=== PATIENT | female | born 1985 | race Caucasian/White ===

== ENCOUNTER 2021-01-25 07:02 | Inpatient (IN) | payer OTHER ==
[2021-01-25] MEDS ORDERED: Metoclopramide 10 MG/2 ML SDV IVPUSH ONE (07:29)
[2021-01-25] MEDS ORDERED: HYDROmorphone 0.5 MG/0.5 ML Syringe IVPUSH ONE ×5 (07:30→12:26)
[2021-01-25] MEDS ORDERED: Dextrose 5%-0.9% NaCl 1,000 ML IV SCH (07:30)
--- NOTE | 2021-01-25 07:34 | EDM.PDOC ---
ED HPI GENERAL MEDICAL PROBLEM - General Chief Complaint: Abdominal Pain Stated Complaint: VOMITING/BLOOD IN STOOL Time Seen by Provider: 01/25/21 07:26 Source of Information: Reports: Patient History Limitations: Reports: No Limitations - History of Present Illness INITIAL COMMENTS - FREE TEXT/NARRATIVE: 35-year-old female presents to the ED with complaints of diffuse abdominal pain starting with upper abdominal epigastric pain with nausea and vomiting of bilious emesis and then diffuse lower abdominal cramping pain with bloody diarrhea. She has been ill for the last 2 days. Yesterday she had 2 loose stools which were formed. Overnight cramping increased in intensity with development of bloody diarrhea she believes a lot of the stools just contain pure blood. Associated cramping and she did vomit just before coming into the ED again. Associated chills related to the pain no definitive fever. Of note her and her and children just came back from a camping trip in the [facility] in [place]. They were playing in the river water swimming etc. Drinking was from a well and has a charcoal filter on their camper where the well water was filtered before they drank it. One of the children is mildly symptomatic with abdominal cramps but no diarrhea. Onset: Gradual Onset Date: 01/23/21 (Started to feel little unwell in the evening of January 23.) Duration: Day(s):, Getting Worse, Waxing/Waning Location: Reports: Abdomen (Upper abdominal pain with nausea vomiting and then lower abdominal pain with diffuse cramping and bloody diarrhea) Quality: Reports: Ache, Sharp, Stabbing Severity: Moderate Improves with: Reports: None Worsens with: Reports: Eating (Or drinking.) Context: Reports: Other (Possible drinking contaminated water from [place] in the [facility]. ). Denies: Activity, Exercise, Lifting, Sick Contact, Trauma Associated Symptoms: Reports: Fever/Chills, Loss of Appetite, Malaise, Nausea/Vomiting, Weakness, Other (Bilious emesis bloody diarrhea.). Denies: Confusion, Chest Pain, Cough, cough w sputum, Diaphoresis, Headaches, Rash (Chills but no fever.), Seizure, Shortness of Breath, Syncope Treatments ROUGHENER: Reports: Other (see below) Abdomen Pain Score (Numeric/FACES): 8 - Related Data Allergies Allergy/AdvReac Type Severity Reaction Status Date / Time amoxicillin Allergy Mild Hives Verified 01/25/21 14:19 Home Meds: Home Meds . 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 Right fallopian tube was removed at that time.) Social & Family History - Family History Family Medical History: No Pertinent Family History - Tobacco Use Tobacco Use Status *Q: Never Tobacco User - Caffeine Use Caffeine Use: Reports: Coffee - Recreational Drug Use Recreational Drug Use: No - Living Situation & Occupation Living situation: Reports: ED ROS GENERAL - Review of Systems Review Of Systems: See Below Constitutional: Reports: Chills, Malaise, Weakness, Fatigue, Decreased Appetite. Denies: Fever HEENT: Reports: No Symptoms Respiratory: Reports: No Symptoms Cardiovascular: Reports: No Symptoms Endocrine: Reports: No Symptoms GI/Abdominal: Reports: Abdominal Pain (Diffuse lower abdominal cramping pain.), Diarrhea, Nausea (Bloody diarrhea.), Vomiting (Bilious emesis without blood). Denies: Hematemesis : Reports: No Symptoms Musculoskeletal: Reports: No Symptoms Skin: Reports: No Symptoms Neurological: Reports: No Symptoms Psychiatric: Reports: No Symptoms Hematologic/Lymphatic: Reports: No Symptoms Immunologic: Reports: No Symptoms ED EXAM, GI/ABD - Physical Exam Exam: See Below Exam Limited By: No Limitations General Appearance: Alert, WD/WN, Moderate Distress, Other (Temperature is 36.3. Heart rate 83 and sinus respiratory is 20 with pulse ox of 100 room air. BP 107/71) Eyes: Bilateral: Normal Appearance (Nose clear icterus no blepharal pallor.) Throat/Mouth: Normal Inspection, Normal Lips, Normal Oropharynx, Other Head: Atraumatic (Tongue is mildly dry and coated.), Normocephalic Neck: Normal Inspection, Supple, Non-Tender, Full Range of Motion. No: Lymphadenopathy (L), Lymphadenopathy (R) Respiratory/Chest: No Respiratory Distress, Lungs Clear, Normal Breath Sounds, No Accessory Muscle Use, Chest Non-Tender Cardiovascular: Normal Peripheral Pulses, Regular Rate, Rhythm, No Edema, No Gallop, No Murmur, No Rub GI/Abdominal Exam: Soft, Tender, Abnormal Bowel Sounds (Increased bowel sounds all 4 quadrants.). No: Guarding (Mild tenderness left lower quadrant and suprapubically.), Rigid, Rebound Back Exam: Normal Inspection. No: CVA Tenderness (L), CVA Tenderness (R) Extremities: Normal Inspection, Normal Range of Motion, Non-Tender, No Pedal Edema Neurological: Alert, Oriented, CN II-XII Intact, Normal Cognition, No Motor/Sensory Deficits Psychiatric: Anxious, Other (In a good deal of discomfort.) Skin Exam: Warm, Dry, Intact, Normal Color, No Rash Course - Vital Signs Last Recorded V/S: Last Vital Signs Temp 36.4 C 01/25/21 17:01 Pulse 80 01/25/21 17:01 Resp 18 01/25/21 18:40 BP 103/78 01/25/21 18:40 Pulse Ox 95 01/25/21 17:01 - Orders/Labs/Meds Orders: Active Orders 24 hr Category Date Time Status FECAL LACTOFERRIN [MREF] Stat Lab 01/25/21 08:30 Received OVA & PARASITES BY IMMUNOASSAY [MREF] Stat Lab 01/25/21 08:30 Received STOOL CULTURE/SHIGA TOXIN [MREF] Stat Lab 01/25/21 08:30 Received Dextrose 5%-Lactated Ringers 1,000 ml Med 01/25/21 10:30 Active IV ASDIRECTED Medication Orders Acetaminophen (Acetaminophen 325 Mg Tab) 650 mg PO Q4H PRN PRN Reason: Pain (Mild 1-3)/fever Hydromorphone HCl (Hydromorphone 1 Mg/Ml Syringe) 1 mg IVPUSH Q1H PRN PRN Reason: Pain (severe 7-10) Last Admin: 01/25/21 18:42 Dose: 1 mg Documented by: Admin: 01/25/21 16:46 Dose: 1 mg Documented by: KAILA Dextrose/Lactated Ringer's (Dextrose 5%-Lactated Ringers) 1,000 mls @ 125 mls/hr IV ASDIRECTED [facility] Last Admin: 01/25/21 10:33 Dose: 125 mls/hr Documented by: FRANK Piperacillin Sod/Tazobactam (Sod 4.5 gm/ Sodium Chloride) 100 mls @ 25 mls/hr IV Q8H [facility] Miscellaneous Information (Remove Replace Scopolamine Patch) 1 ea TRDERM Q72H [facility] Ondansetron HCl (Ondansetron 4 Mg/2 Ml Sdv) 4 mg IV Q6H PRN PRN Reason: Nausea/Vomiting Oxycodone HCl (Oxycodone 5 Mg Tab) 5 mg PO Q4H PRN PRN Reason: Pain (moderate 4-6) Last Admin: 01/25/21 15:48 Dose: 5 mg Documented by: ALAN Scopolamine (Scopolamine 1.5 Mg Transdermal Patch) 1.5 mg TRDERM Q72H [facility] Last Admin: 01/25/21 15:44 Dose: 1.5 mg Documented by: ALAN Labs: Laboratory Tests 01/25/21 01/25/21 01/25/21 Range/Units 07:15 07:15 07:15 WBC 13.12 H (3.98-10.04) K/mm3 RBC 4.18 (3.98-5.22) M/mm3 Hgb 13.6 (11.2-15.7) gm/dl Hct 40.3 (34.1-44.9) % MCV 96.4 H (79.4-94.8) fl MCH 32.5 H (25.6-32.2) pg MCHC 33.7 (32.2-35.5) g/dl RDW Std Deviation 46.6 H (36.4-46.3) fL Plt Count 274 (182-369) K/mm3 MPV 11.6 (9.4-12.3) fl Neut % (Auto) 83.7 H (34.0-71.1) % Lymph % (Auto) 8.5 L (19.3-51.7) % [place] % (Auto) 7.0 (4.7-12.5) % Eos % (Auto) 0.3 L (0.7-5.8) Baso % (Auto) 0.2 (0.1-1.2) % Neut # (Auto) 10.98 H (1.56-6.13) K/mm3 Lymph # (Auto) 1.12 L (1.18-3.74) K/mm3 [place] # (Auto) 0.92 H (0.24-0.36) K/mm3 Eos # (Auto) 0.04 (0.04-0.36) K/mm3 Baso # (Auto) 0.02 (0.01-0.08) K/mm3 Manual Slide Review Abnormal smear PT 10.1 (9.7-12.0) SECONDS INR 0.94 APTT 26.3 (21.7-31.4) SECONDS Sodium 138 (136-145) mEq/L Potassium 3.3 L (3.5-5.1) mEq/L Chloride 102 (98-107) mEq/L Carbon Dioxide 23 (21-32) mEq/L Anion Gap 16.3 H (5-15) BUN 7 (7-18) mg/dL Creatinine 0.7 (0.55-1.02) mg/dL Est Cr Clr Drug Dosing 112.69 mL/min Estimated GFR (MDRD) > 60 (>60) mL/min BUN/Creatinine Ratio 10.0 L (14-18) Glucose 123 H (70-99) mg/dL Calcium 9.2 (8.5-10.1) mg/dL Magnesium (1.8-2.4) mg/dL Total Bilirubin 0.3 (0.2-1.0) mg/dL AST 16 (15-37) U/L ALT 25 (14-59) U/L Alkaline Phosphatase 51 (46-116) U/L C-Reactive Protein 8.7 H* (<1.0) mg/dL Total Protein 7.6 (6.4-8.2) g/dl Albumin 3.3 L (3.4-5.0) g/dl Globulin 4.3 gm/dL Albumin/Globulin Ratio 0.8 L (1-2) Lipase 60 L (73-393) U/L HCG, Qual (NEGATIVE) HCG, Quant mIU/mL C.difficile [id number]-[id number] C. difficile Tox (PCR) SARS-CoV-2 RNA (KIM) (NEGATIVE) 01/25/21 01/25/21 01/25/21 Range/Units 07:15 07:15 07:15 WBC (3.98-10.04) K/mm3 RBC (3.98-5.22) M/mm3 Hgb (11.2-15.7) gm/dl Hct (34.1-44.9) % MCV (79.4-94.8) fl MCH (25.6-32.2) pg MCHC (32.2-35.5) g/dl RDW Std Deviation (36.4-46.3) fL Plt Count (182-369) K/mm3 MPV (9.4-12.3) fl Neut % (Auto) (34.0-71.1) % Lymph % (Auto) (19.3-51.7) % [place] % (Auto) (4.7-12.5) % Eos % (Auto) (0.7-5.8) Baso % (Auto) (0.1-1.2) % Neut # (Auto) (1.56-6.13) K/mm3 Lymph # (Auto) (1.18-3.74) K/mm3 [place] # (Auto) (0.24-0.36) K/mm3 Eos # (Auto) (0.04-0.36) K/mm3 Baso # (Auto) (0.01-0.08) K/mm3 Manual Slide Review PT (9.7-12.0) SECONDS INR APTT (21.7-31.4) SECONDS Sodium (136-145) mEq/L Potassium (3.5-5.1) mEq/L Chloride (98-107) mEq/L Carbon Dioxide (21-32) mEq/L Anion Gap (5-15) BUN (7-18) mg/dL Creatinine (0.55-1.02) mg/dL Est Cr Clr Drug Dosing mL/min Estimated GFR (MDRD) (>60) mL/min BUN/Creatinine Ratio (14-18) Glucose (70-99) mg/dL Calcium (8.5-10.1) mg/dL Magnesium 1.8 (1.8-2.4) mg/dL Total Bilirubin (0.2-1.0) mg/dL AST (15-37) U/L ALT (14-59) U/L Alkaline Phosphatase (46-116) U/L C-Reactive Protein (<1.0) mg/dL Total Protein (6.4-8.2) g/dl Albumin (3.4-5.0) g/dl Globulin gm/dL Albumin/Globulin Ratio (1-2) Lipase (73-393) U/L HCG, Qual Positive H (NEGATIVE) HCG, Quant 6881.0 mIU/mL C.difficile [id number]-[id number] C. difficile Tox (PCR) SARS-CoV-2 RNA (KIM) (NEGATIVE) 01/25/21 01/25/21 Range/Units 08:30 09:30 WBC (3.98-10.04) K/mm3 RBC (3.98-5.22) M/mm3 Hgb (11.2-15.7) gm/dl Hct (34.1-44.9) % MCV (79.4-94.8) fl MCH (25.6-32.2) pg MCHC (32.2-35.5) g/dl RDW Std Deviation (36.4-46.3) fL Plt Count (182-369) K/mm3 MPV (9.4-12.3) fl Neut % (Auto) (34.0-71.1) % Lymph % (Auto) (19.3-51.7) % [place] % (Auto) (4.7-12.5) % Eos % (Auto) (0.7-5.8) Baso % (Auto) (0.1-1.2) % Neut # (Auto) (1.56-6.13) K/mm3 Lymph # (Auto) (1.18-3.74) K/mm3 [place] # (Auto) (0.24-0.36) K/mm3 Eos # (Auto) (0.04-0.36) K/mm3 Baso # (Auto) (0.01-0.08) K/mm3 Manual Slide Review PT (9.7-12.0) SECONDS INR APTT (21.7-31.4) SECONDS Sodium (136-145) mEq/L Potassium (3.5-5.1) mEq/L Chloride (98-107) mEq/L Carbon Dioxide (21-32) mEq/L Anion Gap (5-15) BUN (7-18) mg/dL Creatinine (0.55-1.02) mg/dL Est Cr Clr Drug Dosing mL/min Estimated GFR (MDRD) (>60) mL/min BUN/Creatinine Ratio (14-18) Glucose (70-99) mg/dL Calcium (8.5-10.1) mg/dL Magnesium (1.8-2.4) mg/dL Total Bilirubin (0.2-1.0) mg/dL AST (15-37) U/L ALT (14-59) U/L Alkaline Phosphatase (46-116) U/L C-Reactive Protein (<1.0) mg/dL Total Protein (6.4-8.2) g/dl Albumin (3.4-5.0) g/dl Globulin gm/dL Albumin/Globulin Ratio (1-2) Lipase (73-393) U/L HCG, Qual (NEGATIVE) HCG, Quant mIU/mL C.difficile [id number] Presumptive negative C. difficile Tox (PCR) Negative SARS-CoV-2 RNA (KIM) Negative (NEGATIVE) Meds: Medications Generic Name Dose Route Start Last Admin Trade Name Freq PRN Reason Stop Dose Admin Acetaminophen 650 mg 01/25/21 12:54 Acetaminophen 325 Mg Tab PO Q4H PRN Pain (Mild 1-3)/fever Hydromorphone HCl 1 mg 01/25/21 16:34 01/25/21 18:42 Hydromorphone 1 Mg/Ml Syringe IVPUSH 1 mg Q1H PRN Administration Pain (severe 7-10) Dextrose/Lactated Ringer's 1,000 mls @ 125 mls/hr 01/25/21 10:30 01/25/21 10:33 Dextrose 5%-Lactated Ringers IV 125 mls/hr ASDIRECTED ELIANA Administration Piperacillin Sod/Tazobactam 100 mls @ 25 mls/hr 01/25/21 21:00 Sod 4.5 gm/ Sodium Chloride IV Q8H [facility] Miscellaneous Information 1 ea 01/28/21 13:00 Remove Replace Scopolamine Patch TRDERM Q72H [facility] Ondansetron HCl 4 mg 01/25/21 12:54 Ondansetron 4 Mg/2 Ml Sdv IV Q6H PRN Nausea/Vomiting Oxycodone HCl 5 mg 01/25/21 15:34 01/25/21 15:48 Oxycodone 5 Mg Tab PO 5 mg Q4H PRN Administration Pain (moderate 4-6) Scopolamine 1.5 mg 01/25/21 13:00 01/25/21 15:44 Scopolamine 1.5 Mg Transdermal Patch TRDERM 1.5 mg Q72H ELIANA Administration Discontinued Medications Generic Name Dose Route Start Last Admin Trade Name Freq PRN Reason Stop Dose Admin Hydromorphone HCl 0.5 mg 01/25/21 07:30 01/25/21 07:41 Hydromorphone 0.5 Mg/0.5 Ml Syringe IVPUSH 01/25/21 07:31 0.5 mg ONETIME ONE Administration Hydromorphone HCl 0.5 mg 01/25/21 08:31 01/25/21 08:30 Hydromorphone 0.5 Mg/0.5 Ml Syringe IVPUSH 01/25/21 08:32 0.5 mg ONETIME ONE Administration Hydromorphone HCl 0.5 mg 01/25/21 09:27 01/25/21 09:30 Hydromorphone 0.5 Mg/0.5 Ml Syringe IVPUSH 01/25/21 09:28 0.5 mg ONETIME ONE Administration Hydromorphone HCl 0.5 mg 01/25/21 10:21 01/25/21 10:30 Hydromorphone 0.5 Mg/0.5 Ml Syringe IVPUSH 01/25/21 10:22 0.5 mg ONETIME ONE Administration Hydromorphone HCl 0.5 mg 01/25/21 12:26 01/25/21 12:33 Hydromorphone 0.5 Mg/0.5 Ml Syringe IVPUSH 01/25/21 12:27 0.5 mg ONETIME ONE Administration Hydromorphone HCl 0.5 mg 01/25/21 12:54 01/25/21 13:52 Hydromorphone 0.5 Mg/0.5 Ml Syringe IVPUSH 0.5 mg Q2H PRN Administration Pain (severe 7-10) Hydromorphone HCl 1 mg 01/25/21 15:34 Hydromorphone 1 Mg/Ml Syringe IVPUSH Q2H PRN Pain (severe 7-10) Dextrose/Sodium Chloride 1,000 mls @ 999 mls/hr 01/25/21 07:30 01/25/21 07:43 Dextrose 5%-Normal Saline IV 999 mls/hr ASDIRECTED ELIANA Administration Metronidazole 500 mg/ Premix 100 mls @ 100 mls/hr 01/25/21 08:25 01/25/21 08:42 IV 01/25/21 09:24 Not Given ONETIME ONE Azithromycin 500 mg/ Sodium 250 mls @ 250 mls/hr 01/25/21 09:28 01/25/21 09:41 Chloride IV 01/25/21 10:27 250 mls/hr ONETIME ONE Administration Piperacillin Sod/Tazobactam 100 mls @ 200 mls/hr 01/25/21 13:00 01/25/21 13:55 Sod 4.5 gm/ Sodium Chloride IV 01/25/21 13:29 200 mls/hr ONETIME ONE Administration Magnesium Sulfate 2 gm/ Premix 50 mls @ 25 mls/hr 01/25/21 13:30 01/25/21 14:31 IV 01/25/21 15:29 25 mls/hr ONETIME ONE Administration Potassium Chloride 10 meq/ 100 mls @ 100 mls/hr 01/25/21 13:30 01/25/21 18:38 Premix IV 01/25/21 17:29 100 mls/hr Q1H ELIANA Administration Loperamide HCl 2 mg 01/25/21 12:26 01/25/21 12:31 Loperamide 2 Mg Cap PO 01/25/21 12:27 2 mg ONETIME ONE Administration Metoclopramide HCl 7.5 mg 01/25/21 07:29 01/25/21 07:39 Metoclopramide 10 Mg/2 Ml Sdv IVPUSH 01/25/21 07:30 7.5 mg ONETIME ONE Administration Oxycodone HCl 10 mg 01/25/21 12:54 Oxycodone 5 Mg Tab PO Q4H PRN Pain (moderate 4-6) - Radiology Interpretation Free Text/Narrative:: 35-year-old female presents to the ED for evaluation of gradual gastrointestinal symptoms with nausea and vomiting starting yesterday and nausea and the night before. Had 2 diarrhea stools yesterday without blood. Overnight developed increased diffuse cramping pain with yas blood diarrhea x4. Of note is her and her and children where camping in the [facility] in [place]. Swimming in the river water drinking well water and bottled water. Clinically she has developed dysentery of either bacterial or parasitic source. 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 Stool to be collected for culture and sensitivity and O&P. Routine labs to be collected. IV will be D5 normal saline at open. Given Reglan 7.5 mg IV for nausea relief and Dilaudid 0.5 mg for pain relief. - Re-Assessments/Exams Free Text/Narrative Re-Assessment/Exam: 01/25/21 08:30 White count is mildly elevated at 13.12 with 83.7% neutrophils. Hemoglobin is 13.6 with hematocrit of 40.3 and an MCV of 96.4. Platelet count is 274,000. PT is 10.1 with an INR of 0.94. PTT is 26.3. Sodium is 138 with potassium slightly low at 3.3. Chloride 102 with a bicarb of 23. Anion gap is 16.3. BUN is 7 with a creatinine of 0.7 and GFR greater than 60. Glucose is 123. Calcium is 9.2. Liver function is normal. C-reactive protein is elevated at 8.7 suggestive of underlying bacterial infection. Total protein is 7.6 with an albumin fraction of 3.3. Lipase is 60. Beta hCG is positive. This of course changes how we treat her. Flagyl is relatively contraindicated in the first semester as are quinolones. Patient is still having a good deal of lower abdominal cramping pain with bloody diarrhea small quantity. Constant feeling of need to defecate. Identification of with last known menstrual period reported to be around late November or early December. Patient is thus likely in very early stages of but had an ectopic in May last year. Will give second dose of Dilaudid 0.5 mg IV for pain relief. 01/25/21 09:28 patient made aware of diagnosis of . Quantitative hCG is pending. I reexamined her abdomen and it still feels benign with no signs of acute peritoneal irritation. She is still having significant suprapubic and right-sided abdominal pain. She has constant pressure in the rectum and some tenesmus. It appears safe to start her on azithromycin 500 mg IV every 12 hours till we gain control of dysentery. She will require admission to the hospital and will discuss her case with the hospitalist. 01/25/21 10:27 We have collected 2 samples of stool for ova and parasites and culture. These are send out tests at this time. Patient continues to have reportedly severe lower abdominal pain. Clinically has a benign abdomen on examination with no signs of surgical abdomen. However with the discovery of and history of ectopic in May 2020 I will proceed with transvaginal ultrasound of the pelvis to make sure there are no obvious signs of an ectopic . Patient currently rates her pain as 6 out of 10 after 1.5 mg of Dilaudid over the last 3 hours. We will repeat Dilaudid 0.5 mg at this time. Mild nausea. 01/25/21 11:01 Quantitative hCG is 6881 which would correlate with a 4-week . 01/25/21 11:47 transvaginal ultrasound completed. It reveals a single intrauterine gestational sac. There appears to be a small pole being seen. Small subchorionic hemorrhage is noted. Free fluid is noted within the pelvis which is mild in amount. Right ovary is unremarkable. Left ovary shows a small corpus luteum cyst measuring 2.7 cm. is dated at 5 weeks and 4 days. Fetus is too early in age to detect a heart rate. Patient and her were advised of the findings of the ultrasound. Patient currently is having very occasional twinges of sharp stabbing pain in the pelvis but finally pain control seems to have met with some degree of success. The Dilaudid likely has also slowed down colon motility and lessened her diarrhea. 01/25/21 12:02 Case discussed with on-call hospitalist and the patient will be admitted to the med surgery floor as an inpatient until he gain control of suspect bacterial infection causing her dysentery. Less likely would be parasitic infection with Giardia lamblia. 1 stool specimens have been collected for culture and 1 for O&P. 01/25/21 12:28 she is once again having lower abdominal pain. Will repeat Dilaudid 0.5 mg IV. We will also start her on loperamide 2 mg p.o. 01/25/21 13:40: Patient will be admitted shortly to med surgery floor. Departure - Departure Time of Disposition: 13:40 Disposition: Admitted As Inpatient 66 Condition: Fair Clinical Impression: Dysentery, Bacterial enteritis, unspecified, First trimester Abdominal pain Qualifiers: Abdominal location: lower abdomen, unspecified Qualified Code(s): R10.30 - Lower abdominal pain, unspecified - Discharge Information *PRESCRIPTION DRUG MONITORING PROGRAM REVIEWED*: Not Applicable *COPY OF PRESCRIPTION DRUG MONITORING REPORT IN PATIENT JU: Not Applicable Sepsis Event Note (ED) - Evaluation Sepsis Screening Result: No Definite Risk - My Orders Last 24 Hours: My Active Orders 01/25/21 08:30 FECAL LACTOFERRIN [MREF] Stat OVA & PARASITES BY IMMUNOASSAY [MREF] Stat STOOL CULTURE/SHIGA TOXIN [MREF] Stat 01/25/21 10:30 Dextrose 5%-Lactated Ringers 1,000 ml IV ASDIRECTED - Assessment/Plan Last 24 Hours: My Active Orders 01/25/21 08:30 FECAL LACTOFERRIN [MREF] Stat OVA & PARASITES BY IMMUNOASSAY [MREF] Stat STOOL CULTURE/SHIGA TOXIN [MREF] Stat 01/25/21 10:30 Dextrose 5%-Lactated Ringers 1,000 ml IV ASDIRECTED
[2021-01-25] MEDS ORDERED: metroNIDAZOLE/Normal Saline 500 MG in Premix Bag 1 BAG IV ONE (08:25)
[2021-01-25] MEDS ORDERED: Azithromycin 500 MG in Sodium Chloride 0.9% 250 ML IV ONE (09:28)
[2021-01-25] MEDS: Dextrose 5%-Lactated Ringers 1,000 ML IV SCH (10:33)
--- NOTE | 2021-01-25 11:40 | US ---
First trimester obstetrical ultrasound: Multiple real-time images were obtained transvaginally. Comparison: No previous study for current . Dates: Current ultrasound: DUARTE is 09/23/21, gestational age 5 weeks 4 days Single intrauterine gestational sac is seen. There appears to be a small pole being seen. Small subchorionic hemorrhage is noted. Free fluid is noted within the pelvis which is mild in amount. Right ovary is unremarkable. Left ovary shows a small corpus luteum cyst measuring up to 2.7 cm. Measurements: Mean sac diameter: 0.86 cm - 5 weeks 4 days [place]-rump length: 0.10 cm - out of range Heart rate: Fetus is too early in age to detect heart rate. Impression: 1. Single intrauterine gestation. Dates as noted above. 2. Small subchorionic hemorrhage. Mild free fluid is seen within the pelvis. 3. Other findings as noted above. Diagnostic code #3
[2021-01-25] MEDS ORDERED: Loperamide 2 MG Cap PO ONE (12:26)
--- NOTE | 2021-01-25 12:53 | PCM.HP.2 ---
<John Pruett - Last Filed: 01/25/21 13:50> H&P History of Present Illness - General Date of Service: 01/25/21 Admit Problem/Dx: Admission Diagnosis/Problem Admission Diagnosis/Problem Dysentery Source of Information: Patient, Old Records, Provider, RN, RN Notes Reviewed, Significant Other History Limitations: Reports: No Limitations - History of Present Illness Initial Comments - Free Text/Narative: This is a 35-year-old female who presents to ED on 01-25-2021 with diffuse abdominal pain, nausea, bilious emesis, and bloody diarrhea. She reports she has been ill for the past 2 days. She reports she started having watery diarrhea and mild abdominal pain which worsened and became cramping in nature. Her stool eventually became pure blood. She reports she has been nauseous and essentially dry heaving at this point. Reports chills but no known fever. Patient states they were at a family reunion in the [facility] [place]. She states family was playing in the local river. Their camper was hooked up to a well in the campground with a charcoal filter installed. She reports there were potluck meals but no known questionable food. She reports a child with mild but similar symptoms and her [id number] who is developing similar symptoms currently. In the ED temperature was 36.3 Celsius. Pulse 83. Respirations 20. Blood pressure 107/71. Pulse ox 100% on room air. Labs are obtained showing a leukocytosis of 13.12. Hemoglobin of 13.6. Hematocrit 40.3. Platelet 274,000. Neutrophils are elevated 83.7%. INR is 0.94. aPTT is 26.3. Sodium is 138. Potassium 3.3. Chloride 102. Carbon dioxide 23. Anion gap is 16.3. BUN is 7. Creatinine 0.7. GFR greater than 60. Glucose 123. Calcium 9.2. Bilirubin 0.3. AST 16, ALT 25, alkaline phosphatase 51. CRP is 8.7. Albumin 3.3. Lipase is 60. hCG qualitative is positive. hCG quantitative is 6881, consistent with 5-week gestation. SARS-CoV-2 RNA is negative. Stool ova and parasite, stool culture/Shiga toxin, and stool fecal lactoferrin are collected. Obstetrics ultrasound is obtained showing a small intrauterine gestation with a mean sac diameter of 0.86-5 weeks and 4 days. There is also a small subchorionic hemorrhage with mild free fluid seen within the pelvis. Other findings are noted. She is given azithromycin 500 mg, Zofran, Reglan and IV push Dilaudid for pain. She is given a 1 L D5LR bolus and started on D5 LR maintenance fluids. She is subsequently admitted to the medical floor for management and further work-up of her diarrhea and vomiting. She carries a history of ectopic in May 2020 with right salping ectomy and uterine fibroids. She is a full code. She does not have a PCP. Abdomen Pain Score (Numeric/FACES): 8 - Related Data Allergies/Adverse Reactions: Allergies Allergy/AdvReac Type Severity Reaction Status Date / Time amoxicillin Allergy Mild Hives Verified 01/25/21 14:19 Home Medications: Home Meds . [No Known Home Meds] 01/25/21 [History] Past Medical History HEENT History: Reports: None, Impaired Vision Cardiovascular History: Reports: None Respiratory History: Reports: None Gastrointestinal History: Reports: None Genitourinary History: Reports: None MANUFACTURING APPLICATIONS ENGINEER History: Reports: Ectopic Other OB/BYN History: polyps removed from uterus Musculoskeletal History: Reports: None Neurological History: Reports: None Psychiatric History: Reports: None Endocrine/Metabolic History: Reports: None Hematologic History: Reports: None Immunologic History: Reports: None Oncologic (Cancer) History: Reports: None Dermatologic History: Reports: None - Infectious Disease History Infectious Disease History: Reports: Chicken Pox - Past Surgical History Female Surgical History: Reports: Other (See Below) (Ectopic in May 2020. Right fallopian tube was removed at that time.) Social & Family History - Family History Family Medical History: No Pertinent Family History - Tobacco Use Tobacco Use Status *Q: Never Tobacco User - Caffeine Use Caffeine Use: Reports: Coffee - Recreational Drug Use Recreational Drug Use: No - Living Situation & Occupation Living situation: Reports: H&P Review of Systems - Review of Systems: Review Of Systems: See Below General: Reports: Chills, Malaise, Weakness, Fatigue, Decreased Appetite. Denies: Fever HEENT: Reports: No Symptoms. Denies: Contact Lenses, Headaches, Sore Throat Pulmonary: Reports: No Symptoms. Denies: Shortness of Breath, Wheezing, Pleuritic Chest Pain, Cough, Sputum Cardiovascular: Reports: No Symptoms. Denies: Chest Pain, Palpitations, Dyspnea on Exertion, Edema, Lightheadedness Gastrointestinal: Reports: Abdominal Pain (LLQ and suprapubic>RLQ>upper quadrants ), Bloody Stool, Diarrhea, Decreased Appetite, Mucous in Stool, Nausea, Vomiting (Bilious although has been dry heaving mostly now). Denies: Black Stool, Constipation, Distension, Hematemesis Genitourinary: Reports: No Symptoms. Denies: Dysuria, Frequency, Burning, Urgency, Incontinence, Retention Musculoskeletal: Reports: No Symptoms Skin: Reports: No Symptoms. Denies: Cyanosis Psychiatric: Reports: No Symptoms. Denies: Confusion Neurological: Reports: Weakness. Denies: Confusion, Dizziness, Headache, Numbness, Pre-Existing Deficit, Syncope, Tingling, Trouble Speaking, Difficulty Walking, Gait Disturbance Hematologic/Lymphatic: Reports: No Symptoms Immunologic: Reports: No Symptoms Exam - Exam Exam: See Below - Vital Signs Vital Signs: Last Vital Signs Temp 97.3 F 01/25/21 07:16 Pulse 83 01/25/21 07:16 Resp 20 01/25/21 07:16 BP 107/71 01/25/21 07:16 Pulse Ox 100 01/25/21 07:16 Weight: 140 lb 4.8 oz - Exam Quality Assessment: No: Supplemental Oxygen, Urinary Catheter, DVT Prophylaxis General: Alert, Oriented, Cooperative, Mild Distress (Looks uncomfortable ), Sedated (mildly at times but alert when discussing things ) HEENT: Conjunctiva Clear, EACs Clear, Mucosa Moist & [place], Posterior Pharynx Clear Neck: Supple, Trachea Midline Lungs: Clear to Auscultation, Normal Respiratory Effort Cardiovascular: Regular Rate, Regular Rhythm GI/Abdominal Exam: Soft, No Distention, Tender (Lower quadrants> upper quadrants), Abnormal Bowel Sounds (Hyperactive ). No: Guarding, Rigid, Rebound (Female) Exam: Deferred Rectal (Female) Exam: Deferred Extremities: Normal Inspection, Normal Range of Motion, Non-Tender, No Pedal Edema, Normal Capillary Refill Peripheral Pulses: 3+: Radial (L), Radial (R), Dorsalis Pedis (L), Dorsalis Pedis (R) Skin: Warm, Dry, Intact Neurological: Cranial Nerves Intact (Grossly ) Neuro Extensive - Mental Status: Alert, Oriented x3, Normal Mood/Affect - Patient Data Lab Results Last 24 hrs: Laboratory Results - last 24 hr 01/25/21 01/25/21 01/25/21 Range/Units 07:15 07:15 07:15 WBC 13.12 H (3.98-10.04) K/mm3 RBC 4.18 (3.98-5.22) M/mm3 Hgb 13.6 (11.2-15.7) gm/dl Hct 40.3 (34.1-44.9) % MCV 96.4 H (79.4-94.8) fl MCH 32.5 H (25.6-32.2) pg MCHC 33.7 (32.2-35.5) g/dl RDW Std Deviation 46.6 H (36.4-46.3) fL Plt Count 274 (182-369) K/mm3 MPV 11.6 (9.4-12.3) fl Neut % (Auto) 83.7 H (34.0-71.1) % Lymph % (Auto) 8.5 L (19.3-51.7) % [place] % (Auto) 7.0 (4.7-12.5) % Eos % (Auto) 0.3 L (0.7-5.8) Baso % (Auto) 0.2 (0.1-1.2) % Neut # (Auto) 10.98 H (1.56-6.13) K/mm3 Lymph # (Auto) 1.12 L (1.18-3.74) K/mm3 [place] # (Auto) 0.92 H (0.24-0.36) K/mm3 Eos # (Auto) 0.04 (0.04-0.36) K/mm3 Baso # (Auto) 0.02 (0.01-0.08) K/mm3 Manual Slide Review Abnormal smear PT 10.1 (9.7-12.0) SECONDS INR 0.94 APTT 26.3 (21.7-31.4) SECONDS Sodium 138 (136-145) mEq/L Potassium 3.3 L (3.5-5.1) mEq/L Chloride 102 (98-107) mEq/L Carbon Dioxide 23 (21-32) mEq/L Anion Gap 16.3 H (5-15) BUN 7 (7-18) mg/dL Creatinine 0.7 (0.55-1.02) mg/dL Est Cr Clr Drug Dosing 112.69 mL/min Estimated GFR (MDRD) > 60 (>60) mL/min BUN/Creatinine Ratio 10.0 L (14-18) Glucose 123 H (70-99) mg/dL Calcium 9.2 (8.5-10.1) mg/dL Total Bilirubin 0.3 (0.2-1.0) mg/dL AST 16 (15-37) U/L ALT 25 (14-59) U/L Alkaline Phosphatase 51 (46-116) U/L C-Reactive Protein 8.7 H* (<1.0) mg/dL Total Protein 7.6 (6.4-8.2) g/dl Albumin 3.3 L (3.4-5.0) g/dl Globulin 4.3 gm/dL Albumin/Globulin Ratio 0.8 L (1-2) Lipase 60 L (73-393) U/L HCG, Qual (NEGATIVE) HCG, Quant mIU/mL SARS-CoV-2 RNA (KIM) (NEGATIVE) 01/25/21 01/25/21 01/25/21 Range/Units 07:15 07:15 09:30 WBC (3.98-10.04) K/mm3 RBC (3.98-5.22) M/mm3 Hgb (11.2-15.7) gm/dl Hct (34.1-44.9) % MCV (79.4-94.8) fl MCH (25.6-32.2) pg MCHC (32.2-35.5) g/dl RDW Std Deviation (36.4-46.3) fL Plt Count (182-369) K/mm3 MPV (9.4-12.3) fl Neut % (Auto) (34.0-71.1) % Lymph % (Auto) (19.3-51.7) % [place] % (Auto) (4.7-12.5) % Eos % (Auto) (0.7-5.8) Baso % (Auto) (0.1-1.2) % Neut # (Auto) (1.56-6.13) K/mm3 Lymph # (Auto) (1.18-3.74) K/mm3 [place] # (Auto) (0.24-0.36) K/mm3 Eos # (Auto) (0.04-0.36) K/mm3 Baso # (Auto) (0.01-0.08) K/mm3 Manual Slide Review PT (9.7-12.0) SECONDS INR APTT (21.7-31.4) SECONDS Sodium (136-145) mEq/L Potassium (3.5-5.1) mEq/L Chloride (98-107) mEq/L Carbon Dioxide (21-32) mEq/L Anion Gap (5-15) BUN (7-18) mg/dL Creatinine (0.55-1.02) mg/dL Est Cr Clr Drug Dosing mL/min Estimated GFR (MDRD) (>60) mL/min BUN/Creatinine Ratio (14-18) Glucose (70-99) mg/dL Calcium (8.5-10.1) mg/dL Total Bilirubin (0.2-1.0) mg/dL AST (15-37) U/L ALT (14-59) U/L Alkaline Phosphatase (46-116) U/L C-Reactive Protein (<1.0) mg/dL Total Protein (6.4-8.2) g/dl Albumin (3.4-5.0) g/dl Globulin gm/dL Albumin/Globulin Ratio (1-2) Lipase (73-393) U/L HCG, Qual Positive H (NEGATIVE) HCG, Quant 6881.0 mIU/mL SARS-CoV-2 RNA (KIM) Negative (NEGATIVE) Result Diagrams: 01/25/21 07:15 01/25/21 07:15 Sepsis Event Note - Evaluation Sepsis Screening Result: No Definite Risk - Focused Exam Vital Signs: Vital Signs Temp Pulse Resp BP Pulse Ox 01/25/21 07:16 97.3 F 83 20 107/71 100 - Problem List (1) Nausea and vomiting SNOMED Code(s): 08984306 ICD Code: R11.2 - NAUSEA WITH VOMITING, UNSPECIFIED Status: Acute Priority: High Current Visit: Yes Qualifiers: Vomiting type: bilious vomiting Qualified Code(s): R11.14 - Bilious vomiting (2) Abdominal pain SNOMED Code(s): 75117427 ICD Code: R10.9 - UNSPECIFIED ABDOMINAL PAIN Status: Acute Priority: High Current Visit: Yes Qualifiers: Abdominal location: lower abdomen, unspecified Qualified Code(s): R10.30 - Lower abdominal pain, unspecified (3) Dysentery SNOMED Code(s): 82693858 ICD Code: A09 - INFECTIOUS GASTROENTERITIS AND COLITIS, UNSPECIFIED Status: Acute Priority: High Current Visit: Yes (4) First trimester SNOMED Code(s): 83890900 ICD Code: Z34.91 - ENCNTR FOR SUPRVSN OF NORMAL PREG, UNSP, FIRST TRIMESTER Status: Acute Priority: High Current Visit: Yes (5) H/O unilateral salpingectomy SNOMED Code(s): 876994738 ICD Code: Z90.79 - ACQUIRED ABSENCE OF OTHER GENITAL ORGAN(S) Status: Chronic Priority: Low Current Visit: No (6) History of uterine fibroid SNOMED Code(s): 793523784 ICD Code: Z86.018 - PERSONAL HISTORY OF OTHER BENIGN NEOPLASM Status: Chronic Priority: Low Current Visit: No (7) History of ectopic SNOMED Code(s): 264991596, 234382425 ICD Code: Z87.59 - PERSONAL HISTORY OF COMP OF PREG, CHLDBRTH AND THE PUERP Status: Chronic Priority: Medium Current Visit: No (8) Bacterial enteritis, unspecified SNOMED Code(s): 83947370 ICD Code: A04.9 - BACTERIAL INTESTINAL INFECTION, UNSPECIFIED Status: Acute Priority: High Current Visit: Yes (9) Subchorionic hemorrhage SNOMED Code(s): 133108860 ICD Code: O41.8X90 - OTH DISRD OF AMNIOTIC FLUID AND MEMBRNS, UNSP TRI, UNSP; O46.8X9 - OTHER ANTEPARTUM HEMORRHAGE, UNSPECIFIED TRIMESTER Status: Acute Priority: Medium Current Visit: Yes Qualifiers: Fetus number: single or unspecified fetus Trimester: first trimester Qualified Code(s): O41.8X10 - Other specified disorders of amniotic fluid and membranes, first trimester, not applicable or unspecified; O46.8X1 - Other antepartum hemorrhage, first trimester (10) Leukocytosis SNOMED Code(s): 356471132, 321449442 ICD Code: D72.829 - ELEVATED WHITE BLOOD CELL COUNT, UNSPECIFIED Status: Acute Priority: High Current Visit: Yes Qualifiers: Leukocytosis type: unspecified Qualified Code(s): D72.829 - Elevated white blood cell count, unspecified (11) Volume depletion SNOMED Code(s): 274036399 ICD Code: E86.9 - VOLUME DEPLETION, UNSPECIFIED Status: Acute Priority: High Current Visit: Yes Problem List Initiated/Reviewed/Updated: Yes Orders Last 24hrs: Active Orders 24 hr Category Date Time Status Admission Status [Patient Status] [ADT] Routine ADT 01/25/21 12:06 Active FECAL LACTOFERRIN [MREF] Stat Lab 01/25/21 08:30 Received OVA & PARASITES BY IMMUNOASSAY [MREF] Stat Lab 01/25/21 08:30 Received STOOL CULTURE/SHIGA TOXIN [MREF] Stat Lab 01/25/21 08:30 Received Dextrose 5%-0.9% NaCl [Dextrose 5%-Normal Saline] 1,000 Med 01/25/21 07:30 Active ml IV ASDIRECTED Dextrose 5%-Lactated Ringers 1,000 ml Med 01/25/21 10:30 Active IV ASDIRECTED Medication Orders Dextrose/Sodium Chloride (Dextrose 5%-Normal Saline) 1,000 mls @ 999 mls/hr IV ASDIRECTED [facility] Last Admin: 01/25/21 07:43 Dose: 999 mls/hr Documented by: FRANK Dextrose/Lactated Ringer's (Dextrose 5%-Lactated Ringers) 1,000 mls @ 125 mls/hr IV ASDIRECTED [facility] Last Admin: 01/25/21 10:33 Dose: 125 mls/hr Documented by: FRANK Assessment/Plan Comment:: Assessment - Admission date - 01/25/2021 * 35-year-old female who presents with diffuse abdominal pain, nausea, bilious emesis, and bloody diarrhea * History of ctopic in May 2020 with right salpingectomy and uterine fibroids * Reports she has been ill for the past 2 days * Started having watery diarrhea and mild abdominal pain which worsened and became cramping in nature. Her stool eventually became pure blood. * She reports she has been nauseous and essentially dry heaving at this point * Chills but no known fever. * Just returned from a family reunion in the [facility] [place] in [place]. * Family was playing in the local river * Their camper was hooked up to a well in the campground with a charcoal filter installed * Reports there were potluck meals but no known questionable food. * Reports a child with mild but similar symptoms and her [id number] who is developing similar symptoms currently. * Labs are obtained: * WBC 13.12. * Hemoglobin of 13.6. * Hematocrit 40.3. * Platelet 274,000. * Neutrophils are elevated 83.7%. * INR is 0.94. * aPTT is 26.3. * Sodium is 138. * Potassium 3.3. * Chloride 102. * Carbon dioxide 23. * Anion gap is 16.3. * BUN is 7. Creatinine 0.7. GFR greater than 60. * Glucose 123. * Calcium 9.2. * Bilirubin 0.3. * AST 16, ALT 25, alkaline phosphatase 51. * CRP is 8.7. * Albumin 3.3. * Lipase is 60. * hCG qualitative is positive. hCG quantitative is 6881, consistent with 5- week gestation. * SARS-CoV-2 RNA is negative. * Stool ova and parasite, stool culture/Shiga toxin, and stool fecal lactoferrin are collected. * Obstetrics ultrasound: * Small intrauterine gestation with a mean sac diameter of 0.86-5 weeks and 4 days. * Small subchorionic hemorrhage with mild free fluid seen within the pelvis. * Other findings are noted. * She is given azithromycin 500 mg, Zofran, Regalin, and IV push Dilaudid for pain. * Given a 1 L D5LR bolus and started on D5 LR maintenance fluids. * Admitted to the medical floor for management and further work-up of her diarrhea and vomiting. PLAN: Nausea and vomiting Abdominal pain Dysentery Bacterial enteritis, unspecified Leukocytosis Volume depletion * IV fluids as ordered * Antiemetics as ordered * Pain medications as ordered * Clear liquid diet for now * Monitor labs * Zosyn Q8 HR (Ok'd with MANUFACTURING APPLICATIONS ENGINEER Dr. Arreguin) * Scopolamine patch (Ok'd with MANUFACTURING APPLICATIONS ENGINEER Dr. Arreguin) * Abdominal US (Discussed imaging with MANUFACTURING APPLICATIONS ENGINEER Dr. Arreguin and Dr. Gordon, Radiologist) * Check C-Diff * Enteric isolation * Stool culture/shiga toxin - obtained * Stool O&P - obtained * Blood cultures ordered * Check lactic acid First trimester H/O unilateral salpingectomy History of uterine fibroid History of ectopic Subchorionic hemorrhage * Case discussed with Dr. Arreguin, MANUFACTURING APPLICATIONS ENGINEER * Ensure medications appropriate for * Follow-up at 10 weeks * Avoid intercourse until follow-up with MANUFACTURING APPLICATIONS ENGINEER due to subchorionic hemorrhage on OB US Code status: Full Code PCP: None currently DVT prophylaxis: Not indicated Social: Patient resides with significant other on a farm near [place], [place] Disposition: Patient admitted to [facility] floor for management and further work- up of nausea, vomiting, and bloody diarrhea. Length of stay likely 3 to 4 days. - Mortality Measure Prognosis:: Good <Ayush Santos - Last Filed: 01/25/21 16:32> H&P History of Present Illness - General Admit Problem/Dx: Admission Diagnosis/Problem Admission Diagnosis/Problem Dysentery Exam - Vital Signs Vital Signs: Last Vital Signs Temp 98.4 F 01/25/21 13:40 Pulse 82 01/25/21 13:40 Resp 16 01/25/21 13:40 BP 100/50 L 01/25/21 14:26 Pulse Ox 99 01/25/21 13:40 - Patient Data Lab Results Last 24 hrs: Laboratory Results - last 24 hr 01/25/21 01/25/21 01/25/21 Range/Units 07:15 07:15 07:15 WBC 13.12 H (3.98-10.04) K/mm3 RBC 4.18 (3.98-5.22) M/mm3 Hgb 13.6 (11.2-15.7) gm/dl Hct 40.3 (34.1-44.9) % MCV 96.4 H (79.4-94.8) fl MCH 32.5 H (25.6-32.2) pg MCHC 33.7 (32.2-35.5) g/dl RDW Std Deviation 46.6 H (36.4-46.3) fL Plt Count 274 (182-369) K/mm3 MPV 11.6 (9.4-12.3) fl Neut % (Auto) 83.7 H (34.0-71.1) % Lymph % (Auto) 8.5 L (19.3-51.7) % [place] % (Auto) 7.0 (4.7-12.5) % Eos % (Auto) 0.3 L (0.7-5.8) Baso % (Auto) 0.2 (0.1-1.2) % Neut # (Auto) 10.98 H (1.56-6.13) K/mm3 Lymph # (Auto) 1.12 L (1.18-3.74) K/mm3 [place] # (Auto) 0.92 H (0.24-0.36) K/mm3 Eos # (Auto) 0.04 (0.04-0.36) K/mm3 Baso # (Auto) 0.02 (0.01-0.08) K/mm3 Manual Slide Review Abnormal smear PT 10.1 (9.7-12.0) SECONDS INR 0.94 APTT 26.3 (21.7-31.4) SECONDS Sodium 138 (136-145) mEq/L Potassium 3.3 L (3.5-5.1) mEq/L Chloride 102 (98-107) mEq/L Carbon Dioxide 23 (21-32) mEq/L Anion Gap 16.3 H (5-15) BUN 7 (7-18) mg/dL Creatinine 0.7 (0.55-1.02) mg/dL Est Cr Clr Drug Dosing 112.69 mL/min Estimated GFR (MDRD) > 60 (>60) mL/min BUN/Creatinine Ratio 10.0 L (14-18) Glucose 123 H (70-99) mg/dL Lactic Acid (0.4-2.0) mmol/L Calcium 9.2 (8.5-10.1) mg/dL Magnesium (1.8-2.4) mg/dL Total Bilirubin 0.3 (0.2-1.0) mg/dL AST 16 (15-37) U/L ALT 25 (14-59) U/L Alkaline Phosphatase 51 (46-116) U/L C-Reactive Protein 8.7 H* (<1.0) mg/dL Total Protein 7.6 (6.4-8.2) g/dl Albumin 3.3 L (3.4-5.0) g/dl Globulin 4.3 gm/dL Albumin/Globulin Ratio 0.8 L (1-2) Lipase 60 L (73-393) U/L HCG, Qual (NEGATIVE) HCG, Quant mIU/mL C.difficile 027-NAP1-B1 C. difficile Tox (PCR) SARS-CoV-2 RNA (KIM) (NEGATIVE) 01/25/21 01/25/21 01/25/21 Range/Units 07:15 07:15 07:15 WBC (3.98-10.04) K/mm3 RBC (3.98-5.22) M/mm3 Hgb (11.2-15.7) gm/dl Hct (34.1-44.9) % MCV (79.4-94.8) fl MCH (25.6-32.2) pg MCHC (32.2-35.5) g/dl RDW Std Deviation (36.4-46.3) fL Plt Count (182-369) K/mm3 MPV (9.4-12.3) fl Neut % (Auto) (34.0-71.1) % Lymph % (Auto) (19.3-51.7) % [place] % (Auto) (4.7-12.5) % Eos % (Auto) (0.7-5.8) Baso % (Auto) (0.1-1.2) % Neut # (Auto) (1.56-6.13) K/mm3 Lymph # (Auto) (1.18-3.74) K/mm3 [place] # (Auto) (0.24-0.36) K/mm3 Eos # (Auto) (0.04-0.36) K/mm3 Baso # (Auto) (0.01-0.08) K/mm3 Manual Slide Review PT (9.7-12.0) SECONDS INR APTT (21.7-31.4) SECONDS Sodium (136-145) mEq/L Potassium (3.5-5.1) mEq/L Chloride (98-107) mEq/L Carbon Dioxide (21-32) mEq/L Anion Gap (5-15) BUN (7-18) mg/dL Creatinine (0.55-1.02) mg/dL Est Cr Clr Drug Dosing mL/min Estimated GFR (MDRD) (>60) mL/min BUN/Creatinine Ratio (14-18) Glucose (70-99) mg/dL Lactic Acid (0.4-2.0) mmol/L Calcium (8.5-10.1) mg/dL Magnesium 1.8 (1.8-2.4) mg/dL Total Bilirubin (0.2-1.0) mg/dL AST (15-37) U/L ALT (14-59) U/L Alkaline Phosphatase (46-116) U/L C-Reactive Protein (<1.0) mg/dL Total Protein (6.4-8.2) g/dl Albumin (3.4-5.0) g/dl Globulin gm/dL Albumin/Globulin Ratio (1-2) Lipase (73-393) U/L HCG, Qual Positive H (NEGATIVE) HCG, Quant 6881.0 mIU/mL C.difficile 027-NAP1-B1 C. difficile Tox (PCR) SARS-CoV-2 RNA (KIM) (NEGATIVE) 01/25/21 01/25/21 01/25/21 Range/Units 08:30 09:30 13:21 WBC (3.98-10.04) K/mm3 RBC (3.98-5.22) M/mm3 Hgb (11.2-15.7) gm/dl Hct (34.1-44.9) % MCV (79.4-94.8) fl MCH (25.6-32.2) pg MCHC (32.2-35.5) g/dl RDW Std Deviation (36.4-46.3) fL Plt Count (182-369) K/mm3 MPV (9.4-12.3) fl Neut % (Auto) (34.0-71.1) % Lymph % (Auto) (19.3-51.7) % [place] % (Auto) (4.7-12.5) % Eos % (Auto) (0.7-5.8) Baso % (Auto) (0.1-1.2) % Neut # (Auto) (1.56-6.13) K/mm3 Lymph # (Auto) (1.18-3.74) K/mm3 [place] # (Auto) (0.24-0.36) K/mm3 Eos # (Auto) (0.04-0.36) K/mm3 Baso # (Auto) (0.01-0.08) K/mm3 Manual Slide Review PT (9.7-12.0) SECONDS INR APTT (21.7-31.4) SECONDS Sodium (136-145) mEq/L Potassium (3.5-5.1) mEq/L Chloride (98-107) mEq/L Carbon Dioxide (21-32) mEq/L Anion Gap (5-15) BUN (7-18) mg/dL Creatinine (0.55-1.02) mg/dL Est Cr Clr Drug Dosing mL/min Estimated GFR (MDRD) (>60) mL/min BUN/Creatinine Ratio (14-18) Glucose (70-99) mg/dL Lactic Acid 0.7 (0.4-2.0) mmol/L Calcium (8.5-10.1) mg/dL Magnesium (1.8-2.4) mg/dL Total Bilirubin (0.2-1.0) mg/dL AST (15-37) U/L ALT (14-59) U/L Alkaline Phosphatase (46-116) U/L C-Reactive Protein (<1.0) mg/dL Total Protein (6.4-8.2) g/dl Albumin (3.4-5.0) g/dl Globulin gm/dL Albumin/Globulin Ratio (1-2) Lipase (73-393) U/L HCG, Qual (NEGATIVE) HCG, Quant mIU/mL C.difficile 027-NAP1-B1 Presumptive negative C. difficile Tox (PCR) Negative SARS-CoV-2 RNA (KIM) Negative (NEGATIVE) Result Diagrams: 01/25/21 07:15 01/25/21 07:15 Sepsis Event Note - Focused Exam Vital Signs: Vital Signs Temp Temp Pulse Pulse Resp BP BP 01/25/21 14:26 100/50 L 01/25/21 13:40 98.4 F 82 16 96/47 L 01/25/21 07:16 97.3 F 83 20 107/71 Pulse Ox 01/25/21 14:26 01/25/21 13:40 99 01/25/21 07:16 100 Problem List Initiated/Reviewed/Updated: Yes Orders Last 24hrs: Active Orders 24 hr Category Date Time Status Admission Status [Patient Status] [ADT] Routine ADT 01/25/21 12:06 Active Height and Weight [RC] 06 Care 01/25/21 12:54 Active Intake and Output [RC] 04,16 Care 01/25/21 12:54 Active Notify Provider Consults [RC] ASDIRECTED Care 01/25/21 15:16 Active Nurse Communication: Isolation [RC] ASDIRECTED Care 01/25/21 12:54 Active Oxygen Therapy [RC] ASDIRECTED Care 01/25/21 12:54 Active Pulse Oximetry [RC] PRN Care 01/25/21 12:55 Active Up ad [place] [RC] Care 01/25/21 12:54 Active Vital Signs [RC] Q6HR Care 01/25/21 12:54 Active Consult to Physician [CONS] Routine Cons 01/25/21 15:15 Active NPO Now [Nothing per Oral Now Diet] [DIET] Diet 01/25/21 Dinner Active BLOOD CULTURE [MREF] Stat Lab 01/25/21 13:21 Received BLOOD CULTURE [MREF] Stat Lab 01/25/21 13:29 Received CBC WITH AUTO DIFF [HEME] AM Lab 01/26/21 05:11 Ordered CBC WITH AUTO DIFF [HEME] AM Lab 01/27/21 05:11 Ordered CBC WITH AUTO DIFF [HEME] AM Lab 01/28/21 05:11 Ordered CBC WITH AUTO DIFF [HEME] AM Lab 01/29/21 05:11 Ordered CMP [COMPREHENSIVE METABOLIC PN,CMP] [CHEM] AM Lab 01/26/21 05:11 Ordered CMP [COMPREHENSIVE METABOLIC PN,CMP] [CHEM] AM Lab 01/27/21 05:11 Ordered CMP [COMPREHENSIVE METABOLIC PN,CMP] [CHEM] AM Lab 01/28/21 05:11 Ordered CMP [COMPREHENSIVE METABOLIC PN,CMP] [CHEM] AM Lab 01/29/21 05:11 Ordered CRP [C-REACTIVE PROTEIN] [CHEM] AM Lab 01/26/21 05:11 Ordered CRP [C-REACTIVE PROTEIN] [CHEM] AM Lab 01/27/21 05:11 Ordered CRP [C-REACTIVE PROTEIN] [CHEM] AM Lab 01/28/21 05:11 Ordered CRP [C-REACTIVE PROTEIN] [CHEM] AM Lab 01/29/21 05:11 Ordered FECAL LACTOFERRIN [MREF] Stat Lab 01/25/21 08:30 Received MAGNESIUM [CHEM] AM Lab 01/26/21 05:11 Ordered MAGNESIUM [CHEM] AM Lab 01/27/21 05:11 Ordered MAGNESIUM [CHEM] AM Lab 01/28/21 05:11 Ordered MAGNESIUM [CHEM] AM Lab 01/29/21 05:11 Ordered OVA & PARASITES BY IMMUNOASSAY [MREF] Stat Lab 01/25/21 08:30 Received STOOL CULTURE/SHIGA TOXIN [MREF] Stat Lab 01/25/21 08:30 Received UA RFX WEN AND CULT IF INDIC [URIN] Routine Lab 01/25/21 15:27 Ordered Acetaminophen [TylenoL] Med 01/25/21 12:54 Active 650 mg PO Q4H PRN Dextrose 5%-Lactated Ringers 1,000 ml Med 01/25/21 10:30 Active IV ASDIRECTED HYDROmorphone [Dilaudid] Med 01/25/21 15:34 Active 1 mg IVPUSH Q2H PRN Ondansetron [Zofran] Med 01/25/21 12:54 Active 4 mg IV Q6H PRN Piperacillin/Tazobactam [Piperacil-Tazobact] 4.5 gm Med 01/25/21 21:00 Active Sodium Chloride 0.9% [Normal Saline] 100 ml IV Q8H Potassium Chloride [KCl in Water 10 MEQ/100 ML] 10 meq Med 01/25/21 13:30 Active Premix Bag 1 bag IV Q1H Remove Patch Med 01/28/21 13:00 Active 1 ea TRDERM Q72H Scopolamine [Transderm-Scop] Med 01/25/21 13:00 Active 1.5 mg TRDERM Q72H oxyCODONE Med 01/25/21 15:34 Active 5 mg PO Q4H PRN Isolation [COMM] Routine Oth 01/25/21 12:53 Ordered Resuscitation Status Routine Resus Stat 01/25/21 12:54 Ordered Medication Orders Acetaminophen (Acetaminophen 325 Mg Tab) 650 mg PO Q4H PRN PRN Reason: Pain (Mild 1-3)/fever Hydromorphone HCl (Hydromorphone 1 Mg/Ml Syringe) 1 mg IVPUSH Q2H PRN PRN Reason: Pain (severe 7-10) Dextrose/Lactated Ringer's (Dextrose 5%-Lactated Ringers) 1,000 mls @ 125 mls/hr IV ASDIRECTED ELIANA Last Admin: 01/25/21 10:33 Dose: 125 mls/hr Documented by: PRINCETCON Piperacillin Sod/Tazobactam (Sod 4.5 gm/ Sodium Chloride) 100 mls @ 25 mls/hr IV Q8H ELIANA Potassium Chloride 10 meq/ (Premix) 100 mls @ 100 mls/hr IV Q1H ELIANA Stop: 01/25/21 17:29 Last Admin: 01/25/21 15:40 Dose: 100 mls/hr Documented by: Infusion: 01/25/21 15:31 Dose: 100 mls/hr Documented by: Admin: 01/25/21 14:31 Dose: 100 mls/hr Documented by: ALAN Miscellaneous Information (Remove Replace Scopolamine Patch) 1 ea TRDERM Q72H ELIANA Ondansetron HCl (Ondansetron 4 Mg/2 Ml Sdv) 4 mg IV Q6H PRN PRN Reason: Nausea/Vomiting Oxycodone HCl (Oxycodone 5 Mg Tab) 5 mg PO Q4H PRN PRN Reason: Pain (moderate 4-6) Last Admin: 01/25/21 15:48 Dose: 5 mg Documented by: ALAN Scopolamine (Scopolamine 1.5 Mg Transdermal Patch) 1.5 mg TRDERM Q72H ELIANA Last Admin: 01/25/21 15:44 Dose: 1.5 mg Documented by: ALAN Assessment/Plan Comment:: Appreciate OBGYN consult re MRI Abdomen??; continue antibiotics; npo, MIVF, f/u Cx, repeat lactate in AM
[2021-01-25] MEDS ORDERED: HYDROmorphone 0.5 MG/0.5 ML Syringe IVPUSH PRN (12:54)
[2021-01-25] MEDS ORDERED: oxyCODONE 5 MG Tab PO PRN (12:54)
[2021-01-25] MEDS ORDERED: Ondansetron 4 MG/2 ML SDV IV PRN (12:54)
[2021-01-25] MEDS ORDERED: Piperacillin/Tazobactam 4.5 GM in Sodium Chloride 0.9% 100 ML IV ONE (13:00)
[2021-01-25] MEDS ORDERED: Magnesium Sulfate/Water 2 GM in Premix Bag 1 BAG IV ONE (13:30)
[2021-01-25] MEDS: Potassium Chloride 10 MEQ in Premix Bag 1 BAG IV SCH ×4 (14:31→18:38)
[2021-01-25] MEDS: Scopolamine 1.5 MG Transdermal Patch TRDERM SCH ×2 (14:53→15:44)
[2021-01-25] MEDS ORDERED: HYDROmorphone 1 MG/ML Syringe IVPUSH PRN (15:34)
[2021-01-25] MEDS: oxyCODONE 5 MG Tab PO PRN ×2 (15:48→20:09)
--- NOTE | 2021-01-25 15:59 | US ---
Abdominal ultrasound: Multiple real-time images of the abdomen were obtained. Comparison: Previous obstetrical ultrasound performed earlier on the same day. Liver shows no focal abnormality. Gallbladder contains no gallstones. No gallbladder wall thickening or biliary duct dilatation is seen. Right and left kidneys show no hydronephrosis or mass. Right kidney measures 11.6 cm in length and left kidney measures 11.9 cm length. Spleen size is normal. Abdominal aorta shows no discrete aneurysm. Very distal aorta is not optimally seen. Pancreas is within normal limits. Inferior vena cava is patent. Main portal vein shows normal hepatopedal flow. Impression: 1. No abnormality is identified on abdominal ultrasound exam. Diagnostic code #1
[2021-01-25] MEDS: HYDROmorphone 1 MG/ML Syringe IVPUSH PRN ×4 (16:46→22:40)
--- NOTE | 2021-01-25 17:25 | PCM.CONS ---
H&P History of Present Illness - General Date of Service: 01/25/21 Admit Problem/Dx: Admission Diagnosis/Problem Admission Diagnosis/Problem Dysentery Source of Information: Patient, Family - History of Present Illness Initial Comments - Free Text/Narative: 35 year old at 5 weeks by LMP presented with bloody diarrhea of presumably infectious origin subsequent to camping. Multiple family members ill. Has not established care yet. No bleeding vaginally. Having abdominal pain that she relates to cramping with GI symptoms. Does have history of ectopic, however intrauterine on ultrasound. Abdomen Pain Score (Numeric/FACES): 8 - Related Data Allergies/Adverse Reactions: Allergies Allergy/AdvReac Type Severity Reaction Status Date / Time amoxicillin Allergy Mild Hives Verified 01/25/21 14:19 Home Medications: Home Meds . [No Known Home Meds] 01/25/21 [History] Past Medical History HEENT History: Reports: Impaired Vision, Other (See Below) Other HEENT History: glasses at night when driving Cardiovascular History: Reports: None Respiratory History: Reports: None Gastrointestinal History: Reports: None Genitourinary History: Reports: None [employer] History: Reports: Ectopic Other OB/BYN History: polyps removed from uterus, miscarriage 10/2020 Musculoskeletal History: Reports: None Neurological History: Reports: None Psychiatric History: Reports: None Endocrine/Metabolic History: Reports: Other (See Below) Other Endocrine/Metabolic History: occasional low blood sugar Hematologic History: Reports: None Immunologic History: Reports: None Oncologic (Cancer) History: Reports: None Dermatologic History: Reports: None - Infectious Disease History Infectious Disease History: Reports: Chicken Pox, Shingles - Past Surgical History HEENT Surgical History: Reports: None Female Surgical History: Reports: Other (See Below) Social & Family History - Family History Family Medical History: No Pertinent Family History - Tobacco Use Tobacco Use Status *Q: Former Tobacco User Used Tobacco, but Quit: Yes Month/Year Tobacco Last Used: 2012 Second Hand Smoke Exposure: No - Caffeine Use Caffeine Use: Reports: Coffee, Tea - Recreational Drug Use Recreational Drug Use: No - Living Situation & Occupation Living situation: Reports: H&P Review of Systems - Review of Systems: Review Of Systems: See Below General: Reports: No Symptoms HEENT: Reports: No Symptoms Pulmonary: Reports: No Symptoms Cardiovascular: Reports: No Symptoms Gastrointestinal: Reports: No Symptoms Genitourinary: Reports: No Symptoms Musculoskeletal: Reports: No Symptoms Skin: Reports: No Symptoms Psychiatric: Reports: No Symptoms Neurological: Reports: No Symptoms Hematologic/Lymphatic: Reports: No Symptoms Immunologic: Reports: No Symptoms Exam - Exam Exam: See Below - Vital Signs Vital Signs: Last Vital Signs Temp 36.9 C 01/25/21 13:40 Pulse 82 01/25/21 13:40 Resp 16 01/25/21 13:40 BP 100/50 L 01/25/21 14:26 Pulse Ox 99 01/25/21 13:40 Weight: 64.229 kg - Exam General: Alert, Oriented, 4 HEENT: PERRLA, Hearing Intact, Mucosa Moist & [place], Nares Patent, Normal Nasal Septum, Posterior Pharynx Clear, Conjunctiva Clear, EOMI, EACs Clear, TMs Clear Neck: Supple, Trachea Midline, 2 Lungs: Clear to Auscultation, Normal Respiratory Effort Cardiovascular: Regular Rate, Regular Rhythm GI/Abdominal Exam: Normal Bowel Sounds, Soft, Non-Tender, No Organomegaly, No Distention, No Abnormal Bruit, No Mass, Pelvis Stable Rectal (Female) Exam: Normal Exam, Normal Rectal Tone Back Exam: Normal Inspection, Full Range of Motion, NT Extremities: Normal Inspection, Normal Range of Motion, Non-Tender, No Pedal Edema, Normal Capillary Refill Skin: Warm, Dry, Intact Neurological: Cranial Nerves Intact, Reflexes Equal Bilateral Neuro Extensive - Mental Status: Alert, Oriented x3, Normal Mood/Affect, Normal Cognition Neuro Extensive - Motor, Sensory, Reflexes: CN II-XII Intact, Normal Gait, Normal Reflexes Psychiatric: Alert, Normal Affect, Normal Mood - Patient Data Lab Results Last 24 hrs: Laboratory Results - last 24 hr 01/25/21 01/25/21 01/25/21 Range/Units 07:15 07:15 07:15 WBC 13.12 H (3.98-10.04) K/mm3 RBC 4.18 (3.98-5.22) M/mm3 Hgb 13.6 (11.2-15.7) gm/dl Hct 40.3 (34.1-44.9) % MCV 96.4 H (79.4-94.8) fl MCH 32.5 H (25.6-32.2) pg MCHC 33.7 (32.2-35.5) g/dl RDW Std Deviation 46.6 H (36.4-46.3) fL Plt Count 274 (182-369) K/mm3 MPV 11.6 (9.4-12.3) fl Neut % (Auto) 83.7 H (34.0-71.1) % Lymph % (Auto) 8.5 L (19.3-51.7) % [place] % (Auto) 7.0 (4.7-12.5) % Eos % (Auto) 0.3 L (0.7-5.8) Baso % (Auto) 0.2 (0.1-1.2) % Neut # (Auto) 10.98 H (1.56-6.13) K/mm3 Lymph # (Auto) 1.12 L (1.18-3.74) K/mm3 [place] # (Auto) 0.92 H (0.24-0.36) K/mm3 Eos # (Auto) 0.04 (0.04-0.36) K/mm3 Baso # (Auto) 0.02 (0.01-0.08) K/mm3 Manual Slide Review Abnormal smear PT 10.1 (9.7-12.0) SECONDS INR 0.94 APTT 26.3 (21.7-31.4) SECONDS Sodium 138 (136-145) mEq/L Potassium 3.3 L (3.5-5.1) mEq/L Chloride 102 (98-107) mEq/L Carbon Dioxide 23 (21-32) mEq/L Anion Gap 16.3 H (5-15) BUN 7 (7-18) mg/dL Creatinine 0.7 (0.55-1.02) mg/dL Est Cr Clr Drug Dosing 112.69 mL/min Estimated GFR (MDRD) > 60 (>60) mL/min BUN/Creatinine Ratio 10.0 L (14-18) Glucose 123 H (70-99) mg/dL Lactic Acid (0.4-2.0) mmol/L Calcium 9.2 (8.5-10.1) mg/dL Magnesium (1.8-2.4) mg/dL Total Bilirubin 0.3 (0.2-1.0) mg/dL AST 16 (15-37) U/L ALT 25 (14-59) U/L Alkaline Phosphatase 51 (46-116) U/L C-Reactive Protein 8.7 H* (<1.0) mg/dL Total Protein 7.6 (6.4-8.2) g/dl Albumin 3.3 L (3.4-5.0) g/dl Globulin 4.3 gm/dL Albumin/Globulin Ratio 0.8 L (1-2) Lipase 60 L (73-393) U/L HCG, Qual (NEGATIVE) HCG, Quant mIU/mL C.difficile [id number]-[id number] C. difficile Tox (PCR) SARS-CoV-2 RNA (KIM) (NEGATIVE) 01/25/21 01/25/21 01/25/21 Range/Units 07:15 07:15 07:15 WBC (3.98-10.04) K/mm3 RBC (3.98-5.22) M/mm3 Hgb (11.2-15.7) gm/dl Hct (34.1-44.9) % MCV (79.4-94.8) fl MCH (25.6-32.2) pg MCHC (32.2-35.5) g/dl RDW Std Deviation (36.4-46.3) fL Plt Count (182-369) K/mm3 MPV (9.4-12.3) fl Neut % (Auto) (34.0-71.1) % Lymph % (Auto) (19.3-51.7) % [place] % (Auto) (4.7-12.5) % Eos % (Auto) (0.7-5.8) Baso % (Auto) (0.1-1.2) % Neut # (Auto) (1.56-6.13) K/mm3 Lymph # (Auto) (1.18-3.74) K/mm3 [place] # (Auto) (0.24-0.36) K/mm3 Eos # (Auto) (0.04-0.36) K/mm3 Baso # (Auto) (0.01-0.08) K/mm3 Manual Slide Review PT (9.7-12.0) SECONDS INR APTT (21.7-31.4) SECONDS Sodium (136-145) mEq/L Potassium (3.5-5.1) mEq/L Chloride (98-107) mEq/L Carbon Dioxide (21-32) mEq/L Anion Gap (5-15) BUN (7-18) mg/dL Creatinine (0.55-1.02) mg/dL Est Cr Clr Drug Dosing mL/min Estimated GFR (MDRD) (>60) mL/min BUN/Creatinine Ratio (14-18) Glucose (70-99) mg/dL Lactic Acid (0.4-2.0) mmol/L Calcium (8.5-10.1) mg/dL Magnesium 1.8 (1.8-2.4) mg/dL Total Bilirubin (0.2-1.0) mg/dL AST (15-37) U/L ALT (14-59) U/L Alkaline Phosphatase (46-116) U/L C-Reactive Protein (<1.0) mg/dL Total Protein (6.4-8.2) g/dl Albumin (3.4-5.0) g/dl Globulin gm/dL Albumin/Globulin Ratio (1-2) Lipase (73-393) U/L HCG, Qual Positive H (NEGATIVE) HCG, Quant 6881.0 mIU/mL C.difficile [id number] C. difficile Tox (PCR) SARS-CoV-2 RNA (KIM) (NEGATIVE) 01/25/21 01/25/21 01/25/21 Range/Units 08:30 09:30 13:21 WBC (3.98-10.04) K/mm3 RBC (3.98-5.22) M/mm3 Hgb (11.2-15.7) gm/dl Hct (34.1-44.9) % MCV (79.4-94.8) fl MCH (25.6-32.2) pg MCHC (32.2-35.5) g/dl RDW Std Deviation (36.4-46.3) fL Plt Count (182-369) K/mm3 MPV (9.4-12.3) fl Neut % (Auto) (34.0-71.1) % Lymph % (Auto) (19.3-51.7) % [place] % (Auto) (4.7-12.5) % Eos % (Auto) (0.7-5.8) Baso % (Auto) (0.1-1.2) % Neut # (Auto) (1.56-6.13) K/mm3 Lymph # (Auto) (1.18-3.74) K/mm3 [place] # (Auto) (0.24-0.36) K/mm3 Eos # (Auto) (0.04-0.36) K/mm3 Baso # (Auto) (0.01-0.08) K/mm3 Manual Slide Review PT (9.7-12.0) SECONDS INR APTT (21.7-31.4) SECONDS Sodium (136-145) mEq/L Potassium (3.5-5.1) mEq/L Chloride (98-107) mEq/L Carbon Dioxide (21-32) mEq/L Anion Gap (5-15) BUN (7-18) mg/dL Creatinine (0.55-1.02) mg/dL Est Cr Clr Drug Dosing mL/min Estimated GFR (MDRD) (>60) mL/min BUN/Creatinine Ratio (14-18) Glucose (70-99) mg/dL Lactic Acid 0.7 (0.4-2.0) mmol/L Calcium (8.5-10.1) mg/dL Magnesium (1.8-2.4) mg/dL Total Bilirubin (0.2-1.0) mg/dL AST (15-37) U/L ALT (14-59) U/L Alkaline Phosphatase (46-116) U/L C-Reactive Protein (<1.0) mg/dL Total Protein (6.4-8.2) g/dl Albumin (3.4-5.0) g/dl Globulin gm/dL Albumin/Globulin Ratio (1-2) Lipase (73-393) U/L HCG, Qual (NEGATIVE) HCG, Quant mIU/mL C.difficile [id number] Presumptive negative C. difficile Tox (PCR) Negative SARS-CoV-2 RNA (KIM) Negative (NEGATIVE) Result Diagrams: 01/25/21 07:15 01/25/21 07:15 Sepsis Event Note - Evaluation Sepsis Screening Result: No Definite Risk - Focused Exam Vital Signs: Vital Signs Temp Temp Pulse Pulse Resp BP BP 01/25/21 14:26 100/50 L 01/25/21 13:40 36.9 C 82 16 96/47 L 08/04/21 07:16 36.3 C 83 20 107/71 Pulse Ox 01/25/21 14:26 01/25/21 13:40 99 01/25/21 07:16 100 Consult PN Assessment/Plan Problem List Initiated/Reviewed/Updated: Yes Plan: 5 week Discussed with family and patient too early to be certain of viability. Reassurance provided. Ultrasound in 10 days. Can call clinic upon discharge to set up if desires ([phone]) Please let me know if any questions or concerns.
[2021-01-25] MEDS: Piperacillin/Tazobactam 4.5 GM in Sodium Chloride 0.9% 100 ML IV SCH (20:13)
[2021-01-26] MEDS: HYDROmorphone 1 MG/ML Syringe IVPUSH PRN ×12 (00:46→22:19)
[2021-01-26] MEDS: oxyCODONE 5 MG Tab PO PRN (01:50)
[2021-01-26] MEDS: Dextrose 5%-Lactated Ringers 1,000 ML IV SCH ×3 (01:51→20:12)
[2021-01-26] MEDS: Piperacillin/Tazobactam 4.5 GM in Sodium Chloride 0.9% 100 ML IV SCH (05:04)
--- NOTE | 2021-01-26 07:29 | PCM.PN ---
- General Info Date of Service: 01/26/21 Admission Dx/Problem (Free Text): Admission Diagnosis/Problem Admission Diagnosis/Problem Dysentery Functional Status: Reports: Ambulating, Urinating. Denies: Pain Controlled (Pain remains quite severe although patient was receiving every hour Dilaudid and now she has been able to stretch it to every 2 hours.), Tolerating Diet (N.p.o.), New Symptoms - Review of Systems General: Reports: No Symptoms, Weakness, Fatigue, Malaise. Denies: Fever, Chills HEENT: Reports: No Symptoms. Denies: Headaches, Sore Throat Pulmonary: Reports: No Symptoms. Denies: Shortness of Breath, Cough, Sputum, Wheezing Cardiovascular: Reports: No Symptoms. Denies: Chest Pain, Palpitations, Dyspnea on Exertion, Lightheadedness Gastrointestinal: Reports: Abdominal Pain (Lower quadrants), Decreased Appetite, Diarrhea, Hematochezia, Nausea, Vomiting (Mostly dry heaving). Denies: Constipation Genitourinary: Reports: No Symptoms. Denies: Pain Musculoskeletal: Reports: No Symptoms Skin: Reports: No Symptoms. Denies: Cyanosis Neurological: Reports: No Symptoms. Denies: Confusion, Pre-Existing Deficit, Difficulty Walking, Gait Disturbance Psychiatric: Reports: No Symptoms - Patient Data Vitals - Most Recent: Last Vital Signs Temp 99.0 F 01/26/21 05:11 Pulse 79 01/26/21 05:11 Resp 16 01/26/21 05:11 BP 112/81 01/26/21 05:11 Pulse Ox 99 01/26/21 05:11 Weight - Most Recent: 143 lb I&O - Last 24 Hours: Intake & Output 01/25/21 01/26/21 01/26/21 22:59 06:59 14:59 Intake Total 225 1435 Output Total 300 Balance -75 1435 Lab Results Last 24 Hours: Laboratory Results - last 24 hr 01/25/21 01/25/21 01/25/21 Range/Units 07:15 07:15 07:15 WBC 13.12 H (3.98-10.04) K/mm3 RBC 4.18 (3.98-5.22) M/mm3 Hgb 13.6 (11.2-15.7) gm/dl Hct 40.3 (34.1-44.9) % MCV 96.4 H (79.4-94.8) fl MCH 32.5 H (25.6-32.2) pg MCHC 33.7 (32.2-35.5) g/dl RDW Std Deviation 46.6 H (36.4-46.3) fL Plt Count 274 (182-369) K/mm3 MPV 11.6 (9.4-12.3) fl Neut % (Auto) 83.7 H (34.0-71.1) % Lymph % (Auto) 8.5 L (19.3-51.7) % Perry % (Auto) 7.0 (4.7-12.5) % Eos % (Auto) 0.3 L (0.7-5.8) Baso % (Auto) 0.2 (0.1-1.2) % Neut # (Auto) 10.98 H (1.56-6.13) K/mm3 Lymph # (Auto) 1.12 L (1.18-3.74) K/mm3 Perry # (Auto) 0.92 H (0.24-0.36) K/mm3 Eos # (Auto) 0.04 (0.04-0.36) K/mm3 Baso # (Auto) 0.02 (0.01-0.08) K/mm3 Manual Slide Review Abnormal smear PT 10.1 (9.7-12.0) SECONDS INR 0.94 APTT 26.3 (21.7-31.4) SECONDS Sodium 138 (136-145) mEq/L Potassium 3.3 L (3.5-5.1) mEq/L Chloride 102 (98-107) mEq/L Carbon Dioxide 23 (21-32) mEq/L Anion Gap 16.3 H (5-15) BUN 7 (7-18) mg/dL Creatinine 0.7 (0.55-1.02) mg/dL Est Cr Clr Drug Dosing 112.69 mL/min Estimated GFR (MDRD) > 60 (>60) mL/min BUN/Creatinine Ratio 10.0 L (14-18) Glucose 123 H (70-99) mg/dL Lactic Acid (0.4-2.0) mmol/L Calcium 9.2 (8.5-10.1) mg/dL Magnesium (1.8-2.4) mg/dL Total Bilirubin 0.3 (0.2-1.0) mg/dL AST 16 (15-37) U/L ALT 25 (14-59) U/L Alkaline Phosphatase 51 (46-116) U/L C-Reactive Protein 8.7 H* (<1.0) mg/dL Total Protein 7.6 (6.4-8.2) g/dl Albumin 3.3 L (3.4-5.0) g/dl Globulin 4.3 gm/dL Albumin/Globulin Ratio 0.8 L (1-2) Lipase 60 L (73-393) U/L HCG, Qual (NEGATIVE) HCG, Quant mIU/mL Urine Color (Yellow) Urine Appearance (Clear) Urine pH (5.0-8.0) Ur Specific [place] (1.005-1.030) Urine Protein (Negative) Urine Glucose (UA) (Negative) Urine Ketones (Negative) Urine Occult Blood (Negative) Urine Nitrite (Negative) Urine Bilirubin (Negative) Urine Urobilinogen (0.2-1.0) Ur Leukocyte Esterase (Negative) C.difficile 027-NAP1-B1 C. difficile Tox (PCR) SARS-CoV-2 RNA (KIM) (NEGATIVE) 01/25/21 01/25/21 01/25/21 Range/Units 07:15 07:15 07:15 WBC (3.98-10.04) K/mm3 RBC (3.98-5.22) M/mm3 Hgb (11.2-15.7) gm/dl Hct (34.1-44.9) % MCV (79.4-94.8) fl MCH (25.6-32.2) pg MCHC (32.2-35.5) g/dl RDW Std Deviation (36.4-46.3) fL Plt Count (182-369) K/mm3 MPV (9.4-12.3) fl Neut % (Auto) (34.0-71.1) % Lymph % (Auto) (19.3-51.7) % Perry % (Auto) (4.7-12.5) % Eos % (Auto) (0.7-5.8) Baso % (Auto) (0.1-1.2) % Neut # (Auto) (1.56-6.13) K/mm3 Lymph # (Auto) (1.18-3.74) K/mm3 Perry # (Auto) (0.24-0.36) K/mm3 Eos # (Auto) (0.04-0.36) K/mm3 Baso # (Auto) (0.01-0.08) K/mm3 Manual Slide Review PT (9.7-12.0) SECONDS INR APTT (21.7-31.4) SECONDS Sodium (136-145) mEq/L Potassium (3.5-5.1) mEq/L Chloride (98-107) mEq/L Carbon Dioxide (21-32) mEq/L Anion Gap (5-15) BUN (7-18) mg/dL Creatinine (0.55-1.02) mg/dL Est Cr Clr Drug Dosing mL/min Estimated GFR (MDRD) (>60) mL/min BUN/Creatinine Ratio (14-18) Glucose (70-99) mg/dL Lactic Acid (0.4-2.0) mmol/L Calcium (8.5-10.1) mg/dL Magnesium 1.8 (1.8-2.4) mg/dL Total Bilirubin (0.2-1.0) mg/dL AST (15-37) U/L ALT (14-59) U/L Alkaline Phosphatase (46-116) U/L C-Reactive Protein (<1.0) mg/dL Total Protein (6.4-8.2) g/dl Albumin (3.4-5.0) g/dl Globulin gm/dL Albumin/Globulin Ratio (1-2) Lipase (73-393) U/L HCG, Qual Positive H (NEGATIVE) HCG, Quant 6881.0 mIU/mL Urine Color (Yellow) Urine Appearance (Clear) Urine pH (5.0-8.0) Ur Specific [place] (1.005-1.030) Urine Protein (Negative) Urine Glucose (UA) (Negative) Urine Ketones (Negative) Urine Occult Blood (Negative) Urine Nitrite (Negative) Urine Bilirubin (Negative) Urine Urobilinogen (0.2-1.0) Ur Leukocyte Esterase (Negative) C.difficile 027-NAP1-B1 C. difficile Tox (PCR) SARS-CoV-2 RNA (KIM) (NEGATIVE) 01/25/21 01/25/21 01/25/21 Range/Units 08:30 09:30 13:21 WBC (3.98-10.04) K/mm3 RBC (3.98-5.22) M/mm3 Hgb (11.2-15.7) gm/dl Hct (34.1-44.9) % MCV (79.4-94.8) fl MCH (25.6-32.2) pg MCHC (32.2-35.5) g/dl RDW Std Deviation (36.4-46.3) fL Plt Count (182-369) K/mm3 MPV (9.4-12.3) fl Neut % (Auto) (34.0-71.1) % Lymph % (Auto) (19.3-51.7) % Perry % (Auto) (4.7-12.5) % Eos % (Auto) (0.7-5.8) Baso % (Auto) (0.1-1.2) % Neut # (Auto) (1.56-6.13) K/mm3 Lymph # (Auto) (1.18-3.74) K/mm3 Perry # (Auto) (0.24-0.36) K/mm3 Eos # (Auto) (0.04-0.36) K/mm3 Baso # (Auto) (0.01-0.08) K/mm3 Manual Slide Review PT (9.7-12.0) SECONDS INR APTT (21.7-31.4) SECONDS Sodium (136-145) mEq/L Potassium (3.5-5.1) mEq/L Chloride (98-107) mEq/L Carbon Dioxide (21-32) mEq/L Anion Gap (5-15) BUN (7-18) mg/dL Creatinine (0.55-1.02) mg/dL Est Cr Clr Drug Dosing mL/min Estimated GFR (MDRD) (>60) mL/min BUN/Creatinine Ratio (14-18) Glucose (70-99) mg/dL Lactic Acid 0.7 (0.4-2.0) mmol/L Calcium (8.5-10.1) mg/dL Magnesium (1.8-2.4) mg/dL Total Bilirubin (0.2-1.0) mg/dL AST (15-37) U/L ALT (14-59) U/L Alkaline Phosphatase (46-116) U/L C-Reactive Protein (<1.0) mg/dL Total Protein (6.4-8.2) g/dl Albumin (3.4-5.0) g/dl Globulin gm/dL Albumin/Globulin Ratio (1-2) Lipase (73-393) U/L HCG, Qual (NEGATIVE) HCG, Quant mIU/mL Urine Color (Yellow) Urine Appearance (Clear) Urine pH (5.0-8.0) Ur Specific [place] (1.005-1.030) Urine Protein (Negative) Urine Glucose (UA) (Negative) Urine Ketones (Negative) Urine Occult Blood (Negative) Urine Nitrite (Negative) Urine Bilirubin (Negative) Urine Urobilinogen (0.2-1.0) Ur Leukocyte Esterase (Negative) C.difficile 027-NAP1-B1 Presumptive negative C. difficile Tox (PCR) Negative SARS-CoV-2 RNA (KIM) Negative (NEGATIVE) 01/25/21 01/26/21 01/26/21 Range/Units 19:57 06:00 06:00 WBC 20.63 H (3.98-10.04) K/mm3 RBC 3.82 L (3.98-5.22) M/mm3 Hgb 12.3 (11.2-15.7) gm/dl Hct 37.1 (34.1-44.9) % MCV 97.1 H (79.4-94.8) fl MCH 32.2 (25.6-32.2) pg MCHC 33.2 (32.2-35.5) g/dl RDW Std Deviation 46.9 H (36.4-46.3) fL Plt Count 235 (182-369) K/mm3 MPV 11.7 (9.4-12.3) fl Neut % (Auto) 83.3 H (34.0-71.1) % Lymph % (Auto) 5.0 L (19.3-51.7) % Perry % (Auto) 11.5 (4.7-12.5) % Eos % (Auto) 0 L (0.7-5.8) Baso % (Auto) 0.0 L (0.1-1.2) % Neut # (Auto) 17.15 H (1.56-6.13) K/mm3 Lymph # (Auto) 1.04 L (1.18-3.74) K/mm3 Perry # (Auto) 2.38 H (0.24-0.36) K/mm3 Eos # (Auto) 0.00 L (0.04-0.36) K/mm3 Baso # (Auto) 0.01 (0.01-0.08) K/mm3 Manual Slide Review Abnormal smear PT (9.7-12.0) SECONDS INR APTT (21.7-31.4) SECONDS Sodium 140 (136-145) mEq/L Potassium 3.8 (3.5-5.1) mEq/L Chloride 106 (98-107) mEq/L Carbon Dioxide 23 (21-32) mEq/L Anion Gap 14.8 (5-15) BUN 6 L (7-18) mg/dL Creatinine 0.7 (0.55-1.02) mg/dL Est Cr Clr Drug Dosing 113.16 mL/min Estimated GFR (MDRD) > 60 (>60) mL/min BUN/Creatinine Ratio 8.6 L (14-18) Glucose 179 H (70-99) mg/dL Lactic Acid (0.4-2.0) mmol/L Calcium 7.4 L D (8.5-10.1) mg/dL Magnesium 2.0 (1.8-2.4) mg/dL Total Bilirubin 0.2 (0.2-1.0) mg/dL AST 9 L (15-37) U/L ALT 14 (14-59) U/L Alkaline Phosphatase 44 L (46-116) U/L C-Reactive Protein 14.6 H* (<1.0) mg/dL Total Protein 5.6 L (6.4-8.2) g/dl Albumin 2.1 L (3.4-5.0) g/dl Globulin 3.5 gm/dL Albumin/Globulin Ratio 0.6 L (1-2) Lipase (73-393) U/L HCG, Qual (NEGATIVE) HCG, Quant mIU/mL Urine Color Yellow (Yellow) Urine Appearance Clear (Clear) Urine pH 6.0 (5.0-8.0) Ur Specific [place] > or = 1.030 (1.005-1.030) Urine Protein Negative (Negative) Urine Glucose (UA) Negative (Negative) Urine Ketones 3+ H (Negative) Urine Occult Blood Negative (Negative) Urine Nitrite Negative (Negative) Urine Bilirubin Negative (Negative) Urine Urobilinogen 0.2 (0.2-1.0) Ur Leukocyte Esterase Negative (Negative) C.difficile 027-NAP1-B1 C. difficile Tox (PCR) SARS-CoV-2 RNA (KIM) (NEGATIVE) Amandeep Results Last 24 Hours: Microbiology 01/25/21 08:30 Stool Lactoferrin - Final Stool / Feces Med Orders - Current: Current Medications Acetaminophen (Acetaminophen 325 Mg Tab) 650 mg PO Q4H PRN PRN Reason: Pain (Mild 1-3)/fever Hydromorphone HCl (Hydromorphone 1 Mg/Ml Syringe) 1 mg IVPUSH Q1H PRN PRN Reason: Pain (severe 7-10) Last Admin: 01/26/21 05:18 Dose: 1 mg Documented by: Dextrose/Lactated Ringer's (Dextrose 5%-Lactated Ringers) 1,000 mls @ 125 mls/hr IV ASDIRECTED [facility] Last Admin: 01/26/21 01:51 Dose: 125 mls/hr Documented by: Piperacillin Sod/Tazobactam (Sod 4.5 gm/ Sodium Chloride) 100 mls @ 25 mls/hr IV Q8H [facility] Last Admin: 01/26/21 05:04 Dose: 25 mls/hr Documented by: Miscellaneous Information (Remove Replace Scopolamine Patch) 1 ea TRDERM Q72H [facility] Ondansetron HCl (Ondansetron 4 Mg/2 Ml Sdv) 4 mg IV Q6H PRN PRN Reason: Nausea/Vomiting Oxycodone HCl (Oxycodone 5 Mg Tab) 5 mg PO Q4H PRN PRN Reason: Pain (moderate 4-6) Last Admin: 01/26/21 01:50 Dose: 5 mg Documented by: Scopolamine (Scopolamine 1.5 Mg Transdermal Patch) 1.5 mg TRDERM Q72H [facility] Last Admin: 01/25/21 15:44 Dose: 1.5 mg Documented by: Discontinued Medications Hydromorphone HCl (Hydromorphone 0.5 Mg/0.5 Ml Syringe) 0.5 mg IVPUSH ONETIME ONE Stop: 01/25/21 07:31 Last Admin: 01/25/21 07:41 Dose: 0.5 mg Documented by: Hydromorphone HCl (Hydromorphone 0.5 Mg/0.5 Ml Syringe) 0.5 mg IVPUSH ONETIME ONE Stop: 01/25/21 08:32 Last Admin: 01/25/21 08:30 Dose: 0.5 mg Documented by: Hydromorphone HCl (Hydromorphone 0.5 Mg/0.5 Ml Syringe) 0.5 mg IVPUSH ONETIME ONE Stop: 01/25/21 09:28 Last Admin: 01/25/21 09:30 Dose: 0.5 mg Documented by: Hydromorphone HCl (Hydromorphone 0.5 Mg/0.5 Ml Syringe) 0.5 mg IVPUSH ONETIME ONE Stop: 01/25/21 10:22 Last Admin: 01/25/21 10:30 Dose: 0.5 mg Documented by: Hydromorphone HCl (Hydromorphone 0.5 Mg/0.5 Ml Syringe) 0.5 mg IVPUSH ONETIME ONE Stop: 01/25/21 12:27 Last Admin: 01/25/21 12:33 Dose: 0.5 mg Documented by: Hydromorphone HCl (Hydromorphone 0.5 Mg/0.5 Ml Syringe) 0.5 mg IVPUSH Q2H PRN PRN Reason: Pain (severe 7-10) Last Admin: 01/25/21 13:52 Dose: 0.5 mg Documented by: Hydromorphone HCl (Hydromorphone 1 Mg/Ml Syringe) 1 mg IVPUSH Q2H PRN PRN Reason: Pain (severe 7-10) Dextrose/Sodium Chloride (Dextrose 5%-Normal Saline) 1,000 mls @ 999 mls/hr IV ASDIRECTED [facility] Last Admin: 01/25/21 07:43 Dose: 999 mls/hr Documented by: Metronidazole 500 mg/ Premix 100 mls @ 100 mls/hr IV ONETIME ONE Stop: 01/25/21 09:24 Last Admin: 01/25/21 08:42 Dose: Not Given Documented by: Azithromycin 500 mg/ Sodium (Chloride) 250 mls @ 250 mls/hr IV ONETIME ONE Stop: 01/25/21 10:27 Last Admin: 01/25/21 09:41 Dose: 250 mls/hr Documented by: Piperacillin Sod/Tazobactam (Sod 4.5 gm/ Sodium Chloride) 100 mls @ 200 mls/hr IV ONETIME ONE Stop: 01/25/21 13:29 Last Admin: 01/25/21 13:55 Dose: 200 mls/hr Documented by: Magnesium Sulfate 2 gm/ Premix 50 mls @ 25 mls/hr IV ONETIME ONE Stop: 01/25/21 15:29 Last Admin: 01/25/21 14:31 Dose: 25 mls/hr Documented by: Potassium Chloride 10 meq/ (Premix) 100 mls @ 100 mls/hr IV Q1H ELIANA Stop: 01/25/21 17:29 Last Admin: 01/25/21 18:38 Dose: 100 mls/hr Documented by: Loperamide HCl (Loperamide 2 Mg Cap) 2 mg PO ONETIME ONE Stop: 01/25/21 12:27 Last Admin: 01/25/21 12:31 Dose: 2 mg Documented by: Metoclopramide HCl (Metoclopramide 10 Mg/2 Ml Sdv) 7.5 mg IVPUSH ONETIME ONE Stop: 01/25/21 07:30 Last Admin: 01/25/21 07:39 Dose: 7.5 mg Documented by: Oxycodone HCl (Oxycodone 5 Mg Tab) 10 mg PO Q4H PRN PRN Reason: Pain (moderate 4-6) - Exam Quality Assessment: No: Supplemental Oxygen, Urine Catheter, DVT Prophylaxis (not indicated ) General: Alert, Oriented, Cooperative, Mild Distress (uncomfortable ) HEENT: Pupils Equal, Pupils Reactive, Mucous Membr. Moist/[place] Neck: Supple, Trachea Midline Lungs: Clear to Auscultation, Normal Respiratory Effort Cardiovascular: Regular Rate, Regular Rhythm GI/Abdominal Exam: Soft, No Distention, Tender (Lower quadrant - improved ), Abnormal Bowel Sounds (hypoactive ). No: Guarding, Rigid, Rebound (Female) Exam: Deferred Back Exam: Normal Inspection, Full Range of Motion Extremities: Normal Inspection, Normal Range of Motion, Non-Tender, No Pedal Edema, Normal Capillary Refill Peripheral Pulses: 3+: Radial (L), Radial (R), Dorsalis Pedis (L), Dorsalis Pedis (R) Skin: Warm, Dry, Intact Neurological: No New Focal Deficit Psy/Mental Status: Alert, Normal Affect, Normal Mood - Patient Data Lab Results Last 24 hrs: Laboratory Results - last 24 hr 01/25/21 01/25/21 01/25/21 Range/Units 07:15 07:15 07:15 WBC 13.12 H (3.98-10.04) K/mm3 RBC 4.18 (3.98-5.22) M/mm3 Hgb 13.6 (11.2-15.7) gm/dl Hct 40.3 (34.1-44.9) % MCV 96.4 H (79.4-94.8) fl MCH 32.5 H (25.6-32.2) pg MCHC 33.7 (32.2-35.5) g/dl RDW Std Deviation 46.6 H (36.4-46.3) fL Plt Count 274 (182-369) K/mm3 MPV 11.6 (9.4-12.3) fl Neut % (Auto) 83.7 H (34.0-71.1) % Lymph % (Auto) 8.5 L (19.3-51.7) % Perry % (Auto) 7.0 (4.7-12.5) % Eos % (Auto) 0.3 L (0.7-5.8) Baso % (Auto) 0.2 (0.1-1.2) % Neut # (Auto) 10.98 H (1.56-6.13) K/mm3 Lymph # (Auto) 1.12 L (1.18-3.74) K/mm3 Perry # (Auto) 0.92 H (0.24-0.36) K/mm3 Eos # (Auto) 0.04 (0.04-0.36) K/mm3 Baso # (Auto) 0.02 (0.01-0.08) K/mm3 Manual Slide Review Abnormal smear PT 10.1 (9.7-12.0) SECONDS INR 0.94 APTT 26.3 (21.7-31.4) SECONDS Sodium 138 (136-145) mEq/L Potassium 3.3 L (3.5-5.1) mEq/L Chloride 102 (98-107) mEq/L Carbon Dioxide 23 (21-32) mEq/L Anion Gap 16.3 H (5-15) BUN 7 (7-18) mg/dL Creatinine 0.7 (0.55-1.02) mg/dL Est Cr Clr Drug Dosing 112.69 mL/min Estimated GFR (MDRD) > 60 (>60) mL/min BUN/Creatinine Ratio 10.0 L (14-18) Glucose 123 H (70-99) mg/dL Lactic Acid (0.4-2.0) mmol/L Calcium 9.2 (8.5-10.1) mg/dL Magnesium (1.8-2.4) mg/dL Total Bilirubin 0.3 (0.2-1.0) mg/dL AST 16 (15-37) U/L ALT 25 (14-59) U/L Alkaline Phosphatase 51 (46-116) U/L C-Reactive Protein 8.7 H* (<1.0) mg/dL Total Protein 7.6 (6.4-8.2) g/dl Albumin 3.3 L (3.4-5.0) g/dl Globulin 4.3 gm/dL Albumin/Globulin Ratio 0.8 L (1-2) Lipase 60 L (73-393) U/L HCG, Qual (NEGATIVE) HCG, Quant mIU/mL Urine Color (Yellow) Urine Appearance (Clear) Urine pH (5.0-8.0) Ur Specific [place] (1.005-1.030) Urine Protein (Negative) Urine Glucose (UA) (Negative) Urine Ketones (Negative) Urine Occult Blood (Negative) Urine Nitrite (Negative) Urine Bilirubin (Negative) Urine Urobilinogen (0.2-1.0) Ur Leukocyte Esterase (Negative) C.difficile 027-NAP1-B1 C. difficile Tox (PCR) SARS-CoV-2 RNA (KIM) (NEGATIVE) 01/25/21 01/25/21 01/25/21 Range/Units 07:15 07:15 07:15 WBC (3.98-10.04) K/mm3 RBC (3.98-5.22) M/mm3 Hgb (11.2-15.7) gm/dl Hct (34.1-44.9) % MCV (79.4-94.8) fl MCH (25.6-32.2) pg MCHC (32.2-35.5) g/dl RDW Std Deviation (36.4-46.3) fL Plt Count (182-369) K/mm3 MPV (9.4-12.3) fl Neut % (Auto) (34.0-71.1) % Lymph % (Auto) (19.3-51.7) % Perry % (Auto) (4.7-12.5) % Eos % (Auto) (0.7-5.8) Baso % (Auto) (0.1-1.2) % Neut # (Auto) (1.56-6.13) K/mm3 Lymph # (Auto) (1.18-3.74) K/mm3 Perry # (Auto) (0.24-0.36) K/mm3 Eos # (Auto) (0.04-0.36) K/mm3 Baso # (Auto) (0.01-0.08) K/mm3 Manual Slide Review PT (9.7-12.0) SECONDS INR APTT (21.7-31.4) SECONDS Sodium (136-145) mEq/L Potassium (3.5-5.1) mEq/L Chloride (98-107) mEq/L Carbon Dioxide (21-32) mEq/L Anion Gap (5-15) BUN (7-18) mg/dL Creatinine (0.55-1.02) mg/dL Est Cr Clr Drug Dosing mL/min Estimated GFR (MDRD) (>60) mL/min BUN/Creatinine Ratio (14-18) Glucose (70-99) mg/dL Lactic Acid (0.4-2.0) mmol/L Calcium (8.5-10.1) mg/dL Magnesium 1.8 (1.8-2.4) mg/dL Total Bilirubin (0.2-1.0) mg/dL AST (15-37) U/L ALT (14-59) U/L Alkaline Phosphatase (46-116) U/L C-Reactive Protein (<1.0) mg/dL Total Protein (6.4-8.2) g/dl Albumin (3.4-5.0) g/dl Globulin gm/dL Albumin/Globulin Ratio (1-2) Lipase (73-393) U/L HCG, Qual Positive H (NEGATIVE) HCG, Quant 6881.0 mIU/mL Urine Color (Yellow) Urine Appearance (Clear) Urine pH (5.0-8.0) Ur Specific [place] (1.005-1.030) Urine Protein (Negative) Urine Glucose (UA) (Negative) Urine Ketones (Negative) Urine Occult Blood (Negative) Urine Nitrite (Negative) Urine Bilirubin (Negative) Urine Urobilinogen (0.2-1.0) Ur Leukocyte Esterase (Negative) C.difficile 027-NAP1-B1 C. difficile Tox (PCR) SARS-CoV-2 RNA (KIM) (NEGATIVE) 01/25/21 01/25/21 01/25/21 Range/Units 08:30 09:30 13:21 WBC (3.98-10.04) K/mm3 RBC (3.98-5.22) M/mm3 Hgb (11.2-15.7) gm/dl Hct (34.1-44.9) % MCV (79.4-94.8) fl MCH (25.6-32.2) pg MCHC (32.2-35.5) g/dl RDW Std Deviation (36.4-46.3) fL Plt Count (182-369) K/mm3 MPV (9.4-12.3) fl Neut % (Auto) (34.0-71.1) % Lymph % (Auto) (19.3-51.7) % Perry % (Auto) (4.7-12.5) % Eos % (Auto) (0.7-5.8) Baso % (Auto) (0.1-1.2) % Neut # (Auto) (1.56-6.13) K/mm3 Lymph # (Auto) (1.18-3.74) K/mm3 Perry # (Auto) (0.24-0.36) K/mm3 Eos # (Auto) (0.04-0.36) K/mm3 Baso # (Auto) (0.01-0.08) K/mm3 Manual Slide Review PT (9.7-12.0) SECONDS INR APTT (21.7-31.4) SECONDS Sodium (136-145) mEq/L Potassium (3.5-5.1) mEq/L Chloride (98-107) mEq/L Carbon Dioxide (21-32) mEq/L Anion Gap (5-15) BUN (7-18) mg/dL Creatinine (0.55-1.02) mg/dL Est Cr Clr Drug Dosing mL/min Estimated GFR (MDRD) (>60) mL/min BUN/Creatinine Ratio (14-18) Glucose (70-99) mg/dL Lactic Acid 0.7 (0.4-2.0) mmol/L Calcium (8.5-10.1) mg/dL Magnesium (1.8-2.4) mg/dL Total Bilirubin (0.2-1.0) mg/dL AST (15-37) U/L ALT (14-59) U/L Alkaline Phosphatase (46-116) U/L C-Reactive Protein (<1.0) mg/dL Total Protein (6.4-8.2) g/dl Albumin (3.4-5.0) g/dl Globulin gm/dL Albumin/Globulin Ratio (1-2) Lipase (73-393) U/L HCG, Qual (NEGATIVE) HCG, Quant mIU/mL Urine Color (Yellow) Urine Appearance (Clear) Urine pH (5.0-8.0) Ur Specific [place] (1.005-1.030) Urine Protein (Negative) Urine Glucose (UA) (Negative) Urine Ketones (Negative) Urine Occult Blood (Negative) Urine Nitrite (Negative) Urine Bilirubin (Negative) Urine Urobilinogen (0.2-1.0) Ur Leukocyte Esterase (Negative) C.difficile [id number] Presumptive negative C. difficile Tox (PCR) Negative SARS-CoV-2 RNA (KIM) Negative (NEGATIVE) 01/25/21 01/26/21 01/26/21 Range/Units 19:57 06:00 06:00 WBC 20.63 H (3.98-10.04) K/mm3 RBC 3.82 L (3.98-5.22) M/mm3 Hgb 12.3 (11.2-15.7) gm/dl Hct 37.1 (34.1-44.9) % MCV 97.1 H (79.4-94.8) fl MCH 32.2 (25.6-32.2) pg MCHC 33.2 (32.2-35.5) g/dl RDW Std Deviation 46.9 H (36.4-46.3) fL Plt Count 235 (182-369) K/mm3 MPV 11.7 (9.4-12.3) fl Neut % (Auto) 83.3 H (34.0-71.1) % Lymph % (Auto) 5.0 L (19.3-51.7) % Perry % (Auto) 11.5 (4.7-12.5) % Eos % (Auto) 0 L (0.7-5.8) Baso % (Auto) 0.0 L (0.1-1.2) % Neut # (Auto) 17.15 H (1.56-6.13) K/mm3 Lymph # (Auto) 1.04 L (1.18-3.74) K/mm3 Perry # (Auto) 2.38 H (0.24-0.36) K/mm3 Eos # (Auto) 0.00 L (0.04-0.36) K/mm3 Baso # (Auto) 0.01 (0.01-0.08) K/mm3 Manual Slide Review Abnormal smear PT (9.7-12.0) SECONDS INR APTT (21.7-31.4) SECONDS Sodium 140 (136-145) mEq/L Potassium 3.8 (3.5-5.1) mEq/L Chloride 106 (98-107) mEq/L Carbon Dioxide 23 (21-32) mEq/L Anion Gap 14.8 (5-15) BUN 6 L (7-18) mg/dL Creatinine 0.7 (0.55-1.02) mg/dL Est Cr Clr Drug Dosing 113.16 mL/min Estimated GFR (MDRD) > 60 (>60) mL/min BUN/Creatinine Ratio 8.6 L (14-18) Glucose 179 H (70-99) mg/dL Lactic Acid (0.4-2.0) mmol/L Calcium 7.4 L D (8.5-10.1) mg/dL Magnesium 2.0 (1.8-2.4) mg/dL Total Bilirubin 0.2 (0.2-1.0) mg/dL AST 9 L (15-37) U/L ALT 14 (14-59) U/L Alkaline Phosphatase 44 L (46-116) U/L C-Reactive Protein 14.6 H* (<1.0) mg/dL Total Protein 5.6 L (6.4-8.2) g/dl Albumin 2.1 L (3.4-5.0) g/dl Globulin 3.5 gm/dL Albumin/Globulin Ratio 0.6 L (1-2) Lipase (73-393) U/L HCG, Qual (NEGATIVE) HCG, Quant mIU/mL Urine Color Yellow (Yellow) Urine Appearance Clear (Clear) Urine pH 6.0 (5.0-8.0) Ur Specific [place] > or = 1.030 (1.005-1.030) Urine Protein Negative (Negative) Urine Glucose (UA) Negative (Negative) Urine Ketones 3+ H (Negative) Urine Occult Blood Negative (Negative) Urine Nitrite Negative (Negative) Urine Bilirubin Negative (Negative) Urine Urobilinogen 0.2 (0.2-1.0) Ur Leukocyte Esterase Negative (Negative) C.difficile [id number] C. difficile Tox (PCR) SARS-CoV-2 RNA (KIM) (NEGATIVE) Result Diagrams: 01/26/21 06:00 01/26/21 06:00 Amandeep Results Last 24 hrs: Microbiology 01/25/21 08:30 Stool Lactoferrin - Final Stool / Feces Sepsis Event Note - Evaluation Sepsis Screening Result: No Definite Risk - Focused Exam Vital Signs: Vital Signs Temp Pulse Resp BP Pulse Ox 01/26/21 05:11 99.0 F 79 16 112/81 99 01/26/21 01:49 97.7 F 73 16 115/57 L 98 01/25/21 20:20 98.2 F 78 16 112/68 98 - Problem List & Annotations (1) Nausea and vomiting SNOMED Code(s): 74503209 Code(s): R11.2 - NAUSEA WITH VOMITING, UNSPECIFIED Status: Acute Priority: High Current Visit: Yes Qualifiers: Vomiting type: bilious vomiting Qualified Code(s): R11.14 - Bilious vomiting (2) Abdominal pain SNOMED Code(s): 05740372 Code(s): R10.9 - UNSPECIFIED ABDOMINAL PAIN Status: Acute Priority: High Current Visit: Yes Qualifiers: Abdominal location: lower abdomen, unspecified Qualified Code(s): R10.30 - Lower abdominal pain, unspecified (3) Dysentery SNOMED Code(s): 62461131 Code(s): A09 - INFECTIOUS GASTROENTERITIS AND COLITIS, UNSPECIFIED Status: Acute Priority: High Current Visit: Yes (4) First trimester SNOMED Code(s): 69180901 Code(s): Z34.91 - ENCNTR FOR SUPRVSN OF NORMAL PREG, UNSP, FIRST TRIMESTER Status: Acute Priority: High Current Visit: Yes (5) H/O unilateral salpingectomy SNOMED Code(s): 075639647 Code(s): Z90.79 - ACQUIRED ABSENCE OF OTHER GENITAL ORGAN(S) Status: Chronic Priority: Low Current Visit: No (6) History of uterine fibroid SNOMED Code(s): 495843977 Code(s): Z86.018 - PERSONAL HISTORY OF OTHER BENIGN NEOPLASM Status: Chronic Priority: Low Current Visit: No (7) History of ectopic SNOMED Code(s): 438803067, 623265626 Code(s): Z87.59 - PERSONAL HISTORY OF COMP OF PREG, CHLDBRTH AND THE PUERP Status: Chronic Priority: Medium Current Visit: No (8) Bacterial enteritis, unspecified SNOMED Code(s): 21910221 Code(s): A04.9 - BACTERIAL INTESTINAL INFECTION, UNSPECIFIED Status: Acute Priority: High Current Visit: Yes (9) Subchorionic hemorrhage SNOMED Code(s): 524874109 Code(s): O41.8X90 - OTH DISRD OF AMNIOTIC FLUID AND MEMBRNS, UNSP TRI, UNSP; O46.8X9 - OTHER ANTEPARTUM HEMORRHAGE, UNSPECIFIED TRIMESTER Status: Acute Priority: Medium Current Visit: Yes Qualifiers: Fetus number: single or unspecified fetus Trimester: first trimester Qualified Code(s): O41.8X10 - Other specified disorders of amniotic fluid and membranes, first trimester, not applicable or unspecified; O46.8X1 - Other antepartum hemorrhage, first trimester (10) Leukocytosis SNOMED Code(s): 069697690, 390007198 Code(s): D72.829 - ELEVATED WHITE BLOOD CELL COUNT, UNSPECIFIED Status: Acute Priority: High Current Visit: Yes Qualifiers: Leukocytosis type: unspecified Qualified Code(s): D72.829 - Elevated white blood cell count, unspecified (11) Volume depletion SNOMED Code(s): 232425412 Code(s): E86.9 - VOLUME DEPLETION, UNSPECIFIED Status: Acute Priority: High Current Visit: Yes - Problem List Review Problem List Initiated/Reviewed/Updated: Yes - My Orders Last 24 Hours: My Active Orders 01/25/21 12:53 Isolation [COMM] Routine 01/25/21 12:54 Height and Weight [RC] 06 Intake and Output [RC] ,16 Nurse Communication: Isolation [RC] ASDIRECTED Oxygen Therapy [RC] ASDIRECTED Up ad Adenike [RC] Vital Signs [RC] Q4HR Acetaminophen [TylenoL] 650 mg PO Q4H PRN Ondansetron [Zofran] 4 mg IV Q6H PRN Resuscitation Status Routine 01/25/21 12:55 Pulse Oximetry [RC] PRN 01/25/21 13:00 Scopolamine [Transderm-Scop] 1.5 mg TRDERM Q72H 01/25/21 13:21 BLOOD CULTURE [MREF] Stat 01/25/21 13:29 BLOOD CULTURE [MREF] Stat 01/25/21 15:15 Consult to Physician [CONS] Routine 01/25/21 15:16 Notify Provider Consults [RC] ASDIRECTED 01/25/21 15:34 oxyCODONE 5 mg PO Q4H PRN 01/25/21 Dinner NPO Now [Nothing per Oral Now Diet] [DIET] 01/25/21 21:00 Piperacillin/Tazobactam [Piperacil-Tazobact] 4.5 gm Sodium Chloride 0.9% [Normal Saline] 100 ml IV Q8H 01/27/21 05:11 CBC WITH AUTO DIFF [HEME] AM CMP [COMPREHENSIVE METABOLIC PN,CMP] [CHEM] AM CRP [C-REACTIVE PROTEIN] [CHEM] AM MAGNESIUM [CHEM] AM 01/28/21 05:11 CBC WITH AUTO DIFF [HEME] AM CMP [COMPREHENSIVE METABOLIC PN,CMP] [CHEM] AM CRP [C-REACTIVE PROTEIN] [CHEM] AM MAGNESIUM [CHEM] AM 01/28/21 13:00 Remove Patch 1 ea TRDERM Q72H 01/29/21 05:11 CBC WITH AUTO DIFF [HEME] AM CMP [COMPREHENSIVE METABOLIC PN,CMP] [CHEM] AM CRP [C-REACTIVE PROTEIN] [CHEM] AM MAGNESIUM [CHEM] AM - Assessment Assessment:: Assessment - Admission date - 01/25/2021 * 35-year-old female who presents with diffuse abdominal pain, nausea, bilious emesis, and bloody diarrhea * History of ctopic in May 2020 with right salpingectomy and uterine fibroids * Reports she has been ill for the past 2 days * Started having watery diarrhea and mild abdominal pain which worsened and became cramping in nature. Her stool eventually became pure blood. * She reports she has been nauseous and essentially dry heaving at this point * Chills but no known fever. * Just returned from a family reunion in the [facility] in [place]. * Family was playing in the local river * Their camper was hooked up to a well in the campground with a charcoal filter installed * Reports there were potluck meals but no known questionable food. * Reports a child with mild but similar symptoms and her [id number]-[id number] who is developing similar symptoms currently. * Labs are obtained: * WBC 13.12. * Hemoglobin of 13.6. * Hematocrit 40.3. * Platelet 274,000. * Neutrophils are elevated 83.7%. * INR is 0.94. * aPTT is 26.3. * Sodium is 138. * Potassium 3.3. * Chloride 102. * Carbon dioxide 23. * Anion gap is 16.3. * BUN is 7. Creatinine 0.7. GFR greater than 60. * Glucose 123. * Calcium 9.2. * Bilirubin 0.3. * AST 16, ALT 25, alkaline phosphatase 51. * CRP is 8.7. * Albumin 3.3. * Lipase is 60. * hCG qualitative is positive. hCG quantitative is 6881, consistent with 5- week gestation. * SARS-CoV-2 RNA is negative. * Stool ova and parasite, stool culture/Shiga toxin, and stool fecal lact oferrin are collected. * Obstetrics ultrasound: * Small intrauterine gestation with a mean sac diameter of 0.86-5 weeks and 4 days. * Small subchorionic hemorrhage with mild free fluid seen within the pelvis. * Other findings are noted. * She is given azithromycin 500 mg, Zofran, Regalin, and IV push Dilaudid for pain. * Given a 1 L D5LR bolus and started on D5 LR maintenance fluids. * Admitted to the medical floor for management and further work-up of her diarrhea and vomiting. 01/26/2021 35-year-old female admitted for dysentery. Patient continues to have nausea and episodes of bloody diarrhea, although she does report that her pain is slightly improved. Patient reports that family member did test positive for Shiga toxin E. coli. Oddly patient's Shiga toxin here was negative. Cryptosporidium and Giardia was negative. Stool lactoferrin was positive. Stool culture is positive. OB did consult on the patient and recommend follow-up ultrasound in 10 days. Multiple family members have now developed similar symptoms. Contacted Dr. Sosa, infectious disease with [facility] in [place] who recommended we discontinue IV antibiotics and treat the patient like a Shiga toxin pending stool cultures. Dr. Morfin, on-call GI specialist wi [facility] in [place] was contacted as well who recommends discontinuation of IV antibiotics, IV fluids, pain control, and time to let this pass. Labs and test results were reviewed. He also recommended scan of the abdomen and pelvis to rule out perforation. Discussed with Dr. Gordon, radiologist regarding risks and benefits of scan and ensuring CT versus MRI was appropriate. Ultimate decision was CT without contrast. Discussed plan with patient, including risks and benefits to developing fetus. Ultimately patient agrees to proceed with scan. CT scan of the abdomen and pelvis is obtained and shows 1. Minimal hiatal hernia. 2. Small gestational sac within the uterus. 3. Prominent bowel wall thickening throughout the colon with diffuse inflammatory change around the colon. Findings are felt compatible with a rather prominent colitis. Etiology of the colitis is uncertain on this exam. 4. Fair amount of free fluid within the pelvis as well as around the liver which is slightly complicated but does not appear to be bloody. 5. Normal appendix is seen. Labs today show elevated WBC of 20.63. Hemoglobin 12.3. Platelet 235,000. Neutrophils are elevated at 83.3%. Sodium is 140. Potassium 3.8. Anion gap is 14.8. BUN is 6. Creatinine 0.7. GFR greater than 60. Glucose is 179. Calcium is 7.4. Magnesium 2.0. Bilirubin 0.2. AST 9, ALT 14, alkaline phosphatase 44. CRP is 14.6. Protein is 5.6. Albumin is 2.1. UA was obtained yesterday and was grossly negative however 3+ ketones and concentrated urine were noted. Vital signs have been stable. We will continue to monitor for signs of HUS. 1 L fluid bolus given today. Patient remains n.p.o. IV fluids remain ordered. We will recheck lactic acid this afternoon and recheck all labs including lactic acid tomorrow. Will await stool culture. Continue current treatment plan. Unknown length of stay. Will be pending resolution of symptoms and advancement of diet. - Plan Plan:: Nausea and vomiting Abdominal pain Dysentery Bacterial enteritis, unspecified Suspected Shiga toxin E. coli Leukocytosis Volume depletion * IV fluids as ordered * Antiemetics as ordered * Pain medications as ordered * NPO * Monitor labs * Discontinue ABX pending stool culture * Scopolamine patch (Ok'd with [employer] [facility] Dr. Arreguin) * Abdomina/Pelvis CT scan after discussion with Dr. Gordon (radiology), Dr. Morfin (GI), Dr. Sosa (ID) and patient * C-diff negative * Enteric isolation * Stool culture/shiga toxin - Negative shiga, culture pending * Stool O&P - negative * Blood cultures negative thus far * Re-check lactic acid First trimester H/O unilateral salpingectomy History of uterine fibroid History of ectopic Subchorionic hemorrhage * Case discussed with Dr. Arreguin, [facility] * Ensure medications appropriate for * Follow-up at 10 weeks * Avoid intercourse until follow-up with [facility] [facility] due to subchorionic hemorrhage on OB US Code status: Full Code PCP: None currently DVT prophylaxis: Not indicated Social: Patient [place] with significant other on a [place] near [place], [place] Disposition: Patient admitted to [facility] floor for management and further work- up of nausea, vomiting, and bloody diarrhea. Length of stay likely 3 to 4 days.
[2021-01-26] MEDS ORDERED: Lactated Ringers 1,000 ML IV ONE (08:18)
--- NOTE | 2021-01-26 11:13 | CT ---
CT abdomen and pelvis Technique: Multiple axial sections were obtained from above the dome of the diaphragm inferiorly through the pubic symphysis. Intravenous and oral contrast were not utilized. Patient has been noted to be and gives consent to the study. Comparison: Prior abdominal ultrasound of 01/25/21 and prior OB ultrasound of 01/25/21. Findings: Visualized lung bases show minimal atelectasis. Minimal fluid is seen around the liver. Noncontrast liver appears within normal limits. Spleen size is normal. Minimal hiatal hernia is noted. Adrenal glands show no nodules. Gallbladder shows no calcified gallstones. Kidneys show no abnormal calcifications or hydronephrosis. Abdominal aorta shows no aneurysm. No retroperitoneal adenopathy is seen. Small gestational sac is seen within the uterus. Fluid is seen within the pelvis which is slightly complicated. Diffuse bowel wall thickening with diffuse inflammatory change is seen throughout the colon. Findings are compatible with a nonspecific and prominent colitis. Appendix is seen and measures within normal limits. There is no abnormal air being seen around any bowel loops or free air within the abdomen. Bone window settings were reviewed which appear within normal limits for the patient's age. Impression: 1. Minimal hiatal hernia. 2. Small gestational sac within the uterus. 3. Prominent bowel wall thickening throughout the colon with diffuse inflammatory change around the colon. Findings are felt compatible with a rather prominent colitis. Etiology of the colitis is uncertain on this exam. 4. Fair amount of free fluid within the pelvis as well as around the liver which is slightly complicated but does not appear to be bloody. 5. Normal appendix is seen. Diagnostic code #3
[2021-01-27] MEDS: HYDROmorphone 1 MG/ML Syringe IVPUSH PRN ×9 (00:32→22:05)
[2021-01-27] MEDS ORDERED: Lactated Ringers 500 ML IV ONE ×2 (06:42→09:06)
--- NOTE | 2021-01-27 07:17 | PCM.PN ---
- General Info Date of Service: 01/27/21 Admission Dx/Problem (Free Text): Admission Diagnosis/Problem Dysentery Functional Status: Reports: Pain Controlled, Tolerating Diet (NPO advancing to clear liquids ), Ambulating, Urinating - Review of Systems General: Reports: Weakness, Fatigue, Malaise. Denies: Fever, Chills HEENT: Reports: No Symptoms. Denies: Headaches, Sore Throat Pulmonary: Reports: No Symptoms. Denies: Shortness of Breath, Cough, Sputum, Wheezing Cardiovascular: Reports: No Symptoms. Denies: Chest Pain, Palpitations, Dyspnea on Exertion, Edema Gastrointestinal: Reports: Abdominal Pain (Lower quadrants - improved ), Decreased Appetite, Diarrhea (improved ), Hematochezia (Improved ), Nausea (improved ). Denies: Constipation, Vomiting (Dry heaving ) Genitourinary: Reports: No Symptoms. Denies: Pain Musculoskeletal: Reports: No Symptoms. Denies: Neck Pain Skin: Reports: No Symptoms. Denies: Cyanosis Neurological: Reports: No Symptoms. Denies: Confusion, Dizziness, Headache, Numbness, Seizure, Syncope, Tingling, Difficulty Walking, Weakness, Gait Disturbance Psychiatric: Reports: No Symptoms - Patient Data Vitals - Most Recent: Last Vital Signs Temp 99.0 F 01/27/21 03:47 Pulse 97 01/27/21 03:47 Resp 16 01/27/21 03:47 BP 112/58 L 01/27/21 03:47 Pulse Ox 95 01/27/21 03:47 Weight - Most Recent: 147 lb 6.4 oz I&O - Last 24 Hours: Intake & Output 01/26/21 01/27/21 01/27/21 22:59 06:59 14:59 Intake Total 801 1125 Output Total 300 Balance 501 1125 Lab Results Last 24 Hours: Laboratory Results - last 24 hr 01/26/21 01/27/21 01/27/21 Range/Units 14:05 00:43 05:05 WBC 20.37 H (3.98-10.04) K/mm3 RBC 3.35 L (3.98-5.22) M/mm3 Hgb 10.7 L D (11.2-15.7) gm/dl Hct 32.6 L (34.1-44.9) % MCV 97.3 H (79.4-94.8) fl MCH 31.9 (25.6-32.2) pg MCHC 32.8 (32.2-35.5) g/dl RDW Std Deviation 46.8 H (36.4-46.3) fL Plt Count 196 (182-369) K/mm3 MPV 11.5 (9.4-12.3) fl Neut % (Auto) 79.7 H (34.0-71.1) % Lymph % (Auto) 6.6 L (19.3-51.7) % [place]dwell % (Auto) 13.0 H (4.7-12.5) % Eos % (Auto) 0.1 L (0.7-5.8) Baso % (Auto) 0.1 (0.1-1.2) % Neut # (Auto) 16.20 H (1.56-6.13) K/mm3 Lymph # (Auto) 1.35 (1.18-3.74) K/mm3 [place]dwell # (Auto) 2.65 H (0.24-0.36) K/mm3 Eos # (Auto) 0.03 L (0.04-0.36) K/mm3 Baso # (Auto) 0.03 (0.01-0.08) K/mm3 Sodium (136-145) mEq/L Potassium (3.5-5.1) mEq/L Chloride (98-107) mEq/L Carbon Dioxide (21-32) mEq/L Anion Gap (5-15) BUN (7-18) mg/dL Creatinine (0.55-1.02) mg/dL Est Cr Clr Drug Dosing mL/min Estimated GFR (MDRD) (>60) mL/min BUN/Creatinine Ratio (14-18) Glucose (70-99) mg/dL POC Glucose 118 H (70-99) mg/dL Lactic Acid 0.9 (0.4-2.0) mmol/L Calcium (8.5-10.1) mg/dL Magnesium (1.8-2.4) mg/dL Total Bilirubin (0.2-1.0) mg/dL AST (15-37) U/L ALT (14-59) U/L Alkaline Phosphatase (46-116) U/L C-Reactive Protein (<1.0) mg/dL Total Protein (6.4-8.2) g/dl Albumin (3.4-5.0) g/dl Globulin gm/dL Albumin/Globulin Ratio (1-2) 01/27/21 01/27/21 01/27/21 Range/Units 05:05 05:05 06:50 WBC (3.98-10.04) K/mm3 RBC (3.98-5.22) M/mm3 Hgb (11.2-15.7) gm/dl Hct (34.1-44.9) % MCV (79.4-94.8) fl MCH (25.6-32.2) pg MCHC (32.2-35.5) g/dl RDW Std Deviation (36.4-46.3) fL Plt Count (182-369) K/mm3 MPV (9.4-12.3) fl Neut % (Auto) (34.0-71.1) % Lymph % (Auto) (19.3-51.7) % [place]dwell % (Auto) (4.7-12.5) % Eos % (Auto) (0.7-5.8) Baso % (Auto) (0.1-1.2) % Neut # (Auto) (1.56-6.13) K/mm3 Lymph # (Auto) (1.18-3.74) K/mm3 [place]dwell # (Auto) (0.24-0.36) K/mm3 Eos # (Auto) (0.04-0.36) K/mm3 Baso # (Auto) (0.01-0.08) K/mm3 Sodium 139 (136-145) mEq/L Potassium 3.3 L (3.5-5.1) mEq/L Chloride 105 (98-107) mEq/L Carbon Dioxide 27 (21-32) mEq/L Anion Gap 10.3 (5-15) BUN 5 L (7-18) mg/dL Creatinine 0.5 L (0.55-1.02) mg/dL Est Cr Clr Drug Dosing 158.42 mL/min Estimated GFR (MDRD) > 60 (>60) mL/min BUN/Creatinine Ratio 10.0 L (14-18) Glucose 119 H (70-99) mg/dL POC Glucose 105 H (70-99) mg/dL Lactic Acid 0.5 (0.4-2.0) mmol/L Calcium 7.4 L (8.5-10.1) mg/dL Magnesium 1.7 L (1.8-2.4) mg/dL Total Bilirubin 0.4 (0.2-1.0) mg/dL AST 11 L (15-37) U/L ALT 12 L (14-59) U/L Alkaline Phosphatase 48 (46-116) U/L C-Reactive Protein 20.5 H* (<1.0) mg/dL Total Protein 4.9 L (6.4-8.2) g/dl Albumin 1.7 L (3.4-5.0) g/dl Globulin 3.2 gm/dL Albumin/Globulin Ratio 0.5 L (1-2) Amandeep Results Last 24 Hours: Microbiology 01/25/21 08:30 Stool Culture - Preliminary Stool / Feces Probable Escherichia Coli 0157 Shiga Toxin I & II - Final 01/25/21 13:29 Blood Culture - Preliminary Blood - Venous - Lab Draw 01/25/21 13:21 Blood Culture - Preliminary Blood - Venous 01/25/21 08:30 Cryptosporidium/Giardia - Final Stool / Feces - Stool, Liquid Med Orders - Current: Current Medications Acetaminophen (Acetaminophen 325 Mg Tab) 650 mg PO Q4H PRN PRN Reason: Pain (Mild 1-3)/fever Hydromorphone HCl (Hydromorphone 1 Mg/Ml Syringe) 1 mg IVPUSH Q1H PRN PRN Reason: Pain (severe 7-10) Last Admin: 01/27/21 07:08 Dose: 1 mg Documented by: Dextrose/Lactated Ringer's (Dextrose 5%-Lactated Ringers) 1,000 mls @ 125 mls/hr IV ASDIRECTED ELIANA Last Admin: 01/26/21 20:12 Dose: 125 mls/hr Documented by: Miscellaneous Information (Remove Replace Scopolamine Patch) 1 ea TRDERM Q72H [facility] Ondansetron HCl (Ondansetron 4 Mg/2 Ml Sdv) 4 mg IV Q6H PRN PRN Reason: Nausea/Vomiting Oxycodone HCl (Oxycodone 5 Mg Tab) 5 mg PO Q4H PRN PRN Reason: Pain (moderate 4-6) Last Admin: 01/26/21 01:50 Dose: 5 mg Documented by: Scopolamine (Scopolamine 1.5 Mg Transdermal Patch) 1.5 mg TRDERM Q72H [facility] Last Admin: 01/25/21 15:44 Dose: 1.5 mg Documented by: Discontinued Medications Hydromorphone HCl (Hydromorphone 0.5 Mg/0.5 Ml Syringe) 0.5 mg IVPUSH ONETIME ONE Stop: 01/25/21 07:31 Last Admin: 01/25/21 07:41 Dose: 0.5 mg Documented by: Hydromorphone HCl (Hydromorphone 0.5 Mg/0.5 Ml Syringe) 0.5 mg IVPUSH ONETIME O NE Stop: 01/25/21 08:32 Last Admin: 01/25/21 08:30 Dose: 0.5 mg Documented by: Hydromorphone HCl (Hydromorphone 0.5 Mg/0.5 Ml Syringe) 0.5 mg IVPUSH ONETIME ONE Stop: 01/25/21 09:28 Last Admin: 01/25/21 09:30 Dose: 0.5 mg Documented by: Hydromorphone HCl (Hydromorphone 0.5 Mg/0.5 Ml Syringe) 0.5 mg IVPUSH ONETIME ONE Stop: 01/25/21 10:22 Last Admin: 01/25/21 10:30 Dose: 0.5 mg Documented by: Hydromorphone HCl (Hydromorphone 0.5 Mg/0.5 Ml Syringe) 0.5 mg IVPUSH ONETIME ONE Stop: 01/25/21 12:27 Last Admin: 01/25/21 12:33 Dose: 0.5 mg Documented by: Hydromorphone HCl (Hydromorphone 0.5 Mg/0.5 Ml Syringe) 0.5 mg IVPUSH Q2H PRN PRN Reason: Pain (severe 7-10) Last Admin: 01/25/21 13:52 Dose: 0.5 mg Documented by: Hydromorphone HCl (Hydromorphone 1 Mg/Ml Syringe) 1 mg IVPUSH Q2H PRN PRN Reason: Pain (severe 7-10) Dextrose/Sodium Chloride (Dextrose 5%-Normal Saline) 1,000 mls @ 999 mls/hr IV ASDIRECTED [facility] Last Admin: 01/25/21 07:43 Dose: 999 mls/hr Documented by: Metronidazole 500 mg/ Premix 100 mls @ 100 mls/hr IV ONETIME ONE Stop: 01/25/21 09:24 Last Admin: 01/25/21 08:42 Dose: Not Given Documented by: Azithromycin 500 mg/ Sodium (Chloride) 250 mls @ 250 mls/hr IV ONETIME ONE Stop: 01/25/21 10:27 Last Admin: 01/25/21 09:41 Dose: 250 mls/hr Documented by: Piperacillin Sod/Tazobactam (Sod 4.5 gm/ Sodium Chloride) 100 mls @ 25 mls/hr IV Q8H [facility] Last Admin: 01/26/21 05:04 Dose: 25 mls/hr Documented by: Piperacillin Sod/Tazobactam (Sod 4.5 gm/ Sodium Chloride) 100 mls @ 200 mls/hr IV ONETIME ONE Stop: 01/25/21 13:29 Last Admin: 01/25/21 13:55 Dose: 200 mls/hr Documented by: Magnesium Sulfate 2 gm/ Premix 50 mls @ 25 mls/hr IV ONETIME ONE Stop: 01/25/21 15:29 Last Admin: 01/25/21 14:31 Dose: 25 mls/hr Documented by: Potassium Chloride 10 meq/ (Premix) 100 mls @ 100 mls/hr IV Q1H [facility] Stop: 01/25/21 17:29 Last Admin: 01/25/21 18:38 Dose: 100 mls/hr Documented by: Lactated Ringer's (Ringers, Lactated) 1,000 mls @ 999 mls/hr IV ONETIME ONE Stop: 01/26/21 09:18 Last Admin: 01/26/21 08:44 Dose: 999 mls/hr Documented by: Lactated Ringer's (Ringers, Lactated) 500 mls @ 999 mls/hr IV .BOLUS ONE Stop: 01/27/21 07:12 Last Admin: 01/27/21 07:07 Dose: 999 mls/hr Documented by: Loperamide HCl (Loperamide 2 Mg Cap) 2 mg PO ONETIME ONE Stop: 01/25/21 12:27 Last Admin: 01/25/21 12:31 Dose: 2 mg Documented by: Metoclopramide HCl (Metoclopramide 10 Mg/2 Ml Sdv) 7.5 mg IVPUSH ONETIME ONE Stop: 01/25/21 07:30 Last Admin: 01/25/21 07:39 Dose: 7.5 mg Documented by: Oxycodone HCl (Oxycodone 5 Mg Tab) 10 mg PO Q4H PRN PRN Reason: Pain (moderate 4-6) - Exam Quality Assessment: DVT Prophylaxis. No: Supplemental Oxygen, Urine Catheter General: Alert, Oriented, Cooperative, No Acute Distress HEENT: Pupils Equal, Pupils Reactive, Mucous Membr. Moist/[place] Neck: Supple, Trachea Midline Lungs: Clear to Auscultation, Normal Respiratory Effort Cardiovascular: Regular Rate, Regular Rhythm GI/Abdominal Exam: Normal Bowel Sounds, Soft, Distended (mildly ), Tender (lower quadrant > generalized ). No: Guarding, Rigid (Female) Exam: Deferred Back Exam: Normal Inspection, Full Range of Motion Extremities: Normal Inspection, Normal Range of Motion, Non-Tender, No Pedal Edema, Normal Capillary Refill Peripheral Pulses: 3+: Radial (L), Radial (R), Dorsalis Pedis (L), Dorsalis Pedis (R) Skin: Warm, Dry, Intact Neurological: No New Focal Deficit Psy/Mental Status: Alert, Normal Affect, Normal Mood - Patient Data Lab Results Last 24 hrs: Laboratory Results - last 24 hr 01/26/21 01/27/21 01/27/21 Range/Units 14:05 00:43 05:05 WBC 20.37 H (3.98-10.04) K/mm3 RBC 3.35 L (3.98-5.22) M/mm3 Hgb 10.7 L D (11.2-15.7) gm/dl Hct 32.6 L (34.1-44.9) % MCV 97.3 H (79.4-94.8) fl MCH 31.9 (25.6-32.2) pg MCHC 32.8 (32.2-35.5) g/dl RDW Std Deviation 46.8 H (36.4-46.3) fL Plt Count 196 (182-369) K/mm3 MPV 11.5 (9.4-12.3) fl Neut % (Auto) 79.7 H (34.0-71.1) % Lymph % (Auto) 6.6 L (19.3-51.7) % [place]dwell % (Auto) 13.0 H (4.7-12.5) % Eos % (Auto) 0.1 L (0.7-5.8) Baso % (Auto) 0.1 (0.1-1.2) % Neut # (Auto) 16.20 H (1.56-6.13) K/mm3 Lymph # (Auto) 1.35 (1.18-3.74) K/mm3 [place]dwell # (Auto) 2.65 H (0.24-0.36) K/mm3 Eos # (Auto) 0.03 L (0.04-0.36) K/mm3 Baso # (Auto) 0.03 (0.01-0.08) K/mm3 Sodium (136-145) mEq/L Potassium (3.5-5.1) mEq/L Chloride (98-107) mEq/L Carbon Dioxide (21-32) mEq/L Anion Gap (5-15) BUN (7-18) mg/dL Creatinine (0.55-1.02) mg/dL Est Cr Clr Drug Dosing mL/min Estimated GFR (MDRD) (>60) mL/min BUN/Creatinine Ratio (14-18) Glucose (70-99) mg/dL POC Glucose 118 H (70-99) mg/dL Lactic Acid 0.9 (0.4-2.0) mmol/L Calcium (8.5-10.1) mg/dL Magnesium (1.8-2.4) mg/dL Total Bilirubin (0.2-1.0) mg/dL AST (15-37) U/L ALT (14-59) U/L Alkaline Phosphatase (46-116) U/L C-Reactive Protein (<1.0) mg/dL Total Protein (6.4-8.2) g/dl Albumin (3.4-5.0) g/dl Globulin gm/dL Albumin/Globulin Ratio (1-2) 01/27/21 01/27/21 01/27/21 Range/Units 05:05 05:05 06:50 WBC (3.98-10.04) K/mm3 RBC (3.98-5.22) M/mm3 Hgb (11.2-15.7) gm/dl Hct (34.1-44.9) % MCV (79.4-94.8) fl MCH (25.6-32.2) pg MCHC (32.2-35.5) g/dl RDW Std Deviation (36.4-46.3) fL Plt Count (182-369) K/mm3 MPV (9.4-12.3) fl Neut % (Auto) (34.0-71.1) % Lymph % (Auto) (19.3-51.7) % Caldwell % (Auto) (4.7-12.5) % Eos % (Auto) (0.7-5.8) Baso % (Auto) (0.1-1.2) % Neut # (Auto) (1.56-6.13) K/mm3 Lymph # (Auto) (1.18-3.74) K/mm3 [place]dwell # (Auto) (0.24-0.36) K/mm3 Eos # (Auto) (0.04-0.36) K/mm3 Baso # (Auto) (0.01-0.08) K/mm3 Sodium 139 (136-145) mEq/L Potassium 3.3 L (3.5-5.1) mEq/L Chloride 105 (98-107) mEq/L Carbon Dioxide 27 (21-32) mEq/L Anion Gap 10.3 (5-15) BUN 5 L (7-18) mg/dL Creatinine 0.5 L (0.55-1.02) mg/dL Est Cr Clr Drug Dosing 158.42 mL/min Estimated GFR (MDRD) > 60 (>60) mL/min BUN/Creatinine Ratio 10.0 L (14-18) Glucose 119 H (70-99) mg/dL POC Glucose 105 H (70-99) mg/dL Lactic Acid 0.5 (0.4-2.0) mmol/L Calcium 7.4 L (8.5-10.1) mg/dL Magnesium 1.7 L (1.8-2.4) mg/dL Total Bilirubin 0.4 (0.2-1.0) mg/dL AST 11 L (15-37) U/L ALT 12 L (14-59) U/L Alkaline Phosphatase 48 (46-116) U/L C-Reactive Protein 20.5 H* (<1.0) mg/dL Total Protein 4.9 L (6.4-8.2) g/dl Albumin 1.7 L (3.4-5.0) g/dl Globulin 3.2 gm/dL Albumin/Globulin Ratio 0.5 L (1-2) Result Diagrams: 01/27/21 05:05 01/27/21 05:05 Amandeep Results Last 24 hrs: Microbiology 01/25/21 08:30 Stool Culture - Preliminary Stool / Feces Probable Escherichia Coli 0157 Shiga Toxin I & II - Final 01/25/21 13:29 Blood Culture - Preliminary Blood - Venous - Lab Draw 01/25/21 13:21 Blood Culture - Preliminary Blood - Venous 01/25/21 08:30 Cryptosporidium/Giardia - Final Stool / Feces - Stool, Liquid Sepsis Event Note - Evaluation Sepsis Screening Result: Sepsis Risk - Focused Exam Vital Signs: Vital Signs Temp Pulse Resp BP Pulse Ox 01/27/21 03:47 99.0 F 97 16 112/58 L 95 01/27/21 00:38 99.3 F 93 15 100/51 L 93 L 01/26/21 20:20 99.0 F 91 17 108/50 L 95 - Problem List & Annotations (1) Nausea and vomiting SNOMED Code(s): 26891714 Code(s): R11.2 - NAUSEA WITH VOMITING, UNSPECIFIED Status: Acute Priority: High Current Visit: Yes Qualifiers: Vomiting type: bilious vomiting Qualified Code(s): R11.14 - Bilious vomiting (2) Abdominal pain SNOMED Code(s): 66496304 Code(s): R10.9 - UNSPECIFIED ABDOMINAL PAIN Status: Acute Priority: High Current Visit: Yes Qualifiers: Abdominal location: lower abdomen, unspecified Qualified Code(s): R10.30 - Lower abdominal pain, unspecified (3) Dysentery SNOMED Code(s): 12406738 Code(s): A09 - INFECTIOUS GASTROENTERITIS AND COLITIS, UNSPECIFIED Status: Acute Priority: High Current Visit: Yes (4) First trimester SNOMED Code(s): 98477718 Code(s): Z34.91 - ENCNTR FOR SUPRVSN OF NORMAL PREG, UNSP, FIRST TRIMESTER Status: Acute Priority: High Current Visit: Yes (5) H/O unilateral salpingectomy SNOMED Code(s): 652027042 Code(s): Z90.79 - ACQUIRED ABSENCE OF OTHER GENITAL ORGAN(S) Status: Chronic Priority: Low Current Visit: No (6) History of uterine fibroid SNOMED Code(s): 155899425 Code(s): Z86.018 - PERSONAL HISTORY OF OTHER BENIGN NEOPLASM Status: Chronic Priority: Low Current Visit: No (7) History of ectopic SNOMED Code(s): 742116106, 416617249 Code(s): Z87.59 - PERSONAL HISTORY OF COMP OF PREG, CHLDBRTH AND THE PUERP Status: Chronic Priority: Medium Current Visit: No (8) Bacterial enteritis, unspecified SNOMED Code(s): 07043633 Code(s): A04.9 - BACTERIAL INTESTINAL INFECTION, UNSPECIFIED Status: Acute Priority: High Current Visit: Yes (9) Subchorionic hemorrhage SNOMED Code(s): 355889399 Code(s): O41.8X90 - OTH DISRD OF AMNIOTIC FLUID AND MEMBRNS, UNSP TRI, UNSP; O46.8X9 - OTHER ANTEPARTUM HEMORRHAGE, UNSPECIFIED TRIMESTER Status: Acute Priority: Medium Current Visit: Yes Qualifiers: Fetus number: single or unspecified fetus Trimester: first trimester Qu alified Code(s): O41.8X10 - Other specified disorders of amniotic fluid and membranes, first trimester, not applicable or unspecified; O46.8X1 - Other antepartum hemorrhage, first trimester (10) Leukocytosis SNOMED Code(s): 456219172, 469938022 Code(s): D72.829 - ELEVATED WHITE BLOOD CELL COUNT, UNSPECIFIED Status: Acute Priority: High Current Visit: Yes Qualifiers: Leukocytosis type: unspecified Qualified Code(s): D72.829 - Elevated white blood cell count, unspecified (11) Volume depletion SNOMED Code(s): 463452802 Code(s): E86.9 - VOLUME DEPLETION, UNSPECIFIED Status: Acute Priority: High Current Visit: Yes (12) Shiga toxin-producing Escherichia coli (E. coli) (STEC) O157 SNOMED Code(s): 970589893402159 Code(s): A49.8 - OTHER BACTERIAL INFECTIONS OF UNSPECIFIED SITE Status: Acute Priority: High Current Visit: Yes (13) Hypokalemia SNOMED Code(s): 15777069 Code(s): E87.6 - HYPOKALEMIA Status: Acute Priority: High Current Vi sit: Yes (14) Hypomagnesemia SNOMED Code(s): 086429079 Code(s): E83.42 - HYPOMAGNESEMIA Status: Acute Priority: High Current Visit: Yes - Problem List Review Problem List Initiated/Reviewed/Updated: Yes - My Orders Last 24 Hours: My Active Orders 01/26/21 07:49 Intake and Output Strict [RC] ASDIRECTED 01/26/21 08:48 GI PANEL Routine GI VIRAL PANEL Routine 01/27/21 05:05 CBC WITH AUTO DIFF [HEME] AM 01/28/21 05:11 CBC WITH AUTO DIFF [HEME] AM CMP [COMPREHENSIVE METABOLIC PN,CMP] [CHEM] AM CRP [C-REACTIVE PROTEIN] [CHEM] AM MAGNESIUM [CHEM] AM 01/28/21 13:00 Remove Patch 1 ea TRDERM Q72H 01/29/21 05:11 CBC WITH AUTO DIFF [HEME] AM CMP [COMPREHENSIVE METABOLIC PN,CMP] [CHEM] AM CRP [C-REACTIVE PROTEIN] [CHEM] AM MAGNESIUM [CHEM] AM - Assessment Assessment:: Assessment - Admission date - 01/25/2021 * 35-year-old female who presents with diffuse abdominal pain, nausea, bilious emesis, and bloody diarrhea * History of ctopic in May 2020 with right salpingectomy and uterine fibroids * Reports she has been ill for the past 2 days * Started having watery diarrhea and mild abdominal pain which worsened and became cramping in nature. Her stool eventually became pure blood. * She reports she has been nauseous and essentially dry heaving at this point * Chills but no known fever. * Just returned from a family reunion in the [facility] in [place]. * Family was playing in the local river * Their camper was hooked up to a well in the campground with a charcoal filter installed * Reports there were potluck meals but no known questionable food. * Reports a child with mild but similar symptoms and her [id number] who is developing similar symptoms currently. * Labs are obtained: * WBC 13.12. * Hemoglobin of 13.6. * Hematocrit 40.3. * Platelet 274,000. * Neutrophils are elevated 83.7%. * INR is 0.94. * aPTT is 26.3. * Sodium is 138. * Potassium 3.3. * Chloride 102. * Carbon dioxide 23. * Anion gap is 16.3. * BUN is 7. Creatinine 0.7. GFR greater than 60. * Glucose 123. * Calcium 9.2. * Bilirubin 0.3. * AST 16, ALT 25, alkaline phosphatase 51. * CRP is 8.7. * Albumin 3.3. * Lipase is 60. * hCG qualitative is positive. hCG quantitative is 6881, consistent with 5- week gestation. * SARS-CoV-2 RNA is negative. * Stool ova and parasite, stool culture/Shiga toxin, and stool fecal lactoferrin are collected. * Obstetrics ultrasound: * Small intrauterine gestation with a mean sac diameter of 0.86-5 weeks and 4 days. * Small subchorionic hemorrhage with mild free fluid seen within the pelvis. * Other findings are noted. * She is given azithromycin 500 mg, Zofran, Regalin, and IV push Dilaudid for pain. * Given a 1 L D5LR bolus and started on D5 LR maintenance fluids. * Admitted to the medical floor for management and further work-up of her diarrhea and vomiting. 01/26/2021 35-year-old female admitted for dysentery. Patient continues to have nausea and episodes of bloody diarrhea, although she does report that her pain is slightly improved. Patient reports that family member did test positive for Shiga toxin E. coli. Oddly patient's Shiga toxin here was negative. Cryptosporidium and Giardia was negative. Stool lactoferrin was positive. Stool culture is p ositive. OB did consult on the patient and recommend follow-up ultrasound in 10 days. Multiple family members have now developed similar symptoms. Contacted Dr. Sosa, infectious disease with [facility] in [place] who recommended we discontinue IV antibiotics and treat the patient like a Shiga toxin pending stool cultures. Dr. Morfin, on-call GI specialist with [facility] in [place] was contacted as well who recommends discontinuation of IV antibiotics, IV fluids, pain control, and time to let this pass. Labs and test results were reviewed. He also recommended scan of the abdomen and pelvis to rule out perforation. Discussed with Dr. Gordon, radiologist regarding risks and benefits of scan and ensuring CT versus MRI was appropriate. Ultimate decision was CT without contrast. Discussed plan with patient, including risks and benefits to developing fetus. Ultimately patient agrees to proceed with scan. CT scan of the abdomen and pelvis is obtained and shows 1. Minimal hiatal hernia. 2. Small gestational sac within the uterus. 3. Prominent bowel wall thickening throughout the colon with diffuse inflammatory change around the colon. Findings are felt compatible with a rather prominent colitis. Etiology of the colitis is uncertain on this exam. 4. Fair amount of free fluid within the pelvis as well as around the liver which is slightly complicated but does not appear to be bloody. 5. Normal appendix is seen. Labs today show elevated WBC of 20.63. Hemoglobin 12.3. Platelet 235,000. Neutrophils are elevated at 83.3%. Sodium is 140. Potassium 3.8. Anion gap is 14.8. BUN is 6. Creatinine 0.7. GFR greater than 60. Glucose is 179. Calcium is 7.4. Magnesium 2.0. Bilirubin 0.2. AST 9, ALT 14, alkaline phosphatase 44. CRP is 14.6. Protein is 5.6. Albumin is 2.1. UA was obtained yesterday and was grossly negative however 3+ ketones and concentrated urine were noted. Vital signs have been stable. We will continue to monitor for signs of HUS. 1 L fluid bolus given today. Patient remains n.p.o. IV fluids remain ordered. We will recheck lactic acid this afternoon and recheck all labs including lactic acid tomorrow. Will await stool culture. Continue current treatment plan. Unknown length of stay. Will be pending resolution of symptoms and advancement of diet. 01/27/2021 35-year-old female admitted for dysentery. Patient has had multiple family members now returned positive for Shiga toxin 2. Patient herself has had a positive stool culture for E. coli 0157, which is a Shiga toxin E. coli. All antibiotics have been stopped. Lactic acid has been within normal limits. Yoshi price has received multiple IV fluid boluses and continues on IV fluids. Diet today was advanced from n.p.o. to clear liquids after discussion with the patient. She reports she is feeling quite a bit better. She is still having bloody stools but much less frequent. There appears to be less blood in her stools as well per patient report. She continues to have occasional dry heaves and nausea but does state that she has a history of morning sickness with . Bowel sounds have been active. Labs today show WBC of 20.37. Hemoglobin 10.7. Hematocrit 32.6. Platelet 196,000. Neutrophils are elevated at 79.7. Sodium is 139. Potassium 3.3. Chloride 105. Carbon dioxide 27. Anion gap is 10.3. BUN is 5. Creatinine 0.5. GFR in 60. Glucose has been in the low 110s. Lactic acid 0.5. Calcium 7.4. Magnesium 1.7. AST is 11, ALT 12, alkaline phosphatase 48. CRP is 20.5. Protein 4.9. Albumin 1.7. We will continue current treatment plan as the patient is feeling better. Clinically she looks more comfortable and greatly improved. Length of stay will be determined by patient tolerating diet and continuing resolution of symptoms. Likely length of stay 2-3 more days. - Plan Plan:: Nausea and vomiting Abdominal pain Dysentery Bacterial enteritis, unspecified Shiga toxin E. coli 0157 Leukocytosis Volume depletion * IV fluids as ordered * Antiemetics as ordered * Pain medications as ordered * Clear liquid diet as tolerated * Monitor labs * Scopolamine patch (Ok'd with [employer] Dr. Arreguin) * Abdomina/Pelvis CT scan obtained after discussion with Dr. Gordon (radiology), Dr. Morfin (GI), Dr. Sosa (ID) and patient * C-diff negative * Enteric isolation * Stool culture/shiga toxin - Negative shiga toxin 1&2 however positive E. Coli 0157 * Stool O&P - negative * Blood cultures negative thus far * As needed simethicone for gas pains Hypokalemia Hypomagnesemia * Supplement * Monitor labs First trimester H/O unilateral salpingectomy History of uterine fibroid History of ectopic Subchorionic hemorrhage * Case discussed with Dr. Arreguin, [facility] * Ensure medications appropriate for * Follow-up at 10 weeks * Avoid intercourse until follow-up with [facility] due to subchorionic hemorrhage on OB US Code status: Full Code PCP: None currently DVT prophylaxis: Not indicated Social: Patient [place] with significant other on [place] near [place], [place] Disposition: Patient admitted [facility] for management and further work- up of nausea, vomiting, and bloody diarrhea. Length of stay likely 3 to 4 days.
[2021-01-27] MEDS: Dextrose 5%-Lactated Ringers 1,000 ML IV SCH ×2 (07:48→18:24)
[2021-01-27] MEDS ORDERED: Magnesium Sulfate/Water 4 GM in Premix Bag 1 BAG IV ONE (08:53)
[2021-01-27] MEDS: Potassium Chloride 10 MEQ in Premix Bag 1 BAG IV SCH ×4 (09:31→14:46)
[2021-01-27] MEDS: Simethicone 80 MG Tab.Chew PO PRN ×2 (12:55→20:00)
[2021-01-28] MEDS: HYDROmorphone 1 MG/ML Syringe IVPUSH PRN ×9 (00:24→21:29)
[2021-01-28] MEDS: Dextrose 5%-Lactated Ringers 1,000 ML IV SCH ×2 (02:30→11:37)
--- NOTE | 2021-01-28 09:10 | PCM.PN ---
- General Info Date of Service: 01/28/21 Admission Dx/Problem (Free Text): Admission Diagnosis/Problem Dysentery Functional Status: Reports: Pain Controlled, Tolerating Diet, Ambulating, Urinating. Denies: New Symptoms - Review of Systems General: Reports: Weakness (improving ). Denies: Fever, Fatigue, Malaise, Chills HEENT: Reports: No Symptoms. Denies: Headaches, Sore Throat Pulmonary: Reports: No Symptoms. Denies: Shortness of Breath, Cough, Sputum, Wheezing Cardiovascular: Reports: No Symptoms. Denies: Chest Pain, Palpitations, Dyspnea on Exertion, Edema Gastrointestinal: Reports: Abdominal Pain, Decreased Appetite, Diarrhea, Flatus, Hematochezia (improving ), Nausea. Denies: Constipation, Vomiting Genitourinary: Reports: No Symptoms. Denies: Pain Musculoskeletal: Reports: No Symptoms Skin: Reports: No Symptoms. Denies: Cyanosis Neurological: Reports: No Symptoms. Denies: Confusion, Pre-Existing Deficit, D ifficulty Walking, Gait Disturbance Psychiatric: Reports: No Symptoms - Patient Data Vitals - Most Recent: Last Vital Signs Temp 99.0 F 01/28/21 05:45 Pulse 102 H 01/28/21 05:45 Resp 20 01/28/21 05:45 BP 113/65 01/28/21 05:45 Pulse Ox 95 01/28/21 05:45 Weight - Most Recent: 147 lb 6.4 oz I&O - Last 24 Hours: Intake & Output 01/27/21 01/28/21 01/28/21 22:59 06:59 14:59 Intake Total 2950 650 Output Total 450 Balance 2500 650 Lab Results Last 24 Hours: Laboratory Results - last 24 hr 01/26/21 01/28/21 01/28/21 Range/Units 08:48 05:07 05:07 WBC 21.57 H (3.98-10.04) K/mm3 RBC 3.11 L (3.98-5.22) M/mm3 Hgb 9.8 L (11.2-15.7) gm/dl Hct 30.4 L (34.1-44.9) % MCV 97.7 H (79.4-94.8) fl MCH 31.5 (25.6-32.2) pg MCHC 32.2 (32.2-35.5) g/dl RDW Std Deviation 46.5 H (36.4-46.3) fL Plt Count 203 (182-369) K/mm3 MPV 11.9 (9.4-12.3) fl Neut % (Auto) 79.7 H (34.0-71.1) % Lymph % (Auto) 8.6 L (19.3-51.7) % [place] % (Auto) 10.0 (4.7-12.5) % Eos % (Auto) 0.6 L (0.7-5.8) Baso % (Auto) 0.2 (0.1-1.2) % Neut # (Auto) 17.22 H (1.56-6.13) K/mm3 Lymph # (Auto) 1.85 (1.18-3.74) K/mm3 [place] # (Auto) 2.15 H (0.24-0.36) K/mm3 Eos # (Auto) 0.12 (0.04-0.36) K/mm3 Baso # (Auto) 0.04 (0.01-0.08) K/mm3 Manual Slide Review Abnormal smear Sodium 138 (136-145) mEq/L Potassium 3.2 L (3.5-5.1) mEq/L Chloride 105 (98-107) mEq/L Carbon Dioxide 25 (21-32) mEq/L Anion Gap 11.2 (5-15) BUN 4 L (7-18) mg/dL Creatinine 0.4 L (0.55-1.02) mg/dL Est Cr Clr Drug Dosing 198.02 mL/min Estimated GFR (MDRD) > 60 (>60) mL/min BUN/Creatinine Ratio 10.0 L (14-18) Glucose 120 H (70-99) mg/dL Calcium 7.1 L (8.5-10.1) mg/dL Magnesium 1.9 (1.8-2.4) mg/dL Total Bilirubin 0.3 (0.2-1.0) mg/dL AST 11 L (15-37) U/L ALT 10 L (14-59) U/L Alkaline Phosphatase 68 (46-116) U/L C-Reactive Protein 21.2 H* (<1.0) mg/dL Total Protein 4.5 L (6.4-8.2) g/dl Albumin 1.5 L (3.4-5.0) g/dl Globulin 3.0 gm/dL Albumin/Globulin Ratio 0.5 L (1-2) Stl C. cayetanensis PCR Not detected (Not Detected) Stool Rotavirus A PCR Not detected (Not Detected) Stool Astrovirus (PCR) Not detected (Not Detected) Stool Cryptosporidium PCR Not detected (Not Detected) St Sh/Enteroin Ecoli PCR Not detected (Not Detected) Stl Enterotoxigenic E PCR Not detected (Not Detected) Stl E. histolytica PCR Not detected (Not Detected) Stool Giardia Lamblia PCR Not detected (Not Detected) Stool Sapovirus (PCR) Not detected (Not Detected) Stl P. shigelloides PCR Not detected (Not Detected) St Y.enterocolitica PCR Not detected (Not Detected) Stool Vibrio (PCR) Not detected (Not Detected) Stl Vibrio cholerae PCR Not detected (Not Detected) Stl Enteroaggr Ecoli PCR Not detected (Not Detected) Adenovirus Types 40, 41 Not detected (Not Detected) Campylobacter (PCR) Not detected (Not Detected) C. difficile (PCR) Not detected (Not Detected) Escherichia coli 0157 Detected H (Not Detected) E.coli Shiga Toxins Detected H (Not Detected) Salmonella (PCR) Not detected (Not Detected) Stool Norovirus GI (PCR) Not detected (Not Detected) Amandeep Results Last 24 Hours: Microbiology 01/25/21 08:30 Stool Culture - Preliminary Stool / Feces Escherichia Coli O157 Shiga Toxin I & II - Final Med Orders - Current: Current Medications Acetaminophen (Acetaminophen 325 Mg Tab) 650 mg PO Q4H PRN PRN Reason: Pain (Mild 1-3)/fever Hydromorphone HCl (Hydromorphone 1 Mg/Ml Syringe) 1 mg IVPUSH Q1H PRN PRN Reason: Pain (severe 7-10) Last Admin: 01/28/21 05:37 Dose: 1 mg Documented by: Dextrose/Lactated Ringer's (Dextrose 5%-Lactated Ringers) 1,000 mls @ 125 mls/hr IV ASDIRECTED ELIANA Last Admin: 01/28/21 02:30 Dose: 125 mls/hr Documented by: Potassium Chloride 10 meq/ (Premix) 100 mls @ 100 mls/hr IV Q1H [facility]IANA Stop: 01/28/21 15:14 Miscellaneous Information (Remove Replace Scopolamine Patch) 1 ea TRDERM Q72H [facility] Ondansetron HCl (Ondansetron 4 Mg/2 Ml Sdv) 4 mg IV Q6H PRN PRN Reason: Nausea/Vomiting Oxycodone HCl (Oxycodone 5 Mg Tab) 5 mg PO Q4H PRN PRN Reason: Pain (moderate 4-6) Last Admin: 01/26/21 01:50 Dose: 5 mg Documented by: Scopolamine (Scopolamine 1.5 Mg Transdermal Patch) 1.5 mg TRDERM Q72H [facility] Last Admin: 01/25/21 15:44 Dose: 1.5 mg Documented by: Simethicone (Simethicone 80 Mg Tab.Chew) 160 mg PO TID PRN PRN Reason: Bloating/gas Last Admin: 01/27/21 20:00 Dose: 160 mg Documented by: Discontinued Medications Hydromorphone HCl (Hydromorphone 0.5 Mg/0.5 Ml Syringe) 0.5 mg IVPUSH ONETIME ONE Stop: 01/25/21 07:31 Last Admin: 01/25/21 07:41 Dose: 0.5 mg Documented by: Hydromorphone HCl (Hydromorphone 0.5 Mg/0.5 Ml Syringe) 0.5 mg IVPUSH ONETIME ONE Stop: 01/25/21 08:32 Last Admin: 01/25/21 08:30 Dose: 0.5 mg Documented by: Hydromorphone HCl (Hydromorphone 0.5 Mg/0.5 Ml Syringe) 0.5 mg IVPUSH ONETIME ONE Stop: 01/25/21 09:28 Last Admin: 01/25/21 09:30 Dose: 0.5 mg Documented by: Hydromorphone HCl (Hydromorphone 0.5 Mg/0.5 Ml Syringe) 0.5 mg IVPUSH ONETIME ONE Stop: 01/25/21 10:22 Last Admin: 01/25/21 10:30 Dose: 0.5 mg Documented by: Hydromorphone HCl (Hydromorphone 0.5 Mg/0.5 Ml Syringe) 0.5 mg IVPUSH ONETIME ONE Stop: 01/25/21 12:27 Last Admin: 01/25/21 12:33 Dose: 0.5 mg Documented by: Hydromorphone HCl (Hydromorphone 0.5 Mg/0.5 Ml Syringe) 0.5 mg IVPUSH Q2H PRN PRN Reason: Pain (severe 7-10) Last Admin: 01/25/21 13:52 Dose: 0.5 mg Documented by: Hydromorphone HCl (Hydromorphone 1 Mg/Ml Syringe) 1 mg IVPUSH Q2H PRN PRN Reason: Pain (severe 7-10) Dextrose/Sodium Chloride (Dextrose 5%-Normal Saline) 1,000 mls @ 999 mls/hr IV ASDIRECTED [facility] Last Admin: 01/25/21 07:43 Dose: 999 mls/hr Documented by: Metronidazole 500 mg/ Premix 100 mls @ 100 mls/hr IV ONETIME ONE Stop: 01/25/21 09:24 Last Admin: 01/25/21 08:42 Dose: Not Given Documented by: Azithromycin 500 mg/ Sodium (Chloride) 250 mls @ 250 mls/hr IV ONETIME ONE Stop: 01/25/21 10:27 Last Admin: 01/25/21 09:41 Dose: 250 mls/hr Documented by: Piperacillin Sod/Tazobactam (Sod 4.5 gm/ Sodium Chloride) 100 mls @ 25 mls/hr IV Q8H [facility] Last Admin: 01/26/21 05:04 Dose: 25 mls/hr Documented by: Piperacillin Sod/Tazobactam (Sod 4.5 gm/ Sodium Chloride) 100 mls @ 200 mls/hr IV ONETIME ONE Stop: 01/25/21 13:29 Last Admin: 01/25/21 13:55 Dose: 200 mls/hr Documented by: Magnesium Sulfate 2 gm/ Premix 50 mls @ 25 mls/hr IV ONETIME ONE Stop: 01/25/21 15:29 Last Admin: 01/25/21 14:31 Dose: 25 mls/hr Documented by: Potassium Chloride 10 meq/ (Premix) 100 mls @ 100 mls/hr IV Q1H [facility] Stop: 01/25/21 17:29 Last Admin: 01/25/21 18:38 Dose: 100 mls/hr Documented by: Lactated Ringer's (Ringers, Lactated) 1,000 mls @ 999 mls/hr IV ONETIME ONE Stop: 01/26/21 09:18 Last Admin: 01/26/21 08:44 Dose: 999 mls/hr Documented by: Lactated Ringer's (Ringers, Lactated) 500 mls @ 999 mls/hr IV .BOLUS ONE Stop: 01/27/21 07:12 Last Admin: 01/27/21 07:07 Dose: 999 mls/hr Documented by: Magnesium Sulfate 4 gm/ Premix 50 mls @ 12.5 mls/hr IV ONETIME ONE Stop: 01/27/21 12:52 Last Admin: 01/27/21 09:31 Dose: 12.5 mls/hr Documented by: Potassium Chloride 10 meq/ (Premix) 100 mls @ 100 mls/hr IV Q1H [facility] Stop: 01/27/21 12:59 Last Admin: 01/27/21 14:46 Dose: 100 mls/hr Documented by: Lactated Ringer's (Ringers, Lactated) 500 mls @ 999 mls/hr IV .BOLUS ONE Stop: 01/27/21 09:36 Last Admin: 01/27/21 09:30 Dose: 999 mls/hr Documented by: Loperamide HCl (Loperamide 2 Mg Cap) 2 mg PO ONETIME ONE Stop: 01/25/21 12:27 Last Admin: 01/25/21 12:31 Dose: 2 mg Documented by: Metoclopramide HCl (Metoclopramide 10 Mg/2 Ml Sdv) 7.5 mg IVPUSH ONETIME ONE Stop: 01/25/21 07:30 Last Admin: 01/25/21 07:39 Dose: 7.5 mg Documented by: Oxycodone HCl (Oxycodone 5 Mg Tab) 10 mg PO Q4H PRN PRN Reason: Pain (moderate 4-6) - Exam Quality Assessment: DVT Prophylaxis. No: Supplemental Oxygen, Urine Catheter General: Alert, Oriented, Cooperative, No Acute Distress HEENT: Pupils Equal, Pupils Reactive, Mucous Membr. Moist/[place] Neck: Supple, Trachea Midline Lungs: Clear to Auscultation, Normal Respiratory Effort Cardiovascular: Regular Rate, Regular Rhythm GI/Abdominal Exam: Normal Bowel Sounds, Soft, No Distention, No Abnormal Bruit, Distended (mildly ), Tender (generalized ). No: Guarding, Rigid (Female) Exam: Deferred Back Exam: Normal Inspection, Full Range of Motion Extremities: Normal Inspection, Normal Range of Motion, Non-Tender, No Pedal Edema, Normal Capillary Refill Peripheral Pulses: 2+: Radial (L), Radial (R), Dorsalis Pedis (L), Dorsalis Pedis (R) Skin: Warm, Dry, Intact Neurological: No New Focal Deficit Psy/Mental Status: Alert, Normal Affect, Normal Mood - Patient Data Lab Results Last 24 hrs: Laboratory Results - last 24 hr 01/26/21 01/28/21 01/28/21 Range/Units 08:48 05:07 05:07 WBC 21.57 H (3.98-10.04) K/mm3 RBC 3.11 L (3.98-5.22) M/mm3 Hgb 9.8 L (11.2-15.7) gm/dl Hct 30.4 L (34.1-44.9) % MCV 97.7 H (79.4-94.8) fl MCH 31.5 (25.6-32.2) pg MCHC 32.2 (32.2-35.5) g/dl RDW Std Deviation 46.5 H (36.4-46.3) fL Plt Count 203 (182-369) K/mm3 MPV 11.9 (9.4-12.3) fl Neut % (Auto) 79.7 H (34.0-71.1) % Lymph % (Auto) 8.6 L (19.3-51.7) % [place] % (Auto) 10.0 (4.7-12.5) % Eos % (Auto) 0.6 L (0.7-5.8) Baso % (Auto) 0.2 (0.1-1.2) % Neut # (Auto) 17.22 H (1.56-6.13) K/mm3 Lymph # (Auto) 1.85 (1.18-3.74) K/mm3 [place] # (Auto) 2.15 H (0.24-0.36) K/mm3 Eos # (Auto) 0.12 (0.04-0.36) K/mm3 Baso # (Auto) 0.04 (0.01-0.08) K/mm3 Manual Slide Review Abnormal smear Sodium 138 (136-145) mEq/L Potassium 3.2 L (3.5-5.1) mEq/L Chloride 105 (98-107) mEq/L Carbon Dioxide 25 (21-32) mEq/L Anion Gap 11.2 (5-15) BUN 4 L (7-18) mg/dL Creatinine 0.4 L (0.55-1.02) mg/dL Est Cr Clr Drug Dosing 198.02 mL/min Estimated GFR (MDRD) > 60 (>60) mL/min BUN/Creatinine Ratio 10.0 L (14-18) Glucose 120 H (70-99) mg/dL Calcium 7.1 L (8.5-10.1) mg/dL Magnesium 1.9 (1.8-2.4) mg/dL Total Bilirubin 0.3 (0.2-1.0) mg/dL AST 11 L (15-37) U/L ALT 10 L (14-59) U/L Alkaline Phosphatase 68 (46-116) U/L C-Reactive Protein 21.2 H* (<1.0) mg/dL Total Protein 4.5 L (6.4-8.2) g/dl Albumin 1.5 L (3.4-5.0) g/dl Globulin 3.0 gm/dL Albumin/Globulin Ratio 0.5 L (1-2) Stl C. cayetanensis PCR Not detected (Not Detected) Stool Rotavirus A PCR Not detected (Not Detected) Stool Astrovirus (PCR) Not detected (Not Detected) Stool Cryptosporidium PCR Not detected (Not Detected) St Sh/Enteroin Ecoli PCR Not detected (Not Detected) Stl Enterotoxigenic E PCR Not detected (Not Detected) Stl E. histolytica PCR Not detected (Not Detected) Stool Giardia Lamblia PCR Not detected (Not Detected) Stool Sapovirus (PCR) Not detected (Not Detected) Stl P. shigelloides PCR Not detected (Not Detected) St Y.enterocolitica PCR Not detected (Not Detected) Stool Vibrio (PCR) Not detected (Not Detected) Stl Vibrio cholerae PCR Not detected (Not Detected) Stl Enteroaggr Ecoli PCR Not detected (Not Detected) Adenovirus Types 40, 41 Not detected (Not Detected) Campylobacter (PCR) Not detected (Not Detected) C. difficile (PCR) Not detected (Not Detected) Escherichia coli 0157 Detected H (Not Detected) E.coli Shiga Toxins Detected H (Not Detected) Salmonella (PCR) Not detected (Not Detected) Stool Norovirus GI (PCR) Not detected (Not Detected) Result Diagrams: 01/28/21 05:07 01/28/21 05:07 Amandeep Results Last 24 hrs: Microbiology 01/25/21 08:30 Stool Culture - Preliminary Stool / Feces Escherichia Coli O157 Shiga Toxin I & II - Final Sepsis Event Note - Evaluation Sepsis Screening Result: Sepsis Risk - Focused Exam Vital Signs: Vital Signs Temp Pulse Resp BP Pulse Ox 01/28/21 05:45 99.0 F 102 H 20 113/65 95 01/28/21 03:13 98.6 F 99 16 105/59 L 94 L - Problem List & Annotations (1) Nausea and vomiting SNOMED Code(s): 85075163 Code(s): R11.2 - NAUSEA WITH VOMITING, UNSPECIFIED Status: Acute Priority: High Current Visit: Yes Qualifiers: Vomiting type: bilious vomiting Qualified Code(s): R11.14 - Bilious vomiting (2) Abdominal pain SNOMED Code(s): 09128865 Code(s): R10.9 - UNSPECIFIED ABDOMINAL PAIN Status: Acute Priority: High Current Visit: Yes Qualifiers: Abdominal location: lower abdomen, unspecified Qualified Code(s): R10.30 - Lower abdominal pain, unspecified (3) Dysentery SNOMED Code(s): 48927115 Code(s): A09 - INFECTIOUS GASTROENTERITIS AND COLITIS, UNSPECIFIED Status: Acute Priority: High Current Visit: Yes (4) First trimester SNOMED Code(s): 39661654 Code(s): Z34.91 - ENCNTR FOR SUPRVSN OF NORMAL PREG, UNSP, FIRST TRIMESTER Status: Acute Priority: High Current Visit: Yes (5) H/O unilateral salpingectomy SNOMED Code(s): 057070436 Code(s): Z90.79 - ACQUIRED ABSENCE OF OTHER GENITAL ORGAN(S) Status: Chronic Priority: Low Current Visit: No (6) History of uterine fibroid SNOMED Code(s): 686718314 Code(s): Z86.018 - PERSONAL HISTORY OF OTHER BENIGN NEOPLASM Status: Chronic Priority: Low Current Visit: No (7) History of ectopic SNOMED Code(s): 612129835, 656882540 Code(s): Z87.59 - PERSONAL HISTORY OF COMP OF PREG, CHLDBRTH AND THE PUERP Status: Chronic Priority: Medium Current Visit: No (8) Bacterial enteritis, unspecified SNOMED Code(s): 14088803 Code(s): A04.9 - BACTERIAL INTESTINAL INFECTION, UNSPECIFIED Status: Acute Priority: High Current Visit: Yes (9) Subchorionic hemorrhage SNOMED Code(s): 421985095 Code(s): O41.8X90 - OTH DISRD OF AMNIOTIC FLUID AND MEMBRNS, UNSP TRI, UNSP; O46.8X9 - OTHER ANTEPARTUM HEMORRHAGE, UNSPECIFIED TRIMESTER Status: Acute P riority: Medium Current Visit: Yes Qualifiers: Fetus number: single or unspecified fetus Trimester: first trimester Qualified Code(s): O41.8X10 - Other specified disorders of amniotic fluid and membranes, first trimester, not applicable or unspecified; O46.8X1 - Other antepartum hemorrhage, first trimester (10) Leukocytosis SNOMED Code(s): 799063399, 676776015 Code(s): D72.829 - ELEVATED WHITE BLOOD CELL COUNT, UNSPECIFIED Status: Acute Priority: High Current Visit: Yes Qualifiers: Leukocytosis type: unspecified Qualified Code(s): D72.829 - Elevated white blood cell count, unspecified (11) Volume depletion SNOMED Code(s): 787053230 Code(s): E86.9 - VOLUME DEPLETION, UNSPECIFIED Status: Acute Priority: High Current Visit: Yes (12) Shiga toxin-producing Escherichia coli (E. coli) (STEC) O157 SNOMED Code(s): 108250104552159 Code(s): A49.8 - OTHER BACTERIAL INFECTIONS OF UNSPECIFIED SITE Status: Acute Priority: High Current Visit: Yes (13) Hypokalemia SNOMED Code(s): 93014626 Code(s): E87.6 - HYPOKALEMIA Status: Acute Priority: High Current Visit: Yes (14) Hypomagnesemia SNOMED Code(s): 083183353 Code(s): E83.42 - HYPOMAGNESEMIA Status: Acute Priority: High Current Visit: Yes - Problem List Review Problem List Initiated/Reviewed/Updated: Yes - My Orders Last 24 Hours: My Active Orders 01/27/21 Lunch Clear Liquid Diet [DIET] 01/27/21 12:44 Simethicone 160 mg PO TID PRN 01/28/21 08:59 LACTIC ACID [CHEM] Routine 01/28/21 09:15 Potassium Chloride [KCl in Water 10 MEQ/100 ML] 10 meq Premix Bag 1 bag IV Q1H 01/28/21 13:00 Remove Patch 1 ea TRDERM Q72H 01/29/21 05:11 CBC WITH AUTO DIFF [HEME] AM CMP [COMPREHENSIVE METABOLIC PN,CMP] [CHEM] AM CRP [C-REACTIVE PROTEIN] [CHEM] AM MAGNESIUM [CHEM] AM - Assessment Assessment:: Assessment - Admission date - 01/25/2021 * 35-year-old female who presents with diffuse abdominal pain, nausea, bilious emesis, and bloody diarrhea * History of ctopic in May 2020 with right salpingectomy and uterine fibroids * Reports she has been ill for the past 2 days * Started having watery diarrhea and mild abdominal pain which worsened and became cramping in nature. Her stool eventually became pure blood. * She reports she has been nauseous and essentially dry heaving at this point * Chills but no known fever. * Just returned from a family reunion in the [facility] in [place]. * Family was playing in the local river * Their camper was hooked up to a well in the campground with a charcoal filter installed * Reports there were potluck meals but no known questionable food. * Reports a child with mild but similar symptoms and her [id number] who is developing similar symptoms currently. * Labs are obtained: * WBC 13.12. * Hemoglobin of 13.6. * Hematocrit 40.3. * Platelet 274,000. * Neutrophils are elevated 83.7%. * INR is 0.94. * aPTT is 26.3. * Sodium is 138. * Potassium 3.3. * Chloride 102. * Carbon dioxide 23. * Anion gap is 16.3. * BUN is 7. Creatinine 0.7. GFR greater than 60. * Glucose 123. * Calcium 9.2. * Bilirubin 0.3. * AST 16, ALT 25, alkaline phosphatase 51. * CRP is 8.7. * Albumin 3.3. * Lipase is 60. * hCG qualitative is positive. hCG quantitative is 6881, consistent with 5- week gestation. * SARS-CoV-2 RNA is negative. * Stool ova and parasite, stool culture/Shiga toxin, and stool fecal lactoferrin are collected. * Obstetrics ultrasound: * Small intrauterine gestation with a mean sac diameter of 0.86-5 weeks and 4 days. * Small subchorionic hemorrhage with mild free fluid seen within the pelvis. * Other findings are noted. * She is given azithromycin 500 mg, Zofran, Regalin, and IV push Dilaudid for pain. * Given a 1 L D5LR bolus and started on D5 LR maintenance fluids. * Admitted to the medical floor for management and further work-up of her diarrhea and vomiting. 01/26/2021 35-year-old female admitted for dysentery. Patient continues to have nausea and episodes of bloody diarrhea, although she does report that her pain is slightly improved. Patient reports that family member did test positive for Shiga toxin E. coli. Oddly patient's Shiga toxin here was negative. Cryptosporidium and Giardia was negative. Stool lactoferrin was positive. Stool culture is positive. OB did consult on the patient and recommend follow-up ultrasound in 10 days. Multiple family members have now developed similar symptoms. Contacted Dr. Sosa, infectious disease with [facility] in [place] who recommended we discontinue IV antibiotics and treat the patient like a Shiga toxin pending stool cultures. Dr. Morfin, on-call GI specialist with [facility] in [place] was contacted as well who recommends discontinuation of IV antibiotics, IV fluids, pain control, and time to let this pass. Labs and test results were reviewed. He also recommended scan of the abdomen and pelvis to rule out perforation. Discussed with Dr. Gordon, radiologist regarding risks and benefits of scan and ensuring CT versus MRI was appropriate. Ultimate decision was CT without contrast. Discussed plan with eleazar price, including risks and benefits to developing fetus. Ultimately patient agrees to proceed with scan. CT scan of the abdomen and pelvis is obtained and shows 1. Minimal hiatal hernia. 2. Small gestational sac within the uterus. 3. Prominent bowel wall thickening throughout the colon with diffuse inflammatory change around the colon. Findings are felt compatible with a rather prominent colitis. Etiology of the colitis is uncertain on this exam. 4. Fair amount of free fluid within the pelvis as well as around the liver which is slightly complicated but does not appear to be bloody. 5. Normal appendix is seen. Labs today show elevated WBC of 20.63. Hemoglobin 12.3. Platelet 235,000. Neutrophils are elevated at 83.3%. Sodium is 140. Potassium 3.8. Anion gap is 14.8. BUN is 6. Creatinine 0.7. GFR greater than 60. Glucose is 179. Calcium is 7.4. Magnesium 2.0. Bilirubin 0.2. AST 9, ALT 14, alkaline phosphatase 44. CRP is 14.6. Protein is 5.6. Albumin is 2.1. UA was obtained yesterday and was grossly negative however 3+ ketones and concentrated urine were noted. Vital signs have been stable. We will continue to monitor for signs of HUS. 1 L fluid bolus given today. Patient remains n.p.o. IV fluids remain ordered. We will recheck lactic acid this afternoon and recheck all labs including lactic acid tomorrow. Will await stool culture. Continue current treatment plan. Unknown length of stay. Will be pending resolution of symptoms and advancement of diet. 01/27/2021 35-year-old female admitted for dysentery. Patient has had multiple family members now returned positive for Shiga toxin 2. Patient herself has had a positive stool culture for E. coli 0157, which is a Shiga toxin E. coli. All antibiotics have been stopped. Lactic acid has been within normal limits. Patient has received multiple IV fluid boluses and continues on IV fluids. Diet today was advanced from n.p.o. to clear liquids after discussion with the patient. She reports she is feeling quite a bit better. She is still having bloody stools but much less frequent. There appears to be less blood in her stools as well per patient report. She continues to have occasional dry heaves and nausea but does state that she has a history of morning sickness with . Bowel sounds have been active. Labs today show WBC of 20.37. Hemoglobin 10.7. Hematocrit 32.6. Platelet 196,000. Neutrophils are elevated at 79.7. Sodium is 139. Potassium 3.3. Chloride 105. Carbon dioxide 27. Anion gap is 10.3. BUN is 5. Creatinine 0.5. GFR in 60. Glucose has been in the low 110s. Lactic acid 0.5. Calcium 7.4. Magnesium 1.7. AST is 11, ALT 12, alkaline phosphatase 48. CRP is 20.5. Protein 4.9. Albumin 1.7. We will continue current treatment plan as the patient is feeling better. Clinically she looks more comfortable and greatly improved. Length of stay will be determined by patient tolerating diet and continuing resolution of symptoms. Likely length of stay 2-3 more days. 01/28/2021 35-year-old female admitted for abdominal pain and bloody diarrhea. Found to be E. coli 0157 positive. Patient reports that she is still having some hematochezia however this has improved. She reports approximately 2 stools an hour. She is still having pain although it is better. She reports she has gotten some sleep. Abdomen is somewhat distended however bowel sounds are nice and active today. She continues to tolerate the clear liquid diet but we will hold off on advancing giving continuation of symptoms and no real change in labs. WBC remains elevated 21.57. Hemoglobin 9.8. Platelet 203,000. Neut rophils are elevated 79.7. Sodium is 138. Potassium is 3.2. Chloride 105. Carbon dioxide 25. Anion gap 11.2. BUN is 4. Creatinine 0.4. GFR greater than 60. Lactic acid 0.7. Calcium 7.1. Magnesium 1.9. Bilirubin 0.3. AST is 11, ALT 10, alkaline phosphatase 68. CRP is 21.2. Protein is 4.5. Albumin 1.5. We will continue IV fluids. Potassium will be supplemented with 6 K riders. Clinically she looks better than yesterday and she reports she feels better than yesterday. We will continue current treatment plan. - Plan Plan:: Nausea and vomiting, Improved Abdominal pain, improved Dysentery Bacterial enteritis, unspecified Shiga toxin E. coli 0157 Leukocytosis Volume depletion * IV fluids as ordered * Antiemetics as ordered * Pain medications as ordered * Clear liquid diet as tolerated * Monitor labs * Scopolamine patch (Ok'd with [employer] Dr. Arreguin) * Abdomina/Pelvis CT scan obtained after discussion with Dr. Gordon (radiology), Dr. Morfin (GI), Dr. Sosa (ID) and patient * C-diff negative * Enteric isolation * Stool culture/shiga toxin - Negative shiga toxin 1&2 however positive E. Coli 0157 * Stool O&P - negative * Blood cultures negative thus far * As needed simethicone for gas pains Hypokalemia Hypomagnesemia, resolved * Supplement * Monitor labs First trimester H/O unilateral salpingectomy History of uterine fibroid History of ectopic Subchorionic hemorrhage * Case discussed with Dr. Arreguin, [employer] * Ensure medications appropriate for * Follow-up at 10 weeks * Avoid intercourse until follow-up with [employer] due to subchorionic hemorrhage on OB US Code status: Full Code PCP: None currently DVT prophylaxis: Not indicated Social: Patient [place] with significant other on a [place] near [place], [place] Disposition: Patient admitted to Medr floor for management and further work- up of nausea, vomiting, and bloody diarrhea. LOS >96 hrs due to slow response to treatment.
[2021-01-28] MEDS: Simethicone 80 MG Tab.Chew PO PRN (09:23)
[2021-01-28] MEDS: Potassium Chloride 10 MEQ in Premix Bag 1 BAG IV SCH ×6 (09:23→16:42)
[2021-01-28] MEDS ORDERED: oxyCODONE 5 MG Tab PO PRN (10:22)
[2021-01-28] MEDS: [UNRECOGNIZED DRUG - REMARK] TRDERM SCH (14:11)
[2021-01-28] MEDS: Scopolamine 1.5 MG Transdermal Patch TRDERM SCH (14:14)
[2021-01-29] MEDS: HYDROmorphone 1 MG/ML Syringe IVPUSH PRN ×6 (00:05→22:58)
[2021-01-29] MEDS: Acetaminophen 325 MG Tab PO PRN ×2 (07:27→12:12)
--- NOTE | 2021-01-29 09:51 | PCM.PN ---
- General Info Date of Service: 01/29/21 Admission Dx/Problem (Free Text): Admission Diagnosis/Problem Dysentery Functional Status: Reports: Tolerating Diet (Clear liquids), Ambulating, Urinating, New Symptoms (Worsening pain). Denies: Pain Controlled (Reports pain is worse today) - Review of Systems General: Reports: Weakness, Fatigue. Denies: Fever, Malaise, Chills HEENT: Reports: No Symptoms. Denies: Headaches, Sore Throat Pulmonary: Reports: No Symptoms. Denies: Shortness of Breath, Cough, Sputum, Wheezing Cardiovascular: Reports: No Symptoms. Denies: Chest Pain, Palpitations, Dyspnea on Exertion, Edema Gastrointestinal: Reports: Abdominal Pain (Lower quadrant at rest but upper quadrant when standing), Diarrhea, Flatus, Nausea, Vomiting. Denies: Constipation, Decreased Appetite, Hematochezia, Melena Genitourinary: Reports: No Symptoms. Denies: Pain Musculoskeletal: Reports: No Symptoms Skin: Reports: No Symptoms. Denies: Cyanosis Neurological: Reports: No Symptoms. Denies: Confusion, Pre-Existing Deficit, Difficulty Walking, Gait Disturbance Psychiatric: Reports: No Symptoms - Patient Data Vitals - Most Recent: Last Vital Signs Temp 98.8 F 01/29/21 07:24 Pulse 106 H 01/29/21 07:24 Resp 16 01/29/21 07:24 BP 122/52 L 01/29/21 07:24 Pulse Ox 92 L 01/29/21 07:24 Weight - Most Recent: 154 lb 3.2 oz I&O - Last 24 Hours: Intake & Output 01/28/21 01/29/21 01/29/21 22:59 06:59 14:59 Intake Total 2903 800 Output Total 1200 Balance 1703 800 Lab Results Last 24 Hours: Laboratory Results - last 24 hr 01/26/21 01/26/21 01/29/21 Range/Units 06:00 08:48 05:02 WBC 24.67 H (3.98-10.04) K/mm3 RBC 3.12 L (3.98-5.22) M/mm3 Hgb 10.0 L (11.2-15.7) gm/dl Hct 30.5 L (34.1-44.9) % MCV 97.8 H (79.4-94.8) fl MCH 32.1 (25.6-32.2) pg MCHC 32.8 (32.2-35.5) g/dl RDW Std Deviation 46.9 H (36.4-46.3) fL Plt Count 223 (182-369) K/mm3 MPV 11.8 (9.4-12.3) fl Neut % (Auto) 75.1 H (34.0-71.1) % Lymph % (Auto) 10.5 L (19.3-51.7) % [place] % (Auto) 10.6 (4.7-12.5) % Eos % (Auto) 1.1 (0.7-5.8) Baso % (Auto) 0.3 (0.1-1.2) % Neut # (Auto) 18.57 H (1.56-6.13) K/mm3 Lymph # (Auto) 2.58 (1.18-3.74) K/mm3 [place] # (Auto) 2.61 H (0.24-0.36) K/mm3 Eos # (Auto) 0.26 (0.04-0.36) K/mm3 Baso # (Auto) 0.07 (0.01-0.08) K/mm3 Manual Slide Review Abnormal smear Haptoglobin 204 (44-215) mg/dL Sodium (136-145) mEq/L Potassium (3.5-5.1) mEq/L Chloride (98-107) mEq/L Carbon Dioxide (21-32) mEq/L Anion Gap (5-15) BUN (7-18) mg/dL Creatinine (0.55-1.02) mg/dL Est Cr Clr Drug Dosing mL/min Estimated GFR (MDRD) (>60) mL/min BUN/Creatinine Ratio (14-18) Glucose (70-99) mg/dL Calcium (8.5-10.1) mg/dL Magnesium (1.8-2.4) mg/dL Total Bilirubin (0.2-1.0) mg/dL AST (15-37) U/L ALT (14-59) U/L Alkaline Phosphatase (46-116) U/L C-Reactive Protein (<1.0) mg/dL Total Protein (6.4-8.2) g/dl Albumin (3.4-5.0) g/dl Globulin gm/dL Albumin/Globulin Ratio (1-2) Stool EPEC (PCR) Not Reportable 01/29/21 Range/Units 05:02 WBC (3.98-10.04) K/mm3 RBC (3.98-5.22) M/mm3 Hgb (11.2-15.7) gm/dl Hct (34.1-44.9) % MCV (79.4-94.8) fl MCH (25.6-32.2) pg MCHC (32.2-35.5) g/dl RDW Std Deviation (36.4-46.3) fL Plt Count (182-369) K/mm3 MPV (9.4-12.3) fl Neut % (Auto) (34.0-71.1) % Lymph % (Auto) (19.3-51.7) % [place] % (Auto) (4.7-12.5) % Eos % (Auto) (0.7-5.8) Baso % (Auto) (0.1-1.2) % Neut # (Auto) (1.56-6.13) K/mm3 Lymph # (Auto) (1.18-3.74) K/mm3 [place] # (Auto) (0.24-0.36) K/mm3 Eos # (Auto) (0.04-0.36) K/mm3 Baso # (Auto) (0.01-0.08) K/mm3 Manual Slide Review Haptoglobin (44-215) mg/dL Sodium 137 (136-145) mEq/L Potassium 3.6 (3.5-5.1) mEq/L Chloride 105 (98-107) mEq/L Carbon Dioxide 25 (21-32) mEq/L Anion Gap 10.6 (5-15) BUN 3 L (7-18) mg/dL Creatinine 0.4 L (0.55-1.02) mg/dL Est Cr Clr Drug Dosing 198.02 mL/min Estimated GFR (MDRD) > 60 (>60) mL/min BUN/Creatinine Ratio 7.5 L (14-18) Glucose 94 (70-99) mg/dL Calcium 7.5 L (8.5-10.1) mg/dL Magnesium 1.9 (1.8-2.4) mg/dL Total Bilirubin 0.4 (0.2-1.0) mg/dL AST 10 L (15-37) U/L ALT 9 L (14-59) U/L Alkaline Phosphatase 93 (46-116) U/L C-Reactive Protein 23.9 H* (<1.0) mg/dL Total Protein 4.7 L (6.4-8.2) g/dl Albumin 1.4 L (3.4-5.0) g/dl Globulin 3.3 gm/dL Albumin/Globulin Ratio 0.4 L (1-2) Stool EPEC (PCR) Amandeep Results Last 24 Hours: Microbiology 01/25/21 08:30 Stool Culture - Final Stool / Feces Escherichia Coli O157 Shiga Toxin I & II - Final Med Orders - Current: Current Medications Acetaminophen (Acetaminophen 325 Mg Tab) 650 mg PO Q4H PRN PRN Reason: Pain (Mild 1-3)/fever Last Admin: 01/29/21 07:27 Dose: 650 mg Documented by: Hydromorphone HCl (Hydromorphone 1 Mg/Ml Syringe) 1 mg IVPUSH Q1H PRN PRN Reason: Pain (severe 7-10) Last Admin: 01/29/21 05:19 Dose: 1 mg Documented by: Miscellaneous Information (Remove Replace Scopolamine Patch) 1 ea TRDERM Q72H [facility] Last Admin: 01/28/21 14:11 Dose: 1 ea Documented by: Ondansetron HCl (Ondansetron 4 Mg/2 Ml Sdv) 4 mg IV Q6H PRN PRN Reason: Nausea/Vomiting Oxycodone HCl (Oxycodone 5 Mg Tab) 10 mg PO Q4H PRN PRN Reason: Pain (moderate 4-6) Scopolamine (Scopolamine 1.5 Mg Transdermal Patch) 1.5 mg TRDERM Q72H [facility] Last Admin: 01/28/21 14:14 Dose: 1.5 mg Documented by: Simethicone (Simethicone 80 Mg Tab.Chew) 160 mg PO TID PRN PRN Reason: Bloating/gas Last Admin: 01/28/21 09:23 Dose: 160 mg Documented by: Discontinued Medications Hydromorphone HCl (Hydromorphone 0.5 Mg/0.5 Ml Syringe) 0.5 mg IVPUSH ONETIME ONE Stop: 01/25/21 07:31 Last Admin: 01/25/21 07:41 Dose: 0.5 mg Documented by: Hydromorphone HCl (Hydromorphone 0.5 Mg/0.5 Ml Syringe) 0.5 mg IVPUSH ONETIME ONE Stop: 01/25/21 08:32 Last Admin: 01/25/21 08:30 Dose: 0.5 mg Documented by: Hydromorphone HCl (Hydromorphone 0.5 Mg/0.5 Ml Syringe) 0.5 mg IVPUSH ONETIME ONE Stop: 01/25/21 09:28 Last Admin: 01/25/21 09:30 Dose: 0.5 mg Documented by: Hydromorphone HCl (Hydromorphone 0.5 Mg/0.5 Ml Syringe) 0.5 mg IVPUSH ONETIME ONE Stop: 01/25/21 10:22 Last Admin: 01/25/21 10:30 Dose: 0.5 mg Documented by: Hydromorphone HCl (Hydromorphone 0.5 Mg/0.5 Ml Syringe) 0.5 mg IVPUSH ONETIME ONE Stop: 01/25/21 12:27 Last Admin: 01/25/21 12:33 Dose: 0.5 mg Documented by: Hydromorphone HCl (Hydromorphone 0.5 Mg/0.5 Ml Syringe) 0.5 mg IVPUSH Q2H PRN PRN Reason: Pain (severe 7-10) Last Admin: 01/25/21 13:52 Dose: 0.5 mg Documented by: Hydromorphone HCl (Hydromorphone 1 Mg/Ml Syringe) 1 mg IVPUSH Q2H PRN PRN Reason: Pain (severe 7-10) Dextrose/Sodium Chloride (Dextrose 5%-Normal Saline) 1,000 mls @ 999 mls/hr IV ASDIRECTED [facility] Last Admin: 01/25/21 07:43 Dose: 999 mls/hr Documented by: Metronidazole 500 mg/ Premix 100 mls @ 100 mls/hr IV ONETIME ONE Stop: 01/25/21 09:24 Last Admin: 01/25/21 08:42 Dose: Not Given Documented by: Azithromycin 500 mg/ Sodium (Chloride) 250 mls @ 250 mls/hr IV ONETIME ONE Stop: 01/25/21 10:27 Last Admin: 01/25/21 09:41 Dose: 250 mls/hr Documented by: Dextrose/Lactated Ringer's (Dextrose 5%-Lactated Ringers) 1,000 mls @ 125 mls/hr IV ASDIRECTED [facility] Last Admin: 01/28/21 11:37 Dose: 125 mls/hr Documented by: Piperacillin Sod/Tazobactam (Sod 4.5 gm/ Sodium Chloride) 100 mls @ 25 mls/hr IV Q8H [facility] Last Admin: 01/26/21 05:04 Dose: 25 mls/hr Documented by: Piperacillin Sod/Tazobactam (Sod 4.5 gm/ Sodium Chloride) 100 mls @ 200 mls/hr IV ONETIME ONE Stop: 01/25/21 13:29 Last Admin: 01/25/21 13:55 Dose: 200 mls/hr Documented by: Magnesium Sulfate 2 gm/ Premix 50 mls @ 25 mls/hr IV ONETIME ONE Stop: 01/25/21 15:29 Last Admin: 01/25/21 14:31 Dose: 25 mls/hr Documented by: Potassium Chloride 10 meq/ (Premix) 100 mls @ 100 mls/hr IV Q1H [facility] Stop: 01/25/21 17:29 Last Admin: 01/25/21 18:38 Dose: 100 mls/hr Documented by: Lactated Ringer's (Ringers, Lactated) 1,000 mls @ 999 mls/hr IV ONETIME ONE Stop: 01/26/21 09:18 Last Admin: 01/26/21 08:44 Dose: 999 mls/hr Documented by: Lactated Ringer's (Ringers, Lactated) 500 mls @ 999 mls/hr IV .BOLUS ONE Stop: 01/27/21 07:12 Last Admin: 01/27/21 07:07 Dose: 999 mls/hr Documented by: Magnesium Sulfate 4 gm/ Premix 50 mls @ 12.5 mls/hr IV ONETIME ONE Stop: 01/27/21 12:52 Last Admin: 01/27/21 09:31 Dose: 12.5 mls/hr Documented by: Potassium Chloride 10 meq/ (Premix) 100 mls @ 100 mls/hr IV Q1H ELIANA Stop: 01/27/21 12:59 Last Admin: 01/27/21 14:46 Dose: 100 mls/hr Documented by: Lactated Ringer's (Ringers, Lactated) 500 mls @ 999 mls/hr IV .BOLUS ONE Stop: 01/27/21 09:36 Last Admin: 01/27/21 09:30 Dose: 999 mls/hr Documented by: Potassium Chloride 10 meq/ (Premix) 100 mls @ 100 mls/hr IV Q1H [place]IANA Stop: 01/28/21 15:29 Last Admin: 01/28/21 16:42 Dose: 100 mls/hr Documented by: Loperamide HCl (Loperamide 2 Mg Cap) 2 mg PO ONETIME ONE Stop: 01/25/21 12:27 Last Admin: 01/25/21 12:31 Dose: 2 mg Documented by: Metoclopramide HCl (Metoclopramide 10 Mg/2 Ml Sdv) 7.5 mg IVPUSH ONETIME ONE Stop: 01/25/21 07:30 Last Admin: 01/25/21 07:39 Dose: 7.5 mg Documented by: Oxycodone HCl (Oxycodone 5 Mg Tab) 10 mg PO Q4H PRN PRN Reason: Pain (moderate 4-6) Oxycodone HCl (Oxycodone 5 Mg Tab) 5 mg PO Q4H PRN PRN Reason: Pain (moderate 4-6) Last Admin: 01/26/21 01:50 Dose: 5 mg Documented by: - Exam Quality Assessment: Supplemental Oxygen. No: Urine Catheter, DVT Prophylaxis (not indicated ) General: Alert, Oriented, Cooperative, Mild Distress (appears uncomfortable ) HEENT: Pupils Equal, Pupils Reactive, Mucous Membr. Moist/[place] Neck: Supple, Trachea Midline Lungs: Clear to Auscultation, Normal Respiratory Effort Cardiovascular: Regular Rate, Tachycardia GI/Abdominal Exam: Normal Bowel Sounds, Distended, Tender. No: Guarding, Rigid (Female) Exam: Deferred Back Exam: Normal Inspection, Full Range of Motion Extremities: Normal Inspection, Normal Range of Motion, Non-Tender, No Pedal Edema, Normal Capillary Refill Peripheral Pulses: 3+: Radial (L), Radial (R), Dorsalis Pedis (L), Dorsalis Pedis (R) Skin: Warm, Dry, Intact Neurological: No New Focal Deficit Psy/Mental Status: Alert, Normal Affect, Normal Mood - Patient Data Lab Results Last 24 hrs: Laboratory Results - last 24 hr 01/26/21 01/26/21 01/29/21 Range/Units 06:00 08:48 05:02 WBC 24.67 H (3.98-10.04) K/mm3 RBC 3.12 L (3.98-5.22) M/mm3 Hgb 10.0 L (11.2-15.7) gm/dl Hct 30.5 L (34.1-44.9) % MCV 97.8 H (79.4-94.8) fl MCH 32.1 (25.6-32.2) pg MCHC 32.8 (32.2-35.5) g/dl RDW Std Deviation 46.9 H (36.4-46.3) fL Plt Count 223 (182-369) K/mm3 MPV 11.8 (9.4-12.3) fl Neut % (Auto) 75.1 H (34.0-71.1) % Lymph % (Auto) 10.5 L (19.3-51.7) % [place] % (Auto) 10.6 (4.7-12.5) % Eos % (Auto) 1.1 (0.7-5.8) Baso % (Auto) 0.3 (0.1-1.2) % Neut # (Auto) 18.57 H (1.56-6.13) K/mm3 Lymph # (Auto) 2.58 (1.18-3.74) K/mm3 [place] # (Auto) 2.61 H (0.24-0.36) K/mm3 Eos # (Auto) 0.26 (0.04-0.36) K/mm3 Baso # (Auto) 0.07 (0.01-0.08) K/mm3 Manual Slide Review Abnormal smear Haptoglobin 204 (44-215) mg/dL Sodium (136-145) mEq/L Potassium (3.5-5.1) mEq/L Chloride (98-107) mEq/L Carbon Dioxide (21-32) mEq/L Anion Gap (5-15) BUN (7-18) mg/dL Creatinine (0.55-1.02) mg/dL Est Cr Clr Drug Dosing mL/min Estimated GFR (MDRD) (>60) mL/min BUN/Creatinine Ratio (14-18) Glucose (70-99) mg/dL Calcium (8.5-10.1) mg/dL Magnesium (1.8-2.4) mg/dL Total Bilirubin (0.2-1.0) mg/dL AST (15-37) U/L ALT (14-59) U/L Alkaline Phosphatase (46-116) U/L C-Reactive Protein (<1.0) mg/dL Total Protein (6.4-8.2) g/dl Albumin (3.4-5.0) g/dl Globulin gm/dL Albumin/Globulin Ratio (1-2) Stool EPEC (PCR) Not Reportable 01/29/21 Range/Units 05:02 WBC (3.98-10.04) K/mm3 RBC (3.98-5.22) M/mm3 Hgb (11.2-15.7) gm/dl Hct (34.1-44.9) % MCV (79.4-94.8) fl MCH (25.6-32.2) pg MCHC (32.2-35.5) g/dl RDW Std Deviation (36.4-46.3) fL Plt Count (182-369) K/mm3 MPV (9.4-12.3) fl Neut % (Auto) (34.0-71.1) % Lymph % (Auto) (19.3-51.7) % [place] % (Auto) (4.7-12.5) % Eos % (Auto) (0.7-5.8) Baso % (Auto) (0.1-1.2) % Neut # (Auto) (1.56-6.13) K/mm3 Lymph # (Auto) (1.18-3.74) K/mm3 [place] # (Auto) (0.24-0.36) K/mm3 Eos # (Auto) (0.04-0.36) K/mm3 Baso # (Auto) (0.01-0.08) K/mm3 Manual Slide Review Haptoglobin (44-215) mg/dL Sodium 137 (136-145) mEq/L Potassium 3.6 (3.5-5.1) mEq/L Chloride 105 (98-107) mEq/L Carbon Dioxide 25 (21-32) mEq/L Anion Gap 10.6 (5-15) BUN 3 L (7-18) mg/dL Creatinine 0.4 L (0.55-1.02) mg/dL Est Cr Clr Drug Dosing 198.02 mL/min Estimated GFR (MDRD) > 60 (>60) mL/min BUN/Creatinine Ratio 7.5 L (14-18) Glucose 94 (70-99) mg/dL Calcium 7.5 L (8.5-10.1) mg/dL Magnesium 1.9 (1.8-2.4) mg/dL Total Bilirubin 0.4 (0.2-1.0) mg/dL AST 10 L (15-37) U/L ALT 9 L (14-59) U/L Alkaline Phosphatase 93 (46-116) U/L C-Reactive Protein 23.9 H* (<1.0) mg/dL Total Protein 4.7 L (6.4-8.2) g/dl Albumin 1.4 L (3.4-5.0) g/dl Globulin 3.3 gm/dL Albumin/Globulin Ratio 0.4 L (1-2) Stool EPEC (PCR) Result Diagrams: 01/29/21 05:02 01/29/21 05:02 Amandeep Results Last 24 hrs: Microbiology 01/25/21 08:30 Stool Culture - Final Stool / Feces Escherichia Coli O157 Shiga Toxin I & II - Final Sepsis Event Note - Evaluation Sepsis Screening Result: No Definite Risk - Focused Exam Vital Signs: Vital Signs Temp Pulse Resp BP Pulse Ox 01/29/21 07:24 98.8 F 106 H 16 122/52 L 92 L 01/29/21 05:22 98.4 F 95 16 107/62 93 L 01/29/21 00:06 99.1 F 105 H 18 115/49 L 92 L 01/29/21 00:00 18 - Problem List & Annotations (1) Nausea and vomiting SNOMED Code(s): 87100285 Code(s): R11.2 - NAUSEA WITH VOMITING, UNSPECIFIED Status: Acute Priority: High Current Visit: Yes Qualifiers: Vomiting type: bilious vomiting Qualified Code(s): R11.14 - Bilious vomiting (2) Abdominal pain SNOMED Code(s): 97918353 Code(s): R10.9 - UNSPECIFIED ABDOMINAL PAIN Status: Acute Priority: High Current Visit: Yes Qualifiers: Abdominal location: lower abdomen, unspecified Qualified Code(s): R10.30 - Lower abdominal pain, unspecified (3) Dysentery SNOMED Code(s): 57967309 Code(s): A09 - INFECTIOUS GASTROENTERITIS AND COLITIS, UNSPECIFIED Status: Acute Priority: High Current Visit: Yes (4) First trimester SNOMED Code(s): 60268259 Code(s): Z34.91 - ENCNTR FOR SUPRVSN OF NORMAL PREG, UNSP, FIRST TRIMESTER Status: Acute Priority: High Current Visit: Yes (5) H/O unilateral salpingectomy SNOMED Code(s): 588216945 Code(s): Z90.79 - ACQUIRED ABSENCE OF OTHER GENITAL ORGAN(S) Status: Chronic Priority: Low Current Visit: No (6) History of uterine fibroid SNOMED Code(s): 881316676 Code(s): Z86.018 - PERSONAL HISTORY OF OTHER BENIGN NEOPLASM Status: Chronic Priority: Low Current Visit: No (7) History of ectopic SNOMED Code(s): 183010142, 533432952 Code(s): Z87.59 - PERSONAL HISTORY OF COMP OF PREG, CHLDBRTH AND THE PUERP Status: Chronic Priority: Medium Current Visit: No (8) Bacterial enteritis, unspecified SNOMED Code(s): 63687453 Code(s): A04.9 - BACTERIAL INTESTINAL INFECTION, UNSPECIFIED Status: Acute Priority: High Current Visit: Yes (9) Subchorionic hemorrhage SNOMED Code(s): 082394522 Code(s): O41.8X90 - OTH DISRD OF AMNIOTIC FLUID AND MEMBRNS, UNSP TRI, UNSP; O46.8X9 - OTHER ANTEPARTUM HEMORRHAGE, UNSPECIFIED TRIMESTER Status: Acute Priority: Medium Current Visit: Yes Qualifiers: Fetus number: single or unspecified fetus Trimester: first trimester Qualified Code(s): O41.8X10 - Other specified disorders of amniotic fluid and membranes, first trimester, not applicable or unspecified; O46.8X1 - Other antepartum hemorrhage, first trimester (10) Leukocytosis SNOMED Code(s): 430281684, 825076367 Code(s): D72.829 - ELEVATED WHITE BLOOD CELL COUNT, UNSPECIFIED Status: Acute Priority: High Current Visit: Yes Qualifiers: Leukocytosis type: unspecified Qualified Code(s): D72.829 - Elevated white blood cell count, unspecified (11) Volume depletion SNOMED Code(s): 208251264 Code(s): E86.9 - VOLUME DEPLETION, UNSPECIFIED Status: Acute Priority: High Current Visit: Yes (12) Shiga toxin-producing Escherichia coli (E. coli) (STEC) O157 SNOMED Code(s): 065997282463125 Code(s): A49.8 - OTHER BACTERIAL INFECTIONS OF UNSPECIFIED SITE Status: Acute Priority: High Current Visit: Yes (13) Hypokalemia SNOMED Code(s): 29109235 Code(s): E87.6 - HYPOKALEMIA Status: Acute Priority: High Current Visit: Yes (14) Hypomagnesemia SNOMED Code(s): 120489009 Code(s): E83.42 - HYPOMAGNESEMIA Status: Acute Priority: High Current Visit: Yes - Problem List Review Problem List Initiated/Reviewed/Updated: Yes - My Orders Last 24 Hours: My Active Orders 01/28/21 10:22 oxyCODONE 10 mg PO Q4H PRN 01/28/21 10:23 Warming Measures [Cooling Warming Measures] [RC] ASDIRECTED 01/28/21 13:00 Remove Patch 1 ea TRDERM Q72H 01/30/21 05:11 CBC WITH AUTO DIFF [HEME] AM CMP [COMPREHENSIVE METABOLIC PN,CMP] [CHEM] AM CRP [C-REACTIVE PROTEIN] [CHEM] AM MAGNESIUM [CHEM] AM 01/31/21 05:11 CBC WITH AUTO DIFF [HEME] AM CMP [COMPREHENSIVE METABOLIC PN,CMP] [CHEM] AM CRP [C-REACTIVE PROTEIN] [CHEM] AM MAGNESIUM [CHEM] AM 02/01/21 05:11 CBC WITH AUTO DIFF [HEME] AM CMP [COMPREHENSIVE METABOLIC PN,CMP] [CHEM] AM CRP [C-REACTIVE PROTEIN] [CHEM] AM MAGNESIUM [CHEM] AM 02/02/21 05:11 CBC WITH AUTO DIFF [HEME] AM CMP [COMPREHENSIVE METABOLIC PN,CMP] [CHEM] AM CRP [C-REACTIVE PROTEIN] [CHEM] AM MAGNESIUM [CHEM] AM - Assessment Assessment:: Assessment - Admission date - 01/25/2021 * 35-year-old female who presents with diffuse abdominal pain, nausea, bilious emesis, and bloody diarrhea * History of ctopic in May 2020 with right salpingectomy and uterine fibroids * Reports she has been ill for the past 2 days * Started having watery diarrhea and mild abdominal pain which worsened and became cramping in nature. Her stool eventually became pure blood. * She reports she has been nauseous and essentially dry heaving at this point * Chills but no known fever. * Just returned from a family reunion in the [facility] in [place]. * Family was playing in the local river * Their camper was hooked up to a well in the campground with a charcoal filter installed * Reports there were potluck meals but no known questionable food. * Reports a child with mild but similar symptoms and her [id number] who is developing similar symptoms currently. * Labs are obtained: * WBC 13.12. * Hemoglobin of 13.6. * Hematocrit 40.3. * Platelet 274,000. * Neutrophils are elevated 83.7%. * INR is 0.94. * aPTT is 26.3. * Sodium is 138. * Potassium 3.3. * Chloride 102. * Carbon dioxide 23. * Anion gap is 16.3. * BUN is 7. Creatinine 0.7. GFR greater than 60. * Glucose 123. * Calcium 9.2. * Bilirubin 0.3. * AST 16, ALT 25, alkaline phosphatase 51. * CRP is 8.7. * Albumin 3.3. * Lipase is 60. * hCG qualitative is positive. hCG quantitative is 6881, consistent with 5- week gestation. * SARS-CoV-2 RNA is negative. * Stool ova and parasite, stool culture/Shiga toxin, and stool fecal lactoferrin are collected. * Obstetrics ultrasound: * Small intrauterine gestation with a mean sac diameter of 0.86-5 weeks and 4 days. * Small subchorionic hemorrhage with mild free fluid seen within the pelvis. * Other findings are noted. * She is given azithromycin 500 mg, Zofran, Regalin, and IV push Dilaudid for pain. * Given a 1 L D5LR bolus and started on D5 LR maintenance fluids. * Admitted to the medical floor for management and further work-up of her diarrhea and vomiting. 01/26/2021 35-year-old female admitted for dysentery. Patient continues to have nausea and episodes of bloody diarrhea, although she does report that her pain is slightly improved. Patient reports that family member did test positive for Shiga toxin E. coli. Oddly patient's Shiga toxin here was negative. Cryptosporidium and Giardia was negative. Stool lactoferrin was positive. Stool culture is positive. OB did consult on the patient and recommend follow-up ultrasound in 10 days. Multiple family members have now developed similar symptoms. Contacted Dr. Sosa, infectious disease with [facility] in [place] who recommended we discontinue IV antibiotics and treat the patient like a Shiga toxin pending stool cultures. Dr. Morfin, on-call GI specialist with [facility] in [place] was contacted as well who recommends discontinuation of IV antibiotics, IV fluids, pain control, and time to let this pass. Labs and test results were reviewed. He also recommended scan of the abdomen and pelvis to rule out perforation. Discussed with Dr. Gordon, radiologist regarding risks and benefits of scan and ensuring CT versus MRI was appropriate. Ultimate decision was CT without contrast. Discussed plan with patient, including risks and benefits to developing fetus. Ultimately patient agrees to proceed with scan. CT scan of the abdomen and pelvis is obtained and shows 1. Minimal hiatal hernia. 2. Small gestational sac within the uterus. 3. Prominent bowel wall thickening throughout the colon with diffuse inflammatory change around the colon. Findings are felt compatible with a rather prominent colitis. Etiology of the colitis is uncertain on this exam. 4. Fair amount of free fluid within the pelvis as well as around the liver which is slightly complicated but does not appear to be bloody. 5. Normal appendix is seen. Labs today show elevated WBC of 20.63. Hemoglobin 12.3. Platelet 235,000. Neutrophils are elevated at 83.3%. Sodium is 140. Potassium 3.8. Anion gap is 14.8. BUN is 6. Creatinine 0.7. GFR greater than 60. Glucose is 179. Calcium is 7.4. Magnesium 2.0. Bilirubin 0.2. AST 9, ALT 14, alkaline phosphatase 44. CRP is 14.6. Protein is 5.6. Albumin is 2.1. UA was obtained yesterday and was grossly negative however 3+ ketones and concentrated urine were noted. Vital signs have been stable. We will continue to monitor for signs of HUS. 1 L fluid bolus given today. Patient remains n.p.o. IV fluids remain ordered. We will recheck lactic acid this afternoon and recheck all labs including lactic acid tomorrow. Will await stool culture. Continue current treatment plan. Unknown length of stay. Will be pending resolution of symptoms and advancement of diet. 01/27/2021 35-year-old female admitted for dysentery. Patient has had multiple family members now returned positive for Shiga toxin 2. Patient herself has had a positive stool culture for E. coli 0157, which is a Shiga toxin E. coli. All antibiotics have been stopped. Lactic acid has been within normal limits. Patient has received multiple IV fluid boluses and continues on IV fluids. Diet today was advanced from n.p.o. to clear liquids after discussion with the patient. She reports she is feeling quite a bit better. She is still having bloody stools but much less frequent. There appears to be less blood in her stools as well per patient report. She continues to have occasional dry heaves and nausea but does state that she has a history of morning sickness with . Bowel sounds have been active. Labs today show WBC of 20.37. Hemoglobin 10.7. Hematocrit 32.6. Platelet 196,000. Neutrophils are elevated at 79.7. Sodium is 139. Potassium 3.3. Chloride 105. Carbon dioxide 27. Anion gap is 10.3. BUN is 5. Creatinine 0.5. GFR in 60. Glucose has been in the low 110s. Lactic acid 0.5. Calcium 7.4. Magnesium 1.7. AST is 11, ALT 12, alkaline phosphatase 48. CRP is 20.5. Protein 4.9. Albumin 1.7. We will continue current treatment plan as the patient is feeling better. Clinically she looks more comfortable and greatly improved. Length of stay will be determined by patient tolerating diet and continuing resolution of symptoms. Likely length of stay 2-3 more days. 01/28/2021 35-year-old female admitted for abdominal pain and bloody diarrhea. Found to be E. coli 0157 positive. Patient reports that she is still having some hematochezia however this has improved. She reports approximately 2 stools an hour. She is still having pain although it is better. She reports she has gotten some sleep. Abdomen is somewhat distended however bowel sounds are nice and active today. She continues to tolerate the clear liquid diet but we will hold off on advancing giving continuation of symptoms and no real change in labs. WBC remains elevated 21.57. Hemoglobin 9.8. Platelet 203,000. Neutrophils are elevated 79.7. Sodium is 138. Potassium is 3.2. Chloride 105. Carbon dioxide 25. Anion gap 11.2. BUN is 4. Creatinine 0.4. GFR greater than 60. Lactic acid 0.7. Calcium 7.1. Magnesium 1.9. Bilirubin 0.3. AST is 11, ALT 10, alkaline phosphatase 68. CRP is 21.2. Protein is 4.5. Albumin 1.5. We will continue IV fluids. Potassium will be supplemented with 6 K riders. Clinically she looks better than yesterday and she reports she feels better than yesterday. We will continue current treatment plan. 01/29/2021 35-year-old female admitted to the hospital for abdominal pain and bloody diarrhea who was found to be E. coli 0157+. She was also found to be 5 weeks . OBGYN has consulted. Today patient reports that she feels much worse. She is having abdominal pain and bloating. Abdomen is noted to be distended but bowel sounds are active. Patient does report several loose stools an hour. Reports that bleeding has essentially stopped. IV fluids were discontinued last night and these were resumed today. Patient was given 2 500 mL boluses. WBC has increased to 24.67. Hemoglobin 10.0. Platelets are up to 223,000. Neutrophils are 75.1. Sodium is 137. Potassium 3.6. Carbon dioxide is 25. BUN is 3. Cre atinine 0.4. GFR greater than 60. Glucose is 94. Lactic acid was obtained yesterday and is 0.7. Calcium is 7.5. Magnesium 1.9. Bilirubin 0.4. AST is 10, ALT 9, alkaline phosphatase 93. CRP is up to 23.9. Protein 4.7. Albumin is 1.4. Dr. Delvalle, attending hospitalist, and to assess patient as well. Overall no major changes. We will resume IV fluids, keep patient on clear liquid diet, and continue to monitor. - Plan Plan:: Nausea and vomiting Abdominal pain Dysentery Bacterial enteritis, unspecified Shiga toxin E. coli 0157 Leukocytosis Volume depletion * IV fluids as ordered * Antiemetics as ordered * Pain medications as ordered * Clear liquid diet as tolerated * Monitor labs * Scopolamine patch (Ok'd with [employer] Dr. Arreguin) * Abdomina/Pelvis CT scan obtained after discussion with Dr. Gordon (radiology), Dr. Morfin (GI), Dr. Sosa (ID) and patient * C-diff negative * Enteric isolation * Stool culture/shiga toxin - Negative shiga toxin 1&2 however positive E. Coli 0157 * Stool O&P - negative * Blood cultures negative thus far * As needed simethicone for gas pains Hypokalemia, resolved Hypomagnesemia, resolved * Supplement * Monitor labs First trimester H/O unilateral salpingectomy History of uterine fibroid History of ectopic Subchorionic hemorrhage * Case discussed with Dr. Arreguin, [employer] [facility] * Ensure medications appropriate for * Follow-up at 10 weeks * Avoid intercourse until follow-up with [employer] [facility] due to subchorionic hemorrhage on OB US Code status: Full Code PCP: None currently DVT prophylaxis: Not indicated Social: Patient [place] with significant other on a [place] near [place], [place] Disposition: Patient admitted to MedSurg floor for management and further work- up of nausea, vomiting, and bloody diarrhea. LOS >96 hrs due to slow response to treatment.
[2021-01-29] MEDS: Simethicone 80 MG Tab.Chew PO PRN ×3 (10:18→22:59)
[2021-01-29] MEDS ORDERED: Lactated Ringers 500 ML IV ONE ×2 (11:28→13:15)
[2021-01-29] MEDS: Lactated Ringers 1,000 ML IV SCH (21:01)
[2021-01-30] MEDS: HYDROmorphone 1 MG/ML Syringe IVPUSH PRN ×7 (04:14→23:52)
--- NOTE | 2021-01-30 07:17 | PCM.PN ---
- General Info Date of Service: 01/30/21 Admission Dx/Problem (Free Text): Admission Diagnosis/Problem Dysentery Functional Status: Reports: Tolerating Diet (clear liquids ), Ambulating, Urinating. Denies: Pain Controlled, New Symptoms - Review of Systems General: Reports: No Symptoms, Weakness, Fatigue, Malaise. Denies: Fever, Chills HEENT: Reports: No Symptoms. Denies: Headaches, Sore Throat Pulmonary: Reports: No Symptoms. Denies: Shortness of Breath, Cough, Sputum, Wheezing Cardiovascular: Reports: No Symptoms. Denies: Chest Pain, Palpitations, Dyspnea on Exertion, Edema Gastrointestinal: Reports: Abdominal Pain (Significant lower quadrant), Flatus, Nausea. Denies: Constipation, Diarrhea, Hematochezia, Melena, Vomiting (Dry heaving ) Genitourinary: Reports: No Symptoms. Denies: Pain Musculoskeletal: Reports: No Symptoms Skin: Reports: No Symptoms. Denies: Cyanosis Neurological: Reports: Difficulty Walking (2/2 pain ). Denies: Confusion, Pre- Existing Deficit, Gait Disturbance Psychiatric: Reports: No Symptoms - Patient Data Vitals - Most Recent: Last Vital Signs Temp 98.8 F 01/30/21 04:13 Pulse 98 01/30/21 04:13 Resp 14 01/30/21 04:13 BP 100/56 L 01/30/21 04:13 Pulse Ox 92 L 01/30/21 04:13 Weight - Most Recent: 154 lb 3.2 oz I&O - Last 24 Hours: Intake & Output 01/29/21 01/30/21 01/30/21 22:59 06:59 14:59 Intake Total 3111 1709 Output Total 900 975 Balance 2211 734 Lab Results Last 24 Hours: Laboratory Results - last 24 hr 01/26/21 01/30/21 01/30/21 Range/Units 06:00 06:17 06:17 WBC 19.39 H (3.98-10.04) K/mm3 RBC 3.21 L (3.98-5.22) M/mm3 Hgb 10.2 L (11.2-15.7) gm/dl Hct 31.2 L (34.1-44.9) % MCV 97.2 H (79.4-94.8) fl MCH 31.8 (25.6-32.2) pg MCHC 32.7 (32.2-35.5) g/dl RDW Std Deviation 47.2 H (36.4-46.3) fL Plt Count 281 (182-369) K/mm3 MPV 10.8 (9.4-12.3) fl Neut % (Auto) 76.3 H (34.0-71.1) % Lymph % (Auto) 8.7 L (19.3-51.7) % Wood % (Auto) 8.4 (4.7-12.5) % Eos % (Auto) 1.2 (0.7-5.8) Baso % (Auto) 0.4 (0.1-1.2) % Neut # (Auto) 14.83 H (1.56-6.13) K/mm3 Lymph # (Auto) 1.68 (1.18-3.74) K/mm3 Wood # (Auto) 1.62 H (0.24-0.36) K/mm3 Eos # (Auto) 0.23 (0.04-0.36) K/mm3 Baso # (Auto) 0.07 (0.01-0.08) K/mm3 Haptoglobin 204 (44-215) mg/dL Sodium 136 (136-145) mEq/L Potassium 3.4 L (3.5-5.1) mEq/L Chloride 102 (98-107) mEq/L Carbon Dioxide 26 (21-32) mEq/L Anion Gap 11.4 (5-15) BUN 5 L (7-18) mg/dL Creatinine 0.5 L (0.55-1.02) mg/dL Est Cr Clr Drug Dosing 158.42 mL/min Estimated GFR (MDRD) > 60 (>60) mL/min BUN/Creatinine Ratio 10.0 L (14-18) Glucose 81 (70-99) mg/dL Lactic Acid (0.4-2.0) mmol/L Calcium 7.5 L (8.5-10.1) mg/dL Magnesium 2.1 (1.8-2.4) mg/dL Total Bilirubin 0.4 (0.2-1.0) mg/dL AST 14 L (15-37) U/L ALT 14 (14-59) U/L Alkaline Phosphatase 112 (46-116) U/L C-Reactive Protein 25.0 H* (<1.0) mg/dL Total Protein 5.0 L (6.4-8.2) g/dl Albumin 1.4 L (3.4-5.0) g/dl Globulin 3.6 gm/dL Albumin/Globulin Ratio 0.4 L (1-2) 01/30/21 Range/Units 06:17 WBC (3.98-10.04) K/mm3 RBC (3.98-5.22) M/mm3 Hgb (11.2-15.7) gm/dl Hct (34.1-44.9) % MCV (79.4-94.8) fl MCH (25.6-32.2) pg MCHC (32.2-35.5) g/dl RDW Std Deviation (36.4-46.3) fL Plt Count (182-369) K/mm3 MPV (9.4-12.3) fl Neut % (Auto) (34.0-71.1) % Lymph % (Auto) (19.3-51.7) % Wood % (Auto) (4.7-12.5) % Eos % (Auto) (0.7-5.8) Baso % (Auto) (0.1-1.2) % Neut # (Auto) (1.56-6.13) K/mm3 Lymph # (Auto) (1.18-3.74) K/mm3 Wood # (Auto) (0.24-0.36) K/mm3 Eos # (Auto) (0.04-0.36) K/mm3 Baso # (Auto) (0.01-0.08) K/mm3 Haptoglobin (44-215) mg/dL Sodium (136-145) mEq/L Potassium (3.5-5.1) mEq/L Chloride (98-107) mEq/L Carbon Dioxide (21-32) mEq/L Anion Gap (5-15) BUN (7-18) mg/dL Creatinine (0.55-1.02) mg/dL Est Cr Clr Drug Dosing mL/min Estimated GFR (MDRD) (>60) mL/min BUN/Creatinine Ratio (14-18) Glucose (70-99) mg/dL Lactic Acid 0.5 (0.4-2.0) mmol/L Calcium (8.5-10.1) mg/dL Magnesium (1.8-2.4) mg/dL Total Bilirubin (0.2-1.0) mg/dL AST (15-37) U/L ALT (14-59) U/L Alkaline Phosphatase (46-116) U/L C-Reactive Protein (<1.0) mg/dL Total Protein (6.4-8.2) g/dl Albumin (3.4-5.0) g/dl Globulin gm/dL Albumin/Globulin Ratio (1-2) Med Orders - Current: Current Medications Acetaminophen (Acetaminophen 325 Mg Tab) 650 mg PO Q4H PRN PRN Reason: Pain (Mild 1-3)/fever Last Admin: 01/29/21 12:12 Dose: 650 mg Documented by: Hydromorphone HCl (Hydromorphone 1 Mg/Ml Syringe) 1 mg IVPUSH Q1H PRN PRN Reason: Pain (severe 7-10) Last Admin: 01/30/21 06:54 Dose: 1 mg Documented by: Lactated Ringer's (Ringers, Lactated) 1,000 mls @ 75 mls/hr IV ASDIRECTED [facility] Last Admin: 01/29/21 21:01 Dose: 75 mls/hr Documented by: Miscellaneous Information (Remove Replace Scopolamine Patch) 1 ea TRDERM Q72H [facility] Last Admin: 01/28/21 14:11 Dose: 1 ea Documented by: Ondansetron HCl (Ondansetron 4 Mg/2 Ml Sdv) 4 mg IV Q6H PRN PRN Reason: Nausea/Vomiting Last Admin: 01/29/21 11:12 Dose: 4 mg Documented by: Oxycodone HCl (Oxycodone 5 Mg Tab) 10 mg PO Q4H PRN PRN Reason: Pain (moderate 4-6) Scopolamine (Scopolamine 1.5 Mg Transdermal Patch) 1.5 mg TRDERM Q72H [facility] Last Admin: 01/28/21 14:14 Dose: 1.5 mg Documented by: Simethicone (Simethicone 80 Mg Tab.Chew) 160 mg PO TID PRN PRN Reason: Bloating/gas Last Admin: 01/29/21 22:59 Dose: 160 mg Documented by: Discontinued Medications Hydromorphone HCl (Hydromorphone 0.5 Mg/0.5 Ml Syringe) 0.5 mg IVPUSH ONETIME ONE Stop: 01/25/21 07:31 Last Admin: 01/25/21 07:41 Dose: 0.5 mg Documented by: Hydromorphone HCl (Hydromorphone 0.5 Mg/0.5 Ml Syringe) 0.5 mg IVPUSH ONETIME ONE Stop: 01/25/21 08:32 Last Admin: 01/25/21 08:30 Dose: 0.5 mg Documented by: Hydromorphone HCl (Hydromorphone 0.5 Mg/0.5 Ml Syringe) 0.5 mg IVPUSH ONETIME ONE Stop: 01/25/21 09:28 Last Admin: 01/25/21 09:30 Dose: 0.5 mg Documented by: Hydromorphone HCl (Hydromorphone 0.5 Mg/0.5 Ml Syringe) 0.5 mg IVPUSH ONETIME ONE Stop: 01/25/21 10:22 Last Admin: 01/25/21 10:30 Dose: 0.5 mg Documented by: Hydromorphone HCl (Hydromorphone 0.5 Mg/0.5 Ml Syringe) 0.5 mg IVPUSH ONETIME ONE Stop: 01/25/21 12:27 Last Admin: 01/25/21 12:33 Dose: 0.5 mg Documented by: Hydromorphone HCl (Hydromorphone 0.5 Mg/0.5 Ml Syringe) 0.5 mg IVPUSH Q2H PRN PRN Reason: Pain (severe 7-10) Last Admin: 01/25/21 13:52 Dose: 0.5 mg Documented by: Hydromorphone HCl (Hydromorphone 1 Mg/Ml Syringe) 1 mg IVPUSH Q2H PRN PRN Reason: Pain (severe 7-10) Dextrose/Sodium Chloride (Dextrose 5%-Normal Saline) 1,000 mls @ 999 mls/hr IV ASDIRECTED [facility] Last Admin: 01/25/21 07:43 Dose: 999 mls/hr Documented by: Metronidazole 500 mg/ Premix 100 mls @ 100 mls/hr IV ONETIME ONE Stop: 01/25/21 09:24 Last Admin: 01/25/21 08:42 Dose: Not Given Documented by: Azithromycin 500 mg/ Sodium (Chloride) 250 mls @ 250 mls/hr IV ONETIME ONE Stop: 01/25/21 10:27 Last Admin: 01/25/21 09:41 Dose: 250 mls/hr Documented by: Dextrose/Lactated Ringer's (Dextrose 5%-Lactated Ringers) 1,000 mls @ 125 mls/hr IV ASDIRECTED [facility] Last Admin: 01/28/21 11:37 Dose: 125 mls/hr Documented by: Piperacillin Sod/Tazobactam (Sod 4.5 gm/ Sodium Chloride) 100 mls @ 25 mls/hr IV Q8H [facility] Last Admin: 01/26/21 05:04 Dose: 25 mls/hr Documented by: Piperacillin Sod/Tazobactam (Sod 4.5 gm/ Sodium Chloride) 100 mls @ 200 mls/hr IV ONETIME ONE Stop: 01/25/21 13:29 Last Admin: 01/25/21 13:55 Dose: 200 mls/hr Documented by: Magnesium Sulfate 2 gm/ Premix 50 mls @ 25 mls/hr IV ONETIME ONE Stop: 01/25/21 15:29 Last Admin: 01/25/21 14:31 Dose: 25 mls/hr Documented by: Potassium Chloride 10 meq/ (Premix) 100 mls @ 100 mls/hr IV Q1H [facility] Stop: 01/25/21 17:29 Last Admin: 01/25/21 18:38 Dose: 100 mls/hr Documented by: Lactated Ringer's (Ringers, Lactated) 1,000 mls @ 999 mls/hr IV ONETIME ONE Stop: 01/26/21 09:18 Last Admin: 01/26/21 08:44 Dose: 999 mls/hr Documented by: Lactated Ringer's (Ringers, Lactated) 500 mls @ 999 mls/hr IV .BOLUS ONE Stop: 01/27/21 07:12 Last Admin: 01/27/21 07:07 Dose: 999 mls/hr Documented by: Magnesium Sulfate 4 gm/ Premix 50 mls @ 12.5 mls/hr IV ONETIME ONE Stop: 01/27/21 12:52 Last Admin: 01/27/21 09:31 Dose: 12.5 mls/hr Documented by: Potassium Chloride 10 meq/ (Premix) 100 mls @ 100 mls/hr IV Q1H [facility] Stop: 01/27/21 12:59 Last Admin: 01/27/21 14:46 Dose: 100 mls/hr Documented by: Lactated Ringer's (Ringers, Lactated) 500 mls @ 999 mls/hr IV .BOLUS ONE Stop: 01/27/21 09:36 Last Admin: 01/27/21 09:30 Dose: 999 mls/hr Documented by: Potassium Chloride 10 meq/ (Premix) 100 mls @ 100 mls/hr IV Q1H [facility] Stop: 01/28/21 15:29 Last Admin: 01/28/21 16:42 Dose: 100 mls/hr Documented by: Lactated Ringer's (Ringers, Lactated) 500 mls @ 999 mls/hr IV .BOLUS ONE Stop: 01/29/21 11:58 Last Admin: 01/29/21 11:57 Dose: 999 mls/hr Documented by: Lactated Ringer's (Ringers, Lactated) 500 mls @ 999 mls/hr IV .BOLUS ONE Stop: 01/29/21 13:45 Last Admin: 01/29/21 13:36 Dose: 999 mls/hr Documented by: Loperamide HCl (Loperamide 2 Mg Cap) 2 mg PO ONETIME ONE Stop: 01/25/21 12:27 Last Admin: 01/25/21 12:31 Dose: 2 mg Documented by: Metoclopramide HCl (Metoclopramide 10 Mg/2 Ml Sdv) 7.5 mg IVPUSH ONETIME ONE Stop: 01/25/21 07:30 Last Admin: 01/25/21 07:39 Dose: 7.5 mg Documented by: Oxycodone HCl (Oxycodone 5 Mg Tab) 10 mg PO Q4H PRN PRN Reason: Pain (moderate 4-6) Oxycodone HCl (Oxycodone 5 Mg Tab) 5 mg PO Q4H PRN PRN Reason: Pain (moderate 4-6) Last Admin: 01/26/21 01:50 Dose: 5 mg Documented by: - Exam Quality Assessment: No: Supplemental Oxygen, Urine Catheter, DVT Prophylaxis (Not indicated ) General: Alert, Oriented, Cooperative, Mild Distress (Looks uncomfortable ) HEENT: Pupils Equal, Pupils Reactive, Mucous Membr. Moist/[place] Neck: Supple, Trachea Midline Lungs: Clear to Auscultation, Normal Respiratory Effort Cardiovascular: Regular Rate, Regular Rhythm GI/Abdominal Exam: Normal Bowel Sounds, Soft, Distended, Guarding, Tender (Significant lower quadrant tenderness ). No: Rigid, Rebound (Female) Exam: Deferred Back Exam: Normal Inspection, Full Range of Motion Extremities: Normal Inspection, Normal Range of Motion, Non-Tender, No Pedal Edema, Normal Capillary Refill Peripheral Pulses: 2+: Radial (L), Radial (R), Dorsalis Pedis (L), Dorsalis Pedis (R) Skin: Warm, Dry, Intact Neurological: No New Focal Deficit Psy/Mental Status: Alert, Normal Affect, Normal Mood - Patient Data Lab Results Last 24 hrs: Laboratory Results - last 24 hr 01/26/21 01/30/21 01/30/21 Range/Units 06:00 06:17 06:17 WBC 19.39 H (3.98-10.04) K/mm3 RBC 3.21 L (3.98-5.22) M/mm3 Hgb 10.2 L (11.2-15.7) gm/dl Hct 31.2 L (34.1-44.9) % MCV 97.2 H (79.4-94.8) fl MCH 31.8 (25.6-32.2) pg MCHC 32.7 (32.2-35.5) g/dl RDW Std Deviation 47.2 H (36.4-46.3) fL Plt Count 281 (182-369) K/mm3 MPV 10.8 (9.4-12.3) fl Neut % (Auto) 76.3 H (34.0-71.1) % Lymph % (Auto) 8.7 L (19.3-51.7) % Wood % (Auto) 8.4 (4.7-12.5) % Eos % (Auto) 1.2 (0.7-5.8) Baso % (Auto) 0.4 (0.1-1.2) % Neut # (Auto) 14.83 H (1.56-6.13) K/mm3 Lymph # (Auto) 1.68 (1.18-3.74) K/mm3 Wood # (Auto) 1.62 H (0.24-0.36) K/mm3 Eos # (Auto) 0.23 (0.04-0.36) K/mm3 Baso # (Auto) 0.07 (0.01-0.08) K/mm3 Haptoglobin 204 (44-215) mg/dL Sodium 136 (136-145) mEq/L Potassium 3.4 L (3.5-5.1) mEq/L Chloride 102 (98-107) mEq/L Carbon Dioxide 26 (21-32) mEq/L Anion Gap 11.4 (5-15) BUN 5 L (7-18) mg/dL Creatinine 0.5 L (0.55-1.02) mg/dL Est Cr Clr Drug Dosing 158.42 mL/min Estimated GFR (MDRD) > 60 (>60) mL/min BUN/Creatinine Ratio 10.0 L (14-18) Glucose 81 (70-99) mg/dL Lactic Acid (0.4-2.0) mmol/L Calcium 7.5 L (8.5-10.1) mg/dL Magnesium 2.1 (1.8-2.4) mg/dL Total Bilirubin 0.4 (0.2-1.0) mg/dL AST 14 L (15-37) U/L ALT 14 (14-59) U/L Alkaline Phosphatase 112 (46-116) U/L C-Reactive Protein 25.0 H* (<1.0) mg/dL Total Protein 5.0 L (6.4-8.2) g/dl Albumin 1.4 L (3.4-5.0) g/dl Globulin 3.6 gm/dL Albumin/Globulin Ratio 0.4 L (1-2) 01/30/21 Range/Units 06:17 WBC (3.98-10.04) K/mm3 RBC (3.98-5.22) M/mm3 Hgb (11.2-15.7) gm/dl Hct (34.1-44.9) % MCV (79.4-94.8) fl MCH (25.6-32.2) pg MCHC (32.2-35.5) g/dl RDW Std Deviation (36.4-46.3) fL Plt Count (182-369) K/mm3 MPV (9.4-12.3) fl Neut % (Auto) (34.0-71.1) % Lymph % (Auto) (19.3-51.7) % Wood % (Auto) (4.7-12.5) % Eos % (Auto) (0.7-5.8) Baso % (Auto) (0.1-1.2) % Neut # (Auto) (1.56-6.13) K/mm3 Lymph # (Auto) (1.18-3.74) K/mm3 Wood # (Auto) (0.24-0.36) K/mm3 Eos # (Auto) (0.04-0.36) K/mm3 Baso # (Auto) (0.01-0.08) K/mm3 Haptoglobin (44-215) mg/dL Sodium (136-145) mEq/L Potassium (3.5-5.1) mEq/L Chloride (98-107) mEq/L Carbon Dioxide (21-32) mEq/L Anion Gap (5-15) BUN (7-18) mg/dL Creatinine (0.55-1.02) mg/dL Est Cr Clr Drug Dosing mL/min Estimated GFR (MDRD) (>60) mL/min BUN/Creatinine Ratio (14-18) Glucose (70-99) mg/dL Lactic Acid 0.5 (0.4-2.0) mmol/L Calcium (8.5-10.1) mg/dL Magnesium (1.8-2.4) mg/dL Total Bilirubin (0.2-1.0) mg/dL AST (15-37) U/L ALT (14-59) U/L Alkaline Phosphatase (46-116) U/L C-Reactive Protein (<1.0) mg/dL Total Protein (6.4-8.2) g/dl Albumin (3.4-5.0) g/dl Globulin gm/dL Albumin/Globulin Ratio (1-2) Result Diagrams: 01/30/21 06:17 01/30/21 06:17 Sepsis Event Note - Evaluation Sepsis Screening Result: No Definite Risk - Focused Exam Vital Signs: Vital Signs Temp Pulse Resp BP BP Pulse Ox 01/30/21 04:13 98.8 F 98 14 100/56 L 92 L 08/09/21 00:01 98.6 F 99 16 100/62 92 L 01/29/21 20:22 98.6 F 01/29/21 19:55 101 H 16 98/58 L 94 L - Problem List & Annotations (1) Nausea and vomiting SNOMED Code(s): 40380676 Code(s): R11.2 - NAUSEA WITH VOMITING, UNSPECIFIED Status: Acute Priority: High Current Visit: Yes Qualifiers: Vomiting type: bilious vomiting Qualified Code(s): R11.14 - Bilious vomi ting (2) Abdominal pain SNOMED Code(s): 94118127 Code(s): R10.9 - UNSPECIFIED ABDOMINAL PAIN Status: Acute Priority: High Current Visit: Yes Qualifiers: Abdominal location: lower abdomen, unspecified Qualified Code(s): R10.30 - Lower abdominal pain, unspecified (3) Dysentery SNOMED Code(s): 42448125 Code(s): A09 - INFECTIOUS GASTROENTERITIS AND COLITIS, UNSPECIFIED Status: Acute Priority: High Current Visit: Yes (4) First trimester SNOMED Code(s): 34665993 Code(s): Z34.91 - ENCNTR FOR SUPRVSN OF NORMAL PREG, UNSP, FIRST TRIMESTER Status: Acute Priority: High Current Visit: Yes (5) H/O unilateral salpingectomy SNOMED Code(s): 628743739 Code(s): Z90.79 - ACQUIRED ABSENCE OF OTHER GENITAL ORGAN(S) Status: Chronic Priority: Low Current Visit: No (6) History of uterine fibroid SNOMED Code(s): 044823322 Code(s): Z86.018 - PERSONAL HISTORY OF OTHER BENIGN NEOPLASM Status: Chronic Priority: Low Current Visit: No (7) History of ectopic SNOMED Code(s): 670107628, 471771839 Code(s): Z87.59 - PERSONAL HISTORY OF COMP OF PREG, CHLDBRTH AND THE PUERP Status: Chronic Priority: Medium Current Visit: No (8) Bacterial enteritis, unspecified SNOMED Code(s): 38617926 Code(s): A04.9 - BACTERIAL INTESTINAL INFECTION, UNSPECIFIED Status: Acute Priority: High Current Visit: Yes (9) Subchorionic hemorrhage SNOMED Code(s): 111513095 Code(s): O41.8X90 - OTH DISRD OF AMNIOTIC FLUID AND MEMBRNS, UNSP TRI, UNSP; O46.8X9 - OTHER ANTEPARTUM HEMORRHAGE, UNSPECIFIED TRIMESTER Status: Acute Priority: Medium Current Visit: Yes Qualifiers: Fetus number: single or unspecified fetus Trimester: first trimester Qualified Code(s): O41.8X10 - Other specified disorders of amniotic fluid and membranes, first trimester, not applicable or unspecified; O46.8X1 - Other antepartum hemorrhage, first trimester (10) Leukocytosis SNOMED Code(s): 892711175, 481128945 Code(s): D72.829 - ELEVATED WHITE BLOOD CELL COUNT, UNSPECIFIED Status: Acute Priority: High Current Visit: Yes Qualifiers: Leukocytosis type: unspecified Qualified Code(s): D72.829 - Elevated white blood cell count, unspecified (11) Volume depletion SNOMED Code(s): 707397763 Code(s): E86.9 - VOLUME DEPLETION, UNSPECIFIED Status: Acute Priority: High Current Visit: Yes (12) Shiga toxin-producing Escherichia coli (E. coli) (STEC) O157 SNOMED Code(s): 658000268302080 Code(s): A49.8 - OTHER BACTERIAL INFECTIONS OF UNSPECIFIED SITE Status: Acute Priority: High Current Visit: Yes (13) Hypokalemia SNOMED Code(s): 69786541 Code(s): E87.6 - HYPOKALEMIA Status: Acute Priority: High Current Visit: Yes (14) Hypomagnesemia SNOMED Code(s): 376136321 Code(s): E83.42 - HYPOMAGNESEMIA Status: Resolved Priority: High Current Visit: Yes - Problem List Review Problem List Initiated/Reviewed/Updated: Yes - My Orders Last 24 Hours: My Active Orders 01/29/21 11:30 Lactated Ringers [Ringers, Lactated] 1,000 ml IV ASDIRECTED 01/30/21 06:17 CBC WITH AUTO DIFF [HEME] AM 01/30/21 07:30 Potassium Chloride [KCl in Water 10 MEQ/100 ML] 10 meq Premix Bag 1 bag IV Q1H 01/31/21 05:11 CBC WITH AUTO DIFF [HEME] AM CMP [COMPREHENSIVE METABOLIC PN,CMP] [CHEM] AM CRP [C-REACTIVE PROTEIN] [CHEM] AM MAGNESIUM [CHEM] AM 02/01/21 05:11 CBC WITH AUTO DIFF [HEME] AM CMP [COMPREHENSIVE METABOLIC PN,CMP] [CHEM] AM CRP [C-REACTIVE PROTEIN] [CHEM] AM MAGNESIUM [CHEM] AM 02/02/21 05:11 CBC WITH AUTO DIFF [HEME] AM CMP [COMPREHENSIVE METABOLIC PN,CMP] [CHEM] AM CRP [C-REACTIVE PROTEIN] [CHEM] AM MAGNESIUM [CHEM] AM - Assessment Assessment:: Assessment - Admission date - 01/25/2021 * 35-year-old female who presents with diffuse abdominal pain, nausea, bilious emesis, and bloody diarrhea * History of ctopic in May 2020 with right salpingectomy and uterine fibroids * Reports she has been ill for the past 2 days * Started having watery diarrhea and mild abdominal pain which worsened and became cramping in nature. Her stool eventually became pure blood. * She reports she has been nauseous and essentially dry heaving at this point * Chills but no known fever. * Just returned from a family reunion in the [facility] in [place]. * Family was playing in the local river * Their camper was hooked up to a well in the campground with a charcoal filter installed * Reports there were potluck meals but no known questionable food. * Reports a child with mild but similar symptoms and her [id number] who is developing similar symptoms currently. * Labs are obtained: * WBC 13.12. * Hemoglobin of 13.6. * Hematocrit 40.3. * Platelet 274,000. * Neutrophils are elevated 83.7%. * INR is 0.94. * aPTT is 26.3. * Sodium is 138. * Potassium 3.3. * Chloride 102. * Carbon dioxide 23. * Anion gap is 16.3. * BUN is 7. Creatinine 0.7. GFR greater than 60. * Glucose 123. * Calcium 9.2. * Bilirubin 0.3. * AST 16, ALT 25, alkaline phosphatase 51. * CRP is 8.7. * Albumin 3.3. * Lipase is 60. * hCG qualitative is positive. hCG quantitative is 6881, consistent with 5- week gestation. * SARS-CoV-2 RNA is negative. * Stool ova and parasite, stool culture/Shiga toxin, and stool fecal lactoferrin are collected. * Obstetrics ultrasound: * Small intrauterine gestation with a mean sac diameter of 0.86-5 weeks and 4 days. * Small subchorionic hemorrhage with mild free fluid seen within the pelvis. * Other findings are noted. * She is given azithromycin 500 mg, Zofran, Regalin, and IV push Dilaudid for pain. * Given a 1 L D5LR bolus and started on D5 LR maintenance fluids. * Admitted to the medical floor for management and further work-up of her diarrhea and vomiting. 01/26/2021 35-year-old female admitted for dysentery. Patient continues to have nausea and episodes of bloody diarrhea, although she does report that her pain is slightly improved. Patient reports that family member did test positive for Shiga toxin E. coli. Oddly patient's Shiga toxin here was negative. Cryptosporidium and Giardia was negative. Stool lactoferrin was positive. Stool culture is positive. OB did consult on the patient and recommend follow-up ultrasound in 10 days. Multiple family members have now developed similar symptoms. Contacted Dr. Sosa, infectious disease with [facility] in [place] who recommended we discontinue IV antibiotics and treat the patient like a Shiga toxin pending stool cultures. Dr. Morfin, on-call GI specialist with [facility] in [place] was contacted as well who recommends discontinuation of IV antibiotics, IV fluids, pain control, and time to let this pass. Labs and test results were reviewed. He also recommended scan of the abdomen and pelvis to rule out perforation. Discussed with Dr. Gordon, radiologist regarding risks and benefits of scan and ensuring CT versus MRI was appropriate. Ultimate decision was CT without contrast. Discussed plan with patient, including risks and benefits to developing fetus. Ultimately patient agrees to proceed with scan. CT scan of the abdomen and pelvis is obtained and shows 1. Minimal hiatal hernia. 2. Small gestational sac within the uterus. 3. Prominent bowel wall thickening throughout the colon with diffuse inflammatory change around the colon. Findings are felt compatible with a rather prominent colitis. Etiology of the colitis is uncertain on this exam. 4. Fair amount of free fluid within the pelvis as well as around the liver which is slightly complicated but does not appear to be bloody. 5. Normal appendix is seen. Labs today show elevated WBC of 20.63. Hemoglobin 12.3. Platelet 235,000. Neutrophils are elevated at 83.3%. Sodium is 140. Potassium 3.8. Anion gap is 14.8. BUN is 6. Creatinine 0.7. GFR greater than 60. Glucose is 179. Calcium is 7.4. Magnesium 2.0. Bilirubin 0.2. AST 9, ALT 14, alkaline phosphatase 44. CRP is 14.6. Protein is 5.6. Albumin is 2.1. UA was obtained yesterday and was grossly negative however 3+ ketones and concentrated urine were noted. Vital signs have been stable. We will continue to monitor for signs of HUS. 1 L fluid bolus given today. Patient remains n.p.o. IV fluids remain ordered. We will recheck lactic acid this afternoon and recheck all labs including lactic acid tomorrow. Will await stool culture. Continue current treatment plan. Unknown length of stay. Will be pending resolution of symptoms and advancement of diet. 01/27/2021 35-year-old female admitted for dysentery. Patient has had multiple family members now returned positive for Shiga toxin 2. Patient herself has had a positive stool culture for E. coli 0157, which is a Shiga toxin E. coli. All antibiotics have been stopped. Lactic acid has been within normal limits. Patient has received multiple IV fluid boluses and continues on IV fluids. Diet today was advanced from n.p.o. to clear liquids after discussion with the patient. She reports she is feeling quite a bit better. She is still having bloody stools but much less frequent. There appears to be less blood in her stools as well per patient report. She continues to have occasional dry heaves and nausea but does state that she has a history of morning sickness with . Bowel sounds have been active. Labs today show WBC of 20.37. Hemoglobin 10.7. Hematocrit 32.6. Platelet 196,000. Neutrophils are elevated at 79.7. Sodium is 139. Potassium 3.3. Chloride 105. Carbon dioxide 27. Anion gap is 10.3. BUN is 5. Creatinine 0.5. GFR in 60. Glucose has been in the low 110s. Lactic acid 0.5. Calcium 7.4. Magnesium 1.7. AST is 11, ALT 12, alkaline phosphatase 48. CRP is 20.5. Protein 4.9. Albumin 1.7. We will continue current treatment plan as the patient is feeling better. Clinically she looks more comfortable and greatly improved. Length of stay will be determined by patient tolerating diet and continuing resolution of symptoms. Likely length of stay 2-3 more days. 01/28/2021 35-year-old female admitted for abdominal pain and bloody diarrhea. Found to be E. coli 0157 positive. Patient reports that she is still having some hematochezia however this has improved. She reports approximately 2 stools an hour. She is still having pain although it is better. She reports she has gotten some sleep. Abdomen is somewhat distended however bowel sounds are nice and active today. She continues to tolerate the clear liquid diet but we will hold off on advancing giving continuation of symptoms and no real change in la bs. WBC remains elevated 21.57. Hemoglobin 9.8. Platelet 203,000. Neutrophils are elevated 79.7. Sodium is 138. Potassium is 3.2. Chloride 105. Carbon dioxide 25. Anion gap 11.2. BUN is 4. Creatinine 0.4. GFR greater than 60. Lactic acid 0.7. Calcium 7.1. Magnesium 1.9. Bilirubin 0.3. AST is 11, ALT 10, alkaline phosphatase 68. CRP is 21.2. Protein is 4.5. Albumin 1.5. We will continue IV fluids. Potassium will be supplemented with 6 K riders. Clinically she looks better than yesterday and she reports she feels better than yesterday. We will continue current treatment plan. 01/29/2021 35-year-old female admitted to the hospital for abdominal pain and bloody diarrhea who was found to be E. coli 0157+. She was also found to be 5 weeks . OBGYN has consulted. Today patient reports that she feels much worse. She is having abdominal pain and bloating. Abdomen is noted to be distended but bowel sounds are active. Patient does report several loose stools an hour. Reports that bleeding has essentially stopped. IV fluids were discontinued last night and these were resumed today. Patient was given 2 500 mL boluses. WBC has increased to 24.67. Hemoglobin 10.0. Platelets are up to 223,000. Neutrophils are 75.1. Sodium is 137. Potassium 3.6. Carbon dioxide is 25. BUN is 3. Creatinine 0.4. GFR greater than 60. Glucose is 94. Lactic acid was obtained yesterday and is 0.7. Calcium is 7.5. Magnesium 1.9. Bilirubin 0.4. AST is 10, ALT 9, alkaline phosphatase 93. CRP is up to 23.9. Protein 4.7. Albumin is 1.4. Dr. Delvalle, attending hospitalist, and to assess patient as well. Overall no major changes. We will resume IV fluids, keep patient on clear liquid diet, and continue to monitor. 01/30/2021 This is a 35-year-old female who was admitted to the floor due to significant watery diarrhea and abdominal pain. She was found to be E. coli 0157+ and Shiga toxin positive. Throughout her stay thus far she has had waxing and waning of her symptoms. Today she reports that her diarrhea has greatly improved and she is no longer having hematochezia, however she continues to have significant bowel pain. She has been up ambulating. She was made n.p.o. this morning while a CT of the abdomen and pelvis with IV and oral contrast was obtained. Prior to obtaining scan discussion was had between Dr. Platt, attending hospitalist and also Dr. Gordon, radiologist. As there are rather significant concerns for possible perforation. Risk versus benefit was discussed with the patient and she ultimately agrees to the scan. CT scan returns showing improved pancolitis but with mildly increased ascites and new bilateral pleural effusions, probably related to the presence of ascites. No intra-abdominal abscess is noted. Patient was on 75 mL an hour of lactated Ringer's will slow this down to 50 cc an hour. Clear liquid diet was resumed. Dr. Bueno, general surgeon, was consulted. Labs obtained today showing improvement in WBC to 19.39. Hemoglobin is 10.2. Platelets are 281,000. Neutrophils are 76.3%. Sodium is 136. Potassium is 3.4 and will be supplemented with potassium riders. Chloride is 102. Carbon dioxide 26. Anion gap is 11.4. BUN is 5. Creatinine 0.5. GFR greater than 60. Glucose is 81. Lactic acid 0.5. Calcium 7.5. Magnesium 2.1. Bilirubin 0.4. AST is 14, ALT 14, alkaline phosphatase 112. CRP is up to 25. Protein is improved to 5.0. Albumin is 1.4. We will continue current treatment plan recheck labs in the morning. No current concerns for HUS. - Plan Plan:: Nausea and vomiting Abdominal pain Dysentery Bacterial enteritis, unspecified Shiga toxin E. coli 0157 Leukocytosis Volume depletion * IV fluids as ordered * Antiemetics as ordered * Pain medications as ordered * Clear liquid diet as tolerated * Monitor labs * Scopolamine patch (Ok'd with [facility] Dr. Arreguin) * Abdomina/Pelvis CT scan obtained after discussion with Dr. Gordon (radiology), Dr. Morfin (GI), Dr. Sosa (ID) and patient * C-diff negative * Enteric isolation * Stool culture/shiga toxin - Negative shiga toxin 1&2 however positive E. Coli 0157 * Stool O&P - negative * Blood cultures negative thus far * As needed simethicone for gas pains * Dr. Bueno, general surgeon consulted Hypokalemia Hypomagnesemia, resolved * Supplement * Monitor labs First trimester H/O unilateral salpingectomy History of uterine fibroid History of ectopic Subchorionic hemorrhage * Case discussed with Dr. Arreguin, [facility] * Ensure medications appropriate for * Follow-up at 10 weeks * Avoid intercourse until follow-up with [facility] due to subchorionic hemorrhage on OB US Code status: Full Code PCP: None currently DVT prophylaxis: Not indicated Social: Patient [place] with significant other on a [place] near [place], [place] Disposition: [facility] for management and further work- up of nausea, vomiting, and bloody diarrhea. LOS >96 hrs due to slow response to treatment.
[2021-01-30] MEDS: Potassium Chloride 10 MEQ in Premix Bag 1 BAG IV SCH ×4 (08:22→12:45)
[2021-01-30] MEDS ORDERED: Sodium Chloride 0.9% 10 ML Syringe FLUSH PRN (08:32)
[2021-01-30] MEDS ORDERED: Diatrizoate Meglumine/Diatrizoate Sodium 37% 120 ML Bottle PO ONE (08:32)
[2021-01-30] MEDS ORDERED: Iopamidol 612 MG/ML 100 ML Bottle IVPUSH ONE (08:32)
[2021-01-30] MEDS: Lactated Ringers 1,000 ML IV SCH ×2 (11:26→14:15)
--- NOTE | 2021-01-30 14:15 | CT ---
CT abdomen and pelvis Technique: Multiple axial sections were obtained from above the dome of the diaphragm inferiorly through the pubic symphysis. Intravenous contrast and oral contrast was utilized. Reconstructed coronal and sagittal images were obtained. Comparison: Prior noncontrast CT exam of 01/26/21. Findings: Bilateral pleural effusions are seen which are an interval change from prior exam. Increased density is noted within both lung bases most likely representing prominent atelectasis. Small amount of ascites is seen. Liver contains no focal abnormality. Gallbladder contains no calcified gallstones. Pancreas is within normal limits. Adrenal glands show no nodule. Kidneys show symmetric contrast enhancement with no hydronephrosis or mass. Abdominal aorta shows no aneurysm. No retroperitoneal adenopathy is seen. Diffuse bowel wall thickening is seen throughout the colon. Diffuse inflammatory change is seen throughout the colon compatible with diffuse colitis. There are no findings of pneumatosis. Appendix is seen which appears to be normal in size. No discrete pelvic mass or adenopathy is appreciated. is seen within the uterus. Bone window settings were reviewed which appear within normal limits for the patient's age. Impression: 1. Pleural effusions and prominent bibasilar atelectasis as an interval change from prior CT study. 2. Mild amount of ascites is seen within the upper abdomen and within the pelvis which has minimally increased within the abdomen from prior study. 3. Diffuse bowel wall thickening throughout the colon with diffuse inflammatory change compatible with continuing colitis. The amount of colitis has minimally improved from prior exam. 4. No evidence of pneumatosis is seen. 5. Stable within the uterus. Diagnostic code #3 I agree with preliminary report from [facility], finalized on 01/30/21, 12:23 PM CDT, code 1
--- NOTE | 2021-01-30 17:04 | PCM.CONS ---
H&P History of Present Illness - General Date of Service: 01/30/21 Admit Problem/Dx: Admission Diagnosis/Problem Dysentery Source of Information: Patient, Provider History Limitations: Reports: No Limitations - History of Present Illness Initial Comments - Free Text/Narative: Ms. Early is a 35 yo woman who was admitted on 01/26/2021 with infectious colitis with positive test for Shiga toxin-producing E coli. She received a few doses of empiric antibiotic therapy on admission prior to the test result, at which time antibiotics were stopped. She has been having abdominal pain and bloody, watery diarrhea. Her WBC has been persistently elevated at around 20,000. Today, she is feeling a little better, but still has significant abdominal pain, distention and diarrhea. She has tolerated clears without nausea or vomiting today. A CT scan at the time of admission showed inflammatory changes consistent with infectious colitis. A repeat scan was done today which shows some resolving inflammatory changes and ascites with bilateral pleural effusions. Abdomen Pain Score (Numeric/FACES): 8 - Related Data Allergies/Adverse Reactions: Allergies Allergy/AdvReac Type Severity Reaction Status Date / Time amoxicillin Allergy Mild Hives Verified 01/25/21 14:19 Home Medications: Home Meds . [No Known Home Meds] 01/25/21 [History] Past Medical History HEENT History: Reports: Impaired Vision, Other (See Below) Other HEENT History: glasses at night when driving Cardiovascular History: Reports: None Respiratory History: Reports: None Gastrointestinal History: Reports: None Genitourinary History: Reports: None USED [employer] History: Reports: Ectopic Other OB/BYN History: polyps removed from uterus, miscarriage 10/2020 Musculoskeletal History: Reports: None Neurological History: Reports: None Psychiatric History: Reports: None Endocrine/Metabolic History: Reports: Other (See Below) Other Endocrine/Metabolic History: occasional low blood sugar Hematologic History: Reports: None Immunologic History: Reports: None Oncologic (Cancer) History: Reports: None Dermatologic History: Reports: None - Infectious Disease History Infectious Disease History: Reports: Chicken Pox, Shingles - Past Surgical History HEENT Surgical History: Reports: None Female Surgical History: Reports: Other (See Below) Social & Family History - Family History Family Medical History: No Pertinent Family History - Tobacco Use Tobacco Use Status *Q: Former Tobacco User Used Tobacco, but Quit: Yes Month/Year Tobacco Last Used: 2012 Second Hand Smoke Exposure: No - Caffeine Use Caffeine Use: Reports: Coffee, Tea - Recreational Drug Use Recreational Drug Use: No - Living Situation & Occupation Living situation: Reports: H&P Review of Systems - Review of Systems: Review Of Systems: See Below General: Reports: Malaise, Weakness HEENT: Reports: No Symptoms Pulmonary: Reports: No Symptoms Cardiovascular: Reports: No Symptoms Gastrointestinal: Reports: Abdominal Pain, Bloody Stool, Diarrhea, Flatus Genitourinary: Reports: No Symptoms Musculoskeletal: Reports: No Symptoms Skin: Reports: No Symptoms Psychiatric: Reports: No Symptoms Neurological: Reports: No Symptoms Hematologic/Lymphatic: Reports: No Symptoms Immunologic: Reports: No Symptoms Exam - Exam Exam: See Below - Vital Signs Vital Signs: Last Vital Signs Temp 37.2 C 01/30/21 14:24 Pulse 98 01/30/21 14:24 Resp 12 01/30/21 14:24 BP 100/59 L 01/30/21 14:24 Pulse Ox 94 L 01/30/21 14:24 Weight: 69.944 kg - Exam General: Alert, Oriented, Cooperative HEENT: Conjunctiva Clear Neck: Supple Lungs: Normal Respiratory Effort, Other (absent breath sounds at posterior lung bases bilaterally. Sounds clear and normal at anterior mid-level) Cardiovascular: Other (sinus tachycardia without murmur) GI/Abdominal Exam: Other (distended, soft, mild tenderness, no palpable mass) Skin: Warm, Dry Neuro Extensive - Mental Status: Alert, Oriented x3, Normal Mood/Affect - Patient Data Lab Results Last 24 hrs: Laboratory Results - last 24 hr 01/30/21 01/30/21 01/30/21 Range/Units 06:17 06:17 06:17 WBC 19.39 H (3.98-10.04) K/mm3 RBC 3.21 L (3.98-5.22) M/mm3 Hgb 10.2 L (11.2-15.7) gm/dl Hct 31.2 L (34.1-44.9) % MCV 97.2 H (79.4-94.8) fl MCH 31.8 (25.6-32.2) pg MCHC 32.7 (32.2-35.5) g/dl RDW Std Deviation 47.2 H (36.4-46.3) fL Plt Count 281 (182-369) K/mm3 MPV 10.8 (9.4-12.3) fl Neut % (Auto) 76.3 H (34.0-71.1) % Lymph % (Auto) 8.7 L (19.3-51.7) % [place] % (Auto) 8.4 (4.7-12.5) % Eos % (Auto) 1.2 (0.7-5.8) Baso % (Auto) 0.4 (0.1-1.2) % Neut # (Auto) 14.83 H (1.56-6.13) K/mm3 Lymph # (Auto) 1.68 (1.18-3.74) K/mm3 [place] # (Auto) 1.62 H (0.24-0.36) K/mm3 Eos # (Auto) 0.23 (0.04-0.36) K/mm3 Baso # (Auto) 0.07 (0.01-0.08) K/mm3 Manual Slide Review Abnormal smear Sodium 136 (136-145) mEq/L Potassium 3.4 L (3.5-5.1) mEq/L Chloride 102 (98-107) mEq/L Carbon Dioxide 26 (21-32) mEq/L Anion Gap 11.4 (5-15) BUN 5 L (7-18) mg/dL Creatinine 0.5 L (0.55-1.02) mg/dL Est Cr Clr Drug Dosing 158.42 mL/min Estimated GFR (MDRD) > 60 (>60) mL/min BUN/Creatinine Ratio 10.0 L (14-18) Glucose 81 (70-99) mg/dL Lactic Acid 0.5 (0.4-2.0) mmol/L Calcium 7.5 L (8.5-10.1) mg/dL Magnesium 2.1 (1.8-2.4) mg/dL Total Bilirubin 0.4 (0.2-1.0) mg/dL AST 14 L (15-37) U/L ALT 14 (14-59) U/L Alkaline Phosphatase 112 (46-116) U/L C-Reactive Protein 25.0 H* (<1.0) mg/dL Total Protein 5.0 L (6.4-8.2) g/dl Albumin 1.4 L (3.4-5.0) g/dl Globulin 3.6 gm/dL Albumin/Globulin Ratio 0.4 L (1-2) Result Diagrams: 01/30/21 06:17 01/30/21 06:17 Sepsis Event Note - Evaluation Sepsis Screening Result: No Definite Risk - Focused Exam Vital Signs: Vital Signs Temp Pulse Resp BP Pulse Ox 01/30/21 14:24 37.2 C 98 12 100/59 L 94 L 01/30/21 11:42 97 01/30/21 08:17 37.1 C 102 H 12 106/65 97 Consult PN Assessment/Plan Problem List Initiated/Reviewed/Updated: Yes Plan: Surgical consult for patient with persistent abdominal pain and leukocytosis after admission with infectious colitis with Shiga toxin-producing E coli. She appears to be significantly volume-overloaded on today's CT scan, without clinical picture of significant pulmonary edema. She does not have an acute abdomen or any indication for surgical treatment at this time. If diarrhea and leukocytosis persist, recommend re-checking for C difficile toxin since patient did receive antibiotics on admission and has been hospitalized for a few days. The patient is young and healthy, and as inflammation resolves she should begin to auto-diurese. Recommend no use of diuretics unless patient appears to be symptomatic from volume overload. Recommend stopping IV fluids and trial of regular diet as patient now has an appetite.
[2021-01-31] MEDS: HYDROmorphone 1 MG/ML Syringe IVPUSH PRN ×6 (03:08→22:19)
[2021-01-31] MEDS: Lactated Ringers 1,000 ML IV SCH (05:39)
--- NOTE | 2021-01-31 07:33 | PCM.SN.2 ---
- Free Text/Narrative Note: S: slept well overnight, having pain this morning. Had lots of flatus and watery, nonbloody diarrhea last night. Tolerating clears. O: AF-VSS Awake and alert, appears mildly uncomfortable Abdomen distended, soft, minimally tender to light palpation WBC down from 19 to 16, other labs look good A: Infectious colitis with [id number] E coli. Seems to be slowly recovering. Fluid overloaded with ascites and pleural effusions on CT yesterday. Recommendations: -malini -trial regular diet -no surgical needs currently
--- NOTE | 2021-01-31 13:41 | PCM.PN ---
- General Info Date of Service: 01/31/21 Admission Dx/Problem (Free Text): Admission Diagnosis/Problem Dysentery Subjective Update: Patient states that she has not had any nausea, vomiting or dry heaving today. She states abdomen feels distended and full however she is passing gas. Still complaining of abdominal cramping and requiring narcotic pain medication. Has tolerated clear liquid diet. Surgery consult recommends advancing to a regular diet and saline locking the patient's IV as she is fluid overloaded as reported by CT scan. Bilateral pleural effusions and ascites noted. She states she has been up ambulating in the halls and using her incentive spirometer. No further bloody stools are noted. States she did have a bowel movement this morning. Functional Status: Reports: Pain Controlled (With Dilaudid), Tolerating Diet (Clear liquids), Ambulating, Urinating, Incentive Spirometry - Review of Systems General: Reports: No Symptoms HEENT: Reports: No Symptoms Pulmonary: Reports: No Symptoms Cardiovascular: Reports: No Symptoms Gastrointestinal: Reports: Abdominal Pain (Cramping generalized), Flatus. Denies: Nausea, Vomiting Genitourinary: Reports: No Symptoms Musculoskeletal: Reports: No Symptoms Skin: Reports: No Symptoms Neurological: Reports: No Symptoms Psychiatric: Reports: No Symptoms - Patient Data Vitals - Most Recent: Last Vital Signs Temp 98.8 F 01/31/21 11:05 Pulse 97 01/31/21 11:05 Resp 16 01/31/21 11:05 BP 100/54 L 01/31/21 11:05 Pulse Ox 95 01/31/21 12:00 Weight - Most Recent: 157 lb 11.2 oz I&O - Last 24 Hours: Intake & Output 01/30/21 01/31/21 01/31/21 22:59 06:59 14:59 Intake Total 1440 750 120 Output Total 1300 600 Balance 140 150 120 Lab Results Last 24 Hours: Laboratory Results - last 24 hr 01/31/21 01/31/21 Range/Units 05:29 05:29 WBC 16.91 H (3.98-10.04) K/mm3 RBC 3.37 L (3.98-5.22) M/mm3 Hgb 10.8 L (11.2-15.7) gm/dl Hct 31.8 L (34.1-44.9) % MCV 94.4 (79.4-94.8) fl MCH 32.0 (25.6-32.2) pg MCHC 34.0 (32.2-35.5) g/dl RDW Std Deviation 47.2 H (36.4-46.3) fL Plt Count 284 (182-369) K/mm3 MPV 11.1 (9.4-12.3) fl Neut % (Auto) 78.1 H (34.0-71.1) % Lymph % (Auto) 9.7 L (19.3-51.7) % [place] % (Auto) 9.9 (4.7-12.5) % Eos % (Auto) 2.0 (0.7-5.8) Baso % (Auto) 0.3 (0.1-1.2) % Neut # (Auto) 13.22 H (1.56-6.13) K/mm3 Lymph # (Auto) 1.64 (1.18-3.74) K/mm3 [place] # (Auto) 1.67 H (0.24-0.36) K/mm3 Eos # (Auto) 0.33 (0.04-0.36) K/mm3 Baso # (Auto) 0.05 (0.01-0.08) K/mm3 Manual Slide Review Abnormal smear Sodium 134 L (136-145) mEq/L Potassium 3.4 L (3.5-5.1) mEq/L Chloride 100 (98-107) mEq/L Carbon Dioxide 23 (21-32) mEq/L Anion Gap 14.4 (5-15) BUN 5 L (7-18) mg/dL Creatinine 0.5 L (0.55-1.02) mg/dL Est Cr Clr Drug Dosing 158.42 mL/min Estimated GFR (MDRD) > 60 (>60) mL/min BUN/Creatinine Ratio 10.0 L (14-18) Glucose 83 (70-99) mg/dL Calcium 7.5 L (8.5-10.1) mg/dL Magnesium 2.0 (1.8-2.4) mg/dL Total Bilirubin 0.4 (0.2-1.0) mg/dL AST 17 (15-37) U/L ALT 15 (14-59) U/L Alkaline Phosphatase 106 (46-116) U/L C-Reactive Protein 18.4 H* (<1.0) mg/dL Total Protein 5.4 L (6.4-8.2) g/dl Albumin 1.5 L (3.4-5.0) g/dl Globulin 3.9 gm/dL Albumin/Globulin Ratio 0.4 L (1-2) Amandeep Results Last 24 Hours: Microbiology 01/25/21 13:29 Blood Culture - Final Blood - Venous - Lab Draw 01/25/21 13:21 Blood Culture - Final Blood - Venous Med Orders - Current: Current Medications Acetaminophen (Acetaminophen 325 Mg Tab) 650 mg PO Q4H PRN PRN Reason: Pain (Mild 1-3)/fever Last Admin: 01/29/21 12:12 Dose: 650 mg Documented by: Hydromorphone HCl (Hydromorphone 1 Mg/Ml Syringe) 1 mg IVPUSH Q1H PRN PRN Reason: Pain (severe 7-10) Last Admin: 01/31/21 10:33 Dose: 1 mg Documented by: Miscellaneous Information (Remove Replace Scopolamine Patch) 1 ea TRDERM Q72H [facility] Last Admin: 01/28/21 14:11 Dose: 1 ea Documented by: Ondansetron HCl (Ondansetron 4 Mg/2 Ml Sdv) 4 mg IV Q6H PRN PRN Reason: Nausea/Vomiting Last Admin: 01/29/21 11:12 Dose: 4 mg Documented by: Oxycodone HCl (Oxycodone 5 Mg Tab) 10 mg PO Q4H PRN PRN Reason: Pain (moderate 4-6) Scopolamine (Scopolamine 1.5 Mg Transdermal Patch) 1.5 mg TRDERM Q72H [facility] Last Admin: 01/28/21 14:14 Dose: 1.5 mg Documented by: Simethicone (Simethicone 80 Mg Tab.Chew) 160 mg PO TID PRN PRN Reason: Bloating/gas Last Admin: 01/29/21 22:59 Dose: 160 mg Documented by: Sodium Chloride (Sodium Chloride 0.9% 10 Ml Syringe) 10 ml FLUSH ONETIME PRN PRN Reason: Keep Vein Open Last Admin: 01/30/21 10:10 Dose: 10 ml Documented by: Discontinued Medications Diatrizoate Meglum/Diatrizoate Sod (Diatrizoate Meglumine/Diatrizoate Sodium 37% 120 Ml Bottle) 40 ml PO ONETIME ONE Stop: 01/30/21 08:33 Last Admin: 01/30/21 10:10 Dose: 45 ml Documented by: Hydromorphone HCl (Hydromorphone 0.5 Mg/0.5 Ml Syringe) 0.5 mg IVPUSH ONETIME ONE Stop: 01/25/21 07:31 Last Admin: 01/25/21 07:41 Dose: 0.5 mg Documented by: Hydromorphone HCl (Hydromorphone 0.5 Mg/0.5 Ml Syringe) 0.5 mg IVPUSH ONETIME ONE Stop: 01/25/21 08:32 Last Admin: 01/25/21 08:30 Dose: 0.5 mg Documented by: Hydromorphone HCl (Hydromorphone 0.5 Mg/0.5 Ml Syringe) 0.5 mg IVPUSH ONETIME ONE Stop: 01/25/21 09:28 Last Admin: 01/25/21 09:30 Dose: 0.5 mg Documented by: Hydromorphone HCl (Hydromorphone 0.5 Mg/0.5 Ml Syringe) 0.5 mg IVPUSH ONETIME ONE Stop: 01/25/21 10:22 Last Admin: 01/25/21 10:30 Dose: 0.5 mg Documented by: Hydromorphone HCl (Hydromorphone 0.5 Mg/0.5 Ml Syringe) 0.5 mg IVPUSH ONETIME ONE Stop: 01/25/21 12:27 Last Admin: 01/25/21 12:33 Dose: 0.5 mg Documented by: Hydromorphone HCl (Hydromorphone 0.5 Mg/0.5 Ml Syringe) 0.5 mg IVPUSH Q2H PRN PRN Reason: Pain (severe 7-10) Last Admin: 01/25/21 13:52 Dose: 0.5 mg Documented by: Hydromorphone HCl (Hydromorphone 1 Mg/Ml Syringe) 1 mg IVPUSH Q2H PRN PRN Reason: Pain (severe 7-10) Dextrose/Sodium Chloride (Dextrose 5%-Normal Saline) 1,000 mls @ 999 mls/hr IV ASDIRECTED ELIANA Last Admin: 01/25/21 07:43 Dose: 999 mls/hr Documented by: Metronidazole 500 mg/ Premix 100 mls @ 100 mls/hr IV ONETIME ONE Stop: 01/25/21 09:24 Last Admin: 01/25/21 08:42 Dose: Not Given Documented by: Azithromycin 500 mg/ Sodium (Chloride) 250 mls @ 250 mls/hr IV ONETIME ONE Stop: 01/25/21 10:27 Last Admin: 01/25/21 09:41 Dose: 250 mls/hr Documented by: Dextrose/Lactated Ringer's (Dextrose 5%-Lactated Ringers) 1,000 mls @ 125 mls/hr IV ASDIRECTED [facility] Last Admin: 01/28/21 11:37 Dose: 125 mls/hr Documented by: Piperacillin Sod/Tazobactam (Sod 4.5 gm/ Sodium Chloride) 100 mls @ 25 mls/hr IV Q8H [facility] Last Admin: 01/26/21 05:04 Dose: 25 mls/hr Documented by: Piperacillin Sod/Tazobactam (Sod 4.5 gm/ Sodium Chloride) 100 mls @ 200 mls/hr IV ONETIME ONE Stop: 01/25/21 13:29 Last Admin: 01/25/21 13:55 Dose: 200 mls/hr Documented by: Magnesium Sulfate 2 gm/ Premix 50 mls @ 25 mls/hr IV ONETIME ONE Stop: 01/25/21 15:29 Last Admin: 01/25/21 14:31 Dose: 25 mls/hr Documented by: Potassium Chloride 10 meq/ (Premix) 100 mls @ 100 mls/hr IV Q1H [facility] Stop: 01/25/21 17:29 Last Admin: 01/25/21 18:38 Dose: 100 mls/hr Documented by: Lactated Ringer's (Ringers, Lactated) 1,000 mls @ 999 mls/hr IV ONETIME ONE Stop: 01/26/21 09:18 Last Admin: 01/26/21 08:44 Dose: 999 mls/hr Documented by: Lactated Ringer's (Ringers, Lactated) 500 mls @ 999 mls/hr IV .BOLUS ONE Stop: 01/27/21 07:12 Last Admin: 01/27/21 07:07 Dose: 999 mls/hr Documented by: Magnesium Sulfate 4 gm/ Premix 50 mls @ 12.5 mls/hr IV ONETIME ONE Stop: 01/27/21 12:52 Last Admin: 01/27/21 09:31 Dose: 12.5 mls/hr Documented by: Potassium Chloride 10 meq/ (Premix) 100 mls @ 100 mls/hr IV Q1H [facility] Stop: 01/27/21 12:59 Last Admin: 01/27/21 14:46 Dose: 100 mls/hr Documented by: Lactated Ringer's (Ringers, Lactated) 500 mls @ 999 mls/hr IV .BOLUS ONE Stop: 01/27/21 09:36 Last Admin: 01/27/21 09:30 Dose: 999 mls/hr Documented by: Potassium Chloride 10 meq/ (Premix) 100 mls @ 100 mls/hr IV Q1H [facility] Stop: 01/28/21 15:29 Last Admin: 01/28/21 16:42 Dose: 100 mls/hr Documented by: Lactated Ringer's (Ringers, Lactated) 500 mls @ 999 mls/hr IV .BOLUS ONE Stop: 01/29/21 11:58 Last Admin: 01/29/21 11:57 Dose: 999 mls/hr Documented by: Lactated Ringer's (Ringers, Lactated) 1,000 mls @ 75 mls/hr IV ASDIRECTED [facility] Last Admin: 01/30/21 11:26 Dose: 75 mls/hr Documented by: Lactated Ringer's (Ringers, Lactated) 500 mls @ 999 mls/hr IV .BOLUS ONE Stop: 01/29/21 13:45 Last Admin: 01/29/21 13:36 Dose: 999 mls/hr Documented by: Potassium Chloride 10 meq/ (Premix) 100 mls @ 100 mls/hr IV Q1H [facility] Stop: 01/30/21 11:29 Last Admin: 01/30/21 12:45 Dose: 100 mls/hr Documented by: Lactated Ringer's (Ringers, Lactated) 1,000 mls @ 50 mls/hr IV ASDIRECTED [facility] Last Admin: 01/31/21 05:39 Dose: 50 mls/hr Documented by: Iopamidol (Iopamidol 612 Mg/Ml 100 Ml Bottle) 100 ml IVPUSH ONETIME ONE Stop: 01/30/21 08:33 Last Admin: 01/30/21 10:10 Dose: 100 ml Documented by: Loperamide HCl (Loperamide 2 Mg Cap) 2 mg PO ONETIME ONE Stop: 01/25/21 12:27 Last Admin: 01/25/21 12:31 Dose: 2 mg Documented by: Metoclopramide HCl (Metoclopramide 10 Mg/2 Ml Sdv) 7.5 mg IVPUSH ONETIME ONE Stop: 01/25/21 07:30 Last Admin: 01/25/21 07:39 Dose: 7.5 mg Documented by: Oxycodone HCl (Oxycodone 5 Mg Tab) 10 mg PO Q4H PRN PRN Reason: Pain (moderate 4-6) Oxycodone HCl (Oxycodone 5 Mg Tab) 5 mg PO Q4H PRN PRN Reason: Pain (moderate 4-6) Last Admin: 01/26/21 01:50 Dose: 5 mg Documented by: - Exam Quality Assessment: No: DVT Prophylaxis (Not indicated) General: Alert, Oriented, Cooperative, Mild Distress HEENT: Pupils Equal, EOMI, Mucous Membr. Moist/[place] Neck: Supple, Trachea Midline Lungs: Clear to Auscultation, Normal Respiratory Effort Cardiovascular: Regular Rate, Regular Rhythm, No Murmurs GI/Abdominal Exam: Normal Bowel Sounds, Distended, Tender (Generalized however increased tenderness is noted to the lower quadrants) (Female) Exam: Deferred Back Exam: Normal Inspection, Full Range of Motion Extremities: Normal Inspection, Normal Range of Motion, Non-Tender, No Pedal Edema, Normal Capillary Refill Peripheral Pulses: 2+: Radial (L), Radial (R), Dorsalis Pedis (L), Dorsalis Pedis (R) Skin: Warm, Dry, Intact Neurological: No New Focal Deficit Psy/Mental Status: Alert, Normal Affect, Normal Mood - Patient Data Lab Results Last 24 hrs: Laboratory Results - last 24 hr 01/31/21 01/31/21 Range/Units 05:29 05:29 WBC 16.91 H (3.98-10.04) K/mm3 RBC 3.37 L (3.98-5.22) M/mm3 Hgb 10.8 L (11.2-15.7) gm/dl Hct 31.8 L (34.1-44.9) % MCV 94.4 (79.4-94.8) fl MCH 32.0 (25.6-32.2) pg MCHC 34.0 (32.2-35.5) g/dl RDW Std Deviation 47.2 H (36.4-46.3) fL Plt Count 284 (182-369) K/mm3 MPV 11.1 (9.4-12.3) fl Neut % (Auto) 78.1 H (34.0-71.1) % Lymph % (Auto) 9.7 L (19.3-51.7) % [place] % (Auto) 9.9 (4.7-12.5) % Eos % (Auto) 2.0 (0.7-5.8) Baso % (Auto) 0.3 (0.1-1.2) % Neut # (Auto) 13.22 H (1.56-6.13) K/mm3 Lymph # (Auto) 1.64 (1.18-3.74) K/mm3 [place] # (Auto) 1.67 H (0.24-0.36) K/mm3 Eos # (Auto) 0.33 (0.04-0.36) K/mm3 Baso # (Auto) 0.05 (0.01-0.08) K/mm3 Manual Slide Review Abnormal smear Sodium 134 L (136-145) mEq/L Potassium 3.4 L (3.5-5.1) mEq/L Chloride 100 (98-107) mEq/L Carbon Dioxide 23 (21-32) mEq/L Anion Gap 14.4 (5-15) BUN 5 L (7-18) mg/dL Creatinine 0.5 L (0.55-1.02) mg/dL Est Cr Clr Drug Dosing 158.42 mL/min Estimated GFR (MDRD) > 60 (>60) mL/min BUN/Creatinine Ratio 10.0 L (14-18) Glucose 83 (70-99) mg/dL Calcium 7.5 L (8.5-10.1) mg/dL Magnesium 2.0 (1.8-2.4) mg/dL Total Bilirubin 0.4 (0.2-1.0) mg/dL AST 17 (15-37) U/L ALT 15 (14-59) U/L Alkaline Phosphatase 106 (46-116) U/L C-Reactive Protein 18.4 H* (<1.0) mg/dL Total Protein 5.4 L (6.4-8.2) g/dl Albumin 1.5 L (3.4-5.0) g/dl Globulin 3.9 gm/dL Albumin/Globulin Ratio 0.4 L (1-2) Result Diagrams: 01/31/21 05:29 01/31/21 05:29 Amandeep Results Last 24 hrs: Microbiology 01/25/21 13:29 Blood Culture - Final Blood - Venous - Lab Draw 01/25/21 13:21 Blood Culture - Final Blood - Venous Sepsis Event Note - Evaluation Sepsis Screening Result: Sepsis Risk - Focused Exam Vital Signs: Vital Signs Temp Pulse Resp BP Pulse Ox 01/31/21 12:00 95 01/31/21 11:05 98.8 F 97 16 100/54 L 91 L 01/31/21 07:26 98.8 F 94 16 112/66 94 L 01/31/21 05:42 98.6 F 99 16 104/56 L 95 - Problem List & Annotations (1) Abdominal pain SNOMED Code(s): 21730593 Code(s): R10.9 - UNSPECIFIED ABDOMINAL PAIN Status: Acute Priority: High Current Visit: Yes Qualifiers: Abdominal location: lower abdomen, unspecified Qualified Code(s): R10.30 - Lower abdominal pain, unspecified (2) Bacterial enteritis, unspecified SNOMED Code(s): 52293231 Code(s): A04.9 - BACTERIAL INTESTINAL INFECTION, UNSPECIFIED Status: Acute Priority: High Current Visit: Yes (3) Dysentery SNOMED Code(s): 56191210 Code(s): A09 - INFECTIOUS GASTROENTERITIS AND COLITIS, UNSPECIFIED Status: Acute Priority: High Current Visit: Yes (4) First trimester SNOMED Code(s): 06884268 Code(s): Z34.91 - ENCNTR FOR SUPRVSN OF NORMAL PREG, UNSP, FIRST TRIMESTER Status: Acute Priority: High Current Visit: Yes (5) Hypokalemia SNOMED Code(s): 00602904 Code(s): E87.6 - HYPOKALEMIA Status: Acute Priority: High Current Visit: Yes (6) Leukocytosis SNOMED Code(s): 347542566, 711295278 Code(s): D72.829 - ELEVATED WHITE BLOOD CELL COUNT, UNSPECIFIED Status: Acute Priority: High Current Visit: Yes Qualifiers: Leukocytosis type: unspecified Qualified Code(s): D72.829 - Elevated white blood cell count, unspecified (7) Nausea and vomiting SNOMED Code(s): 77072227 Code(s): R11.2 - NAUSEA WITH VOMITING, UNSPECIFIED Status: Acute Priority: High Current Visit: Yes Qualifiers: Vomiting type: bilious vomiting Qualified Code(s): R11.14 - Bilious vomiting (8) Shiga toxin-producing Escherichia coli (E. coli) (STEC) O157 SNOMED Code(s): 008813175038290 Code(s): A49.8 - OTHER BACTERIAL INFECTIONS OF UNSPECIFIED SITE Status: Acute Priority: High Current Visit: Yes (9) Subchorionic hemorrhage SNOMED Code(s): 396483201 Code(s): O41.8X90 - OTH DISRD OF AMNIOTIC FLUID AND MEMBRNS, UNSP TRI, UNSP; O46.8X9 - OTHER ANTEPARTUM HEMORRHAGE, UNSPECIFIED TRIMESTER Status: Acute Priority: Medium Current Visit: Yes Qualifiers: Fetus number: single or unspecified fetus Trimester: first trimester Qualified Code(s): O41.8X10 - Other specified disorders of amniotic fluid and membranes, first trimester, not applicable or unspecified; O46.8X1 - Other antepartum hemorrhage, first trimester (10) Volume depletion SNOMED Code(s): 397086908 Code(s): E86.9 - VOLUME DEPLETION, UNSPECIFIED Status: Acute Priority: High Current Visit: Yes (11) Hypomagnesemia SNOMED Code(s): 045431972 Code(s): E83.42 - HYPOMAGNESEMIA Status: Resolved Priority: High Current Visit: Yes (12) H/O unilateral salpingectomy SNOMED Code(s): 843535784 Code(s): Z90.79 - ACQUIRED ABSENCE OF OTHER GENITAL ORGAN(S) Status: Chronic Priority: Low Current Visit: No (13) History of ectopic SNOMED Code(s): 823624166, 901782335 Code(s): Z87.59 - PERSONAL HISTORY OF COMP OF PREG, CHLDBRTH AND THE PUERP Status: Chronic Priority: Medium Current Visit: No (14) History of uterine fibroid SNOMED Code(s): 811185348 Code(s): Z86.018 - PERSONAL HISTORY OF OTHER BENIGN NEOPLASM Status: Chronic Priority: Low Current Visit: No - Problem List Review Problem List Initiated/Reviewed/Updated: Yes - My Orders Last 24 Hours: My Active Orders 01/31/21 08:20 Consult to Dietary [Consult to Review Scheduling Coordinator] [CONS] Routine 01/31/21 Lunch Regular Diet [DIET] - Assessment Assessment:: Assessment - Admission date - 01/25/2021 * 35-year-old female who presents with diffuse abdominal pain, nausea, bilious emesis, and bloody diarrhea * History of ctopic in May 2020 with right salpingectomy and uterine fibroids * Reports she has been ill for the past 2 days * Started having watery diarrhea and mild abdominal pain which worsened and became cramping in nature. Her stool eventually became pure blood. * She reports she has been nauseous and essentially dry heaving at this point * Chills but no known fever. * [place] [facility] [place] * Family was playing in the local river * Their camper was hooked up to a well in the campground with a charcoal filter installed * Reports there were potluck meals but no known questionable food. * Reports a child with mild but similar symptoms and her [id number] who is developing similar symptoms currently. * Labs are obtained: * WBC 13.12. * Hemoglobin of 13.6. * Hematocrit 40.3. * Platelet 274,000. * Neutrophils are elevated 83.7%. * INR is 0.94. * aPTT is 26.3. * Sodium is 138. * Potassium 3.3. * Chloride 102. * Carbon dioxide 23. * Anion gap is 16.3. * BUN is 7. Creatinine 0.7. GFR greater than 60. * Glucose 123. * Calcium 9.2. * Bilirubin 0.3. * AST 16, ALT 25, alkaline phosphatase 51. * CRP is 8.7. * Albumin 3.3. * Lipase is 60. * hCG qualitative is positive. hCG quantitative is 6881, consistent with 5- week gestation. * SARS-CoV-2 RNA is negative. * Stool ova and parasite, stool culture/Shiga toxin, and stool fecal lactoferrin are collected. * Obstetrics ultrasound: * Small intrauterine gestation with a mean sac diameter of 0.86-5 weeks and 4 days. * Small subchorionic hemorrhage with mild free fluid seen within the pelvis. * Other findings are noted. * She is given azithromycin 500 mg, Zofran, Regalin, and IV push Dilaudid for pain. * Given a 1 L D5LR bolus and started on D5 LR maintenance fluids. * Admitted to the medical floor for management and further work-up of her diarrhea and vomiting. 01/26/2021 35-year-old female admitted for dysentery. Patient continues to have nausea and episodes of bloody diarrhea, although she does report that her pain is slightly improved. Patient reports that family member did test positive for Shiga toxin E. coli. Oddly patient's Shiga toxin here was negative. Cryptosporidium and Giardia was negative. Stool lactoferrin was positive. Stool culture is positive. OB did consult on the patient and recommend follow-up ultrasound in 10 days. Multiple family members have now developed similar symptoms. Contacte d Dr. Sosa, infectious disease with [facility] in [place] who recommended we discontinue IV antibiotics and treat the patient like a Shiga toxin pending stool cultures. Dr. Morfin, on-call GI specialist with [facility] in [place] was contacted as well who recommends discontinuation of IV antibiotics, IV fluids, pain control, and time to let this pass. Labs and test results were reviewed. He also recommended scan of the abdomen and pelvis to rule out perforation. Discussed with Dr. Gordon, radiologist regarding risks and benefits of scan and ensuring CT versus MRI was appropriate. Ultimate decision was CT without contrast. Discussed plan with patient, including risks and benefits to developing fetus. Ultimately patient agrees to proceed with scan. CT scan of the abdomen and pelvis is obtained and shows 1. Minimal hiatal hernia. 2. Small gestational sac within the uterus. 3. Prominent bowel wall thickening throughout the colon with diffuse inflammatory change around the colon. Findings are felt compatible with a rather prominent colitis. Etiology of the colitis is uncertain on this exam. 4. Fair amount of free fluid within the pelvis as well as around the liver which is slightly complicated but does not appear to be bloody. 5. Normal appendix is seen. Labs today show elevated WBC of 20.63. Hemoglobin 12.3. Platelet 235,000. Neutrophils are elevated at 83.3%. Sodium is 140. Potassium 3.8. Anion gap is 14.8. BUN is 6. Creat inine 0.7. GFR greater than 60. Glucose is 179. Calcium is 7.4. Magnesium 2.0. Bilirubin 0.2. AST 9, ALT 14, alkaline phosphatase 44. CRP is 14.6. Protein is 5.6. Albumin is 2.1. UA was obtained yesterday and was grossly negative however 3+ ketones and concentrated urine were noted. Vital signs have been stable. We will continue to monitor for signs of HUS. 1 L fluid bolus given today. Patient remains n.p.o. IV fluids remain ordered. We will recheck lactic acid this afternoon and recheck all labs including lactic acid tomorrow. Will await stool culture. Continue current treatment plan. Unknown length of stay. Will be pending resolution of symptoms and advancement of diet. 01/27/2021 35-year-old female admitted for dysentery. Patient has had multiple family members now returned positive for Shiga toxin 2. Patient herself has had a positive stool culture for E. coli 0157, which is a Shiga toxin E. coli. All antibiotics have been stopped. Lactic acid has been within normal limits. Patient has received multiple IV fluid boluses and continues on IV fluids. Diet today was advanced from n.p.o. to clear liquids after discussion with the patie nt. She reports she is feeling quite a bit better. She is still having bloody stools but much less frequent. There appears to be less blood in her stools as well per patient report. She continues to have occasional dry heaves and nausea but does state that she has a history of morning sickness with . Bowel sounds have been active. Labs today show WBC of 20.37. Hemoglobin 10.7. Hematocrit 32.6. Platelet 196,000. Neutrophils are elevated at 79.7. Sodium is 139. Potassium 3.3. Chloride 105. Carbon dioxide 27. Anion gap is 10.3. BUN is 5. Creatinine 0.5. GFR in 60. Glucose has been in the low 110s. Lactic acid 0.5. Calcium 7.4. Magnesium 1.7. AST is 11, ALT 12, alkaline phosphatase 48. CRP is 20.5. Protein 4.9. Albumin 1.7. We will continue current treatment plan as the patient is feeling better. Clinically she looks more comfortable and greatly improved. Length of stay will be determined by patient tolerating diet and continuing resolution of symptoms. Likely length of stay 2-3 more days. 01/28/2021 35-year-old female admitted for abdominal pain and bloody diarrhea. Found to be E. coli 0157 positive. Patient reports that she is still having some hematochezia however this has improved. She reports approximately 2 stools an hour. She is still having pain although it is better. She reports she has gotten some sleep. Abdomen is somewhat distended however bowel sounds are nice and active today. She continues to tolerate the clear liquid diet but we will hold off on advancing giving continuation of symptoms and no real change in labs. WBC remains elevated 21.57. Hemoglobin 9.8. Platelet 203,000. Neutrophils are elevated 79.7. Sodium is 138. Potassium is 3.2. Chloride 105. Carbon dioxide 25. Anion gap 11.2. BUN is 4. Creatinine 0.4. GFR greater than 60. Lactic acid 0.7. Calcium 7.1. Magnesium 1.9. Bilirubin 0.3. AST is 11, ALT 10, alkaline phosphatase 68. CRP is 21.2. Protein is 4.5. Albumin 1.5. We will continue IV fluids. Potassium will be supplemented with 6 K riders. Clinically she looks better than yesterday and she reports she feels better than yesterday. We will continue current treatment plan. 01/29/2021 35-year-old female admitted to the hospital for abdominal pain and bloody diarrhea who was found to be E. coli 0157+. She was also found to be 5 weeks . OBGYN has consulted. Today patient reports that she feels much worse. She is having abdominal pain and bloating. Abdomen is noted to be distended but bowel sounds are active. Patient does report several loose stools an hour. Reports that bleeding has essentially stopped. IV fluids were discontinued last night and these were resumed today. Patient was given 2 500 mL boluses. WBC has increased to 24.67. Hemoglobin 10.0. Platelets are up to 223,000. Neutrophils are 75.1. Sodium is 137. Potassium 3.6. Carbon dioxide is 25. BUN is 3. Creatinine 0.4. GFR greater than 60. Glucose is 94. Lactic acid was obtained yesterday and is 0.7. Calcium is 7.5. Magnesium 1.9. Bilirubin 0.4. AST is 10, ALT 9, alkaline phosphatase 93. CRP is up to 23.9. Protein 4.7. Albumin is 1.4. Dr. Delvalle, attending hospitalist, and to assess patient as well. Overall no major changes. We will resume IV fluids, keep patient on clear liquid diet, and continue to monitor. 01/30/2021 This is a 35-year-old female who was admitted to the floor due to significant watery diarrhea and abdominal pain. She was found to be E. coli 0157+ and Shiga toxin positive. Throughout her stay thus far she has had waxing and waning of her symptoms. Today she reports that her diarrhea has greatly improved and she is no longer having hematochezia, however she continues to have significant bowel pain. She has been up ambulating. She was made n.p.o. this morning while a CT of the abdomen and pelvis with IV and oral contrast was obtained. Prior to obtaining scan discussion was had between Dr. Platt, attending hospitalist and also Dr. Gordon, radiologist. As there are rather significant concerns for possible perforation. Risk versus benefit was discussed with the patient and she ultimately agrees to the scan. CT scan returns showing improved pancolitis but with mildly increased ascites and new bilateral pleural effusions, probably related to the presence of ascites. No intra-abdominal abscess is noted. Patient was on 75 mL an hour of lactated Ringer's will slow this down to 50 cc an hour. Clear liquid diet was resumed. Dr. Bueno, general surgeon, was consulted. Labs obtained today showing improvement in WBC to 19.39. Hemoglobin is 10.2. Platelets are 281,000. Neutrophils are 76.3%. Sodium is 136. Potassium is 3.4 and will be supplemented with potassium riders. Chloride is 102. Carbon dioxide 26. Anion gap is 11.4. BUN is 5. C reatinine 0.5. GFR greater than 60. Glucose is 81. Lactic acid 0.5. Calcium 7.5. Magnesium 2.1. Bilirubin 0.4. AST is 14, ALT 14, alkaline phosphatase 112. CRP is up to 25. Protein is improved to 5.0. Albumin is 1.4. We will continue current treatment plan recheck labs in the morning. No current concerns for HUS. 01/31/2021 35-year-old female admitted for abdominal pain and bloody diarrhea stools. She was found to be positive for E. coli 0157+. Has had significant amount of abdominal pain, nausea and vomiting. She states that she did have stool today it was soft and she did not note any blood in it. She however continues to have significant generalized abdominal pain primarily located in the lower quadrants. Has been up ambulating and states she is passing a fair amount of gas. Was on clear liquids yesterday and tolerated that well. Dr. Bueno, general surgeon, was consulted yesterday. Progress note today recommends advancing diet to regular and to discontinue the IV fluids. Labs today reveal a WBC of 16.91, hemoglobin 10.8, hematocrit 31.8, platelet count 284,000, neutrophil percentage 78.1, sodium 134, potassium 3.4, chloride 100, anion gap of 14.4, BUN 5, creatinine 0.5, GFR greater than 60, glucose 83, calcium 7.5, magnesium 2.0, C-reactive protein 18.4, total protein 5.4, albumin 1.5. Continu e current treatment and recheck labs in the a.m. Patient does screen out as a septic risk due to elevated white count and tachycardia however I do not believe that she is septic. - Plan Plan:: Nausea and vomiting Abdominal pain Dysentery Bacterial enteritis, unspecified Shiga toxin E. coli 0157 Leukocytosis Volume depletion * Saline lock IV fluids * Antiemetics as ordered * Pain medications as ordered * Advance to a regular diet * Monitor labs * Scopolamine patch (Ok'd with [facility] Dr. Arreguin) * C-diff negative * Enteric isolation * Stool culture/shiga toxin - Negative shiga toxin 1&2 however positive E. Coli 0157 * Stool O&P - negative * Blood cultures negative thus far * As needed simethicone for gas pains * Dr. Bueno, general surgeon consulted Hypokalemia Hypomagnesemia, resolved * Supplement * Monitor labs First trimester H/O unilateral salpingectomy History of uterine fibroid History of ectopic Subchorionic hemorrhage * Case discussed with Dr. Arreguin, [facility] * Ensure medications appropriate for * Follow-up at 10 weeks * Avoid intercourse until follow-up with [facility] due to subchorionic hemorrhage on OB US Code status: Full Code PCP: None currently DVT prophylaxis: Not indicated Social: Patient [place] with significant other on a [place] near [place], [place] Disposition: Patient admitted to [facility] floor for management and further work- up of nausea, vomiting, and bloody diarrhea. LOS >96 hrs due to slow response to treatment.
[2021-01-31] MEDS: Scopolamine 1.5 MG Transdermal Patch TRDERM SCH (16:57)
[2021-01-31] MEDS: [UNRECOGNIZED DRUG - REMARK] TRDERM SCH (16:57)
[2021-02-01] MEDS: HYDROmorphone 1 MG/ML Syringe IVPUSH PRN ×3 (01:05→06:54)
--- NOTE | 2021-02-01 08:01 | PCM.PN ---
- General Info Date of Service: 02/01/21 Admission Dx/Problem (Free Text): Admission Diagnosis/Problem Dysentery Functional Status: Reports: Tolerating Diet, Ambulating, Urinating, Incentive Spirometry. Denies: Pain Controlled (reports continued pain), New Symptoms - Review of Systems General: Reports: No Symptoms, Weakness. Denies: Fever, Fatigue, Malaise, Chills HEENT: Reports: No Symptoms. Denies: Headaches Pulmonary: Reports: No Symptoms. Denies: Shortness of Breath, Cough, Sputum, Wheezing Cardiovascular: Reports: No Symptoms. Denies: Chest Pain, Palpitations, Dyspnea on Exertion Gastrointestinal: Reports: Abdominal Pain. Denies: Decreased Appetite, Diarrhea, Nausea, Vomiting Genitourinary: Reports: No Symptoms. Denies: Pain Musculoskeletal: Reports: No Symptoms Skin: Reports: No Symptoms. Denies: Cyanosis Neurological: Reports: No Symptoms. Denies: Confusion, Pre-Existing Deficit, Difficulty Walking, Gait Disturbance Psychiatric: Reports: No Symptoms - Patient Data Vitals - Most Recent: Last Vital Signs Temp 98.8 F 02/01/21 03:28 Pulse 87 02/01/21 03:28 Resp 18 02/01/21 03:28 BP 102/55 L 02/01/21 03:28 Pulse Ox 94 L 02/01/21 03:28 Weight - Most Recent: 153 lb 12.8 oz I&O - Last 24 Hours: Intake & Output 01/31/21 02/01/21 02/01/21 22:59 06:59 14:59 Intake Total 1300 600 Output Total 1325 1150 Balance -25 -550 Lab Results Last 24 Hours: Laboratory Results - last 24 hr 01/31/21 02/01/21 02/01/21 Range/Units 20:00 05:58 05:58 WBC 10.69 H (3.98-10.04) K/mm3 RBC 2.95 L (3.98-5.22) M/mm3 Hgb 9.3 L D (11.2-15.7) gm/dl Hct 28.1 L (34.1-44.9) % MCV 95.3 H (79.4-94.8) fl MCH 31.5 (25.6-32.2) pg MCHC 33.1 (32.2-35.5) g/dl RDW Std Deviation 46.4 H (36.4-46.3) fL Plt Count 261 (182-369) K/mm3 MPV 10.9 (9.4-12.3) fl Neut % (Auto) 62.2 (34.0-71.1) % Lymph % (Auto) 14.1 L (19.3-51.7) % [place] % (Auto) 12.1 (4.7-12.5) % Eos % (Auto) 2.7 (0.7-5.8) Baso % (Auto) 0.3 (0.1-1.2) % Neut # (Auto) 6.65 H (1.56-6.13) K/mm3 Lymph # (Auto) 1.51 (1.18-3.74) K/mm3 [place] # (Auto) 1.29 H (0.24-0.36) K/mm3 Eos # (Auto) 0.29 (0.04-0.36) K/mm3 Baso # (Auto) 0.03 (0.01-0.08) K/mm3 Manual Slide Review Abnormal smear Sodium 135 L (136-145) mEq/L Potassium 3.1 L (3.5-5.1) mEq/L Chloride 103 (98-107) mEq/L Carbon Dioxide 24 (21-32) mEq/L Anion Gap 11.1 (5-15) BUN 4 L (7-18) mg/dL Creatinine 0.4 L (0.55-1.02) mg/dL Est Cr Clr Drug Dosing 198.02 mL/min Estimated GFR (MDRD) > 60 (>60) mL/min BUN/Creatinine Ratio 10.0 L (14-18) Glucose 90 (70-99) mg/dL Lactic Acid 0.4 (0.4-2.0) mmol/L Calcium 7.1 L (8.5-10.1) mg/dL Magnesium 1.9 (1.8-2.4) mg/dL Total Bilirubin 0.4 (0.2-1.0) mg/dL AST 57 H (15-37) U/L ALT 51 (14-59) U/L Alkaline Phosphatase 92 (46-116) U/L C-Reactive Protein 10.0 H* (<1.0) mg/dL Total Protein 4.8 L (6.4-8.2) g/dl Albumin 1.3 L (3.4-5.0) g/dl Globulin 3.5 gm/dL Albumin/Globulin Ratio 0.4 L (1-2) 02/01/21 Range/Units 05:58 WBC (3.98-10.04) K/mm3 RBC (3.98-5.22) M/mm3 Hgb (11.2-15.7) gm/dl Hct (34.1-44.9) % MCV (79.4-94.8) fl MCH (25.6-32.2) pg MCHC (32.2-35.5) g/dl RDW Std Deviation (36.4-46.3) fL Plt Count (182-369) K/mm3 MPV (9.4-12.3) fl Neut % (Auto) (34.0-71.1) % Lymph % (Auto) (19.3-51.7) % [place] % (Auto) (4.7-12.5) % Eos % (Auto) (0.7-5.8) Baso % (Auto) (0.1-1.2) % Neut # (Auto) (1.56-6.13) K/mm3 Lymph # (Auto) (1.18-3.74) K/mm3 [place] # (Auto) (0.24-0.36) K/mm3 Eos # (Auto) (0.04-0.36) K/mm3 Baso # (Auto) (0.01-0.08) K/mm3 Manual Slide Review Sodium (136-145) mEq/L Potassium (3.5-5.1) mEq/L Chloride (98-107) mEq/L Carbon Dioxide (21-32) mEq/L Anion Gap (5-15) BUN (7-18) mg/dL Creatinine (0.55-1.02) mg/dL Est Cr Clr Drug Dosing mL/min Estimated GFR (MDRD) (>60) mL/min BUN/Creatinine Ratio (14-18) Glucose (70-99) mg/dL Lactic Acid 0.3 L (0.4-2.0) mmol/L Calcium (8.5-10.1) mg/dL Magnesium (1.8-2.4) mg/dL Total Bilirubin (0.2-1.0) mg/dL AST (15-37) U/L ALT (14-59) U/L Alkaline Phosphatase (46-116) U/L C-Reactive Protein (<1.0) mg/dL Total Protein (6.4-8.2) g/dl Albumin (3.4-5.0) g/dl Globulin gm/dL Albumin/Globulin Ratio (1-2) Med Orders - Current: Current Medications Acetaminophen (Acetaminophen 325 Mg Tab) 650 mg PO Q4H PRN PRN Reason: Pain (Mild 1-3)/fever Last Admin: 01/29/21 12:12 Dose: 650 mg Documented by: Hydromorphone HCl (Hydromorphone 1 Mg/Ml Syringe) 1 mg IVPUSH Q1H PRN PRN Reason: Pain (severe 7-10) Last Admin: 02/01/21 06:54 Dose: 1 mg Documented by: Potassium Chloride 10 meq/ (Premix) 100 mls @ 100 mls/hr IV Q1H [facility] Stop: 02/01/21 13:14 Miscellaneous Information (Remove Replace Scopolamine Patch) 1 ea TRDERM Q72H ELIANA Last Admin: 01/31/21 16:57 Dose: 1 ea Documented by: Ondansetron HCl (Ondansetron 4 Mg/2 Ml Sdv) 4 mg IV Q6H PRN PRN Reason: Nausea/Vomiting Last Admin: 01/29/21 11:12 Dose: 4 mg Documented by: Oxycodone HCl (Oxycodone 5 Mg Tab) 10 mg PO Q4H PRN PRN Reason: Pain (moderate 4-6) Scopolamine (Scopolamine 1.5 Mg Transdermal Patch) 1.5 mg TRDERM Q72H [facility] Last Admin: 01/31/21 16:57 Dose: 1.5 mg Documented by: Simethicone (Simethicone 80 Mg Tab.Chew) 160 mg PO TID PRN PRN Reason: Bloating/gas Last Admin: 01/29/21 22:59 Dose: 160 mg Documented by: Sodium Chloride (Sodium Chloride 0.9% 10 Ml Syringe) 10 ml FLUSH ONETIME PRN PRN Reason: Keep Vein Open Last Admin: 01/30/21 10:10 Dose: 10 ml Documented by: Discontinued Medications Diatrizoate Meglum/Diatrizoate Sod (Diatrizoate Meglumine/Diatrizoate Sodium 37% 120 Ml Bottle) 40 ml PO ONETIME ONE Stop: 01/30/21 08:33 Last Admin: 01/30/21 10:10 Dose: 45 ml Documented by: Hydromorphone HCl (Hydromorphone 0.5 Mg/0.5 Ml Syringe) 0.5 mg IVPUSH ONETIME ONE Stop: 01/25/21 07:31 Last Admin: 01/25/21 07:41 Dose: 0.5 mg Documented by: Hydromorphone HCl (Hydromorphone 0.5 Mg/0.5 Ml Syringe) 0.5 mg IVPUSH ONETIME ONE Stop: 01/25/21 08:32 Last Admin: 01/25/21 08:30 Dose: 0.5 mg Documented by: Hydromorphone HCl (Hydromorphone 0.5 Mg/0.5 Ml Syringe) 0.5 mg IVPUSH ONETIME ONE Stop: 01/25/21 09:28 Last Admin: 01/25/21 09:30 Dose: 0.5 mg Documented by: Hydromorphone HCl (Hydromorphone 0.5 Mg/0.5 Ml Syringe) 0.5 mg IVPUSH ONETIME ONE Stop: 01/25/21 10:22 Last Admin: 01/25/21 10:30 Dose: 0.5 mg Documented by: Hydromorphone HCl (Hydromorphone 0.5 Mg/0.5 Ml Syringe) 0.5 mg IVPUSH ONETIME ONE Stop: 01/25/21 12:27 Last Admin: 01/25/21 12:33 Dose: 0.5 mg Documented by: Hydromorphone HCl (Hydromorphone 0.5 Mg/0.5 Ml Syringe) 0.5 mg IVPUSH Q2H PRN PRN Reason: Pain (severe 7-10) Last Admin: 01/25/21 13:52 Dose: 0.5 mg Documented by: Hydromorphone HCl (Hydromorphone 1 Mg/Ml Syringe) 1 mg IVPUSH Q2H PRN PRN Reason: Pain (severe 7-10) Dextrose/Sodium Chloride (Dextrose 5%-Normal Saline) 1,000 mls @ 999 mls/hr IV ASDIRECTED [facility] Last Admin: 01/25/21 07:43 Dose: 999 mls/hr Documented by: Metronidazole 500 mg/ Premix 100 mls @ 100 mls/hr IV ONETIME ONE Stop: 01/25/21 09:24 Last Admin: 01/25/21 08:42 Dose: Not Given Documented by: Azithromycin 500 mg/ Sodium (Chloride) 250 mls @ 250 mls/hr IV ONETIME ONE Stop: 01/25/21 10:27 Last Admin: 01/25/21 09:41 Dose: 250 mls/hr Documented by: Dextrose/Lactated Ringer's (Dextrose 5%-Lactated Ringers) 1,000 mls @ 125 mls/hr IV ASDIRECTED [facility] Last Admin: 01/28/21 11:37 Dose: 125 mls/hr Documented by: Piperacillin Sod/Tazobactam (Sod 4.5 gm/ Sodium Chloride) 100 mls @ 25 mls/hr IV Q8H [facility] Last Admin: 01/26/21 05:04 Dose: 25 mls/hr Documented by: Piperacillin Sod/Tazobactam (Sod 4.5 gm/ Sodium Chloride) 100 mls @ 200 mls/hr IV ONETIME ONE Stop: 01/25/21 13:29 Last Admin: 01/25/21 13:55 Dose: 200 mls/hr Documented by: Magnesium Sulfate 2 gm/ Premix 50 mls @ 25 mls/hr IV ONETIME ONE Stop: 01/25/21 15:29 Last Admin: 01/25/21 14:31 Dose: 25 mls/hr Documented by: Potassium Chloride 10 meq/ (Premix) 100 mls @ 100 mls/hr IV Q1H [facility] Stop: 01/25/21 17:29 Last Admin: 01/25/21 18:38 Dose: 100 mls/hr Documented by: Lactated Ringer's (Ringers, Lactated) 1,000 mls @ 999 mls/hr IV ONETIME ONE Stop: 01/26/21 09:18 Last Admin: 01/26/21 08:44 Dose: 999 mls/hr Documented by: Lactated Ringer's (Ringers, Lactated) 500 mls @ 999 mls/hr IV .BOLUS ONE Stop: 01/27/21 07:12 Last Admin: 01/27/21 07:07 Dose: 999 mls/hr Documented by: Magnesium Sulfate 4 gm/ Premix 50 mls @ 12.5 mls/hr IV ONETIME ONE Stop: 01/27/21 12:52 Last Admin: 01/27/21 09:31 Dose: 12.5 mls/hr Documented by: Potassium Chloride 10 meq/ (Premix) 100 mls @ 100 mls/hr IV Q1H [facility] Stop: 01/27/21 12:59 Last Admin: 01/27/21 14:46 Dose: 100 mls/hr Documented by: Lactated Ringer's (Ringers, Lactated) 500 mls @ 999 mls/hr IV .BOLUS ONE Stop: 01/27/21 09:36 Last Admin: 01/27/21 09:30 Dose: 999 mls/hr Documented by: Potassium Chloride 10 meq/ (Premix) 100 mls @ 100 mls/hr IV Q1H [facility] Stop: 01/28/21 15:29 Last Admin: 01/28/21 16:42 Dose: 100 mls/hr Documented by: Lactated Ringer's (Ringers, Lactated) 500 mls @ 999 mls/hr IV .BOLUS ONE Stop: 01/29/21 11:58 Last Admin: 01/29/21 11:57 Dose: 999 mls/hr Documented by: Lactated Ringer's (Ringers, Lactated) 1,000 mls @ 75 mls/hr IV ASDIRECTED [facility] Last Admin: 01/30/21 11:26 Dose: 75 mls/hr Documented by: Lactated Ringer's (Ringers, Lactated) 500 mls @ 999 mls/hr IV .BOLUS ONE Stop: 01/29/21 13:45 Last Admin: 01/29/21 13:36 Dose: 999 mls/hr Documented by: Potassium Chloride 10 meq/ (Premix) 100 mls @ 100 mls/hr IV Q1H [facility] Stop: 01/30/21 11:29 Last Admin: 01/30/21 12:45 Dose: 100 mls/hr Documented by: Lactated Ringer's (Ringers, Lactated) 1,000 mls @ 50 mls/hr IV ASDIRECTED [facility] Last Admin: 01/31/21 05:39 Dose: 50 mls/hr Documented by: Iopamidol (Iopamidol 612 Mg/Ml 100 Ml Bottle) 100 ml IVPUSH ONETIME ONE Stop: 01/30/21 08:33 Last Admin: 01/30/21 10:10 Dose: 100 ml Documented by: Loperamide HCl (Loperamide 2 Mg Cap) 2 mg PO ONETIME ONE Stop: 01/25/21 12:27 Last Admin: 01/25/21 12:31 Dose: 2 mg Documented by: Metoclopramide HCl (Metoclopramide 10 Mg/2 Ml Sdv) 7.5 mg IVPUSH ONETIME ONE Stop: 01/25/21 07:30 Last Admin: 01/25/21 07:39 Dose: 7.5 mg Documented by: Oxycodone HCl (Oxycodone 5 Mg Tab) 10 mg PO Q4H PRN PRN Reason: Pain (moderate 4-6) Oxycodone HCl (Oxycodone 5 Mg Tab) 5 mg PO Q4H PRN PRN Reason: Pain (moderate 4-6) Last Admin: 01/26/21 01:50 Dose: 5 mg Documented by: - Exam Quality Assessment: No: Supplemental Oxygen, Urine Catheter, DVT Prophylaxis (not indicated ) General: Alert, Oriented, Cooperative, No Acute Distress HEENT: Pupils Equal, Pupils Reactive, Mucous Membr. Moist/[place] Neck: Supple, Trachea Midline Lungs: Clear to Auscultation, Normal Respiratory Effort Cardiovascular: Regular Rate, Regular Rhythm GI/Abdominal Exam: Normal Bowel Sounds, Soft, Distended, Guarding, Tender (generalized ). No: Rigid (Female) Exam: Deferred Back Exam: Normal Inspection, Full Range of Motion Extremities: Normal Inspection, Normal Range of Motion, Non-Tender, No Pedal Edema, Normal Capillary Refill Peripheral Pulses: 2+: Radial (L), Radial (R), Dorsalis Pedis (L), Dorsalis Pedis (R) Skin: Warm, Dry, Intact Neurological: No New Focal Deficit Psy/Mental Status: Alert, Normal Affect, Normal Mood - Patient Data Lab Results Last 24 hrs: Laboratory Results - last 24 hr 01/31/21 02/01/21 02/01/21 Range/Units 20:00 05:58 05:58 WBC 10.69 H (3.98-10.04) K/mm3 RBC 2.95 L (3.98-5.22) M/mm3 Hgb 9.3 L D (11.2-15.7) gm/dl Hct 28.1 L (34.1-44.9) % MCV 95.3 H (79.4-94.8) fl MCH 31.5 (25.6-32.2) pg MCHC 33.1 (32.2-35.5) g/dl RDW Std Deviation 46.4 H (36.4-46.3) fL Plt Count 261 (182-369) K/mm3 MPV 10.9 (9.4-12.3) fl Neut % (Auto) 62.2 (34.0-71.1) % Lymph % (Auto) 14.1 L (19.3-51.7) % [place] % (Auto) 12.1 (4.7-12.5) % Eos % (Auto) 2.7 (0.7-5.8) Baso % (Auto) 0.3 (0.1-1.2) % Neut # (Auto) 6.65 H (1.56-6.13) K/mm3 Lymph # (Auto) 1.51 (1.18-3.74) K/mm3 [place] # (Auto) 1.29 H (0.24-0.36) K/mm3 Eos # (Auto) 0.29 (0.04-0.36) K/mm3 Baso # (Auto) 0.03 (0.01-0.08) K/mm3 Manual Slide Review Abnormal smear Sodium 135 L (136-145) mEq/L Potassium 3.1 L (3.5-5.1) mEq/L Chloride 103 (98-107) mEq/L Carbon Dioxide 24 (21-32) mEq/L Anion Gap 11.1 (5-15) BUN 4 L (7-18) mg/dL Creatinine 0.4 L (0.55-1.02) mg/dL Est Cr Clr Drug Dosing 198.02 mL/min Estimated GFR (MDRD) > 60 (>60) mL/min BUN/Creatinine Ratio 10.0 L (14-18) Glucose 90 (70-99) mg/dL Lactic Acid 0.4 (0.4-2.0) mmol/L Calcium 7.1 L (8.5-10.1) mg/dL Magnesium 1.9 (1.8-2.4) mg/dL Total Bilirubin 0.4 (0.2-1.0) mg/dL AST 57 H (15-37) U/L ALT 51 (14-59) U/L Alkaline Phosphatase 92 (46-116) U/L C-Reactive Protein 10.0 H* (<1.0) mg/dL Total Protein 4.8 L (6.4-8.2) g/dl Albumin 1.3 L (3.4-5.0) g/dl Globulin 3.5 gm/dL Albumin/Globulin Ratio 0.4 L (1-2) 02/01/21 Range/Units 05:58 WBC (3.98-10.04) K/mm3 RBC (3.98-5.22) M/mm3 Hgb (11.2-15.7) gm/dl Hct (34.1-44.9) % MCV (79.4-94.8) fl MCH (25.6-32.2) pg MCHC (32.2-35.5) g/dl RDW Std Deviation (36.4-46.3) fL Plt Count (182-369) K/mm3 MPV (9.4-12.3) fl Neut % (Auto) (34.0-71.1) % Lymph % (Auto) (19.3-51.7) % [place] % (Auto) (4.7-12.5) % Eos % (Auto) (0.7-5.8) Baso % (Auto) (0.1-1.2) % Neut # (Auto) (1.56-6.13) K/mm3 Lymph # (Auto) (1.18-3.74) K/mm3 [place] # (Auto) (0.24-0.36) K/mm3 Eos # (Auto) (0.04-0.36) K/mm3 Baso # (Auto) (0.01-0.08) K/mm3 Manual Slide Review Sodium (136-145) mEq/L Potassium (3.5-5.1) mEq/L Chloride (98-107) mEq/L Carbon Dioxide (21-32) mEq/L Anion Gap (5-15) BUN (7-18) mg/dL Creatinine (0.55-1.02) mg/dL Est Cr Clr Drug Dosing mL/min Estimated GFR (MDRD) (>60) mL/min BUN/Creatinine Ratio (14-18) Glucose (70-99) mg/dL Lactic Acid 0.3 L (0.4-2.0) mmol/L Calcium (8.5-10.1) mg/dL Magnesium (1.8-2.4) mg/dL Total Bilirubin (0.2-1.0) mg/dL AST (15-37) U/L ALT (14-59) U/L Alkaline Phosphatase (46-116) U/L C-Reactive Protein (<1.0) mg/dL Total Protein (6.4-8.2) g/dl Albumin (3.4-5.0) g/dl Globulin gm/dL Albumin/Globulin Ratio (1-2) Result Diagrams: 02/01/21 05:58 02/01/21 05:58 Sepsis Event Note - Evaluation Sepsis Screening Result: Sepsis Risk - Focused Exam Vital Signs: Vital Signs Temp Pulse Resp BP Pulse Ox 02/01/21 03:28 98.8 F 87 18 102/55 L 94 L 02/01/21 01:10 98.8 F 92 18 106/59 L 93 L 01/31/21 21:54 99.0 F 97 17 107/81 94 L - Problem List & Annotations (1) Nausea and vomiting SNOMED Code(s): 69327614 Code(s): R11.2 - NAUSEA WITH VOMITING, UNSPECIFIED Status: Acute Priority: High Current Visit: Yes Qualifiers: Vomiting type: bilious vomiting Qualified Code(s): R11.14 - Bilious vomiting (2) Abdominal pain SNOMED Code(s): 54998885 Code(s): R10.9 - UNSPECIFIED ABDOMINAL PAIN Status: Acute Priority: High Current Visit: Yes Qualifiers: Abdominal location: lower abdomen, unspecified Qualified Code(s): R10.30 - Lower abdominal pain, unspecified (3) Dysentery SNOMED Code(s): 04902952 Code(s): A09 - INFECTIOUS GASTROENTERITIS AND COLITIS, UNSPECIFIED Status: Acute Priority: High Current Visit: Yes (4) First trimester SNOMED Code(s): 92535658 Code(s): Z34.91 - ENCNTR FOR SUPRVSN OF NORMAL PREG, UNSP, FIRST TRIMESTER Status: Acute Priority: High Current Visit: Yes (5) H/O unilateral salpingectomy SNOMED Code(s): 283690582 Code(s): Z90.79 - ACQUIRED ABSENCE OF OTHER GENITAL ORGAN(S) Status: Chron ic Priority: Low Current Visit: No (6) History of uterine fibroid SNOMED Code(s): 201474428 Code(s): Z86.018 - PERSONAL HISTORY OF OTHER BENIGN NEOPLASM Status: Chronic Priority: Low Current Visit: No (7) History of ectopic SNOMED Code(s): 465354300, 041785524 Code(s): Z87.59 - PERSONAL HISTORY OF COMP OF PREG, CHLDBRTH AND THE PUERP Status: Chronic Priority: Medium Current Visit: No (8) Bacterial enteritis, unspecified SNOMED Code(s): 66531052 Code(s): A04.9 - BACTERIAL INTESTINAL INFECTION, UNSPECIFIED Status: Acute Priority: High Current Visit: Yes (9) Subchorionic hemorrhage SNOMED Code(s): 978421235 Code(s): O41.8X90 - OTH DISRD OF AMNIOTIC FLUID AND MEMBRNS, UNSP TRI, UNSP; O46.8X9 - OTHER ANTEPARTUM HEMORRHAGE, UNSPECIFIED TRIMESTER Status: Acute Priority: Medium Current Visit: Yes Qualifiers: Fetus number: single or unspecified fetus Trimester: first trimester Qualified Code(s): O41.8X10 - Other specified disorders of amniotic fluid and membranes, first trimester, not applicable or unspecified; O46.8X1 - Other antepartum hemorrhage, first trimester (10) Leukocytosis SNOMED Code(s): 229577253, 828022282 Code(s): D72.829 - ELEVATED WHITE BLOOD CELL COUNT, UNSPECIFIED Status: Acute Priority: High Current Visit: Yes Qualifiers: Leukocytosis type: unspecified Qualified Code(s): D72.829 - Elevated white blood cell count, unspecified (11) Volume depletion SNOMED Code(s): 064179990 Code(s): E86.9 - VOLUME DEPLETION, UNSPECIFIED Status: Acute Priority: High Current Visit: Yes (12) Shiga toxin-producing Escherichia coli (E. coli) (STEC) O157 SNOMED Code(s): 048347275400792 Code(s): A49.8 - OTHER BACTERIAL INFECTIONS OF UNSPECIFIED SITE Status: Acute Priority: High Current Visit: Yes (13) Hypokalemia SNOMED Code(s): 85259199 Code(s): E87.6 - HYPOKALEMIA Status: Acute Priority: High Current Visit: Yes (14) Hypomagnesemia SNOMED Code(s): 124538631 Code(s): E83.42 - HYPOMAGNESEMIA Status: Resolved Priority: High Curr ent Visit: Yes (15) Fluid overload SNOMED Code(s): 25827463 Code(s): E87.70 - FLUID OVERLOAD, UNSPECIFIED Status: Acute Priority: Medium Current Visit: Yes Qualifiers: Hypervolemia type: unspecified Qualified Code(s): E87.70 - Fluid overload, unspecified (16) Ascites SNOMED Code(s): 395841501 Code(s): R18.8 - OTHER ASCITES Status: Acute Priority: High Current Visit: Yes Qualifiers: Ascites type: other type Qualified Code(s): R18.8 - Other ascites - Problem List Review Problem List Initiated/Reviewed/Updated: Yes - My Orders Last 24 Hours: My Active Orders 02/01/21 07:15 Potassium Chloride [KCl in Water 10 MEQ/100 ML] 10 meq Premix Bag 1 bag IV Q1H 02/02/21 05:11 CBC WITH AUTO DIFF [HEME] AM CMP [COMPREHENSIVE METABOLIC PN,CMP] [CHEM] AM CRP [C-REACTIVE PROTEIN] [CHEM] AM MAGNESIUM [CHEM] AM - Assessment Assessment:: Assessment - Admission date - 01/25/2021 * 35-year-old female who presents with diffuse abdominal pain, nausea, bilious emesis, and bloody diarrhea * History of ctopic in May 2020 with right salpingectomy and uterine fibroids * Reports she has been ill for the past 2 days * Started having watery diarrhea and mild abdominal pain which worsened and became cramping in nature. Her stool eventually became pure blood. * She reports she has been nauseous and essentially dry heaving at this point * Chills but no known fever. * Just returned from a family reunion in the [facility] in [place]. * Family was playing in the local river * Their camper was hooked up to a well in the campground with a charcoal filter installed * Reports there were potluck meals but no known questionable food. * Reports a child with mild but similar symptoms and her [id number] who is developing similar symptoms currently. * Labs are obtained: * WBC 13.12. * Hemoglobin of 13.6. * Hematocrit 40.3. * Platelet 274,000. * Neutrophils are elevated 83.7%. * INR is 0.94. * aPTT is 26.3. * Sodium is 138. * Potassium 3.3. * Chloride 102. * Carbon dioxide 23. * Anion gap is 16.3. * BUN is 7. Creatinine 0.7. GFR greater than 60. * Glucose 123. * Calcium 9.2. * Bilirubin 0.3. * AST 16, ALT 25, alkaline phosphatase 51. * CRP is 8.7. * Albumin 3.3. * Lipase is 60. * hCG qualitative is positive. hCG quantitative is 6881, consistent with 5- week gestation. * SARS-CoV-2 RNA is negative. * Stool ova and parasite, stool culture/Shiga toxin, and stool fecal la ctoferrin are collected. * Obstetrics ultrasound: * Small intrauterine gestation with a mean sac diameter of 0.86-5 weeks and 4 days. * Small subchorionic hemorrhage with mild free fluid seen within the pelvis. * Other findings are noted. * She is given azithromycin 500 mg, Zofran, Regalin, and IV push Dilaudid for pain. * Given a 1 L D5LR bolus and started on D5 LR maintenance fluids. * Admitted to the medical floor for management and further work-up of her diarrhea and vomiting. 01/26/2021 35-year-old female admitted for dysentery. Patient continues to have nausea and episodes of bloody diarrhea, although she does report that her pain is slightly improved. Patient reports that family member did test positive for Shiga toxin E. coli. Oddly patient's Shiga toxin here was negative. Cryptosporidium and Giardia was negative. Stool lactoferrin was positive. Stool culture is positive. OB did consult on the patient and recommend follow-up ultrasound in 10 days. Multiple family members have now developed similar symptoms. Contacted Dr. Sosa, infectious disease with [facility] in [place] who recommended we discontinue IV antibiotics and treat the patient like a Shiga toxin pending stool cultures. Dr. Navjot, on-call GI specialist with [facility] in [place] was contacted as well who recommends discontinuation of IV antibiotics, IV fluids, pain control, and time to let this pass. Labs and test results were reviewed. He also recommended scan of the abdomen and pelvis to rule out perforation. Discussed with Dr. Gordon, radiologist regarding risks and benefits of scan and ensuring CT versus MRI was appropriate. Ultimate decision was CT without contrast. Discussed plan with patient, including risks and benefits to developing fetus. Ultimately patient agrees to proceed with scan. CT scan of the abdomen and pelvis is obtained and shows 1. Minimal hiatal hernia. 2. Small gestational sac within the uterus. 3. Prominent bowel wall thickening throughout the colon with diffuse inflammatory change around the colon. Findings are felt compatible with a rather prominent colitis. Etiology of the colitis is uncertain on this exam. 4. Fair amount of free fluid within the pelvis as well as around the liver which is slightly complicated but does not appear to be bloody. 5. Normal appendix is seen. Labs today show elevated WBC of 20.63. Hemoglobin 12.3. Platelet 235,000. Neutrophils are elevated at 83.3%. Sodium is 140. Potassium 3.8. Anion gap is 14.8. BUN is 6. Creatinine 0.7. GFR greater than 60. Glucose is 179. Calcium is 7.4. Magnesium 2.0. Bilirubin 0.2. AST 9, ALT 14, alkaline phosphatase 44. CRP is 14.6. Protein is 5.6. Albumin is 2.1. UA was obtained yesterday and was grossly negative however 3+ ketones and concentrated urine were noted. Vital signs have been stable. We will continue to monitor for signs of HUS. 1 L fluid bolus given today. Patient remains n.p.o. IV fluids remain ordered. We will recheck lactic acid this afternoon and recheck all labs including lactic acid tomorrow. Will await stool culture. Continue current treatment plan. Unknown length of stay. Will be pending resolution of symptoms and advancement of diet. 01/27/2021 35-year-old female admitted for dysentery. Patient has had multiple family members now returned positive for Shiga toxin 2. Patient herself has had a positive stool culture for E. coli 0157, which is a Shiga toxin E. coli. All antibiotics have been stopped. Lactic acid has been within normal limits. Patient has received multiple IV fluid boluses and continues on IV fluids. Diet today was advanced from n.p.o. to clear liquids after discussion with the patient. She reports she is feeling quite a bit better. She is still having bloody stools but much less frequent. There appears to be less blood in her stools as well per patient report. She continues to have occasional dry heaves and nausea but does state that she has a history of morning sickness with . Bowel sounds have been active. Labs today show WBC of 20.37. Hemoglobin 10.7. Hematocrit 32.6. Platelet 196,000. Neutrophils are elevated at 79.7. Sodium is 139. Potassium 3.3. Chloride 105. Carbon dioxide 27. Anion gap is 10.3. BUN is 5. Creatinine 0.5. GFR in 60. Glucose has been in the low 110s. Lactic acid 0.5. Calcium 7.4. Magnesium 1.7. AST is 11, ALT 12, alkaline phosphatase 48. CRP is 20.5. Protein 4.9. Albumin 1.7. We will continue current treatment plan as the patient is feeling better. Clinically she looks more comfortable and greatly improved. Length of stay will be determined by patient tolerating diet and continuing resolution of symptoms. Likely length of stay 2-3 more days. 01/28/2021 35-year-old female admitted for abdominal pain and bloody diarrhea. Found to be E. coli 0157 positive. Patient reports that she is still having some hematochezia however this has improved. She reports approximately 2 stools an hour. She is still having pain although it is better. She reports she has gotten some sleep. Abdomen is somewhat distended however bowel sounds are nice and active today. She continues to tolerate the clear liquid diet but we will hold off on advancing giving continuation of symptoms and no real change in labs. WBC remains elevated 21.57. Hemoglobin 9.8. Platelet 203,000. Neutrophils are elevated 79.7. Sodium is 138. Potassium is 3.2. Chloride 105. Carbon dioxide 25. Anion gap 11.2. BUN is 4. Creatinine 0.4. GFR greater than 60. Lactic acid 0.7. Calcium 7.1. Magnesium 1.9. Bilirubin 0.3. AST is 11, ALT 10, alkaline phosphatase 68. CRP is 21.2. Protein is 4.5. Albumin 1.5. We will continue IV fluids. Potassium will be supplemented with 6 K riders. Clinically she looks better than yesterday and she reports she feels better than yesterday. We will continue current treatment plan. 01/29/2021 35-year-old female admitted to the hospital for abdominal pain and bloody diarrhea who was found to be E. coli 0157+. She was also found to be 5 weeks . OBGYN has consulted. Today patient reports that she feels much worse. She is having abdominal pain and bloating. Abdomen is noted to be distended but bowel sounds are active. Patient does report several loose stools an hour. Reports that bleeding has essentially stopped. IV fluids were discontinued last night and these were resumed today. Patient was given 2 500 mL boluses. WBC has increased to 24.67. Hemoglobin 10.0. Platelets are up to 223,000. Neutrophils are 75.1. Sodium is 137. Potassium 3.6. Carbon dioxide is 25. BUN is 3. Creatinine 0.4. GFR greater than 60. Glucose is 94. Lactic acid was obtained yesterday and is 0.7. Calcium is 7.5. Magnesium 1.9. Bilirubin 0.4. AST is 10, ALT 9, alkaline phosphatase 93. CRP is up to 23.9. Protein 4.7. Albumin is 1.4. Dr. Delvalle, attending hospitalist, and to assess patient as well. Overall no major changes. We will resume IV fluids, keep patient on clear liquid diet, and continue to monitor. 01/30/2021 This is a 35-year-old female who was admitted to the floor due to significant watery diarrhea and abdominal pain. She was found to be E. coli 0157+ and Shiga toxin positive. Throughout her stay thus far she has had waxing and waning of her symptoms. Today she reports that her diarrhea has greatly improved and she is no longer having hematochezia, however she continues to have significant bow el pain. She has been up ambulating. She was made n.p.o. this morning while a CT of the abdomen and pelvis with IV and oral contrast was obtained. Prior to obtaining scan discussion was had between Dr. Platt, attending hospitalist and also Dr. Gordon, radiologist. As there are rather significant concerns for possible perforation. Risk versus benefit was discussed with the patient and she ultimately agrees to the scan. CT scan returns showing improved pancolitis but with mildly increased ascites and new bilateral pleural effusions, probably related to the presence of ascites. No intra-abdominal abscess is noted. Patient was on 75 mL an hour of lactated Ringer's will slow this down to 50 cc an hour. Clear liquid diet was resumed. Dr. Bueno, general surgeon, was consulted. Labs obtained today showing improvement in WBC to 19.39. Hemoglobin is 10.2. Platelets are 281,000. Neutrophils are 76.3%. Sodium is 136. Potassium is 3.4 and will be supplemented with potassium riders. Chloride is 102. Carbon dioxide 26. Anion gap is 11.4. BUN is 5. Creatinine 0.5. GFR gr eater than 60. Glucose is 81. Lactic acid 0.5. Calcium 7.5. Magnesium 2.1. Bilirubin 0.4. AST is 14, ALT 14, alkaline phosphatase 112. CRP is up to 25. Protein is improved to 5.0. Albumin is 1.4. We will continue current treatment plan recheck labs in the morning. No current concerns for HUS. 01/31/2021 35-year-old female admitted for abdominal pain and bloody diarrhea stools. She was found to be positive for E. coli 0157+. Has had significant amount of abdominal pain, nausea and vomiting. She states that she did have stool today it was soft and she did not note any blood in it. She however continues to have significant generalized abdominal pain primarily located in the lower quadrants. Has been up ambulating and states she is passing a fair amount of gas. Was on clear liquids yesterday and tolerated that well. Dr. Bueno, general surgeon, was consulted yesterday. Progress note today recommends advancing diet to regular and to discontinue the IV fluids. Labs today reveal a WBC of 16.91, hemoglobin 10.8, hematocrit 31.8, platelet count 284,000, neutrophil percentage 78.1, sodium 134, potassium 3.4, chloride 100, anion gap of 14.4, BUN 5, creatinine 0.5, GFR greater than 60, glucose 83, calcium 7.5, magnesium 2.0, C-reactive protein 18.4, total protein 5.4, albumin 1.5. Continue current treatment and recheck labs in the a.m. Patient does screen out as a septic risk due to elevated white count and tachycardia however I do not believe that she is septic. 02/01/2021 35-year-old female minute for abdominal pain and bloody stools was found to be positive for E. coli 0157. Continues to report significant abdominal pain. She remains distended but this does appear to have improved. She has been tolerating her feeds well. States she has had no bowel movements or flatus today. Potassium is low today and she will be supplemented with 6 potassium riders. She does not tolerate this well through the IV we will put on a minimal amount of IV fluids long enough to get these in. Given her GI situation we will not supplement via p.o. at this time. She continues to urinate. Labs today show quite an improvement: WBC 10.69. Hemoglobin 9.3. Platelet 261,000. Neutrophils 62.2. Sodium 135. Potassium 3.1. Chloride 103. Carbon oxide 24. Anion gap 11.1. BUN 4. Creatinine 0.4. GFR greater than 60. Glucose 90. Lactic acid 0.3. Calcium 7.1. Magnesium 1.9. Total bilirubin 0.4. AST 57, ALT 51, alkaline phosphatase 92. CRP is 10.0. Protein 4.8. Albumin 1.3. Patient does have quite a bit of ascites in her abdomen. It is anticipated that she will auto diuresis although we may need to give Lasix in the next day or 2. We will continue current treatment plan. Patient was on oxycodone 10 mg which she reports made her itchy plan was to switch to [place] however patient states that that made her nauseous and she did vomit several times when she has received this in the past. This was prior to current hospitalization. We will therefore decrease the oxycodone dosing and see how she does. Unknown length of stay as it will depend on when patient can tolerate only p.o. pain medications and her diet. - Plan Plan:: Nausea and vomiting, resolved Abdominal pain Dysentery Bacterial enteritis, unspecified Shiga toxin E. coli 0157 Leukocytosis, improved Volume depletion, resolved Fluid overload Ascites * Saline lock IV fluids * Antiemetics as ordered * Pain medications as ordered * Regular diet * Monitor labs * Scopolamine patch (Ok'd with [employer] Dr. Arreguin) * C-diff negative * Enteric isolation * Stool culture/shiga toxin - Negative shiga toxin 1&2 however positive E. Coli 0157 * Stool O&P - negative * Blood cultures negative thus far * As needed simethicone for gas pains * Dr. Bueno, general surgeon consulted Hypokalemia Hypomagnesemia, resolved * Supplement * Monitor labs First trimester H/O unilateral salpingectomy History of uterine fibroid History of ectopic Subchorionic hemorrhage * Case discussed with Dr. Arreguin, [employer] * Ensure medications appropriate for * Follow-up at 10 weeks * Avoid intercourse until follow-up with [employer] due to subchorionic hemorrhage on OB US Code status: Full Code PCP: None currently DVT prophylaxis: Not indicated Social: Patient resides with significant other on a [place] near [place], [place] Disposition: Patient admitted to MedSurg floor for management and further work- up of nausea, vomiting, and bloody diarrhea. LOS >96 hrs due to slow response to treatment.
[2021-02-01] MEDS ORDERED: Acetaminophen/HYDROcodone 325-5 MG Tab PO PRN (08:37)
[2021-02-01] MEDS: Potassium Chloride 10 MEQ in Premix Bag 1 BAG IV SCH ×5 (08:43→16:59)
[2021-02-01] MEDS ORDERED: Sodium Chloride 0.9% 1,000 ML IV SCH (09:30)
[2021-02-01] MEDS: oxyCODONE 5 MG Tab PO PRN ×4 (10:00→21:40)
[2021-02-01] MEDS: Acetaminophen 325 MG Tab PO PRN ×2 (13:36→17:39)
[2021-02-01] MEDS ORDERED: Potassium Chloride 20 MEQ Tab.ER PO SCH ×2 (15:30→17:30)
[2021-02-01] MEDS: Potassium Chloride 20 MEQ Tab.ER PO SCH (17:40)
[2021-02-02] MEDS: HYDROmorphone 1 MG/ML Syringe IVPUSH PRN ×6 (00:56→22:50)
[2021-02-02] MEDS: Potassium Chloride 20 MEQ Tab.ER PO SCH ×2 (06:38→10:43)
--- NOTE | 2021-02-02 07:09 | PCM.PN ---
- General Info Date of Service: 02/02/21 Admission Dx/Problem (Free Text): Admission Diagnosis/Problem Dysentery Functional Status: Reports: Pain Controlled (mostly), Tolerating Diet, Ambulating, Urinating. Denies: New Symptoms - Review of Systems General: Reports: Fatigue. Denies: Fever, Weakness, Malaise, Chills HEENT: Reports: No Symptoms. Denies: Headaches, Sore Throat Pulmonary: Reports: No Symptoms. Denies: Shortness of Breath, Cough, Sputum, Wheezing Cardiovascular: Reports: No Symptoms. Denies: Chest Pain, Palpitations, Dyspnea on Exertion, Edema Gastrointestinal: Reports: Abdominal Pain (improved - generalized), Flatus. Denies: Constipation, Diarrhea, Nausea, Vomiting Genitourinary: Reports: No Symptoms. Denies: Pain Musculoskeletal: Reports: No Symptoms Skin: Reports: No Symptoms. Denies: Cyanosis Neurological: Reports: No Symptoms. Denies: Confusion, Pre-Existing Deficit, Difficulty Walking, Gait Disturbance Psychiatric: Reports: No Symptoms - Patient Data Vitals - Most Recent: Last Vital Signs Temp 99.0 F 02/02/21 04:34 Pulse 92 02/02/21 04:34 Resp 17 02/02/21 04:34 BP 92/59 L 02/02/21 04:34 Pulse Ox 93 L 02/02/21 04:34 Weight - Most Recent: 152 lb 12.8 oz I&O - Last 24 Hours: Intake & Output 02/01/21 02/02/21 02/02/21 22:59 06:59 14:59 Intake Total 1904 600 Output Total 1300 1100 Balance 604 -500 Lab Results Last 24 Hours: Laboratory Results - last 24 hr 02/01/21 02/02/21 02/02/21 Range/Units 05:58 05:21 05:21 WBC 8.51 (3.98-10.04) K/mm3 RBC 2.81 L (3.98-5.22) M/mm3 Hgb 8.8 L (11.2-15.7) gm/dl Hct 27.1 L (34.1-44.9) % MCV 96.4 H (79.4-94.8) fl MCH 31.3 (25.6-32.2) pg MCHC 32.5 (32.2-35.5) g/dl RDW Std Deviation 48.0 H (36.4-46.3) fL Plt Count 239 (182-369) K/mm3 MPV 11.0 (9.4-12.3) fl Neut % (Auto) 60.6 (34.0-71.1) % Lymph % (Auto) 15.4 L (19.3-51.7) % [place] % (Auto) 12.2 (4.7-12.5) % Eos % (Auto) 2.7 (0.7-5.8) Baso % (Auto) 0.2 (0.1-1.2) % Neut # (Auto) 5.15 (1.56-6.13) K/mm3 Lymph # (Auto) 1.31 (1.18-3.74) K/mm3 [place] # (Auto) 1.04 H (0.24-0.36) K/mm3 Eos # (Auto) 0.23 (0.04-0.36) K/mm3 Baso # (Auto) 0.02 (0.01-0.08) K/mm3 Manual Slide Review Abnormal smear Abnormal smear Sodium 135 L (136-145) mEq/L Potassium 4.0 (3.5-5.1) mEq/L Chloride 103 (98-107) mEq/L Carbon Dioxide 25 (21-32) mEq/L Anion Gap 11.0 (5-15) BUN 5 L (7-18) mg/dL Creatinine 0.5 L (0.55-1.02) mg/dL Est Cr Clr Drug Dosing 158.42 mL/min Estimated GFR (MDRD) > 60 (>60) mL/min BUN/Creatinine Ratio 10.0 L (14-18) Glucose 91 (70-99) mg/dL Calcium 7.3 L (8.5-10.1) mg/dL Magnesium 1.9 (1.8-2.4) mg/dL Total Bilirubin 0.3 (0.2-1.0) mg/dL AST 48 H (15-37) U/L ALT 63 H (14-59) U/L Alkaline Phosphatase 82 (46-116) U/L C-Reactive Protein 7.5 H* (<1.0) mg/dL Total Protein 4.9 L (6.4-8.2) g/dl Albumin 1.4 L (3.4-5.0) g/dl Globulin 3.5 gm/dL Albumin/Globulin Ratio 0.4 L (1-2) Med Orders - Current: Current Medications Acetaminophen (Acetaminophen 325 Mg Tab) 650 mg PO Q4H PRN PRN Reason: Pain (Mild 1-3)/fever Last Admin: 02/01/21 17:39 Dose: 650 mg Documented by: Hydromorphone HCl (Hydromorphone 1 Mg/Ml Syringe) 1 mg IVPUSH Q1H PRN PRN Reason: Pain (severe 7-10) Last Admin: 02/02/21 06:46 Dose: 1 mg Documented by: Ondansetron HCl (Ondansetron 4 Mg/2 Ml Sdv) 4 mg IV Q6H PRN PRN Reason: Nausea/Vomiting Last Admin: 01/29/21 11:12 Dose: 4 mg Documented by: Oxycodone HCl (Oxycodone 5 Mg Tab) 5 mg PO Q4H PRN PRN Reason: Pain (moderate 4-6) Last Admin: 02/01/21 21:40 Dose: 5 mg Documented by: Potassium Chloride (Potassium Chloride 20 Meq Tab.Er) 40 meq PO BID@0700,1100 ELIANA Stop: 02/02/21 11:01 Last Admin: 02/02/21 06:38 Dose: 40 meq Documented by: Simethicone (Simethicone 80 Mg Tab.Chew) 160 mg PO TID PRN PRN Reason: Bloating/gas Last Admin: 01/29/21 22:59 Dose: 160 mg Documented by: Sodium Chloride (Sodium Chloride 0.9% 10 Ml Syringe) 10 ml FLUSH ONETIME PRN PRN Reason: Keep Vein Open Last Admin: 01/30/21 10:10 Dose: 10 ml Documented by: Discontinued Medications Hydrocodone Bitart/Acetaminophen (Acetaminophen/Hydrocodone 325-5 Mg Tab) 1 - 2 tab PO Q4H PRN PRN Reason: Pain (moderate 4-6) Diatrizoate Meglum/Diatrizoate Sod (Diatrizoate Meglumine/Diatrizoate Sodium 37% 120 Ml Bottle) 40 ml PO ONETIME ONE Stop: 01/30/21 08:33 Last Admin: 01/30/21 10:10 Dose: 45 ml Documented by: Hydromorphone HCl (Hydromorphone 0.5 Mg/0.5 Ml Syringe) 0.5 mg IVPUSH ONETIME ONE Stop: 01/25/21 07:31 Last Admin: 01/25/21 07:41 Dose: 0.5 mg Documented by: Hydromorphone HCl (Hydromorphone 0.5 Mg/0.5 Ml Syringe) 0.5 mg IVPUSH ONETIME ONE Stop: 01/25/21 08:32 Last Admin: 01/25/21 08:30 Dose: 0.5 mg Documented by: Hydromorphone HCl (Hydromorphone 0.5 Mg/0.5 Ml Syringe) 0.5 mg IVPUSH ONETIME ONE Stop: 01/25/21 09:28 Last Admin: 01/25/21 09:30 Dose: 0.5 mg Documented by: Hydromorphone HCl (Hydromorphone 0.5 Mg/0.5 Ml Syringe) 0.5 mg IVPUSH ONETIME ONE Stop: 01/25/21 10:22 Last Admin: 01/25/21 10:30 Dose: 0.5 mg Documented by: Hydromorphone HCl (Hydromorphone 0.5 Mg/0.5 Ml Syringe) 0.5 mg IVPUSH ONETIME ONE Stop: 01/25/21 12:27 Last Admin: 01/25/21 12:33 Dose: 0.5 mg Documented by: Hydromorphone HCl (Hydromorphone 0.5 Mg/0.5 Ml Syringe) 0.5 mg IVPUSH Q2H PRN PRN Reason: Pain (severe 7-10) Last Admin: 01/25/21 13:52 Dose: 0.5 mg Documented by: Hydromorphone HCl (Hydromorphone 1 Mg/Ml Syringe) 1 mg IVPUSH Q2H PRN PRN Reason: Pain (severe 7-10) Dextrose/Sodium Chloride (Dextrose 5%-Normal Saline) 1,000 mls @ 999 mls/hr IV ASDIRECTED [facility] Last Admin: 01/25/21 07:43 Dose: 999 mls/hr Documented by: Metronidazole 500 mg/ Premix 100 mls @ 100 mls/hr IV ONETIME ONE Stop: 01/25/21 09:24 Last Admin: 01/25/21 08:42 Dose: Not Given Documented by: Azithromycin 500 mg/ Sodium (Chloride) 250 mls @ 250 mls/hr IV ONETIME ONE Stop: 01/25/21 10:27 Last Admin: 01/25/21 09:41 Dose: 250 mls/hr Documented by: Dextrose/Lactated Ringer's (Dextrose 5%-Lactated Ringers) 1,000 mls @ 125 mls/hr IV ASDIRECTED [facility] Last Admin: 01/28/21 11:37 Dose: 125 mls/hr Documented by: Piperacillin Sod/Tazobactam (Sod 4.5 gm/ Sodium Chloride) 100 mls @ 25 mls/hr IV Q8H [facility] Last Admin: 01/26/21 05:04 Dose: 25 mls/hr Documented by: Piperacillin Sod/Tazobactam (Sod 4.5 gm/ Sodium Chloride) 100 mls @ 200 mls/hr IV ONETIME ONE Stop: 01/25/21 13:29 Last Admin: 01/25/21 13:55 Dose: 200 mls/hr Documented by: Magnesium Sulfate 2 gm/ Premix 50 mls @ 25 mls/hr IV ONETIME ONE Stop: 01/25/21 15:29 Last Admin: 01/25/21 14:31 Dose: 25 mls/hr Documented by: Potassium Chloride 10 meq/ (Premix) 100 mls @ 100 mls/hr IV Q1H [facility] Stop: 01/25/21 17:29 Last Admin: 01/25/21 18:38 Dose: 100 mls/hr Documented by: Lactated Ringer's (Ringers, Lactated) 1,000 mls @ 999 mls/hr IV ONETIME ONE Stop: 01/26/21 09:18 Last Admin: 01/26/21 08:44 Dose: 999 mls/hr Documented by: Lactated Ringer's (Ringers, Lactated) 500 mls @ 999 mls/hr IV .BOLUS ONE Stop: 01/27/21 07:12 Last Admin: 01/27/21 07:07 Dose: 999 mls/hr Documented by: Magnesium Sulfate 4 gm/ Premix 50 mls @ 12.5 mls/hr IV ONETIME ONE Stop: 01/27/21 12:52 Last Admin: 01/27/21 09:31 Dose: 12.5 mls/hr Documented by: Potassium Chloride 10 meq/ (Premix) 100 mls @ 100 mls/hr IV Q1H [facility] Stop: 01/27/21 12:59 Last Admin: 01/27/21 14:46 Dose: 100 mls/hr Documented by: Lactated Ringer's (Ringers, Lactated) 500 mls @ 999 mls/hr IV .BOLUS ONE Stop: 01/27/21 09:36 Last Admin: 01/27/21 09:30 Dose: 999 mls/hr Documented by: Potassium Chloride 10 meq/ (Premix) 100 mls @ 100 mls/hr IV Q1H [facility] Stop: 01/28/21 15:29 Last Admin: 01/28/21 16:42 Dose: 100 mls/hr Documented by: Lactated Ringer's (Ringers, Lactated) 500 mls @ 999 mls/hr IV .BOLUS ONE Stop: 01/29/21 11:58 Last Admin: 01/29/21 11:57 Dose: 999 mls/hr Documented by: Lactated Ringer's (Ringers, Lactated) 1,000 mls @ 75 mls/hr IV ASDIRECTED [facility] Last Admin: 01/30/21 11:26 Dose: 75 mls/hr Documented by: Lactated Ringer's (Ringers, Lactated) 500 mls @ 999 mls/hr IV .BOLUS ONE Stop: 01/29/21 13:45 Last Admin: 01/29/21 13:36 Dose: 999 mls/hr Documented by: Potassium Chloride 10 meq/ (Premix) 100 mls @ 100 mls/hr IV Q1H [facility] Stop: 01/30/21 11:29 Last Admin: 01/30/21 12:45 Dose: 100 mls/hr Documented by: Lactated Ringer's (Ringers, Lactated) 1,000 mls @ 50 mls/hr IV ASDIRECTED [facility] Last Admin: 01/31/21 05:39 Dose: 50 mls/hr Documented by: Potassium Chloride 10 meq/ (Premix) 100 mls @ 100 mls/hr IV Q1H [facility] Stop: 02/01/21 13:14 Last Admin: 02/01/21 16:59 Dose: Not Given Documented by: Sodium Chloride (Normal Saline) 1,000 mls @ 25 mls/hr IV ASDIRECTED [facility] Last Admin: 02/01/21 09:44 Dose: 25 mls/hr Documented by: Iopamidol (Iopamidol 612 Mg/Ml 100 Ml Bottle) 100 ml IVPUSH ONETIME ONE Stop: 01/30/21 08:33 Last Admin: 01/30/21 10:10 Dose: 100 ml Documented by: Loperamide HCl (Loperamide 2 Mg Cap) 2 mg PO ONETIME ONE Stop: 01/25/21 12:27 Last Admin: 01/25/21 12:31 Dose: 2 mg Documented by: Metoclopramide HCl (Metoclopramide 10 Mg/2 Ml Sdv) 7.5 mg IVPUSH ONETIME ONE Stop: 01/25/21 07:30 Last Admin: 01/25/21 07:39 Dose: 7.5 mg Documented by: Miscellaneous Information (Remove Replace Scopolamine Patch) 1 ea TRDERM Q72H [facility] Last Admin: 01/31/21 16:57 Dose: 1 ea Documented by: Miscellaneous Information (Remove Patch) 0 ea TRDERM ONETIME ONE Stop: 02/01/21 17:31 Last Admin: 02/01/21 18:29 Dose: Not Given Documented by: Oxycodone HCl (Oxycodone 5 Mg Tab) 10 mg PO Q4H PRN PRN Reason: Pain (moderate 4-6) Oxycodone HCl (Oxycodone 5 Mg Tab) 5 mg PO Q4H PRN PRN Reason: Pain (moderate 4-6) Last Admin: 01/26/21 01:50 Dose: 5 mg Documented by: Oxycodone HCl (Oxycodone 5 Mg Tab) 10 mg PO Q4H PRN PRN Reason: Pain (moderate 4-6) Potassium Chloride (Potassium Chloride 20 Meq Tab.Er) 40 meq PO BID [facility] Stop: 02/02/21 09:01 Scopolamine (Scopolamine 1.5 Mg Transdermal Patch) 1.5 mg TRDERM Q72H [facility] Last Admin: 01/31/21 16:57 Dose: 1.5 mg Documented by: - Exam Quality Assessment: DVT Prophylaxis. No: Supplemental Oxygen, Urine Catheter General: Alert, Oriented, Cooperative HEENT: Pupils Equal, Pupils Reactive, Mucous Membr. Moist/[place] Neck: Supple, Trachea Midline Lungs: Clear to Auscultation, Normal Respiratory Effort Cardiovascular: Regular Rate, Regular Rhythm GI/Abdominal Exam: Normal Bowel Sounds, Soft, Distended (improved), Tender (generalized). No: Guarding, Rigid (Female) Exam: Deferred Back Exam: Normal Inspection, Full Range of Motion Extremities: Normal Inspection, Normal Range of Motion, Non-Tender, No Pedal Edema, Normal Capillary Refill Peripheral Pulses: 2+: Radial (L), Radial (R), Dorsalis Pedis (L), Dorsalis Pedis (R) Skin: Warm, Dry, Intact Neurological: No New Focal Deficit Psy/Mental Status: Alert, Normal Affect, Normal Mood - Patient Data Lab Results Last 24 hrs: Laboratory Results - last 24 hr 02/01/21 02/02/21 02/02/21 Range/Units 05:58 05:21 05:21 WBC 8.51 (3.98-10.04) K/mm3 RBC 2.81 L (3.98-5.22) M/mm3 Hgb 8.8 L (11.2-15.7) gm/dl Hct 27.1 L (34.1-44.9) % MCV 96.4 H (79.4-94.8) fl MCH 31.3 (25.6-32.2) pg MCHC 32.5 (32.2-35.5) g/dl RDW Std Deviation 48.0 H (36.4-46.3) fL Plt Count 239 (182-369) K/mm3 MPV 11.0 (9.4-12.3) fl Neut % (Auto) 60.6 (34.0-71.1) % Lymph % (Auto) 15.4 L (19.3-51.7) % [place] % (Auto) 12.2 (4.7-12.5) % Eos % (Auto) 2.7 (0.7-5.8) Baso % (Auto) 0.2 (0.1-1.2) % Neut # (Auto) 5.15 (1.56-6.13) K/mm3 Lymph # (Auto) 1.31 (1.18-3.74) K/mm3 [place] # (Auto) 1.04 H (0.24-0.36) K/mm3 Eos # (Auto) 0.23 (0.04-0.36) K/mm3 Baso # (Auto) 0.02 (0.01-0.08) K/mm3 Manual Slide Review Abnormal smear Abnormal smear Sodium 135 L (136-145) mEq/L Potassium 4.0 (3.5-5.1) mEq/L Chloride 103 (98-107) mEq/L Carbon Dioxide 25 (21-32) mEq/L Anion Gap 11.0 (5-15) BUN 5 L (7-18) mg/dL Creatinine 0.5 L (0.55-1.02) mg/dL Est Cr Clr Drug Dosing 158.42 mL/min Estimated GFR (MDRD) > 60 (>60) mL/min BUN/Creatinine Ratio 10.0 L (14-18) Glucose 91 (70-99) mg/dL Calcium 7.3 L (8.5-10.1) mg/dL Magnesium 1.9 (1.8-2.4) mg/dL Total Bilirubin 0.3 (0.2-1.0) mg/dL AST 48 H (15-37) U/L ALT 63 H (14-59) U/L Alkaline Phosphatase 82 (46-116) U/L C-Reactive Protein 7.5 H* (<1.0) mg/dL Total Protein 4.9 L (6.4-8.2) g/dl Albumin 1.4 L (3.4-5.0) g/dl Globulin 3.5 gm/dL Albumin/Globulin Ratio 0.4 L (1-2) Result Diagrams: 02/02/21 05:21 02/02/21 05:21 Sepsis Event Note - Evaluation Sepsis Screening Result: Possible Sepsis Risk - Focused Exam Vital Signs: Vital Signs Temp Pulse Resp BP Pulse Ox 02/02/21 04:34 99.0 F 92 17 92/59 L 93 L 02/02/21 00:18 98.8 F 85 16 97/52 L 96 02/01/21 20:52 98.8 F 86 17 91/71 97 - Problem List & Annotations (1) Nausea and vomiting SNOMED Code(s): 24592198 Code(s): R11.2 - NAUSEA WITH VOMITING, UNSPECIFIED Status: Acute Priority: High Current Visit: Yes Qualifiers: Vomiting type: bilious vomiting Qualified Code(s): R11.14 - Bilious vomiting (2) Abdominal pain SNOMED Code(s): 48612957 Code(s): R10.9 - UNSPECIFIED ABDOMINAL PAIN Status: Acute Priority: High Current Visit: Yes Qualifiers: Abdominal location: lower abdomen, unspecified Qualified Code(s): R10.30 - Lower abdominal pain, unspecified (3) Dysentery SNOMED Code(s): 98326085 Code(s): A09 - INFECTIOUS GASTROENTERITIS AND COLITIS, UNSPECIFIED Status: Acute Priority: High Current Visit: Yes (4) First trimester SNOMED Code(s): 81932194 Code(s): Z34.91 - ENCNTR FOR SUPRVSN OF NORMAL PREG, UNSP, FIRST TRIMESTER Status: Acute Priority: High Current Visit: Yes (5) H/O unilateral salpingectomy SNOMED Code(s): 833455902 Code(s): Z90.79 - ACQUIRED ABSENCE OF OTHER GENITAL ORGAN(S) Status: Chronic Priority: Low Current Visit: No (6) History of uterine fibroid SNOMED Code(s): 062639778 Code(s): Z86.018 - PERSONAL HISTORY OF OTHER BENIGN NEOPLASM Status: Chronic Priority: Low Current Visit: No (7) History of ectopic SNOMED Code(s): 638907497, 603707494 Code(s): Z87.59 - PERSONAL HISTORY OF COMP OF PREG, CHLDBRTH AND THE PUERP Status: Chronic Priority: Medium Current Visit: No (8) Bacterial enteritis, unspecified SNOMED Code(s): 95446333 Code(s): A04.9 - BACTERIAL INTESTINAL INFECTION, UNSPECIFIED Status: Acute Priority: High Current Visit: Yes (9) Subchorionic hemorrhage SNOMED Code(s): 403106178 Code(s): O41.8X90 - OTH DISRD OF AMNIOTIC FLUID AND MEMBRNS, UNSP TRI, UNSP; O46.8X9 - OTHER ANTEPARTUM HEMORRHAGE, UNSPECIFIED TRIMESTER Status: Acute Priority: Medium Current Visit: Yes Qualifiers: Fetus number: single or unspecified fetus Trimester: first trimester Qualified Code(s): O41.8X10 - Other specified disorders of amniotic fluid and membranes, first trimester, not applicable or unspecified; O46.8X1 - Other a ntepartum hemorrhage, first trimester (10) Leukocytosis SNOMED Code(s): 149635403, 891657100 Code(s): D72.829 - ELEVATED WHITE BLOOD CELL COUNT, UNSPECIFIED Status: Acute Priority: High Current Visit: Yes Qualifiers: Leukocytosis type: unspecified Qualified Code(s): D72.829 - Elevated white blood cell count, unspecified (11) Volume depletion SNOMED Code(s): 618277249 Code(s): E86.9 - VOLUME DEPLETION, UNSPECIFIED Status: Acute Priority: High Current Visit: Yes (12) Shiga toxin-producing Escherichia coli (E. coli) (STEC) O157 SNOMED Code(s): 509031093538720 Code(s): A49.8 - OTHER BACTERIAL INFECTIONS OF UNSPECIFIED SITE Status: Acute Priority: High Current Visit: Yes (13) Hypokalemia SNOMED Code(s): 94708797 Code(s): E87.6 - HYPOKALEMIA Status: Resolved Priority: High Current Visit: Yes (14) Hypomagnesemia SNOMED Code(s): 287449372 Code(s): E83.42 - HYPOMAGNESEMIA Status: Resolved Priority: High Current Visit: Yes (15) Fluid overload SNOMED Code(s): 87883407 Code(s): E87.70 - FLUID OVERLOAD, UNSPECIFIED Status: Acute Priority: Medium Current Visit: Yes Qualifiers: Hypervolemia type: unspecified Qualified Code(s): E87.70 - Fluid overload, unspecified (16) Ascites SNOMED Code(s): 727953703 Code(s): R18.8 - OTHER ASCITES Status: Acute Priority: High Current Visit: Yes Qualifiers: Ascites type: other type Qualified Code(s): R18.8 - Other ascites - Problem List Review Problem List Initiated/Reviewed/Updated: Yes - My Orders Last 24 Hours: My Active Orders 02/01/21 09:30 oxyCODONE 5 mg PO Q4H PRN 02/01/21 15:30 Communication Order [RC] ASDIRECTED 02/01/21 17:30 Potassium Chloride [Klor-Con M20] 40 meq PO BID@0700,1100 - Assessment Assessment:: Assessment - Admission date - 01/25/2021 * 35-year-old female who presents with diffuse abdominal pain, nausea, bilious emesis, and bloody diarrhea * History of ctopic in May 2020 with right salpingectomy and uterine fibroids * Reports she has been ill for the past 2 days * Started having watery diarrhea and mild abdominal pain which worsened and became cramping in nature. Her stool eventually became pure blood. * She reports she has been nauseous and essentially dry heaving at this point * Chills but no known fever. * Just returned from a family reunion in the [facility] in [place]. * Family was playing in the local river * Their camper was hooked up to a well in the campground with a charcoal filter installed * Reports there were potluck meals but no known questionable food. * Reports a child with mild but similar symptoms and her [id number] who is developing similar symptoms currently. * Labs are obtained: * WBC 13.12. * Hemoglobin of 13.6. * Hematocrit 40.3. * Platelet 274,000. * Neutrophils are elevated 83.7%. * INR is 0.94. * aPTT is 26.3. * Sodium is 138. * Potassium 3.3. * Chloride 102. * Carbon dioxide 23. * Anion gap is 16.3. * BUN is 7. Creatinine 0.7. GFR greater than 60. * Glucose 123. * Calcium 9.2. * Bilirubin 0.3. * AST 16, ALT 25, alkaline phosphatase 51. * CRP is 8.7. * Albumin 3.3. * Lipase is 60. * hCG qualitative is positive. hCG quantitative is 6881, consistent with 5- week gestation. * SARS-CoV-2 RNA is negative. * Stool ova and parasite, stool culture/Shiga toxin, and stool fecal lactoferrin are collected. * Obstetrics ultrasound: * Small intrauterine gestation with a mean sac diameter of 0.86-5 weeks and 4 days. * Small subchorionic hemorrhage with mild free fluid seen within the pelvis. * Other findings are noted. * She is given azithromycin 500 mg, Zofran, Regalin, and IV push Dilaudid for pain. * Given a 1 L D5LR bolus and started on D5 LR maintenance fluids. * Admitted to the medical floor for management and further work-up of her diarrhea and vomiting. 01/26/2021 35-year-old female admitted for dysentery. Patient continues to have nausea and episodes of bloody diarrhea, although she does report that her pain is slightly improved. Patient reports that family member did test positive for Shiga toxin E. coli. Oddly patient's Shiga toxin here was negative. Cryptosporidium and Giardia was negative. Stool lactoferrin was positive. Stool culture is positive. OB did consult on the patient and recommend follow-up ultrasound in 10 days. Multiple family members have now developed similar symptoms. Contacted Dr. Sosa, infectious disease with [facility] in [place] who recommended we discontinue IV antibiotics and treat the patient like a Shiga toxin pending stool cultures. Dr. Morfin, on-call GI specialist with [facility] in [place] was contacted as well who recommends discontinuation of IV antibiotics, IV fluids, pain control, and time to let this pass. Labs and test results were reviewed. He also recommended scan of the abdomen and pelvis to rule out perforation. Discussed with Dr. Gordon, radiologist regarding risks and benefits of scan and ensuring CT versus MRI was appropriate. Ultimate decision was CT without contrast. Discussed plan with patient, including risks and benefits to developing fetus. Ultimately patient agrees to proceed with scan. CT scan of the abdomen and pelvis is obtained and shows 1. Minimal hiatal hernia. 2. Small gestational sac within the uterus. 3. Prominent bowel wall thickening throughout the colon with diffuse inflammatory change around the colon. Findings are felt compatible with a rather prominent colitis. Etiology of the colitis is uncertain on this exam. 4. Fair amount of free fluid within the pelvis as well as around the liver which is slightly complicated but does not appear to be bloody. 5. Normal appendix is seen. Labs today show elevated WBC of 20.63. Hemoglobin 12.3. Platelet 235,000. Neutrophils are elevated at 83.3%. Sodium is 140. Potassium 3.8. Anion gap is 14.8. BUN is 6. Creatinine 0.7. GFR greater than 60. Glucose is 179. Calcium is 7.4. Magnesium 2.0. Bilirubin 0.2. AST 9, ALT 14, alkaline phosphatase 44. CRP is 14.6. Protein is 5.6. Albumin is 2.1. UA was obtained yesterday and was grossly negative however 3+ ketones and concentrated urine were noted. Vital signs have been stable. We will continue to monitor for signs of HUS. 1 L fluid bolus given today. Patient remains n.p.o. IV fluids remain ordered. We will recheck lactic acid this afternoon and recheck all labs including lactic acid tomorrow. Will await stool culture. Continue current treatment plan. Unknown length of stay. Will be pending resolution of symptoms and advancement of diet. 01/27/2021 35-year-old female admitted for dysentery. Patient has had multiple family members now returned positive for Shiga toxin 2. Patient herself has had a positive stool culture for E. coli 0157, which is a Shiga toxin E. coli. All antibiotics have been stopped. Lactic acid has been within normal limits. Patient has received multiple IV fluid boluses and continues on IV fluids. Diet today was advanced from n.p.o. to clear liquids after discussion with the patient. She reports she is feeling quite a bit better. She is still having bloody stools but much less frequent. There appears to be less blood in her stools as well per patient report. She continues to have occasional dry heaves and nausea but does state that she has a history of morning sickness with . Bowel sounds have been active. Labs today show WBC of 20.37. Hemo globin 10.7. Hematocrit 32.6. Platelet 196,000. Neutrophils are elevated at 79.7. Sodium is 139. Potassium 3.3. Chloride 105. Carbon dioxide 27. Anion gap is 10.3. BUN is 5. Creatinine 0.5. GFR in 60. Glucose has been in the low 110s. Lactic acid 0.5. Calcium 7.4. Magnesium 1.7. AST is 11, ALT 12, alkaline phosphatase 48. CRP is 20.5. Protein 4.9. Albumin 1.7. We will continue current treatment plan as the patient is feeling better. Clinically she looks more comfortable and greatly improved. Length of stay will be determined by patient tolerating diet and continuing resolution of symptoms. Likely length of stay 2-3 more days. 01/28/2021 35-year-old female admitted for abdominal pain and bloody diarrhea. Found to be E. coli 0157 positive. Patient reports that she is still having some hematochezia however this has improved. She reports approximately 2 stools an hour. She is still having pain although it is better. She reports she has go tten some sleep. Abdomen is somewhat distended however bowel sounds are nice and active today. She continues to tolerate the clear liquid diet but we will hold off on advancing giving continuation of symptoms and no real change in labs. WBC remains elevated 21.57. Hemoglobin 9.8. Platelet 203,000. Neutrophils are elevated 79.7. Sodium is 138. Potassium is 3.2. Chloride 105. Carbon dioxide 25. Anion gap 11.2. BUN is 4. Creatinine 0.4. GFR greater than 60. Lactic acid 0.7. Calcium 7.1. Magnesium 1.9. Bilirubin 0.3. AST is 11, ALT 10, alkaline phosphatase 68. CRP is 21.2. Protein is 4.5. Albumin 1.5. We will continue IV fluids. Potassium will be supplemented with [address] ers. Clinically she looks better than yesterday and she reports she feels better than yesterday. We will continue current treatment plan. 01/29/2021 35-year-old female admitted to the hospital for abdominal pain and bloody diarrhea who was found to be E. coli 0157+. She was also found to be 5 weeks . OBGYN has consulted. Today patient reports that she feels much worse. She is having abdominal pain and bloating. Abdomen is noted to be distended but bowel sounds are active. Patient does report several loose stools an hour. Reports that bleeding has essentially stopped. IV fluids were discontinued last night and these were resumed today. Patient was given 2 500 mL boluses. WBC has increased to 24.67. Hemoglobin 10.0. Platelets are up to 223,000. Neutrophils are 75.1. Sodium is 137. Potassium 3.6. Carbon dioxide is 25. BUN is 3. Creatinine 0.4. GFR greater than 60. Glucose is 94. Lactic acid was obtained yesterday and is 0.7. Calcium is 7.5. Magnesium 1.9. Bilirubin 0.4. AST is 10, ALT 9, alkaline phosphatase 93. CRP is up to 23.9. Protein 4.7. Albumin is 1.4. Dr. Delvalle, attending hospitalist, and to assess patient as well. Overall no major changes. We will resume IV fluids, keep patient on clear liquid diet, and continue to monitor. 01/30/2021 This is a 35-year-old female who was admitted to the floor due to significant watery diarrhea and abdominal pain. She was found to be E. coli 0157+ and Shiga toxin positive. Throughout her stay thus far she has had waxing and waning of her symptoms. Today she reports that her diarrhea has greatly improved and she is no longer having hematochezia, however she continues to have significant bowel pain. She has been up ambulating. She was made n.p.o. this morning while a CT of the abdomen and pelvis with IV and oral contrast was obtained. Prior to obtaining scan discussion was had between Dr. Platt, attending hospitalist and also Dr. Gordon, radiologist. As there are rather significant concerns for possible perforation. Risk versus benefit was discussed with the patient and she ultimately agrees to the scan. CT scan returns showing improved pancolitis but with mildly increased ascites and new bilateral pleural effusions, probably related to the presence of ascites. No intra-abdominal abscess is noted. Patient was on 75 mL an hour of lactated Ringer's will slow this down to 50 cc an hour. Clear liquid diet was resumed. Dr. Bueno, general surgeon, was consulted. Labs obtained today showing improvement in WBC to 19.39. Hemoglobin is 10.2. Platelets are 281,000. Neutrophils are 76.3%. Sodium is 136. Potassium is 3.4 and will be supplemented with potassium riders. Chloride is 102. Carbon dioxide 26. Anion gap is 11.4. BUN is 5. Creatinine 0.5. GFR greater than 60. Glucose is 81. Lactic acid 0.5. Calcium 7.5. Magnesium 2.1. Bilirubin 0.4. AST is 14, ALT 14, alkaline phosphatase 112. CRP is up to 25. Protein is improved to 5.0. Albumin is 1.4. We will continue current treatment plan recheck labs in the morning. No current concerns for HUS. 01/31/2021 35-year-old female admitted for abdominal pain and bloody diarrhea stools. She was found to be positive for E. coli 0157+. Has had significant amount of abdominal pain, nausea and vomiting. She states that she did have stool today it was soft and she did not note any blood in it. She however continues to have significant generalized abdominal pain primarily located in the lower quadrants. Has been up ambulating and states she is passing a fair amount of gas. Was on clear liquids yesterday and tolerated that well. Dr. Bueno, general surgeon, was consulted yesterday. Progress note today recommends advancing diet to regular and to discontinue the IV fluids. Labs today reveal a WBC of 16.91, hemoglobin 10.8, hematocrit 31.8, platelet count 284,000, neutrophil percentage 78.1, sodium 134, potassium 3.4, chloride 100, anion gap of 14.4, BUN 5, creatinine 0.5, GFR greater than 60, glucose 83, calcium 7.5, magnesium 2.0, C- reactive protein 18.4, total protein 5.4, albumin 1.5. Continue current treatment and recheck labs in the a.m. Patient does screen out as a septic risk due to elevated white count and tachycardia however I do not believe that she is septic. 02/01/2021 35-year-old female minute for abdominal pain and bloody stools was found to be positive for E. coli 0157. Continues to report significant abdominal pain. She remains distended but this does appear to have improved. She has been tolerating her feeds well. States she has had no bowel movements or flatus today. Potassium is low today and she will be supplemented with 6 potassium riders. She does not tolerate this well through the IV we will put on a minimal amount of IV fluids long enough to get these in. Given her GI situation we will not supplement via p.o. at this time. She continues to urinate. Labs today show quite an improvement: WBC 10.69. Hemoglobin 9.3. Platelet 261,000. Neutrophils 62.2. Sodium 135. Potassium 3.1. Chloride 103. Carbon oxide 24. Anion gap 11.1. BUN 4. Creatinine 0.4. GFR greater than 60. Glucose 90. Lactic acid 0.3. Calcium 7.1. Magnesium 1.9. Total bilirubin 0.4. AST 57, ALT 51, alkaline phosphatase 92. CRP is 10.0. Protein 4.8. Albumin 1.3. Patient does have quite a bit of ascites in her abdomen. It is anticipated that she will auto diuresis although we may need to give Lasix in the next day or 2. We will continue current treatment plan. Patient was on oxycodone 10 mg which she reports made her itchy plan was to switch to [place] however patient states that that made her nauseous and she did vomit several times when she has received this in the past. This was prior to current hospitalization. We will therefore decrease the oxycodone dosing and see how she does. Unknown length of stay as it will depend on when patient can tolerate only p.o. pain medications and her diet. 02/02/2021 This is a 35-year-old female admitted for dysentery who also happens to be 6 weeks . She was positive for E. coli 157 with Shiga toxin. Overall she has been doing much better. She does complain of rather significant abdominal pain. Attempted to go without IV pain meds overnight as her IV had infiltrated and ultimately this needed to be replaced as she required Dilaudid. Today she has been using minimal pain medications. Reports her abdominal pain has improved. No current bloody diarrhea. Nausea and vomiting have improved. She does report significant abdominal pain with ambulation. Labs today show a dramatic improvement with a WBC of 8.51. Hemoglobin 8.8. Platelet 239,000. Neutrophils 60.6%. Sodium 135. Potassium 4.0. BUN 5. Creatinine 0.5. GFR greater than 60. Calcium 7.3. Magnesium 1.9. Bilirubin 0.3. AST is 48, ALT 63, alkaline phosphatase 82. CRP is down to 7.5. Albumin is up to 1.4. Protein is up to 4.9. Given her continued ascites and abdominal distention we will give 20 mg IV push Lasix today. We will continue to work on weaning pain medications and monitor labs. Hopeful discharge in 1 to 2 days. - Plan Plan:: Nausea and vomiting, resolved Abdominal pain, improved Dysentery Bacterial enteritis, unspecified Shiga toxin E. coli 0157 Leukocytosis, improved Volume depletion, resolved Fluid overload, improved Ascites * Saline lock IV fluids * Antiemetics as ordered * Pain medications as ordered * Regular diet * Monitor labs * Scopolamine patch (Ok'd with DOOR INSTALLER Dr. Arreguin) * C-diff negative * Enteric isolation * Stool culture/shiga toxin - Negative shiga toxin 1&2 however positive E. Coli 0157 * Stool O&P - negative * Blood cultures negative thus far * As needed simethicone for gas pains * Dr. Bueno, general surgeon consulted * 20mg IVP Lasix today Hypokalemia, resolved Hypomagnesemia, resolved * Supplement PRN * Monitor labs First trimester H/O unilateral salpingectomy History of uterine fibroid History of ectopic Subchorionic hemorrhage * Case discussed with Dr. Arreguin, DOOR IN[employer]ER * Ensure medications appropriate for * Follow-up at 10 weeks * Avoid intercourse until follow-up with [employer] IN[employer] due to subchorionic hemorrhage on OB US Code status: Full Code PCP: None currently DVT prophylaxis: Not indicated Social: Patient [place] with significant other [place] a [place] near [place], [place] Disposition: Patient admitted to [facility] floor for management and further work- up of nausea, vomiting, and bloody diarrhea. LOS >96 hrs due to slow response to treatment. Hopeful for discharge in next 1-2 days
[2021-02-02] MEDS ORDERED: Furosemide 20 MG/2 ML VIAL IVPUSH ONE (11:35)
[2021-02-02] MEDS: Acetaminophen 325 MG Tab PO PRN (17:13)
[2021-02-03] MEDS: HYDROmorphone 1 MG/ML Syringe IVPUSH PRN ×3 (02:32→23:55)
--- NOTE | 2021-02-03 07:22 | PCM.PN ---
- General Info Date of Service: 02/03/21 Admission Dx/Problem (Free Text): Admission Diagnosis/Problem Dysentery Functional Status: Reports: Tolerating Diet, Ambulating, Urinating, Incentive Spirometry. Denies: Pain Controlled (Waxes and wanes. Controlled with dilaudid but not tollerating PO pain meds. Controlled while lying down but worse with ambulation. ), New Symptoms - Review of Systems General: Reports: No Symptoms. Denies: Fever, Weakness, Fatigue, Malaise, Chills HEENT: Reports: No Symptoms. Denies: Headaches, Sore Throat Pulmonary: Reports: No Symptoms. Denies: Shortness of Breath, Cough, Sputum, Wheezing Cardiovascular: Reports: No Symptoms. Denies: Chest Pain, Palpitations, Dyspnea on Exertion, Edema Gastrointestinal: Reports: Abdominal Pain (Lower quadrants ), Other (Patient reports semi-formed BM today ). Denies: Constipation, Diarrhea, Nausea, Vomiting Genitourinary: Reports: No Symptoms. Denies: Pain Musculoskeletal: Reports: No Symptoms Skin: Reports: No Symptoms. Denies: Cyanosis Neurological: Reports: No Symptoms. Denies: Confusion, Numbness, Pre-Existing Deficit, Tingling, Difficulty Walking, Weakness, Gait Disturbance Psychiatric: Reports: No Symptoms - Patient Data Vitals - Most Recent: Last Vital Signs Temp 98.1 F 02/03/21 02:38 Pulse 84 02/03/21 02:38 Resp 18 02/03/21 02:38 BP 96/50 L 02/03/21 02:38 Pulse Ox 94 L 02/03/21 02:38 Weight - Most Recent: 152 lb I&O - Last 24 Hours: Intake & Output 02/02/21 02/03/21 02/03/21 22:59 06:59 14:59 Intake Total 1840 800 Output Total 2800 2400 Balance -960 -1600 Med Orders - Current: Current Medications Acetaminophen (Acetaminophen 325 Mg Tab) 650 mg PO Q4H PRN PRN Reason: Pain (Mild 1-3)/fever Last Admin: 02/02/21 17:13 Dose: 650 mg Documented by: Hydromorphone HCl (Hydromorphone 1 Mg/Ml Syringe) 1 mg IVPUSH Q1H PRN PRN Reason: Pain (severe 7-10) Last Admin: 02/03/21 06:58 Dose: 1 mg Documented by: Ondansetron HCl (Ondansetron 4 Mg/2 Ml Sdv) 4 mg IV Q6H PRN PRN Reason: Nausea/Vomiting Last Admin: 01/29/21 11:12 Dose: 4 mg Documented by: Oxycodone HCl (Oxycodone 5 Mg Tab) 5 mg PO Q4H PRN PRN Reason: Pain (moderate 4-6) Last Admin: 02/01/21 21:40 Dose: 5 mg Documented by: Simethicone (Simethicone 80 Mg Tab.Chew) 160 mg PO TID PRN PRN Reason: Bloating/gas Last Admin: 01/29/21 22:59 Dose: 160 mg Documented by: Sodium Chloride (Sodium Chloride 0.9% 10 Ml Syringe) 10 ml FLUSH ONETIME PRN PRN Reason: Keep Vein Open Last Admin: 01/30/21 10:10 Dose: 10 ml Documented by: Discontinued Medications Hydrocodone Bitart/Acetaminophen (Acetaminophen/Hydrocodone 325-5 Mg Tab) 1 - 2 tab PO Q4H PRN PRN Reason: Pain (moderate 4-6) Diatrizoate Meglum/Diatrizoate Sod (Diatrizoate Meglumine/Diatrizoate Sodium 37% 120 Ml Bottle) 40 ml PO ONETIME ONE Stop: 01/30/21 08:33 Last Admin: 01/30/21 10:10 Dose: 45 ml Documented by: Furosemide (Furosemide 20 Mg/2 Ml Vial) 20 mg IVPUSH ONETIME ONE Stop: 02/02/21 11:36 Last Admin: 02/02/21 11:46 Dose: 20 mg Documented by: Hydromorphone HCl (Hydromorphone 0.5 Mg/0.5 Ml Syringe) 0.5 mg IVPUSH ONETIME ONE Stop: 01/25/21 07:31 Last Admin: 01/25/21 07:41 Dose: 0.5 mg Documented by: Hydromorphone HCl (Hydromorphone 0.5 Mg/0.5 Ml Syringe) 0.5 mg IVPUSH ONETIME ONE Stop: 01/25/21 08:32 Last Admin: 01/25/21 08:30 Dose: 0.5 mg Documented by: Hydromorphone HCl (Hydromorphone 0.5 Mg/0.5 Ml Syringe) 0.5 mg IVPUSH ONETIME ONE Stop: 01/25/21 09:28 Last Admin: 01/25/21 09:30 Dose: 0.5 mg Documented by: Hydromorphone HCl (Hydromorphone 0.5 Mg/0.5 Ml Syringe) 0.5 mg IVPUSH ONETIME ONE Stop: 01/25/21 10:22 Last Admin: 01/25/21 10:30 Dose: 0.5 mg Documented by: Hydromorphone HCl (Hydromorphone 0.5 Mg/0.5 Ml Syringe) 0.5 mg IVPUSH ONETIME ONE Stop: 01/25/21 12:27 Last Admin: 01/25/21 12:33 Dose: 0.5 mg Documented by: Hydromorphone HCl (Hydromorphone 0.5 Mg/0.5 Ml Syringe) 0.5 mg IVPUSH Q2H PRN PRN Reason: Pain (severe 7-10) Last Admin: 01/25/21 13:52 Dose: 0.5 mg Documented by: Hydromorphone HCl (Hydromorphone 1 Mg/Ml Syringe) 1 mg IVPUSH Q2H PRN PRN Reason: Pain (severe 7-10) Dextrose/Sodium Chloride (Dextrose 5%-Normal Saline) 1,000 mls @ 999 mls[facility] Last Admin: 01/25/21 07:43 Dose: 999 mls/hr Documented by: Metronidazole 500 mg/ Premix 100 mls @ 100 mls/hr IV ONETIME ONE Stop: 01/25/21 09:24 Last Admin: 01/25/21 08:42 Dose: Not Given Documented by: Azithromycin 500 mg/ Sodium (Chloride) 250 mls @ 250 mls/hr IV ONETIME ONE Stop: 01/25/21 10:27 Last Admin: 01/25/21 09:41 Dose: 250 mls/hr Documented by: Dextrose/Lactated Ringer's (Dextrose 5%-Lactated Ringers) 1,000 mls @ 125 mls[facility]hr [facility] Last Admin: 01/28/21 11:37 Dose: 125 mls/hr Documented by: Piperacillin Sod/Tazobactam (Sod 4.5 gm/ Sodium Chloride) 100 mls @ 25 mls/hr IV Q8H [facility] Last Admin: 01/26/21 05:04 Dose: 25 mls/hr Documented by: Piperacillin Sod/Tazobactam (Sod 4.5 gm/ Sodium Chloride) 100 mls @ 200 mls/hr IV ONETIME ONE Stop: 01/25/21 13:29 Last Admin: 01/25/21 13:55 Dose: 200 mls/hr Documented by: Magnesium Sulfate 2 gm/ Premix 50 mls @ 25 mls/hr IV ONETIME ONE Stop: 01/25/21 15:29 Last Admin: 01/25/21 14:31 Dose: 25 mls/hr Documented by: Potassium Chloride 10 meq/ (Premix) 100 mls @ 100 mls/hr IV Q1H [facility] Stop: 01/25/21 17:29 Last Admin: 01/25/21 18:38 Dose: 100 mls/hr Documented by: Lactated Ringer's (Ringers, Lactated) 1,000 mls @ 999 mls/hr IV ONETIME ONE Stop: 01/26/21 09:18 Last Admin: 01/26/21 08:44 Dose: 999 mls/hr Documented by: Lactated Ringer's (Ringers, Lactated) 500 mls @ 999 mls/hr IV .BOLUS ONE Stop: 01/27/21 07:12 Last Admin: 01/27/21 07:07 Dose: 999 mls/hr Documented by: Magnesium Sulfate 4 gm/ Premix 50 mls @ 12.5 mls/hr IV ONETIME ONE Stop: 01/27/21 12:52 Last Admin: 01/27/21 09:31 Dose: 12.5 mls/hr Documented by: Potassium Chloride 10 meq/ (Premix) 100 mls @ 100 mls/hr IV Q1H [facility] Stop: 01/27/21 12:59 Last Admin: 01/27/21 14:46 Dose: 100 mls/hr Documented by: Lactated Ringer's (Ringers, Lactated) 500 mls @ 999 mls/hr IV .BOLUS ONE Stop: 01/27/21 09:36 Last Admin: 01/27/21 09:30 Dose: 999 mls/hr Documented by: Potassium Chloride 10 meq/ (Premix) 100 mls @ 100 mls/hr IV Q1H [facility] Stop: 01/28/21 15:29 Last Admin: 01/28/21 16:42 Dose: 100 mls/hr Documented by: Lactated Ringer's (Ringers, Lactated) 500 mls @ 999 mls/hr IV .BOLUS ONE Stop: 01/29/21 11:58 Last Admin: 01/29/21 11:57 Dose: 999 mls/hr Documented by: Lactated Ringer's (Ringers, Lactated) 1,000 mls @ 75 mls/hr IV ASDIRECTED [facility] Last Admin: 01/30/21 11:26 Dose: 75 mls/hr Documented by: Lactated Ringer's (Ringers, Lactated) 500 mls @ 999 mls/hr IV .BOLUS ONE Stop: 01/29/21 13:45 Last Admin: 01/29/21 13:36 Dose: 999 mls/hr Documented by: Potassium Chloride 10 meq/ (Premix) 100 mls @ 100 mls/hr IV Q1H [facility] Stop: 01/30/21 11:29 Last Admin: 01/30/21 12:45 Dose: 100 mls/hr Documented by: Lactated Ringer's (Ringers, Lactated) 1,000 mls @ 50 mls/hr IV ASDIRECTED [facility] Last Admin: 01/31/21 05:39 Dose: 50 mls/hr Documented by: Potassium Chloride 10 meq/ (Premix) 100 mls @ 100 mls/hr IV Q1H [facility] Stop: 02/01/21 13:14 Last Admin: 02/01/21 16:59 Dose: Not Given Documented by: Sodium Chloride (Normal Saline) 1,000 mls @ 25 [facility]ls[facility] Last Admin: 02/01/21 09:44 Dose: 25 mls/hr Documented by: Iopamidol (Iopamidol 612 Mg/Ml 100 Ml Bottle) 100 ml IVPUSH ONETIME ONE Stop: 01/30/21 08:33 Last Admin: 01/30/21 10:10 Dose: 100 ml Documented by: Loperamide HCl (Loperamide 2 Mg Cap) 2 mg PO ONETIME ONE Stop: 01/25/21 12:27 Last Admin: 01/25/21 12:31 Dose: 2 mg Documented by: Metoclopramide HCl (Metoclopramide 10 Mg/2 Ml Sdv) 7.5 mg IVPUSH ONETIME ONE Stop: 01/25/21 07:30 Last Admin: 01/25/21 07:39 Dose: 7.5 mg Documented by: Miscellaneous Information (Remove Replace Scopolamine Patch) 1 ea TRDERM Q72H [facility] Last Admin: 01/31/21 16:57 Dose: 1 ea Documented by: Miscellaneous Information (Remove Patch) 0 ea TRDERM ONETIME ONE Stop: 02/01/21 17:31 Last Admin: 02/01/21 18:29 Dose: Not Given Documented by: Oxycodone HCl (Oxycodone 5 Mg Tab) 10 mg PO Q4H PRN PRN Reason: Pain (moderate 4-6) Oxycodone HCl (Oxycodone 5 Mg Tab) 5 mg PO Q4H PRN PRN Reason: Pain (moderate 4-6) Last Admin: 01/26/21 01:50 Dose: 5 mg Documented by: Oxycodone HCl (Oxycodone 5 Mg Tab) 10 mg PO Q4H PRN PRN Reason: Pain (moderate 4-6) Potassium Chloride (Potassium Chloride 20 Meq Tab.Er) 40 meq PO BID [facility] Stop: 02/02/21 09:01 Potassium Chloride (Potassium Chloride 20 Meq Tab.Er) 40 meq PO BID@0700,1100 [facility] Stop: 02/02/21 11:01 Last Admin: 02/02/21 10:43 Dose: 40 meq Documented by: Scopolamine (Scopolamine 1.5 Mg Transdermal Patch) 1.5 mg TRDERM Q72H [facility] Last Admin: 01/31/21 16:57 Dose: 1.5 mg Documented by: - Exam Quality Assessment: No: Supplemental Oxygen, Urine Catheter, DVT Prophylaxis (Not indicated ) General: Alert, Oriented, Cooperative, No Acute Distress HEENT: Pupils Equal, Pupils Reactive, Mucous Membr. Moist/Rudd Neck: Supple, Trachea Midline Lungs: Clear to Auscultation, Normal Respiratory Effort Cardiovascular: Regular Rate, Regular Rhythm GI/Abdominal Exam: Normal Bowel Sounds, Soft, Distended (mildly - greatly improved ), Tender (Lower quadrants and mild LUQ. Greatly improved ) (Female) Exam: Deferred Back Exam: Normal Inspection, Full Range of Motion Extremities: Normal Inspection, Normal Range of Motion, Non-Tender, No Pedal Edema, Normal Capillary Refill Peripheral Pulses: 2+: Radial (L), Radial (R), Dorsalis Pedis (L), Dorsalis Pedis (R) Skin: Warm, Dry, Intact Neurological: No New Focal Deficit Psy/Mental Status: Alert, Normal Affect, Normal Mood - Patient Data Result Diagrams: 02/03/21 08:02 02/03/21 08:02 Sepsis Event Note - Evaluation Sepsis Screening Result: Possible Sepsis Risk - Focused Exam Vital Signs: Vital Signs Temp Pulse Resp BP Pulse Ox 02/03/21 02:38 98.1 F 84 18 96/50 L 94 L 02/02/21 22:48 99.0 F 87 16 104/57 L 97 - Problem List & Annotations (1) Nausea and vomiting SNOMED Code(s): 89090044 Code(s): R11.2 - NAUSEA WITH VOMITING, UNSPECIFIED Status: Acute Priority: High Current Visit: Yes Qualifiers: Vomiting type: bilious vomiting Qualified Code(s): R11.14 - Bilious vomiting (2) Abdominal pain SNOMED Code(s): 94887420 Code(s): R10.9 - UNSPECIFIED ABDOMINAL PAIN Status: Acute Priority: High Current Visit: Yes Qualifiers: Abdominal location: lower abdomen, unspecified Qualified Code(s): R10.30 - Lower abdominal pain, unspecified (3) Dysentery SNOMED Code(s): 72847088 Code(s): A09 - INFECTIOUS GASTROENTERITIS AND COLITIS, UNSPECIFIED Status: Acute Priority: High Current Visit: Yes (4) First trimester SNOMED Code(s): 68968906 Code(s): Z34.91 - ENCNTR FOR SUPRVSN OF NORMAL PREG, UNSP, FIRST TRIMESTER Status: Acute Priority: High Current Visit: Yes (5) H/O unilateral salpingectomy SNOMED Code(s): 512339443 Code(s): Z90.79 - ACQUIRED ABSENCE OF OTHER GENITAL ORGAN(S) Status: Chroni c Priority: Low Current Visit: No (6) History of uterine fibroid SNOMED Code(s): 206659528 Code(s): Z86.018 - PERSONAL HISTORY OF OTHER BENIGN NEOPLASM Status: Chronic Priority: Low Current Visit: No (7) History of ectopic SNOMED Code(s): 977084597, 422401177 Code(s): Z87.59 - PERSONAL HISTORY OF COMP OF PREG, CHLDBRTH AND THE PUERP Status: Chronic Priority: Medium Current Visit: No (8) Bacterial enteritis, unspecified SNOMED Code(s): 84261818 Code(s): A04.9 - BACTERIAL INTESTINAL INFECTION, UNSPECIFIED Status: Acute Priority: High Current Visit: Yes (9) Subchorionic hemorrhage SNOMED Code(s): 365308932 Code(s): O41.8X90 - OTH DISRD OF AMNIOTIC FLUID AND MEMBRNS, UNSP TRI, UNSP; O46.8X9 - OTHER ANTEPARTUM HEMORRHAGE, UNSPECIFIED TRIMESTER Status: Acute Priority: Medium Current Visit: Yes Qualifiers: Fetus number: single or unspecified fetus Trimester: first trimester Qualified Code(s): O41.8X10 - Other specified disorders of amniotic fluid and membranes, first trimester, not applicable or unspecified; O46.8X1 - Other antepartum hemorrhage, first trimester (10) Leukocytosis SNOMED Code(s): 861965943, 920504783 Code(s): D72.829 - ELEVATED WHITE BLOOD CELL COUNT, UNSPECIFIED Status: Acute Priority: High Current Visit: Yes Qualifiers: Leukocytosis type: unspecified Qualified Code(s): D72.829 - Elevated white blood cell count, unspecified (11) Volume depletion SNOMED Code(s): 002760385 Code(s): E86.9 - VOLUME DEPLETION, UNSPECIFIED Status: Acute Priority: High Current Visit: Yes (12) Shiga toxin-producing Escherichia coli (E. coli) (STEC) O157 SNOMED Code(s): 108890632855992 Code(s): A49.8 - OTHER BACTERIAL INFECTIONS OF UNSPECIFIED SITE Status: Acute Priority: High Current Visit: Yes (13) Hypokalemia SNOMED Code(s): 54123109 Code(s): E87.6 - HYPOKALEMIA Status: Resolved Priority: High Current Visit: Yes (14) Hypomagnesemia SNOMED Code(s): 784250221 Code(s): E83.42 - HYPOMAGNESEMIA Status: Resolved Priority: High Cu rrent Visit: Yes (15) Fluid overload SNOMED Code(s): 45241801 Code(s): E87.70 - FLUID OVERLOAD, UNSPECIFIED Status: Acute Priority: Medium Current Visit: Yes Qualifiers: Hypervolemia type: unspecified Qualified Code(s): E87.70 - Fluid overload, unspecified (16) Ascites SNOMED Code(s): 346577716 Code(s): R18.8 - OTHER ASCITES Status: Acute Priority: High Current Visit: Yes Qualifiers: Ascites type: other type Qualified Code(s): R18.8 - Other ascites - Problem List Review Problem List Initiated/Reviewed/Updated: Yes - My Orders Last 24 Hours: My Active Orders 02/03/21 07:19 C-REACTIVE PROTEIN [CHEM] Routine CBC WITH AUTO DIFF [HEME] Routine COMPREHENSIVE METABOLIC PN,CMP [CHEM] Routine MAGNESIUM [CHEM] Routine - Assessment Assessment:: Assessment - Admission date - 01/25/2021 * 35-year-old female who presents with diffuse abdominal pain, nausea, bilious emesis, and bloody diarrhea * History of ctopic in May 2020 with right salpingectomy and uterine fibroids * Reports she has been ill for the past 2 days * Started having watery diarrhea and mild abdominal pain which worsened and became cramping in nature. Her stool eventually became pure blood. * She reports she has been nauseous and essentially dry heaving at this point * Chills but no known fever. * Just returned from a family reunion in the [facility] in [place]. * Family was playing in the local river * Their camper was hooked up to a well in the campground with a charcoal filter installed * Reports there were potluck meals but no known questionable food. * Reports a child with mild but similar symptoms and her [id number] who is d eveloping similar symptoms currently. * Labs are obtained: * WBC 13.12. * Hemoglobin of 13.6. * Hematocrit 40.3. * Platelet 274,000. * Neutrophils are elevated 83.7%. * INR is 0.94. * aPTT is 26.3. * Sodium is 138. * Potassium 3.3. * Chloride 102. * Carbon dioxide 23. * Anion gap is 16.3. * BUN is 7. Creatinine 0.7. GFR greater than 60. * Glucose 123. * Calcium 9.2. * Bilirubin 0.3. * AST 16, ALT 25, alkaline phosphatase 51. * CRP is 8.7. * Albumin 3.3. * Lipase is 60. * hCG qualitative is positive. hCG quantitative is 6881, consistent with 5- week gestation. * SARS-CoV-2 RNA is negative. * Stool ova and parasite, stool culture/Shiga toxin, and stool fecal lactoferrin are collected. * Obstetrics ultrasound: * Small intrauterine gestation with a mean sac diameter of 0.86-5 weeks and 4 days. * Small subchorionic hemorrhage with mild free fluid seen within the pelvis. * Other findings are noted. * She is given azithromycin 500 mg, Zofran, Regalin, and IV push Dilaudid for pain. * Given a 1 L D5LR bolus and started on D5 LR maintenance fluids. * Admitted to the medical floor for management and further work-up of her diarrhea and vomiting. 01/26/2021 35-year-old female admitted for dysentery. Patient continues to have nausea and episodes of bloody diarrhea, although she does report that her pain is slightly improved. Patient reports that family member did test positive for Shiga toxin E. coli. Oddly patient's Shiga toxin here was negative. Cryptosporidium and Giardia was negative. Stool lactoferrin was positive. Stool culture is positive. OB did consult on the patient and recommend follow-up ultrasound in 10 days. Multiple family members have now developed similar symptoms. Contacted Dr. Sosa, infectious disease with [facility] in [place] who recommended we discontinue IV antibiotics and treat the patient like a Shiga toxin pending stool cultures. Dr. Morfin, on-call GI specialist with [facility] in [place] was contacted as well who recommends discontinuation of IV antibiotics, IV fluids, pain control, and time to let this pass. Labs and test results were reviewed. He also recommended scan of the abdomen and pelvis to rule out perforation. Discussed with Dr. Gordon, radiologist regarding risks and benefits of scan and ensuring CT versus MRI was appropriate. Ultimate decision was CT without contrast. Discussed plan with patient, including risks and benefits to developing fetus. Ultimately patient agrees to proceed with scan. CT scan of the abdomen and pelvis is obtained and shows 1. Minimal hiatal hernia. 2. Small gestational sac within the uterus. 3. Prominent bowel wall thickening throughout the colon with diffuse inflammatory change around the colon. Findings are felt compatible with a rather prominent colitis. Etiology of the colitis is uncertain on this exam. 4. Fair amount of free fluid within the pelvis as well as around the liver which is slightly complicated but does not appear to be bloody. 5. Normal appendix is seen. Labs today show elevated WBC of 20.63. Hemoglobin 12.3. Platelet 235,000. Neutrophils are elevated at 83.3%. Sodium is 140. Potassium 3.8. Anion gap is 14.8. BUN is 6. Creatinine 0.7. GFR greater than 60. Glucose is 179. Calcium is 7.4. Magnesium 2.0. Bilirubin 0.2. AST 9, ALT 14, alkaline phosphatase 44. CRP is 14.6. Protein is 5.6. Albumin is 2.1. UA was obtained yesterday and was grossly negative however 3+ ketones and concentrated urine were noted. Vital signs have been stable. We will continue to monitor for signs of HUS. 1 L fluid bolus given today. Patient remains n.p.o. IV fluids remain ordered. We will recheck lactic acid this afternoon and recheck all labs including lactic acid tomorrow. Will await stool culture. Continue current treatment plan. Unknown length of stay. Will be pending resolution of symptoms and advancement of diet. 01/27/2021 35-year-old female admitted for dysentery. Patient has had multiple family members now returned positive for Shiga toxin 2. Patient herself has had a positive stool culture for E. coli 0157, which is a Shiga toxin E. coli. All antibiotics have been stopped. Lactic acid has been within normal limits. Patient has received multiple IV fluid boluses and continues on IV fluids. Diet today was advanced from n.p.o. to clear liquids after discussion with the patient. She reports she is feeling quite a bit better. She is still having bloody stools but much less frequent. There appears to be less blood in her stools as well per patient report. She continues to have occasional dry heaves and nausea but does state that she has a history of morning sickness with pregna ncy. Bowel sounds have been active. Labs today show WBC of 20.37. Hemoglobin 10.7. Hematocrit 32.6. Platelet 196,000. Neutrophils are elevated at 79.7. Sodium is 139. Potassium 3.3. Chloride 105. Carbon dioxide 27. Anion gap is 10.3. BUN is 5. Creatinine 0.5. GFR in 60. Glucose has been in the low 110s. Lactic acid 0.5. Calcium 7.4. Magnesium 1.7. AST is 11, ALT 12, alkaline phosphatase 48. CRP is 20.5. Protein 4.9. Albumin 1.7. We will continue current treatment plan as the patient is feeling better. Clinically she looks more comfortable and greatly improved. Length of stay will be determined by patient tolerating diet and continuing resolution of symptoms. Likely length of stay 2-3 more days. 01/28/2021 35-year-old female admitted for abdominal pain and bloody diarrhea. Found to be E. coli 0157 positive. Patient reports that she is still having some hematochezia however this has improved. She reports approximately 2 stools an hour. She is still having pain although it is better. She reports she has gotten some sleep. Abdomen is somewhat distended however bowel sounds are nice and active today. She continues to tolerate the clear liquid diet but we will hold off on advancing giving continuation of symptoms and no real change in labs. WBC remains elevated 21.57. Hemoglobin 9.8. Platelet 203,000. Neutrophils are elevated 79.7. Sodium is 138. Potassium is 3.2. Chloride 105. Carbon dioxide 25. Anion gap 11.2. BUN is 4. Creatinine 0.4. GFR greater than 60. Lactic acid 0.7. Calcium 7.1. Magnesium 1.9. Bilirubin 0.3. AST is 11, ALT 10, alkaline phosphatase 68. CRP is 21.2. Protein is 4.5. Albumin 1.5. We will continue IV fluids. Potassium will be supplemented with 6 K riders. Clinically she looks better than yesterday and she reports she feels better than yesterday. We will continue current treatment plan. 01/29/2021 35-year-old female admitted to the hospital for abdominal pain and bloody diarrhea who was found to be E. coli 0157+. She was also found to be 5 weeks pr egnant. OBGYN has consulted. Today patient reports that she feels much worse. She is having abdominal pain and bloating. Abdomen is noted to be distended but bowel sounds are active. Patient does report several loose stools an hour. Reports that bleeding has essentially stopped. IV fluids were discontinued last night and these were resumed today. Patient was given 2 500 mL boluses. WBC has increased to 24.67. Hemoglobin 10.0. Platelets are up to 223,000. Neutrophils are 75.1. Sodium is 137. Potassium 3.6. Carbon dioxide is 25. BUN is 3. Creatinine 0.4. GFR greater than 60. Glucose is 94. Lactic acid was obtained yesterday and is 0.7. Calcium is 7.5. Magnesium 1.9. Bilirubin 0.4. AST is 10, ALT 9, alkaline phosphatase 93. CRP is up to 23.9. Protein 4.7. Albumin is 1.4. Dr. Delvalle, attending hospitalist, and to assess patient as well. Overall no major changes. We will resume IV fluids, keep patient on clear liquid diet, and continue to monitor. 01/30/2021 This is a 35-year-old female who was admitted to the floor due to significant watery diarrhea and abdominal pain. She was found to be E. coli 0157+ and Shiga toxin positive. Throughout her stay thus far she has had waxing and waning of her symptoms. Today she reports that her diarrhea has greatly improved and she is no longer having hematochezia, however she continues to have significant bowel pain. She has been up ambulating. She was made n.p.o. this morning while a CT of the abdomen and pelvis with IV and oral contrast was obtained. Prior to obtaining scan discussion was had between Dr. Platt, attending hospitalist and also Dr. Gordon, radiologist. As there are rather significant concerns for possible perforation. Risk versus benefit was discussed with the patient and she ultimately agrees to the scan. CT scan returns showing improved pancolitis but with mildly increased ascites and new bilateral pleural effusions, probably related to the presence of ascites. No intra-abdominal abscess is noted. Patient was on 75 mL an hour of lactated Ringer's will slow this down to 50 cc an hour. Clear liquid diet was resumed. Dr. Bueno, general surgeon, was consulted. Labs obtained today showing improvement in WBC to 19.39. Hemoglobin is 10.2. Platelets are 281,000. Neutrophils are 76.3%. Sodium is 136. Potassium is 3.4 and will be supplemented with potassium riders. Chloride is 102. Carbon dioxide 26. Anion gap is 11.4. BUN is 5. Creatinine 0.5. GFR greater than 60. Glucose is 81. Lactic acid 0.5. Calcium 7.5. Magnesium 2.1. Bilirubin 0.4. AST is 14, ALT 14, alkaline phosphatase 112. CRP is up to 25. Protein is improved to 5.0. Albumin is 1.4. We will continue current treatment plan recheck labs in the morning. No current c oncerns for HUS. 01/31/2021 35-year-old female admitted for abdominal pain and bloody diarrhea stools. She was found to be positive for E. coli 0157+. Has had significant amount of abdominal pain, nausea and vomiting. She states that she did have stool today it was soft and she did not note any blood in it. She however continues to have significant generalized abdominal pain primarily located in the lower quadrants. Has been up ambulating and states she is passing a fair amount of gas. Was on clear liquids yesterday and tolerated that well. Dr. Bueno, general surgeon, was consulted yesterday. Progress note today recommends advancing diet to regular and to discontinue the IV fluids. Labs today reveal a WBC of 16.91, hemoglobin 10.8, hematocrit 31.8, platelet count 284,000, neutrophil percentage 78.1, sodium 134, potassium 3.4, chloride 100, anion gap of 14.4, BUN 5, creatinine 0.5, GFR greater than 60, glucose 83, calcium 7.5, magnesium 2.0, C-reactive protein 18.4, total protein 5.4, albumin 1.5. Continue current treatment and recheck labs in the a.m. Patient does screen out as a septic risk due to elevated white count and tachycardia however I do not believe that she is septic. 02/01/2021 35-year-old female minute for abdominal pain and bloody stools was found to be positive for E. coli 0157. Continues to report significant abdominal pain. She remains distended but this does appear to have improved. She has been tolerating her feeds well. States she has had no bowel movements or flatus today. Potassium is low today and she will be supplemented with 6 potassium riders. She does not tolerate this well through the IV we will put on a minimal amount of IV fluids long enough to get these in. Given her GI situation we will not supplement via p.o. at this time. She continues to urinate. Labs today show quite an improvement: WBC 10.69. Hemoglobin 9.3. Platelet 261,000. Neutrophils 62.2. Sodium 135. Potassium 3.1. Chloride 103. Carbon oxide 24. Anion gap 11.1. BUN 4. Creatinine 0.4. GFR greater than 60. Glucose 90. Lactic acid 0.3. Calcium 7.1. Magnesium 1.9. Total bilirubin 0.4. AST 57, ALT 51, alkaline phosphatase 92. CRP is 10.0. Protein 4.8. Albumin 1.3. Patient does have quite a bit of ascites in her abdomen. It is anticipated that she will auto diuresis although we may need to give Lasix in the next day or 2. We will continue current treatment plan. Patient was on oxycodone 10 mg which she reports made her itchy plan was to switch to [place] however patient states that that made her nauseous and she did vomit several times when she has rec eived this in the past. This was prior to current hospitalization. We will therefore decrease the oxycodone dosing and see how she does. Unknown length of stay as it will depend on when patient can tolerate only p.o. pain medications and her diet. 02/02/2021 This is a 35-year-old female admitted for dysentery who also happens to be 6 weeks . She was positive for E. coli 157 with Shiga toxin. Overall she has been doing much better. She does complain of rather significant abdominal pain. Attempted to go without IV pain meds overnight as her IV had infiltrated and ultimately this needed to be replaced as she required Dilaudid. Today she has been using minimal pain medications. Reports her abdominal pain has improved. No current bloody diarrhea. Nausea and vomiting have improved. She does report significant abdominal pain with ambulation. Labs today show a dramatic improvement with a WBC of 8.51. Hemoglobin 8.8. Platelet 239,000. Neutrophils 60.6%. Sodium 135. Potassium 4.0. BUN 5. Creatinine 0.5. GFR greater than 60. Calcium 7.3. Magnesium 1.9. Bilirubin 0.3. AST is 48, ALT 63, alkaline phosphatase 82. CRP is down to 7.5. Albumin is up to 1.4. Protein is up to 4.9. Given her continued ascites and abdominal distention we w ill give 20 mg IV push Lasix today. We will continue to work on weaning pain medications and monitor labs. Hopeful discharge in 1 to 2 days. 02/03/2021 35-year-old female admitted for E. coli 0157 dysentery. Overall patient continues to improve. WBC is 7.86. Hemoglobin is up to 9.8. Hematocrit 29.9. Platelets are up to 268,000. Neutrophils are 55.9. Smear is normal. Sodium is 136. Potassium 4.0. Chloride 103. Carbon dioxide 25. Anion gap is 12.0. BUN is 4. Creatinine 0.4. GFR greater than 60. Glucose is 95. Calcium 7.8. Magnesium 2.0. Total bilirubin 0.2. AST is down to 43, ALT is down to 61. Alkaline phosphatase is 83. CRP is down to 5.7. Protein is up to 5.7. Albumin up to 1.8. Patient's abdomen does appear much less distended and more soft. Patient does report significant pain with ambulation but pain is controlled while laying in bed. We have been encouraging oral pain medications however patient notes that oxycodone makes her itchy and [place] makes her nauseous. We have been encouraging avoiding IV Dilaudid for pain control and per the patient she has been trying to avoid it is much as she can. From a medical standpoint patient will be ready for discharge once pain is controlled. She continues to rapidly improve. She is been tolerating a regular diet. - Plan Plan:: Nausea and vomiting, resolved Abdominal pain, improved Dysentery, Resolved Bacterial enteritis, unspecified Shiga toxin E. coli 0157 Leukocytosis, Resolved Volume depletion, resolved Fluid overload, improved Ascites * Saline lock IV fluids * Antiemetics as ordered * Pain medications as ordered * Regular diet * Monitor labs * Scopolamine patch (Ok'd with [facility] Dr. Arreguin) * C-diff negative * Enteric isolation * Stool culture/shiga toxin - Negative shiga toxin 1&2 however positive E. Coli 0157 * Stool O&P - negative * Blood cultures negative thus far * As needed simethicone for gas pains * Dr. Bueno, general surgeon consulted Hypokalemia, resolved Hypomagnesemia, resolved * Supplement PRN * Monitor labs First trimester H/O unilateral salpingectomy History of uterine fibroid History of ectopic Subchorionic hemorrhage * Case discussed with Dr. Arreguin, [facility] * Ensure medications appropriate for * Follow-up at 10 weeks * Avoid intercourse until follow-up with [facility] due to subchorionic hemorrhage on OB US Code status: Full Code PCP: None currently DVT prophylaxis: Not indicated Social: Patient resides with significant other on a [place] near [place], [place] [facility] and further work- up of nausea, vomiting, and bloody diarrhea. LOS >96 hrs due to slow response to treatment. Hopeful for discharge in next 1-2 days
[2021-02-03] MEDS ORDERED: traMADol 50 MG Tab PO PRN (12:36)
[2021-02-03] MEDS ORDERED: Furosemide 20 MG/2 ML VIAL IVPUSH ONE (12:45)
[2021-02-03] MEDS: Melatonin 3 MG Tab PO SCH (20:58)
[2021-02-03] MEDS: Acetaminophen 325 MG Tab PO PRN (20:58)
[2021-02-04] MEDS: HYDROmorphone 2 MG Tab PO PRN ×2 (08:58→15:24)
--- NOTE | 2021-02-04 10:13 | PCM.PN ---
- General Info Date of Service: 02/04/21 Admission Dx/Problem (Free Text): Admission Diagnosis/Problem Dysentery Subjective Update: Patient continues to have waxing and waning abdominal pain ultram did not help decreased appetite endorses fatigue Functional Status: Reports: Tolerating Diet - Review of Systems General: Reports: Weakness, Fatigue HEENT: Reports: No Symptoms Pulmonary: Reports: No Symptoms Cardiovascular: Reports: No Symptoms Gastrointestinal: Reports: Abdominal Pain Musculoskeletal: Reports: No Symptoms Skin: Reports: No Symptoms Neurological: Reports: No Symptoms Psychiatric: Reports: No Symptoms - Patient Data Vitals - Most Recent: Last Vital Signs Temp 98.6 F 02/04/21 07:27 Pulse 82 02/04/21 07:27 Resp 16 02/04/21 07:27 BP 98/52 L 02/04/21 07:27 Pulse Ox 93 L 02/04/21 07:27 Weight - Most Recent: 138 lb 1.6 oz I&O - Last 24 Hours: Intake & Output 02/03/21 02/04/21 02/04/21 22:59 06:59 14:59 Intake Total 1680 800 Output Total 1800 1450 Balance -120 -650 Med Orders - Current: Current Medications Acetaminophen (Acetaminophen 325 Mg Tab) 650 mg PO Q4H PRN PRN Reason: Pain (Mild 1-3)/fever Last Admin: 02/03/21 20:58 Dose: 650 mg Documented by: Hydromorphone HCl (Hydromorphone 1 Mg/Ml Syringe) 1 mg IVPUSH Q1H PRN PRN Reason: Pain (severe 7-10) Last Admin: 02/03/21 23:55 Dose: 1 mg Documented by: Hydromorphone HCl (Hydromorphone 2 Mg Tab) 2 mg PO Q3H PRN PRN Reason: Pain (severe 7-10) Last Admin: 02/04/21 08:58 Dose: 2 mg Documented by: Melatonin (Melatonin 3 Mg Tab) 6 mg PO BEDTIME ELIANA Last Admin: 02/03/21 20:58 Dose: 6 mg Documented by: Ondansetron HCl (Ondansetron 4 Mg/2 Ml Sdv) 4 mg IV Q6H PRN PRN Reason: Nausea/Vomiting Last Admin: 01/29/21 11:12 Dose: 4 mg Documented by: Simethicone (Simethicone 80 Mg Tab.Chew) 160 mg PO TID PRN PRN Reason: Bloating/gas Last Admin: 02/04/21 00:00 Dose: 160 mg Documented by: Sodium Chloride (Sodium Chloride 0.9% 10 Ml Syringe) 10 ml FLUSH ONETIME PRN PRN Reason: Keep Vein Open Last Admin: 01/30/21 10:10 Dose: 10 ml Documented by: Tramadol HCl (Tramadol 50 Mg Tab) 50 mg PO Q6H PRN PRN Reason: Pain Last Admin: 02/03/21 13:16 Dose: 50 mg Documented by: Discontinued Medications Hydrocodone Bitart/Acetaminophen (Acetaminophen/Hydrocodone 325-5 Mg Tab) 1 - 2 tab PO Q4H PRN PRN Reason: Pain (moderate 4-6) Diatrizoate Meglum/Diatrizoate Sod (Diatrizoate Meglumine/Diatrizoate Sodium 37% 120 Ml Bottle) 40 ml PO ONETIME ONE Stop: 01/30/21 08:33 Last Admin: 01/30/21 10:10 Dose: 45 ml Documented by: Furosemide (Furosemide 20 Mg/2 Ml Vial) 20 mg IVPUSH ONETIME ONE Stop: 02/02/21 11:36 Last Admin: 02/02/21 11:46 Dose: 20 mg Documented by: Furosemide (Furosemide 20 Mg/2 Ml Vial) 20 mg IVPUSH NOW ONE Stop: 02/03/21 12:46 Last Admin: 02/03/21 13:06 Dose: 20 mg Documented by: Hydromorphone HCl (Hydromorphone 0.5 Mg/0.5 Ml Syringe) 0.5 mg IVPUSH ONETIME ONE Stop: 01/25/21 07:31 Last Admin: 01/25/21 07:41 Dose: 0.5 mg Documented by: Hydromorphone HCl (Hydromorphone 0.5 Mg/0.5 Ml Syringe) 0.5 mg IVPUSH ONETIME ONE Stop: 01/25/21 08:32 Last Admin: 01/25/21 08:30 Dose: 0.5 mg Documented by: Hydromorphone HCl (Hydromorphone 0.5 Mg/0.5 Ml Syringe) 0.5 mg IVPUSH ONETIME ONE Stop: 01/25/21 09:28 Last Admin: 01/25/21 09:30 Dose: 0.5 mg Documented by: Hydromorphone HCl (Hydromorphone 0.5 Mg/0.5 Ml Syringe) 0.5 mg IVPUSH ONETIME ONE Stop: 01/25/21 10:22 Last Admin: 01/25/21 10:30 Dose: 0.5 mg Documented by: Hydromorphone HCl (Hydromorphone 0.5 Mg/0.5 Ml Syringe) 0.5 mg IVPUSH ONETIME ONE Stop: 01/25/21 12:27 Last Admin: 01/25/21 12:33 Dose: 0.5 mg Documented by: Hydromorphone HCl (Hydromorphone 0.5 Mg/0.5 Ml Syringe) 0.5 mg IVPUSH Q2H PRN PRN Reason: Pain (severe 7-10) Last Admin: 01/25/21 13:52 Dose: 0.5 mg Documented by: Hydromorphone HCl (Hydromorphone 1 Mg/Ml Syringe) 1 mg IVPUSH Q2H PRN PRN Reason: Pain (severe 7-10) Dextrose/Sodium Chloride (Dextrose 5%-Normal Saline) 1,000 mls @ 999 mls[facility] Last Admin: 01/25/21 07:43 Dose: 999 mls/hr Documented by: Metronidazole 500 mg/ Premix 100 mls @ 100 mls/hr IV ONETIME ONE Stop: 01/25/21 09:24 Last Admin: 01/25/21 08:42 Dose: Not Given Documented by: Azithromycin 500 mg/ Sodium (Chloride) 250 mls @ 250 mls/hr IV ONETIME ONE Stop: 01/25/21 10:27 Last Admin: 01/25/21 09:41 Dose: 250 mls/hr Documented by: Dextrose/Lactated Ringer's (Dextrose 5%-Lactated Ringers) 1,000 mls @ 125 mls/hr IV ASDIRECTED REPLACED BY [facility] Last Admin: 01/28/21 11:37 Dose: 125 mls/hr Documented by: Piperacillin Sod/Tazobactam (Sod 4.5 gm/ Sodium Chloride) 100 mls @ 25 mls/hr IV Q8H REPLACED BY [facility] Last Admin: 01/26/21 05:04 Dose: 25 mls/hr Documented by: Piperacillin Sod/Tazobactam (Sod 4.5 gm/ Sodium Chloride) 100 mls @ 200 mls/hr IV ONETIME ONE Stop: 01/25/21 13:29 Last Admin: 01/25/21 13:55 Dose: 200 mls/hr Documented by: Magnesium Sulfate 2 gm/ Premix 50 mls @ 25 mls/hr IV ONETIME ONE Stop: 01/25/21 15:29 Last Admin: 01/25/21 14:31 Dose: 25 mls/hr Documented by: Potassium Chloride 10 meq/ (Premix) 100 mls @ 100 mls/hr IV Q1H REPLACED BY [facility] Stop: 01/25/21 17:29 Last Admin: 01/25/21 18:38 Dose: 100 mls/hr Documented by: Lactated Ringer's (Ringers, Lactated) 1,000 mls @ 999 mls/hr IV ONETIME ONE Stop: 01/26/21 09:18 Last Admin: 01/26/21 08:44 Dose: 999 mls/hr Documented by: Lactated Ringer's (Ringers, Lactated) 500 mls @ 999 mls/hr IV .BOLUS ONE Stop: 01/27/21 07:12 Last Admin: 01/27/21 07:07 Dose: 999 mls/hr Documented by: Magnesium Sulfate 4 gm/ Premix 50 mls @ 12.5 mls/hr IV ONETIME ONE Stop: 01/27/21 12:52 Last Admin: 01/27/21 09:31 Dose: 12.5 mls/hr Documented by: Potassium Chloride 10 meq/ (Premix) 100 mls @ 100 mls/hr IV Q1H REPLACED BY [facility] Stop: 01/27/21 12:59 Last Admin: 01/27/21 14:46 Dose: 100 mls/hr Documented by: Lactated Ringer's (Ringers, Lactated) 500 mls @ 999 mls/hr IV .BOLUS ONE Stop: 01/27/21 09:36 Last Admin: 01/27/21 09:30 Dose: 999 mls/hr Documented by: Potassium Chloride 10 meq/ (Premix) 100 mls @ 100 mls/hr IV Q1H REPLACED BY [facility] Stop: 01/28/21 15:29 Last Admin: 01/28/21 16:42 Dose: 100 mls/hr Documented by: Lactated Ringer's (Ringers, Lactated) 500 mls @ 999 mls/hr IV .BOLUS ONE Stop: 01/29/21 11:58 Last Admin: 01/29/21 11:57 Dose: 999 mls/hr Documented by: Lactated Ringer's (Ringers, Lactated) 1,000 mls @ 75 mls/hr IV ASDIRECTED REPLACED BY [facility] Last Admin: 01/30/21 11:26 Dose: 75 mls/hr Documented by: Lactated Ringer's (Ringers, Lactated) 500 mls @ 999 mls/hr IV .BOLUS ONE Stop: 01/29/21 13:45 Last Admin: 01/29/21 13:36 Dose: 999 mls/hr Documented by: Potassium Chloride 10 meq/ (Premix) 100 mls @ 100 mls/hr IV Q1H REPLACED BY [facility] Stop: 01/30/21 11:29 Last Admin: 01/30/21 12:45 Dose: 100 mls/hr Documented by: Lactated Ringer's (Ringers, Lactated) 1,000 mls @ 50 mls/hr IV ASDIRECTED REPLACED BY [facility] Last Admin: 01/31/21 05:39 Dose: 50 mls/hr Documented by: Potassium Chloride 10 meq/ (Premix) 100 mls @ 100 mls/hr IV Q1H REPLACED BY [facility] Stop: 02/01/21 13:14 Last Admin: 02/01/21 16:59 Dose: Not Given Documented by: Sodium Chloride (Normal Saline) 1,000 mls @ 25 mls/hr IV ASDIRECTED REPLACED BY [facility] Last Admin: 02/01/21 09:44 Dose: 25 mls/hr Documented by: Iopamidol (Iopamidol 612 Mg/Ml 100 Ml Bottle) 100 ml IVPUSH ONETIME ONE Stop: 01/30/21 08:33 Last Admin: 01/30/21 10:10 Dose: 100 ml Documented by: Loperamide HCl (Loperamide 2 Mg Cap) 2 mg PO ONETIME ONE Stop: 01/25/21 12:27 Last Admin: 01/25/21 12:31 Dose: 2 mg Documented by: Metoclopramide HCl (Metoclopramide 10 Mg/2 Ml Sdv) 7.5 mg IVPUSH ONETIME ONE Stop: 01/25/21 07:30 Last Admin: 01/25/21 07:39 Dose: 7.5 mg Documented by: Miscellaneous Information (Remove Replace Scopolamine Patch) 1 ea TRDERM Q72H REPLACED BY [facility] Last Admin: 01/31/21 16:57 Dose: 1 ea Documented by: Miscellaneous Information (Remove Patch) 0 ea TRDERM ONETIME ONE Stop: 02/01/21 17:31 Last Admin: 02/01/21 18:29 Dose: Not Given Documented by: Oxycodone HCl (Oxycodone 5 Mg Tab) 10 mg PO Q4H PRN PRN Reason: Pain (moderate 4-6) Oxycodone HCl (Oxycodone 5 Mg Tab) 5 mg PO Q4H PRN PRN Reason: Pain (moderate 4-6) Last Admin: 01/26/21 01:50 Dose: 5 mg Documented by: Oxycodone HCl (Oxycodone 5 Mg Tab) 10 mg PO Q4H PRN PRN Reason: Pain (moderate 4-6) Oxycodone HCl (Oxycodone 5 Mg Tab) 5 mg PO Q4H PRN PRN Reason: Pain (moderate 4-6) Last Admin: 02/01/21 21:40 Dose: 5 mg Documented by: Potassium Chloride (Potassium Chloride 20 Meq Tab.Er) 40 meq PO BID REPLACED BY [facility] Stop: 02/02/21 09:01 Potassium Chloride (Potassium Chloride 20 Meq Tab.Er) 40 meq PO BID@0700,1100 REPLACED BY [facility] Stop: 02/02/21 11:01 Last Admin: 02/02/21 10:43 Dose: 40 meq Documented by: Scopolamine (Scopolamine 1.5 Mg Transdermal Patch) 1.5 mg TRDERM Q72H REPLACED BY [facility] Last Admin: 01/31/21 16:57 Dose: 1.5 mg Documented by: - Exam General: Alert, Oriented HEENT: EOMI, Mucous Membr. Moist/[place] Neck: Supple Lungs: Clear to Auscultation Cardiovascular: Regular Rate, Regular Rhythm GI/Abdominal Exam: Normal Bowel Sounds, Soft, No Organomegaly, Tender Extremities: Normal Inspection Skin: Warm, Dry, Intact Neurological: No New Focal Deficit Psy/Mental Status: Alert, Normal Affect - Patient Data Result Diagrams: 02/03/21 08:02 02/03/21 08:02 Sepsis Event Note - Evaluation Sepsis Screening Result: Possible Sepsis Risk - Focused Exam Vital Signs: Vital Signs Temp Pulse Resp BP Pulse Ox 02/04/21 07:27 98.6 F 82 16 98/52 L 93 L 02/04/21 04:57 98.4 F 87 14 104/55 L 94 L 02/03/21 23:23 78 98/61 95 02/03/21 23:22 98.8 F 76 16 95 - Problem List Review Problem List Initiated/Reviewed/Updated: Yes - My Orders Last 24 Hours: My Active Orders 02/04/21 08:25 HYDROmorphone [Dilaudid] 2 mg PO Q3H PRN - Assessment Assessment:: Assessment - Admission date - 01/25/2021 * 35-year-old female who presents with diffuse abdominal pain, nausea, bilious emesis, and bloody diarrhea * History of ctopic in May 2020 with right salpingectomy and uterine fibroids * Reports she has been ill for the past 2 days * Started having watery diarrhea and mild abdominal pain which worsened and became cramping in nature. Her stool eventually became pure blood. * She reports she has been nauseous and essentially dry heaving at this point * Chills but no known fever. * Just returned from a family reunion in the [facility] in [place]. * Family was playing in the local river * Their camper was hooked up to a well in the campground with a charcoal filter installed * Reports there were potluck meals but no known questionable food. * Reports a child with mild but similar symptoms and her [id number] who is developing similar symptoms currently. * Labs are obtained: * WBC 13.12. * Hemoglobin of 13.6. * Hematocrit 40.3. * Platelet 274,000. * Neutrophils are elevated 83.7%. * INR is 0.94. * aPTT is 26.3. * Sodium is 138. * Potassium 3.3. * Chloride 102. * Carbon dioxide 23. * Anion gap is 16.3. * BUN is 7. Creatinine 0.7. GFR greater than 60. * Glucose 123. * Calcium 9.2. * Bilirubin 0.3. * AST 16, ALT 25, alkaline phosphatase 51. * CRP is 8.7. * Albumin 3.3. * Lipase is 60. * hCG qualitative is positive. hCG quantitative is 6881, consistent with 5-week gestation. * SARS-CoV-2 RNA is negative. * Stool ova and parasite, stool culture/Shiga toxin, and stool fecal lactoferrin are collected. * Obstetrics ultrasound: * Small intrauterine gestation with a mean sac diameter of 0.86-5 weeks and 4 days. * Small subchorionic hemorrhage with mild free fluid seen within the pelvis. * Other findings are noted. * She is given azithromycin 500 mg, Zofran, Regalin, and IV push Dilaudid for pain. * Given a 1 L D5LR bolus and started on D5 LR maintenance fluids. * Admitted to the medical floor for management and further work-up of her diarrhea and vomiting. 01/26/2021 35-year-old female admitted for dysentery. Patient continues to have nausea and episodes of bloody diarrhea, although she does report that her pain is slightly improved. Patient reports that family member did test positive for Shiga toxin E. coli. Oddly patient's Shiga toxin here was negative. Cryptosporidium and Giardia was negative. Stool lactoferrin was positive. Stool culture is positive. OB did consult on the patient and recommend follow-up ultrasound in 10 days. Multiple family members have now developed similar symptoms. Contacted Dr. Sosa, infectious disease with [facility] in [place] who recommended we discontinue IV antibiotics and treat the patient like a Shiga toxin pending stool cultures. Dr. Morfin, on-call GI specialist with [facility] in [place] was contacted as well who recommends discontinuation of IV antibiotics, IV fluids, pain control, and time to let this pass. Labs and test results were reviewed. He also recommended scan of the abdomen and pelvis to rule out perforation. Discussed with Dr. Gordon, radiologist regarding risks and benefits of scan and ensuring CT versus MRI was appropriate. Ultimate decision was CT without contrast. Discussed plan with patient, including risks and benefits to developing fetus. Ultimately patient agrees to proceed with scan. CT scan of the abdomen and pelvis is obtained and shows 1. Minimal hiatal hernia. 2. Small gestational sac within the uterus. 3. Prominent bowel wall thickening throughout the colon with diffuse inflammatory change around the colon. Findings are felt compatible with a rather prominent colitis. Etiology of the colitis is uncertain on this exam. 4. Fair amount of free fluid within the pelvis as well as around the liver which is slightly complicated but does not appear to be bloody. 5. Normal appendix is seen. Labs today show elevated WBC of 20.63. Hemoglobin 12.3. Platelet 235,000. Neutrop hils are elevated at 83.3%. Sodium is 140. Potassium 3.8. Anion gap is 14.8. BUN is 6. Creatinine 0.7. GFR greater than 60. Glucose is 179. Calcium is 7.4. Magnesium 2.0. Bilirubin 0.2. AST 9, ALT 14, alkaline phosphatase 44. CRP is 14.6. Protein is 5.6. Albumin is 2.1. UA was obtained yesterday and was grossly negative however 3+ ketones and concentrated urine were noted. Vital signs have been stable. We will continue to monitor for signs of HUS. 1 L fluid bolus given today. Patient remains n.p.o. IV fluids remain ordered. We will recheck lactic acid this afternoon and recheck all labs including lactic acid tomorrow. Will await stool culture. Continue current treatment plan. Unknown length of stay. Will be pending resolution of symptoms and advancement of diet. 01/27/2021 35-year-old female admitted for dysentery. Patient has had multiple family members now returned positive for Shiga toxin 2. Patient herself has had a positive stool culture for E. coli 0157, which is a Shiga toxin E. coli. All antibiotics have been stopped. Lactic acid has been within normal limits. Patient has received multiple IV fluid boluses and continues on IV fluids. Diet today was advanced from n.p.o. to clear liquids after discussion with the patient. She reports she is feeling quite a bit better. She is still having bloody stools but much less frequent. There appears to be less blood in her stools as well per patient report. She continues to have occasional dry heaves and nausea but does state that she has a history of morning sickness with . Bowel sounds have been active. Labs today show WBC of 20.37. Hemoglobin 10.7. Hematocrit 32.6. Platelet 196,000. Neutrophils are elevated at 79.7. Sodium is 139. Potassium 3.3. Chloride 105. Carbon dioxide 27. Anion gap is 10.3. BUN is 5. Creatinine 0.5. GFR in 60. Glucose has been in the low 110s. Lactic acid 0.5. Calcium 7.4. Magnesium 1.7. AST is 11, ALT 12, alkaline phosphatase 48. CRP is 20.5. Protein 4.9. Albumin 1.7. We will continue current treatment plan as the patient is feeling better. Clinically she looks more comfortable and greatly improved. Length of stay will be determined by patient tolerating diet and continuing resolution of symptoms. Shawanda dave length of stay 2-3 more days. 01/28/2021 35-year-old female admitted for abdominal pain and bloody diarrhea. Found to be E. coli 0157 positive. Patient reports that she is still having some hematochezia however this has improved. She reports approximately 2 stools an hour. She is still having pain although it is better. She reports she has gotten some sleep. Abdomen is somewhat distended however bowel sounds are nice and active today. She continues to tolerate the clear liquid diet but we will hold off on advancing giving continuation of symptoms and no real change in labs. WBC remains elevated 21.57. Hemoglobin 9.8. Platelet 203,000. Neutrophils are elevated 79.7. Sodium is 138. Potassium is 3.2. Chloride 105. Carbon dioxide 25. Anion gap 11.2. BUN is 4. Creatinine 0.4. GFR greater than 60. Lactic acid 0.7. Calcium 7.1. Magnesium 1.9. Bilirubin 0.3. AST is 11, ALT 10, alkaline phosphatase 68. CRP is 21.2. Protein is 4.5. Albumin 1.5. We will continue IV fluids. Potassium will be supplemented with 6 K riders. Clinically she looks better than yesterday and she reports she feels better than yesterday. We will continue current treatment plan. 01/29/2021 35-year-old female admitted to the hospital for abdominal pain and bloody diarrhea who was found to be E. coli 0157+. She was also found to be 5 weeks . OBGYN has consulted. Today patient reports that she feels much worse. She is having abdominal pain and bloating. Abdomen is noted to be distended but bowel sounds are active. Patient does report several loose stools an hour. Reports that bleeding has essentially stopped. IV fluids were discontinued last night and these were resumed today. Patient was given 2 500 mL boluses. WBC has increased to 24.67. Hemoglobin 10.0. Platelets are up to 223,000. Neutrophils are 75.1. Sodium is 137. Potassium 3.6. Carbon dioxide is 25. BUN is 3. Creatinine 0.4. GFR greater than 60. Glucose is 94. Lactic acid was obtained yesterday and is 0.7. Calcium is 7.5. Magnesium 1.9. Bilirubin 0.4. AST is 10, ALT 9, alkaline phosphatase 93. CRP is up to 23.9. Protein 4.7. Albumin is 1.4. Dr. Delvalle, attending hospitalist, and to assess patient as well. Overall no major changes. We will resume IV fluids, keep patient on clear liquid diet, and continue to monitor. 01/30/2021 This is a 35-year-old female who was admitted to the floor due to significant watery diarrhea and abdominal pain. She was found to be E. coli 0157+ and Shiga toxin positive. Throughout her stay thus far she has had waxing and waning of her symptoms. Today she reports that her diarrhea has greatly improved and she is no longer having hematochezia, however she continues to have significant bowel pain. She has been up ambulating. She was made n.p.o. this morning while a CT of the abdomen and pelvis with IV and oral contrast was obtained. Prior to obtaining scan discussion was had between Dr. Platt, attending hospitalist and also Dr. Gordon, radiologist. As there are rather significant concerns for possible perforation. Risk versus benefit was discussed with the patient and she ultimately agrees to the scan. CT scan returns showing improved pancolitis but with mildly increased ascites and new bilateral pleural effusions, probably related to the presence of ascites. No intra-abdominal abscess is noted. Patient was on 75 mL an hour of lactated Ringer's will slow this down to 50 cc an hour. Clear liquid diet was resumed. Dr. Bueno, general surgeon, was consulted. Labs obtained today showing improvement in WBC to 19.39. Hemoglobin is 10.2. Platelets are 281,000. Neutrophils are 76.3%. Sodium is 136. Potassium is 3.4 and will be supplemented with potassium riders. Chloride is 102. Carbon dioxide 26. Anion gap is 11.4. BUN is 5. Crea tinine 0.5. GFR greater than 60. Glucose is 81. Lactic acid 0.5. Calcium 7.5. Magnesium 2.1. Bilirubin 0.4. AST is 14, ALT 14, alkaline phosphatase 112. CRP is up to 25. Protein is improved to 5.0. Albumin is 1.4. We will continue current treatment plan recheck labs in the morning. No current concerns for HUS. 01/31/2021 35-year-old female admitted for abdominal pain and bloody diarrhea stools. She was found to be positive for E. coli 0157+. Has had significant amount of abdominal pain, nausea and vomiting. She states that she did have stool today it was soft and she did not note any blood in it. She however continues to have significant generalized abdominal pain primarily located in the lower quadrants. Has been up ambulating and states she is passing a fair amount of gas. Was on clear liquids yesterday and tolerated that well. Dr. Bueno, general surgeon, was consulted yesterday. Progress note today recommends adv ancing diet to regular and to discontinue the IV fluids. Labs today reveal a WBC of 16.91, hemoglobin 10.8, hematocrit 31.8, platelet count 284,000, neutrophil percentage 78.1, sodium 134, potassium 3.4, chloride 100, anion gap of 14.4, BUN 5, creatinine 0.5, GFR greater than 60, glucose 83, calcium 7.5, magnesium 2.0, C-reactive protein 18.4, total protein 5.4, albumin 1.5. Continue current treatment and recheck labs in the a.m. Patient does screen out as a septic risk due to elevated white count and tachycardia however I do not believe that she is septic. 02/01/2021 35-year-old female minute for abdominal pain and bloody stools was found to be positive for E. coli 0157. Continues to report significant abdominal pain. She remains distended but this does appear to have improved. She has been tolerating her feeds well. States she has had no bowel movements or flatus today. Potassium is low today and she will be supplemented with 6 potassium riders. She does not tolerate this well through the IV we will put on a minimal amount of IV fluids long enough to get these in. Given her GI situation we will not supplement via p.o. at this time. She continues to urinate. Labs today show quite an improvement: WBC 10.69. Hemoglobin 9.3. Platelet 261,000. Neutrophils 62.2. Sodium 135. Potassium 3.1. Chloride 103. Carbon oxide 24. Anion gap 11.1. BUN 4. Creatinine 0.4. GFR greater than 60. Glucose 90. Lactic acid 0.3. Calcium 7.1. Magnesium 1.9. Total bilirubin 0.4. AST 57, ALT 51, alkaline phosphatase 92. CRP is 10.0. Protein 4.8. Albumin 1.3. Patient does have quite a bit of ascites in her abdomen. It is anticipated that she will auto diuresis although we may need to give Lasix in the next day or 2. We will continue current treatment plan. Patient was on oxycodone 10 mg which she reports made her itchy plan was to switch to Rives however patient states that that made her nauseous and she did vomit several times when she has received this in the past. This was prior to current hospitalization. We will therefore decrease the oxycodone dosing and see how she does. Unknown length of stay as it will depend on when patient can tolerate only p.o. pain medications and her diet. 02/02/2021 This is a 35-year-old female admitted for dysentery who also happens to be 6 weeks . She was positive for E. coli 157 with Shiga toxin. Overall she has been doing much better. She does complain of rather significant abdominal pain. Attempted to go without IV pain meds overnight as her IV had infiltrated and ultimately this needed to be replaced as she required Dilaudid. Today she has been using minimal pain medications. Reports her abdominal pain has improved. No current bloody diarrhea. Nausea and vomiting have improved. She does report significant abdominal pain with ambulation. Labs today show a dramatic improvement with a WBC of 8.51. Hemoglobin 8.8. Platelet 239,000. Neutrophils 60.6%. Sodium 135. Potassium 4.0. BUN 5. Creatinine 0.5. GFR greater than 60. Calcium 7.3. Magnesium 1.9. Bilirubin 0.3. AST is 48, ALT 63, alkaline phosphatase 82. CRP is down to 7.5. Albumin is up to 1.4. Protein is up to 4.9. Given her continued ascites and abdominal distention we will give 20 mg IV push Lasix today. We will continue to work on weaning pain medications and monitor labs. Hopeful discharge in 1 to 2 days. 02/03/2021 35-year-old female admitted for E. coli 0157 dysentery. Overall patient continues to improve. WBC is 7.86. Hemoglobin is up to 9.8. Hematocrit 29.9. Platelets are up to 268,000. Neutrophils are 55.9. Smear is normal. Sodium is 136. Potassium 4.0. Chloride 103. Carbon dioxide 25. Anion gap is 12.0. BUN is 4. Creatinine 0.4. GFR greater than 60. Glucose is 95. Calcium 7.8. Magnesium 2.0. Total bilirubin 0.2. AST is down to 43, ALT is down to 61. Alkaline phosphatase is 83. CRP is down to 5.7. Protein is up to 5.7. Albumin up to 1.8. Patient's abdomen does appear much less distended and more soft. Patient does report significant pain with ambulation but pain is controlled while laying in bed. We have been encouraging oral pain medications however patient notes that oxycodone makes her itchy and Rives makes her nauseous. We have been encouraging avoiding IV Dilaudid for pain control and per the patient she has been trying to avoid it is much as she can. From a medical standpoint patient will be ready for discharge once pain is controlled. She continues to rapidly improve. She is been tolerating a regular diet. - Plan Plan:: Nausea and vomiting, resolved Abdominal pain, improved Dysentery, Resolved Bacterial enteritis, unspecified Shiga toxin E. coli 0157 Leukocytosis, Resolved Volume depletion, resolved Fluid overload, improved Ascites * Saline lock IV fluids * Antiemetics as ordered * Pain medications as ordered * Regular diet * Monitor labs * Scopolamine patch (Ok'd with SERVICE DELIVERY DIRECTOR Dr. Arreguin) * C-diff negative * Enteric isolation * Stool culture/shiga toxin - Negative shiga toxin 1&2 however positive E. Coli 0157 * Stool O&P - negative * Blood cultures negative thus far * As needed simethicone for gas pains * Dr. Bueno, general surgeon consulted Start Oral dilaudid; dc ultram; hold off on additional lasix for today Hypokalemia, resolved Hypomagnesemia, resolved * Supplement PRN * Monitor labs First trimester H/O unilateral salpingectomy History of uterine fibroid History of ectopic Subchorionic hemorrhage * Case discussed with Dr. Arreguin, SERVICE DELIVERY DIRECTOR * Ensure medications appropriate for * Follow-up at 10 weeks * Avoid intercourse until follow-up with SERVICE DELIVERY DIRECTOR due to subchorionic hemorrhage on OB US Code status: Full Code PCP: None currently DVT prophylaxis: Not indicated Social: Patient [place] with significant other [place] near [place], [place] Disposition: Patient admitted to [facility] floor for management and further work- up of nausea, vomiting, and bloody diarrhea. LOS >96 hrs due to slow response to treatment. Hopeful for discharge in next 1-2 days
[2021-02-04] MEDS: Simethicone 80 MG Tab.Chew PO PRN ×2 (10:32)
[2021-02-04] MEDS: Acetaminophen 325 MG Tab PO PRN (12:22)
[2021-02-04] MEDS ORDERED: Scopolamine 1.5 MG Transdermal Patch TRDERM PRN (15:30)
[2021-02-04] MEDS: Melatonin 3 MG Tab PO SCH (20:28)
[2021-02-04] MEDS ORDERED: HYDROmorphone 2 MG Tab PO SCH ×2 (21:00)
[2021-02-05] MEDS: HYDROmorphone 2 MG Tab PO PRN ×3 (01:40→09:00)
[2021-02-05] MEDS: Simethicone 80 MG Tab.Chew PO PRN (09:00)
--- NOTE | 2021-02-05 09:01 | PCM.DCSUM1 ---
Discharge Summary - Hospital Course Free Text/Narrative:: MORAIMA Initial Comments - Free Text/Narative: This is a 35-year-old female who presents to ED on 01-25-2021 with diffuse abdominal pain, nausea, bilious emesis, and bloody diarrhea. She reports she has been ill for the past 2 days. She reports she started having watery diarrhea and mild abdominal pain which worsened and became cramping in nature. Her stool eventually became pure blood. She reports she has been nauseous and essentially dry heaving at this point. Reports chills but no known fever. Patient states they were at a family [place] in the [facility] [place]. She states family was playing in the local river. Their camper was hooked up to a well in the campground with a charcoal filter installed. She reports there were potluck meals but no known questionable food. She reports a child with mild but similar symptoms and her [id number] who is developing similar symptoms currently. In the ED temperature was 36.3 Celsius. Pulse 83. Respirations 20. Blood pressure 107/71. Pulse ox 100% on room air. Labs are obtained showing a leukocytosis of 13.12. Hemoglobin of 13.6. Hematocrit 40.3. Platelet 274,000. Neutrophils are elevated 83.7%. INR is 0.94. aPTT is 26.3. Sodium is 138. Potassium 3.3. Chloride 102. Carbon dioxide 23. Anion gap is 16.3. BUN is 7. Creatinine 0.7. GFR greater than 60. Glucose 123. Calcium 9.2. Bilirubin 0.3. AST 16, ALT 25, alkaline phosphatase 51. CRP is 8.7. Albumin 3.3. Lipase is 60. hCG qualitative is positive. hCG quantitative is 6881, consistent with 5-week gestation. SARS-CoV-2 RNA is negative. Stool ova and parasite, stool culture/Shiga toxin, and stool fecal lactoferrin are collected. Obstetrics ultrasound is obtained showing a small intrauterine gestation with a mean sac diameter of 0.86-5 weeks and 4 days. There is also a small subchorionic hemorrhage with mild free fluid seen within the pelvis. Other findings are noted. She is given azithromycin 500 mg, Zofran, Reglan and IV push Dilaudid for pain. She is given a 1 L D5LR bolus and started on D5 LR maintenance fluids. She is subsequently admitted to the medical floor for management and further work-up of her diarrhea and vomiting. She carries a history of ectopic in May 2020 with right salpingectomy and uterine fibroids. She is a full code. She does not have a PCP. HOSPITAL SUMMARY Assessment - Admission date - 01/25/2021 * 35-year-old female who presents with diffuse abdominal pain, nausea, bilious emesis, and bloody diarrhea * History of ctopic in May 2020 with right salpingectomy and uterine fibroids * Reports she has been ill for the past 2 days * Started having watery diarrhea and mild abdominal pain which worsened and became cramping in nature. Her stool eventually became pure blood. * She reports she has been nauseous and essentially dry heaving at this point * Chills but no known fever. * Just returned from a family reunion in the [facility] in [place]. * Family was playing in the local river * Their camper was hooked up to a well in the campground with a charcoal filter installed * Reports there were potluck meals but no known questionable food. * Reports a child with mild but similar symptoms and her [id number]-[id number] who is developing similar symptoms currently. * Labs are obtained: * WBC 13.12. * Hemoglobin of 13.6. * Hematocrit 40.3. * Platelet 274,000. * Neutrophils are elevated 83.7%. * INR is 0.94. * aPTT is 26.3. * Sodium is 138. * Potassium 3.3. * Chloride 102. * Carbon dioxide 23. * Anion gap is 16.3. * BUN is 7. Creatinine 0.7. GFR greater than 60. * Glucose 123. * Calcium 9.2. * Bilirubin 0.3. * AST 16, ALT 25, alkaline phosphatase 51. * CRP is 8.7. * Albumin 3.3. * Lipase is 60. * hCG qualitative is positive. hCG quantitative is 6881, consistent with 5- week gestation. * SARS-CoV-2 RNA is negative. * Stool ova and parasite, stool culture/Shiga toxin, and stool fecal lactoferrin are collected. * Obstetrics ultrasound: * Small intrauterine gestation with a mean sac diameter of 0.86-5 weeks and 4 days. * Small subchorionic hemorrhage with mild free fluid seen within the pelvis. * Other findings are noted. * She is given azithromycin 500 mg, Zofran, Regalin, and IV push Dilaudid for pain. * Given a 1 L D5LR bolus and started on D5 LR maintenance fluids. * Admitted to the medical floor for management and further work-up of her diarrhea and vomiting. 01/26/2021 35-year-old female admitted for dysentery. Patient continues to have nausea and episodes of bloody diarrhea, although she does report that her pain is slightly improved. Patient reports that family member did test positive for Shiga toxin E. coli. Oddly patient's Shiga toxin here was negative. Cryptosporidium and Giardia was negative. Stool lactoferrin was positive. Stool culture is positive. OB did consult on the patient and recommend follow-up ultrasound in 10 days. Multiple family members have now developed similar symptoms. Contacted Dr. Sosa, infectious disease with [facility] in [place] who recommended we discontinue IV antibiotics and treat the patient like a Shiga toxin pending stool cultures. Dr. Morfin, on-call GI specialist with [facility] in [place] was contacted as well who recommends discontinuation of IV antibiotics, IV fluids, pain control, and time to let this pass. Labs and test results were reviewed. He also recommended scan of the abdomen and pelvis to rule out perforation. Discussed with Dr. Gordon, radiologist regarding risks and benefits of scan and ensuring CT versus MRI was appropriate. Ultimate decision was CT without contrast. Discussed plan with patient, including risks and benefits to developing fetus. Ultimately patient agrees to proceed with scan. CT scan of the abdomen and pelvis is obtained and shows 1. Minimal hiatal hernia. 2. Small gestational sac within the uterus. 3. Prominent bowel wall thickening throughout the colon with diffuse inflammatory change around the colon. Findings are felt compatible with a rather prominent colitis. Etiology of the colitis is uncertain on this exam. 4. Fair amount of free fluid within the pelvis as well as around the liver which is slightly complicated but does not appear to be bloody. 5. Normal appendix is seen. Labs today show elevated WBC of 20.63. Hemoglobin 12.3. Platelet 235,000. Neutrophils are elevated at 83.3%. Sodium is 140. Potassium 3.8. Anion gap is 14.8. BUN is 6. Creatinine 0.7. GFR greater than 60. Glucose is 179. Calcium is 7.4. Magnesium 2.0. Bilirubin 0.2. AST 9, ALT 14, alkaline phosphatase 44. CRP is 14.6. Protein is 5.6. Albumin is 2.1. UA was obtained yesterday and was grossly negative however 3+ ketones and concentrated urine were noted. Vital signs have been stable. We will continue to monitor for signs of HUS. 1 L fluid bolus given today. Patient remains n.p.o. IV fluids remain ordered. We will recheck lactic acid this afternoon and recheck all labs including lactic acid tomorrow. Will await stool culture. Continue current treatment plan. Unknown length of stay. Will be pending resolution of symptoms and advancement of diet. 01/27/2021 35-year-old female admitted for dysentery. Patient has had multiple family members now returned positive for Shiga toxin 2. Patient herself has had a positive stool culture for E. coli 0157, which is a Shiga toxin E. coli. All antibiotics have been stopped. Lactic acid has been within normal limits. Patient has received multiple IV fluid boluses and continues on IV fluids. Diet today was advanced from n.p.o. to clear liquids after discussion with the patient. She reports she is feeling quite a bit better. She is still having bloody stools but much less frequent. There appears to be less blood in her stools as well per patient report. She continues to have occasional dry heaves and nausea but does state that she has a history of morning sickness with . Bowel sounds have been active. Labs today show WBC of 20.37. Hemoglobin 10.7. Hematocrit 32.6. Platelet 196,000. Neutrophils are elevated at 79.7. Sodium is 139. Potassium 3.3. Chloride 105. Carbon dioxide 27. Anion gap is 10.3. BUN is 5. Creatinine 0.5. GFR in 60. Glucose has been in the low 110s. Lactic acid 0.5. Calcium 7.4. Magnesium 1.7. AST is 11, ALT 12, alkaline phosphatase 48. CRP is 20.5. Protein 4.9. Albumin 1.7. We will continue current treatment plan as the patient is feeling better. Clinically she looks more comfortable and greatly improved. Length of stay will be determined by patient tolerating diet and continuing resolution of symptoms. Likely length of stay 2-3 more days. 01/28/2021 35-year-old female admitted for abdominal pain and bloody diarrhea. Found to be E. coli 0157 positive. Patient reports that she is still having some hematochezia however this has improved. She reports approximately 2 stools an hour. She is still having pain although it is better. She reports she has gotten some sleep. Abdomen is somewhat distended however bowel sounds are nice and active today. She continues to tolerate the clear liquid diet but we will hold off on advancing giving continuation of symptoms and no real change in labs. WBC remains elevated 21.57. Hemoglobin 9.8. Platelet 203,000. Neutrophils are elevated 79.7. Sodium is 138. Potassium is 3.2. Chloride 105. Carbon dioxide 25. Anion gap 11.2. BUN is 4. Creatinine 0.4. GFR greater than 60. Lactic acid 0.7. Calcium 7.1. Magnesium 1.9. Bilirubin 0.3. AST is 11, ALT 10, alkaline phosphatase 68. CRP is 21.2. Protein is 4.5. Albumin 1.5. We will continue IV fluids. Potassium will be supplemented with 6 K riders. Clinically she looks better than yesterday and she reports she feels better than yesterday. We will continue current treatment plan. 01/29/2021 35-year-old female admitted to the hospital for abdominal pain and bloody diarrhea who was found to be E. coli 0157+. She was also found to be 5 weeks . OBGYN has consulted. Today patient reports that she feels much worse. She is having abdominal pain and bloating. Abdomen is noted to be distended but bowel sounds are active. Patient does report several loose stools an hour. Reports that bleeding has essentially stopped. IV fluids were discontinued last night and these were resumed today. Patient was given 2 500 mL boluses. WBC has increased to 24.67. Hemoglobin 10.0. Platelets are up to 223,000. Neutrophils are 75.1. Sodium is 137. Potassium 3.6. Carbon dioxide is 25. BUN is 3. Creatinine 0.4. GFR greater than 60. Glucose is 94. Lactic acid was obtained yesterday and is 0.7. Calcium is 7.5. Magnesium 1.9. Bilirubin 0.4. AST is 10, ALT 9, alkaline phosphatase 93. CRP is up to 23.9. Protein 4.7. Albumin is 1.4. Dr. Delvalle, attending hospitalist, and to assess patient as well. Overall no major changes. We will resume IV fluids, keep patient on clear liquid diet, and continue to monitor. 01/30/2021 This is a 35-year-old female who was admitted to the floor due to significant watery diarrhea and abdominal pain. She was found to be E. coli 0157+ and Shiga toxin positive. Throughout her stay thus far she has had waxing and waning of her symptoms. Today she reports that her diarrhea has greatly improved and she is no longer having hematochezia, however she continues to have significant bowel pain. She has been up ambulating. She was made n.p.o. this morning while a CT of the abdomen and pelvis with IV and oral contrast was obtained. Prior to obtaining scan discussion was had between Dr. Platt, attending hospitalist and also Dr. Gordon, radiologist. As there are rather significant concerns for possible perforation. Risk versus benefit was discussed with the patient and she ultimately agrees to the scan. CT scan returns showing improved pancolitis but with mildly increased ascites and new bilateral pleural effusions, probably related to the presence of ascites. No intra-abdominal abscess is noted. Patient was on 75 mL an hour of lactated Ringer's will slow this down to 50 cc an hour. Clear liquid diet was resumed. Dr. Bueno, general surgeon, was consulted. Labs obtained today showing improvement in WBC to 19.39. Hemoglobin is 10.2. Platelets are 281,000. Neutrophils are 76.3%. Sodium is 136. Potassium is 3.4 and will be supplemented with potassium riders. Chloride is 102. Carbon dioxide 26. Anion gap is 11.4. BUN is 5. Creatinine 0.5. GFR greater than 60. Glucose is 81. Lactic acid 0.5. Calcium 7.5. Magnesium 2.1. Bilirubin 0.4. AST is 14, ALT 14, alkaline phosphatase 112. CRP is up to 25. Protein is improved to 5.0. Albumin is 1.4. We will continue current treatment plan recheck labs in the morning. No current concerns for HUS. 01/31/2021 35-year-old female admitted for abdominal pain and bloody diarrhea stools. She was found to be positive for E. coli 0157+. Has had significant amount of abdominal pain, nausea and vomiting. She states that she did have stool today it was soft and she did not note any blood in it. She however continues to have significant generalized abdominal pain primarily located in the lower quadrants. Has been up ambulating and states she is passing a fair amount of gas. Was on clear liquids yesterday and tolerated that well. Dr. Bueno, general surgeon, was consulted yesterday. Progress note today recommends advancing diet to regular and to discontinue the IV fluids. Labs today reveal a WBC of 16.91, hemoglobin 10.8, hematocrit 31.8, platelet count 284,000, neutrophil percentage 78.1, sodium 134, potassium 3.4, chloride 100, anion gap of 14.4, BUN 5, creatinine 0.5, GFR greater than 60, glucose 83, calcium 7.5, magnesium 2.0, C- reactive protein 18.4, total protein 5.4, albumin 1.5. Continue current treatment and recheck labs in the a.m. Patient does screen out as a septic risk due to elevated white count and tachycardia however I do not believe that she is septic. 02/01/2021 35-year-old female minute for abdominal pain and bloody stools was found to be positive for E. coli 0157. Continues to report significant abdominal pain. She remains distended but this does appear to have improved. She has been tolerating her feeds well. States she has had no bowel movements or flatus today. Potassium is low today and she will be supplemented with 6 potassium riders. She does not tolerate this well through the IV we will put on a minimal amount of IV fluids long enough to get these in. Given her GI situation we will not supplement via p.o. at this time. She continues to urinate. Labs today show quite an improvement: WBC 10.69. Hemoglobin 9.3. Platelet 261,000. Neutrophils 62.2. Sodium 135. Potassium 3.1. Chloride 103. Carbon oxide 24. Anion gap 11.1. BUN 4. Creatinine 0.4. GFR greater than 60. Glucose 90. Lactic acid 0.3. Calcium 7.1. Magnesium 1.9. Total bilirubin 0.4. AST 57, ALT 51, alkaline phosphatase 92. CRP is 10.0. Protein 4.8. Albumin 1.3. Beti mcclelland does have quite a bit of ascites in her abdomen. It is anticipated that she will auto diuresis although we may need to give Lasix in the next day or 2. We will continue current treatment plan. Patient was on oxycodone 10 mg which she reports made her itchy plan was to switch to [place] however patient states that that made her nauseous and she did vomit several times when she has received this in the past. This was prior to current hospitalization. We will therefore decrease the oxycodone dosing and see how she does. Unknown length of stay as it will depend on when patient can tolerate only p.o. pain medications and her diet. 02/02/2021 This is a 35-year-old female admitted for dysentery who also happens to be 6 weeks . She was positive for E. coli 157 with Shiga toxin. Overall she has been doing much better. She does complain of rather significant abdominal pain. Attempted to go without IV pain meds overnight as her IV had infiltrated and ultimately this needed to be replaced as she required Dilaudid. Today she has been using minimal pain medications. Reports her abdominal pain has improved. No current bloody diarrhea. Nausea and vomiting have improved. She does report significant abdominal pain with ambulation. Labs today show a dramatic improvement with a WBC of 8.51. Hemoglobin 8.8. Platelet 239,000. Neutrophils 60.6%. Sodium 135. Potassium 4.0. BUN 5. Creatinine 0.5. GFR greater than 60. Calcium 7.3. Magnesium 1.9. Bilirubin 0.3. AST is 48, ALT 63, alkaline phosphatase 82. CRP is down to 7.5. Albumin is up to 1.4. Protein is up to 4.9. Given her continued ascites and abdominal distention we will give 20 mg IV push Lasix today. We will continue to work on weaning pain medications and monitor labs. Hopeful discharge in 1 to 2 days. 02/03/2021 35-year-old female admitted for E. coli 0157 dysentery. Overall patient continues to improve. WBC is 7.86. Hemoglobin is up to 9.8. Hematocrit 29.9. Platelets are up to 268,000. Neutrophils are 55.9. Smear is normal. Sodium is 136. Potassium 4.0. Chloride 103. Carbon dioxide 25. Anion gap is 12.0. BUN is 4. Creatinine 0.4. GFR greater than 60. Glucose is 95. Calcium 7.8. Magnesium 2.0. Total bilirubin 0.2. AST is down to 43, ALT is down to 61. Alkaline phosphatase is 83. CRP is down to 5.7. Protein is up to 5.7. Albumin up to 1.8. Patient's abdomen does appear much less distended and more soft. Patient does report significant pain with ambulation but pain is controlled while laying in bed. We have been encouraging oral pain medications however patient notes that oxycodone makes her itchy and [place] makes her nauseous. We have been encouraging avoiding IV Dilaudid for pain control and per the patient she has been trying to avoid it is much as she can. From a medical standpoint patient will be ready for discharge once pain is controlled. She continues to rapidly improve. She is been tolerating a regular diet. - Plan Plan:: Nausea and vomiting, resolved Abdominal pain, improved Dysentery, Resolved Bacterial enteritis, unspecified Shiga toxin E. coli 0157 Leukocytosis, Resolved Volume depletion, resolved Fluid overload,resolved Ascites; improving * Saline lock IV fluids * Antiemetics as ordered * Pain medications as ordered * Regular diet * Monitor labs * Scopolamine patch (Ok'd with S[employer] EFF[employer] TECHNICIAN Dr. Arreguin) * C-diff negative * Enteric isolation * Stool culture/shiga toxin - Negative shiga toxin 1&2 however positive E. Coli 0157 * Stool O&P - negative * Blood cultures negative thus far * As needed simethicone for gas pains * Dr. Bueno, general surgeon consulted abdominal pain only relieved with dilaudid; failed other pain control regimens Hypokalemia, resolved Hypomagnesemia, resolved * Supplement PRN * Monitor labs First trimester H/O unilateral salpingectomy History of uterine fibroid History of ectopic Subchorionic hemorrhage * Case discussed with Dr. Arreguin, SOUND EFFECTS TECHNICIAN * Ensure medications appropriate for * Follow-up at 10 weeks * Avoid intercourse until follow-up with S[employer] EFF[employer] TECHNICIAN due to subchorionic hemorrhage on OB US Discharge Recommendations Please follow up with primary care clinic and OBGYN 3-5 days following discharge Can call clinic upon discharge to set up ultrasound ([phone]) recommend obtaining ultrasound this week between 02/06-02/11 __ General Surgery Consult Recs Consult PN Assessment/Plan Problem List Initiated/Reviewed/Updated: Yes Plan: Surgical consult for patient with persistent abdominal pain and leukocytosis after admission with infectious colitis with Shiga toxin-producing E coli. She appears to be significantly volume-overloaded on today's CT scan, without clinical picture of significant pulmonary edema. She does not have an acute abdomen or any indication for surgical treatment at this time. If diarrhea and leukocytosis persist, recommend re-checking for C difficile toxin since patient did receive antibiotics on admission and has been hospitalized for a few days. The patient is young and healthy, and as inflammation resolves she should begin to auto-diurese. Recommend no use of diuretics unless patient appears to be symptomatic from volume overload. Recommend stopping IV fluids and trial of regular diet as patient now has an appetite. Consult PN Assessment/Plan Problem List Initiated/Reviewed/Updated: Yes Plan: 5 week Discussed with family and patient too early to be certain of viability. Reassurance provided. Ultrasound in 10 days. Can call clinic upon discharge to set up if desires ([phone]) Please let me know if any questions or concerns. Diagnosis: Stroke: No - Discharge Data Discharge Date: 02/05/21 Discharge Disposition: Home, Self-Care 01 Condition: Good - Referral to Home Health Primary Care Physician: PCP None - Patient Summary/Data Consults: Consultations 01/25/21 15:15 Consult to Physician [CONS] Routine 01/30/21 13:50 Consult to Physician [CONS] Routine 01/31/21 08:20 Consult to Dietary [Consult to Urologist Md] [CONS] Routine - Patient Instructions Notify Provider of: Fever, Increased Pain, Swelling and Redness, Nausea and/or Vomiting - Discharge Plan *PRESCRIPTION DRUG MONITORING PROGRAM REVIEWED*: Not Applicable *COPY OF PRESCRIPTION DRUG MONITORING REPORT IN PATIENT JU: Not Applicable Prescriptions/Med Rec: HYDROmorphone [Dilaudid] 2 mg PO Q8H PRN #15 tab PRN Reason: Pain (Severe 7-10) Home Medications: Home Meds HYDROmorphone [Dilaudid] 2 mg PO Q8H PRN #15 tab 02/05/21 [Rx] Patient Handouts: Colitis, Bloody Diarrhea Referrals: PCP,None [Primary Care Provider] - (Patient does not want us to make appt. for her she will do it her self) - Discharge Summary/Plan Comment DC Time >30 min.: Yes (45 minutes) Total # of Minutes for Discharge Time: 45 minutes - Review of Systems General: Reports: No Symptoms, Weakness HEENT: Reports: No Symptoms Pulmonary: Reports: No Symptoms Cardiovascular: Reports: No Symptoms Gastrointestinal: Reports: No Symptoms Musculoskeletal: Reports: No Symptoms Skin: Reports: No Symptoms Neurological: Reports: No Symptoms - Patient Data Vitals - Most Recent: Last Vital Signs Temp 98.6 F 02/05/21 08:22 Pulse 78 02/05/21 08:22 Resp 14 02/05/21 08:22 BP 93/58 L 02/05/21 08:22 Pulse Ox 96 02/05/21 08:22 Weight - Most Recent: 136 lb 14.4 oz I&O - Last 24 hours: Intake & Output 02/04/21 02/05/21 02/05/21 22:59 06:59 14:59 Intake Total 1680 800 Output Total 1650 1725 Balance 30 -925 Med Orders - Current: Current Medications Acetaminophen (Acetaminophen 325 Mg Tab) 650 mg PO Q4H PRN PRN Reason: Pain (Mild 1-3)/fever Last Admin: 02/04/21 12:22 Dose: 650 mg Documented by: Hydromorphone HCl (Hydromorphone 2 Mg Tab) 2 mg PO Q3H PRN PRN Reason: Pain (severe 7-10) Last Admin: 02/05/21 05:50 Dose: 2 mg Documented by: Hydromorphone HCl (Hydromorphone 2 Mg Tab) 2 mg PO BEDTIME ELIANA Last Admin: 02/04/21 20:28 Dose: 2 mg Documented by: Melatonin (Melatonin 3 Mg Tab) 6 mg PO BEDTIME ELIANA Last Admin: 02/04/21 20:28 Dose: 6 mg Documented by: Ondansetron HCl (Ondansetron 4 Mg/2 Ml Sdv) 4 mg IV Q6H PRN PRN Reason: Nausea/Vomiting Last Admin: 01/29/21 11:12 Dose: 4 mg Documented by: Scopolamine (Scopolamine 1.5 Mg Transdermal Patch) 1.5 mg TRDERM Q72H PRN PRN Reason: Nausea Last Admin: 02/04/21 15:41 Dose: 1.5 mg Documented by: Simethicone (Simethicone 80 Mg Tab.Chew) 160 mg PO TID PRN PRN Reason: Bloating/gas Last Admin: 02/04/21 10:32 Dose: 160 mg Documented by: Sodium Chloride (Sodium Chloride 0.9% 10 Ml Syringe) 10 ml FLUSH ONETIME PRN PRN Reason: Keep Vein Open Last Admin: 01/30/21 10:10 Dose: 10 ml Documented by: Discontinued Medications Hydrocodone Bitart/Acetaminophen (Acetaminophen/Hydrocodone 325-5 Mg Tab) 1 - 2 tab PO Q4H PRN PRN Reason: Pain (moderate 4-6) Diatrizoate Meglum/Diatrizoate Sod (Diatrizoate Meglumine/Diatrizoate Sodium 37% 120 Ml Bottle) 40 ml PO ONETIME ONE Stop: 01/30/21 08:33 Last Admin: 01/30/21 10:10 Dose: 45 ml Documented by: Furosemide (Furosemide 20 Mg/2 Ml Vial) 20 mg IVPUSH ONETIME ONE Stop: 02/02/21 11:36 Last Admin: 02/02/21 11:46 Dose: 20 mg Documented by: Furosemide (Furosemide 20 Mg/2 Ml Vial) 20 mg IVPUSH NOW ONE Stop: 02/03/21 12:46 Last Admin: 02/03/21 13:06 Dose: 20 mg Documented by: Hydromorphone HCl (Hydromorphone 0.5 Mg/0.5 Ml Syringe) 0.5 mg IVPUSH ONETIME ONE Stop: 01/25/21 07:31 Last Admin: 01/25/21 07:41 Dose: 0.5 mg Documented by: Hydromorphone HCl (Hydromorphone 0.5 Mg/0.5 Ml Syringe) 0.5 mg IVPUSH ONETIME ONE Stop: 01/25/21 08:32 Last Admin: 01/25/21 08:30 Dose: 0.5 mg Documented by: Hydromorphone HCl (Hydromorphone 0.5 Mg/0.5 Ml Syringe) 0.5 mg IVPUSH ONETIME ONE Stop: 01/25/21 09:28 Last Admin: 01/25/21 09:30 Dose: 0.5 mg Documented by: Hydromorphone HCl (Hydromorphone 0.5 Mg/0.5 Ml Syringe) 0.5 mg IVPUSH ONETIME ONE Stop: 01/25/21 10:22 Last Admin: 01/25/21 10:30 Dose: 0.5 mg Documented by: Hydromorphone HCl (Hydromorphone 0.5 Mg/0.5 Ml Syringe) 0.5 mg IVPUSH ONETIME ONE Stop: 01/25/21 12:27 Last Admin: 01/25/21 12:33 Dose: 0.5 mg Documented by: Hydromorphone HCl (Hydromorphone 0.5 Mg/0.5 Ml Syringe) 0.5 mg IVPUSH Q2H PRN PRN Reason: Pain (severe 7-10) Last Admin: 01/25/21 13:52 Dose: 0.5 mg Documented by: Hydromorphone HCl (Hydromorphone 1 Mg/Ml Syringe) 1 mg IVPUSH Q2H PRN PRN Reason: Pain (severe 7-10) Hydromorphone HCl (Hydromorphone 1 Mg/Ml Syringe) 1 mg IVPUSH Q1H PRN PRN Reason: Pain (severe 7-10) Last Admin: 02/03/21 23:55 Dose: 1 mg Documented by: Hydromorphone HCl (Hydromorphone 2 Mg Tab) 2 mg PO DAILY [facility], [facility]1983 Dextrose/Sodium Chloride (Dextrose 5%-Normal Saline) 1,000 mls @ 999 mls/hr IV ASDIRECTED ELIANA Last Admin: 01/25/21 07:43 Dose: 999 mls/hr Documented by: Metronidazole 500 mg/ Premix 100 mls @ 100 mls/hr IV ONETIME ONE Stop: 01/25/21 09:24 Last Admin: 01/25/21 08:42 Dose: Not Given Documented by: Azithromycin 500 mg/ Sodium (Chloride) 250 mls @ 250 mls/hr IV ONETIME ONE Stop: 01/25/21 10:27 Last Admin: 01/25/21 09:41 Dose: 250 mls/hr Documented by: Dextrose/Lactated Ringer's (Dextrose 5%-Lactated Ringers) 1,000 mls @ 125 mls/hr IV ASDIRECTED [facility], [facility]–1983 Last Admin: 01/28/21 11:37 Dose: 125 mls/hr Documented by: Piperacillin Sod/Tazobactam (Sod 4.5 gm/ Sodium Chloride) 100 mls @ 25 mls/hr IV Q8H [facility], [facility]–1983 Last Admin: 01/26/21 05:04 Dose: 25 mls/hr Documented by: Piperacillin Sod/Tazobactam (Sod 4.5 gm/ Sodium Chloride) 100 mls @ 200 mls/hr IV ONETIME ONE Stop: 01/25/21 13:29 Last Admin: 01/25/21 13:55 Dose: 200 mls/hr Documented by: Magnesium Sulfate 2 gm/ Premix 50 mls @ 25 mls/hr IV ONETIME ONE Stop: 01/25/21 15:29 Last Admin: 01/25/21 14:31 Dose: 25 mls/hr Documented by: Potassium Chloride 10 meq/ (Premix) 100 mls @ 100 mls/hr IV Q1H [facility]1983 Stop: 01/25/21 17:29 Last Admin: 01/25/21 18:38 Dose: 100 mls/hr Documented by: Lactated Ringer's (Ringers, Lactated) 1,000 mls @ 999 mls/hr IV ONETIME ONE Stop: 01/26/21 09:18 Last Admin: 01/26/21 08:44 Dose: 999 mls/hr Documented by: Lactated Ringer's (Ringers, Lactated) 500 mls @ 999 mls/hr IV .BOLUS ONE Stop: 01/27/21 07:12 Last Admin: 01/27/21 07:07 Dose: 999 mls/hr Documented by: Magnesium Sulfate 4 gm/ Premix 50 mls @ 12.5 mls/hr IV ONETIME ONE Stop: 01/27/21 12:52 Last Admin: 01/27/21 09:31 Dose: 12.5 mls/hr Documented by: Potassium Chloride 10 meq/ (Premix) 100 mls @ 100 mls/hr IV Q1H [facility], [facility]1983 Stop: 01/27/21 12:59 Last Admin: 01/27/21 14:46 Dose: 100 mls/hr Documented by: Lactated Ringer's (Ringers, Lactated) 500 mls @ 999 mls/hr IV .BOLUS ONE Stop: 01/27/21 09:36 Last Admin: 01/27/21 09:30 Dose: 999 mls/hr Documented by: Potassium Chloride 10 meq/ (Premix) 100 mls @ 100 mls/hr IV Q1H [facility], [facility]1983 Stop: 01/28/21 15:29 Last Admin: 01/28/21 16:42 Dose: 100 mls/hr Documented by: Lactated Ringer's (Ringers, Lactated) 500 mls @ 999 mls/hr IV .BOLUS ONE Stop: 01/29/21 11:58 Last Admin: 01/29/21 11:57 Dose: 999 mls/hr Documented by: Lactated Ringer's (Ringers, Lactated) 1,000 mls @ 75 mls/hr IV ASDIRECTED [facility], [facility]–1983 Last Admin: 01/30/21 11:26 Dose: 75 mls/hr Documented by: Lactated Ringer's (Ringers, Lactated) 500 mls @ 999 mls/hr IV .BOLUS ONE Stop: 01/29/21 13:45 Last Admin: 01/29/21 13:36 Dose: 999 mls/hr Documented by: Potassium Chloride 10 meq/ (Premix) 100 mls @ 100 mls/hr IV Q1H [facility], [facility]1983 Stop: 01/30/21 11:29 Last Admin: 01/30/21 12:45 Dose: 100 mls/hr Documented by: Lactated Ringer's (Ringers, Lactated) 1,000 mls @ 50 mls/hr IV ASDIRECTED [facility], [facility]–1983 Last Admin: 01/31/21 05:39 Dose: 50 mls/hr Documented by: Potassium Chloride 10 meq/ (Premix) 100 mls @ 100 mls/hr IV Q1H [facility]1983 Stop: 02/01/21 13:14 Last Admin: 02/01/21 16:59 Dose: Not Given Documented by: Sodium Chloride (Normal Saline) 1,000 mls @ 25 mls/hr IV ASDIRECTED [facility], [facility]–1983 Last Admin: 02/01/21 09:44 Dose: 25 mls/hr Documented by: Iopamidol (Iopamidol 612 Mg/Ml 100 Ml Bottle) 100 ml IVPUSH ONETIME ONE Stop: 01/30/21 08:33 Last Admin: 01/30/21 10:10 Dose: 100 ml Documented by: Loperamide HCl (Loperamide 2 Mg Cap) 2 mg PO ONETIME ONE Stop: 01/25/21 12:27 Last Admin: 01/25/21 12:31 Dose: 2 mg Documented by: Metoclopramide HCl (Metoclopramide 10 Mg/2 Ml Sdv) 7.5 mg IVPUSH ONETIME ONE Stop: 01/25/21 07:30 Last Admin: 01/25/21 07:39 Dose: 7.5 mg Documented by: Miscellaneous Information (Remove Replace Scopolamine Patch) 1 ea TRDERM Q72H [facility], [facility]1983 Last Admin: 01/31/21 16:57 Dose: 1 ea Documented by: Miscellaneous Information (Remove Patch) 0 ea TRDERM ONETIME ONE Stop: 02/01/21 17:31 Last Admin: 02/01/21 18:29 Dose: Not Given Documented by: Oxycodone HCl (Oxycodone 5 Mg Tab) 10 mg PO Q4H PRN PRN Reason: Pain (moderate 4-6) Oxycodone HCl (Oxycodone 5 Mg Tab) 5 mg PO Q4H PRN PRN Reason: Pain (moderate 4-6) Last Admin: 01/26/21 01:50 Dose: 5 mg Documented by: Oxycodone HCl (Oxycodone 5 Mg Tab) 10 mg PO Q4H PRN PRN Reason: Pain (moderate 4-6) Oxycodone HCl (Oxycodone 5 Mg Tab) 5 mg PO Q4H PRN PRN Reason: Pain (moderate 4-6) Last Admin: 02/01/21 21:40 Dose: 5 mg Documented by: Potassium Chloride (Potassium Chloride 20 Meq Tab.Er) 40 meq PO BID [facility], [facility]1983 Stop: 02/02/21 09:01 Potassium Chloride (Potassium Chloride 20 Meq Tab.Er) 40 meq PO BID@0700,1100 [facility], [facility]1983 Stop: 02/02/21 11:01 Last Admin: 02/02/21 10:43 Dose: 40 meq Documented by: Scopolamine (Scopolamine 1.5 Mg Transdermal Patch) 1.5 mg TRDERM Q72H [facility]1983 Last Admin: 01/31/21 16:57 Dose: 1.5 mg Documented by: Tramadol HCl (Tramadol 50 Mg Tab) 50 mg PO Q6H PRN PRN Reason: Pain Last Admin: 02/03/21 13:16 Dose: 50 mg Documented by: - Exam General: Reports: Alert, Oriented HEENT: Reports: Mucous Membr. Moist/[place] Neck: Reports: Supple Lungs: Reports: Clear to Auscultation, Normal Respiratory Effort Cardiovascular: Reports: Regular Rate, Regular Rhythm GI/Abdominal Exam: Soft, Non-Tender, No Distention Extremities: Normal Inspection Skin: Reports: Warm, Dry, Intact Neurological: Reports: No New Focal Deficit Psy/Mental Status: Reports: Alert, Normal Affect, Normal Mood *Q Meaningful Use (DIS) - VTE *Q VTE Criteria *Q: 1
== END 2021-02-05 11:40 | disposition home or self-care (01) | DRG 832 ==
LOC: JD.ED 07:02 → JD.MS 12:06
PROVIDERS: ADMIT Hospitalist; ATTEND Hospitalist
DX: O99.611 Diseases of the digestive system complicating pregnancy, first trimester (principal); R18.8 Other ascites; A04.4 Other intestinal Escherichia coli infections; Z3A.01 Less than 8 weeks gestation of pregnancy; B96.21 Shiga toxin-producing Escherichia coli [E. coli] [STEC] O157 as the cause of diseases classified elsewhere; R14.0 Abdominal distension (gaseous); O99.281 Endocrine, nutritional and metabolic diseases complicating pregnancy, first trimester; O20.8 Other hemorrhage in early pregnancy; E87.6 Hypokalemia; E83.42 Hypomagnesemia; Z88.1 Allergy status to other antibiotic agents; Z87.891 Personal history of nicotine dependence; E87.70 Fluid overload, unspecified; Z20.822 Contact with and (suspected) exposure to COVID-19
CPT/HCPCS: 36415; 74176; 74176-26; 74177; 74177-26; 76700; 76700-26; 76817; 76817-26; 80053; 81003; 82947; 83010; 83605; 83630; 83690; 83735; 84702; 84703; 85025; 85610; 85730; 86140; 87040; 87045; 87046; 87328; 87329; 87493; 87505; 87507; 87899; 96365; 96375; 96376; 99223; 99233; 99239; 99285; 99285-25; A9270-GY; J0456; J1170; J1940; J2405; J2543; J2765; J3475; J3480; J7030; J7042; J7050; J7120; J7121; Q9963; Q9967; U0002

== ENCOUNTER 2024-11-23 21:34 | Emergency (ER) | payer OTHER ==
[2024-11-23] MEDS ORDERED: Penicillin V Potassium 500 MG Tab PO ONE (22:02)
[2024-11-23] MEDS ORDERED: Sodium Chloride 0.9% 10 ML Syringe FLUSH PRN (22:02)
[2024-11-23 22:23] LABS: BASOPHILS ABSOLUTE AUTO 0.1 K/mm3 (0.0-0.2); BASOPHILS PERCENT AUTO 0.8 % (0.0-1.0); EOSINOPHILS ABSOLUTE AUTO 0.3 K/mm3 (0.0-0.4); EOSINOPHILS PERCENT AUTO 3.4 % (0.0-6.0); HEMOGLOBIN 11.2 gm/dl (12.0-16.0); IMMATURE GRAN ABSOLUTE AUTO 0.01 K/mm3 (0.00-0.05); IMMATURE GRAN PERCENT AUTO 0.1 % (0.0-0.4); LYMPHOCYTES ABSOLUTE AUTO 3.5 K/mm3 (1.0-4.8); LYMPHOCYTES PERCENT AUTO 46.9 % (24.0-44.0); MEAN CORPUSCULAR HEMOGLOBIN 30.9 pg (28.0-32.0); MEAN CORPUSCULAR HGB CONC 32.9 g/dl (32.0-36.0); MEAN CORPUSCULAR VOLUME 93.9 fl (83.0-99.0); MEAN PLATELET VOLUME 10.9 fl (9.4-12.3); MONOCYTES ABSOLUTE AUTO 0.5 K/mm3 (0.0-0.8); MONOCYTES PERCENT AUTO 7.3 % (0.0-8.0); NEUTROPHILS ABSOLUTE AUTO 3.1 K/mm3 (1.8-7.7); NEUTROPHILS PERCENT AUTO 41.5 % (41.0-71.0); PLATELET COUNT,PLT 277 K/mm3 (150-400); RED BLOOD CELL COUNT 3.62 M/mm3 (4.10-5.30); WHITE BLOOD CELL COUNT,WBC 7.37 K/mm3 (3.9-11.3)
[2024-11-23] MEDS: Clindamycin HCl 150 MG Cap PO ONE (22:47)
[2024-11-23 22:54] LABS: A/G RATIO 0.9 (1-2); ALANINE AMINOTRANSFERASE,ALT 17 U/L (14-59); ALBUMIN 3.1 g/dl (3.4-5.0); ALKALINE PHOSPHATASE 41 U/L (46-116); ANION GAP 10.1 (5-15); ASPARTATE AMNIOTRANSFERASE,AST 14 U/L (15-37); BILIRUBIN TOTAL 0.3 mg/dL (0.2-1.0); BLOOD UREA NITROGEN,BUN 7 mg/dL (7-18); CALCIUM 8.4 mg/dL (8.5-10.1); CARBON DIOXIDE,CO2 27 mEq/L (21-32); CHLORIDE,CL 98 mEq/L (98-107); CREATININE 0.7 mg/dL (0.55-1.02); EST CRCL DRUG DOSING (CG) 108.85 mL/min; ESTIMATED GFR 113 mL/min (>60); GLUCOSE RANDOM 103 mg/dL (70-99); LIPASE 38 U/L (16-77); POTASSIUM,K 3.1 mEq/L (3.5-5.1); PROTEIN TOTAL,TP 6.5 g/dl (6.4-8.2); SODIUM,NA 132 mEq/L (136-145)
[2024-11-23 22:56] LABS: TROPONIN I HIGH SENSITIVITY < 4 pg/mL (<=51)
[2024-11-23] MEDS: Ketorolac 30 MG/ML SDV IM ONE (23:03)
[2024-11-23] MEDS ORDERED: Acetaminophen 325 MG Tab PO ONE (23:42)
[2024-11-24] MEDS: Acetaminophen/HYDROcodone 325-5 MG Tab PO ONE (00:10)
[2024-11-24] MEDS: Potassium Chloride 20 MEQ Tab.ER PO ONE (00:10)
== END 2024-11-24 00:20 | disposition home or self-care (01) ==
LOC: JD.ED 21:34
DX: K02.9 Dental caries, unspecified (principal); R07.9 Chest pain, unspecified; Z88.0 Allergy status to penicillin; Z79.899 Other long term (current) drug therapy
CPT/HCPCS: 36415; 71045; 80053; 83690; 84484; 84703; 85025; 93005; 96372; 99285; A9270; J1885; 93010; 99284